=== PATIENT | female | born 1985 | race Caucasian/White ===

== ENCOUNTER 2018-11-11 18:29 | Inpatient (IN) | payer OTHER, SELFPAY ==
[2018-11-11 18:30] VITALS: BP 139/107; PULSE 82; RESP 16; TEMP 37.1; O2SAT 100; BMI 19.1
--- NOTE | 2018-11-11 18:49 | CT_ITS ---
STUDY: CT ABDOMEN AND PELVIS WITHOUT CONTRAST REASON FOR EXAM: Female, 33 years old. Left flank pain, unable to urinate RADIATION DOSAGE (If Supplied By Facility): CTDIvol = ( 6.10 ) mGy, DLP = ( 287.87 ) mGycm TECHNIQUE: Transaxial images were obtained from the dome of the diaphragm to the symphysis pubis without oral contrast, and without intravenous contrast. Sagittal and coronal images were reconstructed. Individualized dose optimization techniques were used for this CT. COMPARISON: None. FINDINGS: The visualized lung bases are unremarkable. The visualized portions of the heart are within normal limits. Normal liver. Normal gallbladder and extrahepatic biliary system. Normal spleen. Normal pancreas. Normal bilateral adrenal glands. There are small punctate calcifications of each kidney. Mild left hydronephrosis with a 4 mm calculus (visible on records management assistant topogram) in the region of the left UVJ. No renal masses. Normal visualized stomach. Normal small intestine. Normal colon. The appendix is visualized and appears normal. Normal abdominal aorta. Normal inferior vena cava. Normal retroperitoneum. Normal urinary bladder. There is fluid in the endometrial canal but no pelvic masses are seen. Normal abdominal wall. Normal osseous structures. CT/Abdomen/Pelvis without Cont IMPRESSION: 1. 4 mm left UVJ calculus with mild hydronephrosis. 2. Bilateral nephrolithiasis. Electronically Signed: Khoa Rodriguez MD at 20:43 EST , Service support ,
[2018-11-11] MEDS: 0.9% Normal Saline 1,000 ML 150 ML IV ×2 (18:54→23:13)
[2018-11-11] MEDS: Ondansetron 4 MG/2 ML Vial IV (18:55)
[2018-11-11] MEDS: HYDROmorphone 1 MG/ML Syringe IV ×2 (18:55→19:32)
[2018-11-11] MEDS: Ketorolac 15 MG/ML Vial IV ×2 (18:56→23:14)
[2018-11-11 19:09] LABS: Absolute Lymphocyte Count 0.93 X10^3/ul (0.83-4.51); Basophil# 0.01 X10^3/uL; Basophil% 0.1 % (0-1); Hematocrit 41.5 % (37-47); Lymphocyte # 0.93 X10^3/ul (4.0); Lymphocyte % 13.8 % (19-41); Mean Corp Hgb Conc 33.7 g/gl (32-36); Mean Corpuscular Hgb 30.8 pg (27.0-32.0); Mean Corpuscular Volume 91.2 fL (81-99); Mean Platelet Vol. 9.7 fl (6.2-12.0); Monocyte# 0.82 X10^3/uL; Monocyte% 12.2 % (0-10); Neutrophil # 4.97 X10^3/uL (2.7-7.7); Neutrophil % 73.8 % (47-70); Platelet Count 218 K/mm3 (150-450); RBC Distribution Width CV 12.1 % (11.6-14.6); RBC Distribution Width SD 40.5 fl (35.1-43.9); Red Blood Count 4.55 M/mm3 (4.2-5.4); White Blood Count 6.7 K/mm3 (4.4-11.0)
--- NOTE | 2018-11-11 19:09 | ED.RN ---
BLADDER SCANNED PT PRIOR TO GOING TO RESTROOM. 60ML NOTED.
[2018-11-11 19:11] LABS: POSITIVE COUNT NO; POSITIVE DIFFERENTIAL NO; POSITIVE MORPHOLOGY NO
[2018-11-11 19:35] LABS: BUN 11 mg/dL (7-18); Creatinine, Serum 0.83 mg/dL (0.55-1.02); Estimated Creatinine Clearance 73.86 ml/min; Glucose 110 mg/dL (74-106)
[2018-11-11 19:36] LABS: Anion Gap 9 (5-15); BUN/Creat Ratio 13.2 RATIO (10-20); Calcium,Total 8.4 mg/dL (8.5-10.1); Chloride 101 mmol/L (98-107); EST Glomerular Filtration Rate 83 mL/min (>60); Est Glom Filt Rate - Afr Amer 101 mL/min (>60); Potassium 2.8 mmol/L (3.5-5.1); Sodium Level 136 mmol/L (136-145)
[2018-11-11 19:53] LABS: Pregnancy, Serum, hCG Quali. NEGATIVE Negative (0-9 Nonpreg)
[2018-11-11 20:43] VITALS: RESP 14
[2018-11-11 20:45] LABS: Bacteria 0 SEEN /hpf (None Seen)
[2018-11-11 20:54] LABS: Color, Urine Yellow (Yellow); Glucose, Dipstick Normal (Normal); Leukocyte Esterase-Dipstick 25 /ul (Negative); Nitrite-Dipstick Negative (Negative); Occult Blood-Urine 250 /ul (Negative); Protein-Dipstick 30 mg/dl (Negative); Specific Gravity, Urine 1.015 (1.002-1.030); Urine Clarity Cloudy (Clear); Urine Urobilinogen 1 mg/dl (Normal); Urine pH 6.5 (5.0 - 8.0)
[2018-11-11 21:01] LABS: Urine Bilirubin Dipstick 1 mg/dL (Negative)
[2018-11-11 21:02] LABS: Ketone-Dipstick 150 mg/dl (Negative)
--- NOTE | 2018-11-11 21:18 | ED.VISSUMM ---
- ER Visit Summary Date of Service: 11/11/18 Chief Complaint: [Left flank pain] History of Present Illness: The patient is a 33 F [presents to the emergency department with complaint of left flank pain that started 2 days ago. Patient was seen and hemodynamically include facility and diagnosed with possibly a passed kidney stone and she was noted to have some stones in her left kidney as well. Patient was discharged home since being discharged she is noted that she is peeing small amounts she does not passing much urine and it has been bloody. Patient also complaining of severe pain in her left flank. She is been having nausea and vomiting. She denies any fever.] Physical Examination: [HEENT-PERRLA, EOMI. Cranial nerves II through XII grossly intact. TMs clear. Mucous membranes moist. No adenopathy. Cardiovascular-regular rate and rhythm without murmur or ectopy Lungs-clear to auscultation, chest wall stable without crepitus or subcu emphysema Abdomen-normoactive bowel sounds, soft. Patient has tenderness palpation over left lower quadrant. She has CVA tenderness on the left. Extremities-intact ?4, normal range of motion, normal pulses, atraumatic] Test Results: [CBC with differential obtained showed a white count 6.7, hemoglobin 14, hematocrit 41.5, platelets 218. Chemistries unremarkable other than a depressed potassium of 2.8. BUN was 11 creatinine 0.83. Urinalysis showed blood but no signs of infection. HCG was negative. CT flank showed a 4 mm stone at the left UVJ with mild hydro-.] Emergency Department Course and Treatment: [Patient was medicated with Toradol, Zofran, and Dilaudid. Patient continued to have pain and was given a repeat dose of Dilaudid. Patient was given potassium chloride 40 mEq p.o.] Treatment Plan: [Admit for pain control] Disposition: [Admit] Impression: [Left urolithiasis with intractable pain Hypokalemia] This note was generated with [employer] dictation software. It may contain incorrect words, spelling, and punctuation that were not noted in review of the chart prior to signing ED Disposition - Plan for ED Patient: Referrals: Care Physician,No Primary [Primary Care Provider] -
[2018-11-11 21:29] LABS: Mucous, Urine 1+ /hpf (<or=2+); Squamous Epithelial Cells - UA 0-5 SEEN /hpf (5-10)
[2018-11-11 21:30] LABS: Red Blood Cells-Urine > 100 SEEN /hpf (0-5)
[2018-11-11 21:32] LABS: White Blood Cells 0-5 SEEN /hpf (0-5)
--- NOTE | 2018-11-11 22:01 | HP.PCM_ITS ---
Problem List (1) Nephrolithiasis Status: Acute (2) Hematuria Status: Acute Qualifiers: Hematuria type: unspecified type Qualified Code(s): R31.9 - Hematuria, unspecified (3) Intractable pain Status: Acute History of Present Illness Date of Admission: 11/11/18 Chief Complaint: L flank pain, N/V The patient is a 33 y/o F w/ PMHx: Prior Hx Nephrolithiasis s/p lithotripsy and prior ureteral stent in her [address] Ivory otherwise relatively healthy who presents to the [facility] ED on 11/11/18 with history of onset left-sided flank pain as well as intermittent hematuria over the last week with the ED evaluation and Mendina and short admission on day of current presentation, discharged to home but had recurrent intractable left flank pain as well as nausea and emesis prompting reevaluation. Per discussion with patient at outside facility CT scan had been performed and there was no evidence of a ureteral stone at that time. In the ED workup included T 98.7, heart rate 82, BP 139/107, respiratory rate 16, 100% on room air, CBC with WBC 6.7, hemoglobin 14, platelet 218 with mild shift, BMP with potassium 2.8, glucose 110, negative testing, urinalysis with ascitic gravity 1.015, protein 30, ketones 150, occult blood 250, nitrite negative, urine bilirubin 1, urine urobilinogen 1, urine leukocyte esterase 25, RBC greater than 100, WBC 0-5, urine bacteria 0, CT abdomen and pelvis with a 4 mm left UVJ calculus with mild hydronephrosis with bilateral nephrolithiasis noted. In the ED patient administered potassium supplementation, Zofran, Toradol, Dilaudid, normal saline. Past Medical History Allergies amoxicillin [Amoxicillin] Allergy (Verified 11/11/18 18:29) Unknown chlorthalidone [From [place]] Allergy (Verified 11/11/18 18:29) Unknown nitrofurantoin [From Macrobid] Allergy (Verified 11/11/18 18:29) Unknown nitrofurantoin macrocrystalline [From Macrobid] Allergy (Verified 11/11/18 18:29) Unknown sulfamethoxazole [From Bactrim] Allergy (Verified 11/11/18 18:29) Swelling trimethoprim [From Bactrim] Allergy (Verified 11/11/18 18:29) Swelling Home Medications: Ambulatory Orders Medication Instructions Recorded Vits [Prenatabs FA ] 1 tablet PO DAILY 11/25/13 Cephalexin 500 mg PO 4X/DAY 11/11/18 Tamsulosin HCl 0.4 mg PO DAILY 11/11/18 Surgical History: - - Prior ureteral stent and lithotripsy. 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 Paternal History Items: - - Patient notes a paternal family history of hemochromatosis, hypertension, hyperlipidemia. Review of Systems Constitutional: Reports: Anorexia, Malaise, Weakness, Fatigue. Denies: Chills, Fever, Weight Change HEENT: Denies: Head Aches, Sinus Congestion, Sinus Drainage Cardiovascular: Denies: Chest Pain, Palpitations Respiratory: Denies: Cough, Shortness of breath at rest, Sputum production Gastrointestinal: Reports: Nausea, Vomiting. Denies: Abdominal Pain Genitourinary: Reports: Hematuria. Denies: Dysuria Musculoskeletal: Reports: Back Pain. Denies: Joint Pain, Joint Tenderness Skin: Denies: Rash, Wounds Neurological: Denies: Numbness, Tingling, Focal weakness Psychiatric: Denies: Anxiety, Depression, Homicidal Ideations, Suicidal Ideations Hematologic/ Lymphatic: Denies: Easy Bruising, Easy Bleeding VTE Information - Inpt Only VTE Present on Admission: No VTE Mechan Device Prophylaxis: Knee High KIMANI Hose VTE Pharm Prophylaxis ordered?: No Reason prophylaxis not ordered:: Treatment Not Indicated Patient Problems: Active and Suspected Problems Nephrolithiasis (Acute) Hematuria (Acute) Intractable pain (Acute) Subjective: Laying in the ED bed, fatigued appearing, notes ongoing left flank discomfort, emesis bag being held. Objective: Physical Examination: General: awake, alert, oriented x 3 and cooperative, laying in the ED bed, fatigued. Skin: normal color, turgor, no icterus, cyanosis. HEENT: AT/NC, EOMI, PERRLA, dry MM, no carotid bruits or JVD noted. Lungs: CTA bilaterally, moderate effort, mild decrease BL bases, no rales, ronchi or wheezing. Heart: Regular rate and rhythm; no gallop, rub audible. Abdomen: soft, NTTP, noted left flank tenderness with palpation, ND, B hyperactive BS, no HSM. Extremities: no cyanosis, clubbing, or edema. Neurological: patient awake, alert, oriented x 3; cognitive function intact; pupils equally reactive to light and accomodation; cranial nerves II-XII grossly normal, moving all 4 extremities, no focal deficits, strength moderately to severely globally decreased secondary to acute presentation. Psychiatric: affect appears fatigued, no acute evidence of depressive or anxiety feelings. - Physical Exam Vital Signs Temp Pulse Resp BP Pulse Ox 98.7 F 82 14 139/107 H 100 11/11/18 18:30 11/11/18 18:30 11/11/18 20:43 11/11/18 18:30 11/11/18 18:30 Weight: 108 lb Body Mass Index (BMI) 19.1 Laboratory Tests Past 24 Hrs 11/11/18 11/11/18 11/11/18 18:40 18:40 18:40 WBC 6.7 RBC 4.55 Hgb 14.0 Hct 41.5 MCV 91.2 MCH 30.8 MCHC 33.7 RDW 12.1 RDW Differential 40.5 Plt Count 218 MPV 9.7 Immature Gran % (Auto) 0.100 Neut % (Auto) 73.8 H Lymph % (Auto) 13.8 L [place] % (Auto) 12.2 H Eos % (Auto) 0.0 Baso % (Auto) 0.1 Absolute Neuts (auto) 5.0 Absolute Lymphs (auto) 0.93 Total Counted Not Reportable Sodium 136 Potassium 2.8 L Chloride 101 Carbon Dioxide 26.0 Anion Gap 9 BUN 11 Creatinine 0.83 Estim Creat Clear Calc 73.86 Est GFR (MDRD) Af Amer 101 Est GFR (MDRD) Non-Af 83 BUN/Creatinine Ratio 13.2 Glucose 110 H Calcium 8.4 L Serum , Qual NEGATIVE Urine Color Urine Clarity Urine pH Ur Specific [place] Urine Protein Urine Glucose (UA) Urine Ketones Urine Occult Blood Urine Nitrite Urine Bilirubin Urine Urobilinogen Ur Leukocyte Esterase Urine RBC Urine WBC Ur Squamous Epith Cells Urine Bacteria Urine Mucus 11/11/18 20:38 WBC RBC Hgb Hct MCV MCH MCHC RDW RDW Differential Plt Count MPV Immature Gran % (Auto) Neut % (Auto) Lymph % (Auto) [place] % (Auto) Eos % (Auto) Baso % (Auto) Absolute Neuts (auto) Absolute Lymphs (auto) Total Counted Sodium Potassium Chloride Carbon Dioxide Anion Gap BUN Creatinine Estim Creat Clear Calc Est GFR (MDRD) Af Amer Est GFR (MDRD) Non-Af BUN/Creatinine Ratio Glucose Calcium Serum , Qual Urine Color Yellow Urine Clarity Cloudy Urine pH 6.5 Ur Specific [place] 1.015 Urine Protein 30 H Urine Glucose (UA) Normal Urine Ketones 150 H Urine Occult Blood 250 H Urine Nitrite Negative Urine Bilirubin 1 H Urine Urobilinogen 1 H Ur Leukocyte Esterase 25 H Urine RBC > 100 SEEN Urine WBC 0-5 SEEN Ur Squamous Epith Cells 0-5 SEEN Urine Bacteria 0 SEEN Urine Mucus 1+ Assessment/Plan All Active Problems Nephrolithiasis (Acute) Hematuria (Acute) Intractable pain (Acute) The patient is a 33 y/o F w/ PMHx: Prior Hx Nephrolithiasis s/p lithotripsy and prior ureteral stent in her [address]s [address] Ivory otherwise relatively healthy who presents to the [facility] ED on 11/11/18 with history of onset left-sided flank pain as well as intermittent hematuria over the last week with the ED evaluation and Mendina and short admission on day of current presentation, discharged to home but had recurrent intractable left flank pain as well as nausea and emesis prompting reevaluation. (1) Acute Flank Pain, Hematuria secondary to Acute Nephrolithiasis w/ Ureteral Calculus without obvious concurrent UTI: ED workup included T 98.7, heart rate 82, BP 139/107, respiratory rate 16, 100% on room air, CBC with WBC 6.7, hemoglobin 14, platelet 218 with mild shift, BMP with potassium 2.8, glucose 110, negative testing, urinalysis with ascitic gravity 1.015, protein 30, ketones 150, occult blood 250, nitrite negative, urine bilirubin 1, urine urobilinogen 1, urine leukocyte esterase 25, RBC greater than 100, WBC 0-5, urine bacteria 0, CT abdomen and pelvis with a 4 mm left UVJ calculus with mild hydronephrosis with bilateral nephrolithiasis noted. Will admit to [facility], maintain on aggressive hydration, given size suspect may pass, if not would plan AM consultation w/ Urology, will maintain NPO after midnight incase of intervention needs to avoid delay, IV/Oral pain regimen, scheduled toradol x 5 doses, PRN anti-emetics, monitor I&Os. Given size of calculus suspect will pass, thus as noted will defer immediate urology involvement. (2) Hypokalemia: Admission K+ 2.8, supplementation given, repeat level in AM. Mag pending. (3) GI Prophylaxis: Famotidine while NPO status. (4) DVT Prophylaxis: Low risk, KIMANI, ambulation. Code Visit OBSV E&M: [id number] Initial observation care L3
[2018-11-11 22:11] VITALS: BP 111/78; PULSE 61; RESP 18; O2SAT 99
[2018-11-11 22:12] VITALS: BP 111/78; PULSE 61; RESP 18; O2SAT 99
[2018-11-11 22:46] VITALS: BMI 19.3
[2018-11-11 22:48] VITALS: BMI 19.3
[2018-11-11 22:51] LABS: Magnesium 1.7 mg/dL (1.6-2.6)
[2018-11-11 22:53] VITALS: BP 118/74; PULSE 64; RESP 16; TEMP 36.8; O2SAT 100
[2018-11-11] MEDS: 0.9% NaCl Peripheral Flush Adult/Peds IV (23:13)
[2018-11-11] MEDS: Potassium Chloride 10mEq/100mL 10 MEQ/100 ML IV.SOLN. 100 MEQ IV BOLUS (23:14)
[2018-11-12] MEDS: oxyCODONE 5 MG Tablet PO (00:22)
[2018-11-12] MEDS: Potassium Chloride 10mEq/100mL 10 MEQ/100 ML IV.SOLN. 100 MEQ IV BOLUS (00:22)
[2018-11-12] MEDS: Temazepam 15 MG Capsule PO ×2 (00:23→22:16)
[2018-11-12 05:00] VITALS: BP 95/52; PULSE 64; RESP 14; TEMP 36.7; O2SAT 99
[2018-11-12] MEDS: Ketorolac 15 MG/ML Vial IV ×3 (05:18→22:16)
[2018-11-12] MEDS: 0.9% Normal Saline 1,000 ML 150 ML IV ×3 (05:18→18:07)
[2018-11-12 06:41] LABS: Absolute Lymphocyte Count 1.27 X10^3/ul (0.83-4.51); Absolute Neutrophil Count 1.4 X10^3/uL (2.0-7.7); Basophil# 0.01 X10^3/uL; Basophil% 0.3 % (0-1); Eosinophil# 0.05 X10^3/uL; Eosinophils% 1.6 % (0-5); Hematocrit 33.3 % (37-47); Hemoglobin 10.9 g/dl (12.0-15.0); Lymphocyte # 1.27 X10^3/ul (4.0); Lymphocyte % 39.6 % (19-41); Mean Corp Hgb Conc 32.7 g/gl (32-36); Mean Corpuscular Hgb 30.7 pg (27.0-32.0); Mean Corpuscular Volume 93.8 fL (81-99); Mean Platelet Vol. 9.7 fl (6.2-12.0); Monocyte# 0.49 X10^3/uL; Monocyte% 15.3 % (0-10); Neutrophil # 1.38 X10^3/uL (2.7-7.7); Neutrophil % 42.9 % (47-70); Platelet Count 179 K/mm3 (150-450); RBC Distribution Width CV 11.7 % (11.6-14.6); RBC Distribution Width SD 38.8 fl (35.1-43.9); Red Blood Count 3.55 M/mm3 (4.2-5.4); White Blood Count 3.2 K/mm3 (4.4-11.0)
[2018-11-12 06:47] LABS: POSITIVE COUNT NO; POSITIVE DIFFERENTIAL NO; POSITIVE MORPHOLOGY NO
[2018-11-12 06:49] LABS: Anion Gap 5 (5-15); BUN 7 mg/dL (7-18); BUN/Creat Ratio 13.8 RATIO (10-20); Calcium,Total 7.5 mg/dL (8.5-10.1); Chloride 113 mmol/L (98-107); Creatinine, Serum 0.51 mg/dL (0.55-1.02); EST Glomerular Filtration Rate 147 mL/min (>60); Est Glom Filt Rate - Afr Amer 178 mL/min (>60); Estimated Creatinine Clearance 121.32 ml/min; Glucose 90 mg/dL (74-106); Potassium 4.3 mmol/L (3.5-5.1); Sodium Level 144 mmol/L (136-145)
--- NOTE | 2018-11-12 07:22 | PN_ITS ---
Patient Problems: Active and Suspected Problems Nephrolithiasis (Acute) Hematuria (Acute) Intractable pain (Acute) Subjective: Patient is a 33-year-old lady with history of recurrent kidney stones with previous lithotripsy who presented with left flank pain. Imaging studies obtained on admission demonstrated a 4 mm left UVJ calculus with mild hydronephrosis and Bilateral nephrolithiasis. Objective: GENERAL: cooperative HEENT: Atraumatic; moist oral mucosa EYES; Anicteric, Normal Conjunctiva NECK; supple, normal thyroid, no distended JVD. RESPIRATORY: Diminished to auscultation bilaterally, CARDIOVASCULAR: Regular S1 S2, no audible murmurs GI: soft, non-tender, normoactive bowel sounds, : No Renal angle tenderness; EXTREMITIES: No edema, no clubbing, no cyanosis. MUSCULOSKELETAL: No Joint Tenderness; no muscle waisting NEURO: Awake; no lateralizing signs. SKIN: No Rash PSYCH; Normal affect Vitals/I&O's: Vital Signs Temp Pulse Resp BP Pulse Ox 98.0 F 64 14 95/52 L 99 11/12/18 05:00 11/12/18 05:00 11/12/18 05:00 11/12/18 05:00 11/12/18 05:00 Oxygen Delivery Method Room Air Weight: 49.442 kg Body Mass Index (BMI) 19.3 Intake and Output for Last 24 Hours 11/10/18 11/11/18 11/12/18 23:59 23:59 23:59 Intake Total 915 / 915 Output Total 975 / 975 Balance -60 / -60 Laboratory Results 11/11/18 18:40: WBC 6.7, RBC 4.55, Hgb 14.0, Hct 41.5, MCV 91.2, MCH 30.8, MCHC 33.7, RDW 12.1, RDW Differential 40.5, Plt Count 218, MPV 9.7, Immature Gran % (Auto) 0.100, Neut % (Auto) 73.8 H, Lymph % (Auto) 13.8 L, [place] % (Auto) 12.2 H, Eos % (Auto) 0.0, Baso % (Auto) 0.1, Absolute Neuts (auto) 5.0, Absolute Lymphs (auto) 0.93, Total Counted Not Reportable 11/11/18 18:40: Sodium 136, Potassium 2.8 L, Chloride 101, Carbon Dioxide 26.0, Anion Gap 9, BUN 11, Creatinine 0.83, Estim Creat Clear Calc 73.86, Est GFR (MDRD) Af Amer 101, Est GFR (MDRD) Non-Af 83, BUN/Creatinine Ratio 13.2, Glucose 110 H, Calcium 8.4 L 11/11/18 18:40: Serum , Qual NEGATIVE 11/11/18 18:40: Magnesium 1.7 11/11/18 20:38: Urine Color Yellow, Urine Clarity Cloudy, Urine pH 6.5, Ur Specific [place] 1.015, Urine Protein 30 H, Urine Glucose (UA) Normal, Urine Ketones 150 H, Urine Occult Blood 250 H, Urine Nitrite Negative, Urine Bilirubin 1 H, Urine Urobilinogen 1 H, Ur Leukocyte Esterase 25 H, Urine RBC > 100 SEEN, Urine WBC 0-5 SEEN, Ur Squamous Epith Cells 0-5 SEEN, Urine Bacteria 0 SEEN, Urine Mucus 1+ 11/12/18 06:04: WBC 3.2 L, RBC 3.55 L, Hgb 10.9 L, Hct 33.3 L, MCV 93.8, MCH 30.7, MCHC 32.7, RDW 11.7, RDW Differential 38.8, Plt Count 179, MPV 9.7, Immature Gran % (Auto) 0.300, Neut % (Auto) 42.9 L, Lymph % (Auto) 39.6, [place] % (Auto) 15.3 H, Eos % (Auto) 1.6, Baso % (Auto) 0.3, Absolute Neuts (auto) 1.4 L, Absolute Lymphs (auto) 1.27, Total Counted Not Reportable 11/12/18 06:04: Sodium 144, Potassium 4.3, Chloride 113 H, Carbon Dioxide 26.0, Anion Gap 5, BUN 7, Creatinine 0.51 L, Estim Creat Clear Calc 121.32, Est GFR (MDRD) Af Amer 178, Est GFR (MDRD) Non-Af 147, BUN/Creatinine Ratio 13.8, Glucose 90, Calcium 7.5 L Current Medications Acetaminophen (Tylenol) 650 mg PO Q6H PRN PRN PRN Reason: Non-cardiac pain (mod-severe) Al Hydroxide/Mg Hydroxide (Mylanta Ii) 30 ml PO Q6H PRN PRN PRN Reason: Gastric burning Hydralazine HCl (Apresoline Iv) 10 mg IV Q4H PRN PRN PRN Reason: SBP > 160 Hydromorphone HCl (Dilaudid Inj) 1 mg IV Q3H PRN PRN PRN Reason: SEVERE PAIN (6-10/10) Sodium Chloride () 1,000 mls @ 150 mls/hr IV .Q6H40M DIALLO Last Admin: 11/12/18 05:18 Dose: 150 mls/hr Famotidine 20 mg/ Sodium (Chloride) 10 mls @ 300 mls/hr IV Q12 [facility] Sodium Chloride () 250 mls @ 15 mls/hr IV .[id number] PRN PRN Reason: SALINE FLUSH Ketorolac Tromethamine (Toradol) 15 mg IV Q8 [facility] Stop: 11/13/18 06:01 Last Admin: 11/12/18 05:18 Dose: 15 mg Magnesium Hydroxide (Milk Of Magnesia) 30 ml PO DAILY PRN PRN PRN Reason: Constipation Ondansetron HCl (Zofran) 4 mg IV Q8H PRN PRN PRN Reason: NAUSEA/VOMITING Oxycodone HCl (Oxyir) 5 - 10 mg PO Q4H PRN PRN PRN Reason: SEVERE PAIN (6-10/10) Last Admin: 11/12/18 00:22 Dose: 5 mg Promethazine HCl (Phenergan) 6.25 mg IV Q4H PRN PRN PRN Reason: NAUSEA/VOMITING Sodium Chloride () 5 - 15 ml IV UD PRN PRN Reason: SALINE FLUSH Last Admin: 11/11/18 23:13 Dose: 10 ml Tamsulosin HCl (Flomax) 0.4 mg PO DAILY [facility] Temazepam (Restoril) 15 mg PO QHS PRN PRN PRN Reason: insomnia Last Admin: 11/12/18 00:23 Dose: 15 mg Medical Necessity - Tobacco Use Smoking Status: Never smoker Tobacco Use: Non-smoker Assessment/Plan All Active Problems Nephrolithiasis (Acute) Hematuria (Acute) Intractable pain (Acute) Patient is a 33-year-old lady with history of recurrent kidney stones with previous lithotripsy who presented with left flank pain. Imaging studies obtained on admission demonstrated a 4 mm left UVJ calculus with mild hydronep hrosis and Bilateral nephrolithiasis. 1. Left flank pain secondary to a 4 mm left UVJ calculus with mild hydronephrosis and Bilateral nephrolithiasis. Patient has been admitted to regular nursing floor for symptomatic management and condition did stabilize discharged home with plans for patient to follow-up with urology as outpatient 2. Hypokalemia corrected per protocol 3. DVT prophylaxis low risk did encourage early ambulation Active Medications Acetaminophen (Tylenol) 650 mg PO Q6H PRN PRN PRN Reason: Non-cardiac pain (mod-severe) Al Hydroxide/Mg Hydroxide (Mylanta Ii) 30 ml PO Q6H PRN PRN PRN Reason: Gastric burning Hydralazine HCl (Apresoline Iv) 10 mg IV Q4H PRN PRN PRN Reason: SBP > 160 Hydromorphone HCl (Dilaudid Inj) 1 mg IV Q3H PRN PRN PRN Reason: SEVERE PAIN (6-10/10) Sodium Chloride () 1,000 mls @ 150 mls/hr IV .Q6H40M [facility] Last Admin: 11/12/18 05:18 Dose: 150 mls/hr Famotidine 20 mg/ Sodium (Chloride) 10 mls @ 300 mls/hr IV Q12 [facility] Last Admin: 11/12/18 08:21 Dose: 300 mls/hr Sodium Chloride () 250 mls @ 15 mls/hr IV .[id number] PRN PRN Reason: SALINE FLUSH Ketorolac Tromethamine (Toradol) 15 mg IV Q8 [facility] Stop: 11/13/18 06:01 Last Admin: 11/12/18 05:18 Dose: 15 mg Magnesium Hydroxide (Milk Of Magnesia) 30 ml PO DAILY PRN PRN PRN Reason: Constipation Ondansetron HCl (Zofran) 4 mg IV Q8H PRN PRN PRN Reason: NAUSEA/VOMITING Oxycodone HCl (Oxyir) 5 - 10 mg PO Q4H PRN PRN PRN Reason: SEVERE PAIN (6-10/10) Last Admin: 11/12/18 00:22 Dose: 5 mg Promethazine HCl (Phenergan) 6.25 mg IV Q4H PRN PRN PRN Reason: NAUSEA/VOMITING Sodium Chloride () 5 - 15 ml IV UD PRN PRN Reason: SALINE FLUSH Last Admin: 11/11/18 23:13 Dose: 10 ml Tamsulosin HCl (Flomax) 0.4 mg PO DAILY DIALLO Last Admin: 11/12/18 08:20 Dose: 0.4 mg Temazepam (Restoril) 15 mg PO QHS PRN PRN PRN Reason: insomnia Last Admin: 11/12/18 00:23 Dose: 15 mg Clinical Impression(s) from Imaging Studies Abdomen/Pelvis CT 11/11/18 18:49 IMPRESSION: 1. 4 mm left UVJ calculus with mild hydronephrosis. 2. Bilateral nephrolithiasis. Electronically Signed: Khoa Rodriguez MD at 20:43 EST , Service support , Code Visit OBSV E&M: [id number] Subsequent observation care L2
[2018-11-12 08:18] VITALS: BP 112/76; PULSE 57; RESP 14; TEMP 36.6; O2SAT 100
[2018-11-12] MEDS: Tamsulosin HCl 0.4 MG Capsule PO (08:20)
--- NOTE | 2018-11-12 08:52 | DCINST_ITS ---
- Discharge Diagnoses Current Active Problems: Current Active and Chronic Problems Nephrolithiasis (Acute) Hematuria (Acute) Intractable pain (Acute) You will use the following diet at home:: No restrictions Your food should be the consistency of: Regular Discharge Activity: May not drive while taking narcotic pain medications. Allergies/Adverse Reactions: Allergies amoxicillin [Amoxicillin] Allergy (Verified 11/11/18 18:29) Unknown chlorthalidone [From [place]] Allergy (Verified 11/11/18 18:29) Unknown nitrofurantoin [From Macrobid] Allergy (Verified 11/11/18 18:29) Unknown nitrofurantoin macrocrystalline [From Macrobid] Allergy (Verified 11/11/18 18:29) Unknown sulfamethoxazole [From Bactrim] Allergy (Verified 11/11/18 18:29) Swelling trimethoprim [From Bactrim] Allergy (Verified 11/11/18 18:29) Swelling Medications to take at Discharge Vits [Prenatabs FA ] 1 tablet PO DAILY 11/25/13 Cephalexin 500 mg PO 4X/DAY 11/11/18 Cholecalciferol (Vitamin D3) [Vitamin D3] 2,000 unit PO DAILY 11/11/18 Tamsulosin HCl 0.4 mg PO DAILY 11/11/18 Primary Care Physician: Care Physician,No Primary [Primary Care Provider] - Test Results: Test results from this visit will be discussed in further detail at your follow- up appointment, if applicable. Please Follow Up With: Eduar Del Cid MD When: please call for Appt Proposed Discharge Date: 11/12/18
--- NOTE | 2018-11-12 08:55 | DS.PCM_ITS ---
Discharge Date and Diagnosis - Problem List Patient Problems: Active and Suspected Problems Nephrolithiasis (Acute) Hematuria (Acute) Intractable pain (Acute) Date of Admission: 11/11/18 Date of Discharge: 11/12/18 - Primary Discharge Diagnosis Active and Suspected Problems Nephrolithiasis (Acute) Hematuria (Acute) Intractable pain (Acute) Hospital Course and Treatment Imaging Results: Clinical Impression(s) from Imaging Studies Abdomen/Pelvis CT 11/11/18 18:49 IMPRESSION: 1. 4 mm left UVJ calculus with mild hydronephrosis. 2. Bilateral nephrolithiasis. Electronically Signed: Khoa Rodriguez MD at 20:43 EST , Service support , Summary of Care Provided: Patient is a 33-year-old lady with history of recurrent kidney stones with previous lithotripsy who presented with left flank pain. Imaging studies obtained on admission demonstrated a 4 mm left UVJ calculus with mild hydronephrosis and Bilateral nephrolithiasis. 1. Left flank pain secondary to a 4 mm left UVJ calculus with mild hydronephrosis and Bilateral nephrolithiasis. Patient has been admitted to [facility] nursing floor for symptomatic management and condition did stabilize discharged home with plans for patient to follow-up with urology as outpatient 2. Hypokalemia corrected per protocol 3. DVT prophylaxis low risk did encourage early ambulation Patient Problems: Active and Suspected Problems Nephrolithiasis (Acute) Hematuria (Acute) Intractable pain (Acute) Objective: GENERAL: cooperative HEENT: Atraumatic; moist oral mucosa EYES; Anicteric, Normal Conjunctiva NECK; supple, normal thyroid, no distended JVD. RESPIRATORY: Diminished to auscultation bilaterally, CARDIOVASCULAR: Regular S1 S2, no audible murmurs GI: soft, non-tender, normoactive bowel sounds, EXTREMITIES: No edema, no clubbing, no cyanosis. MUSCULOSKELETAL: No Joint Tenderness; NEURO: Awake; no lateralizing signs. SKIN: No Rash PSYCH; Normal affect - Physical Exam Musculoskeletal: - Vital Signs Temp Pulse Resp BP Pulse Ox 97.9 F 57 L 14 112/76 100 11/12/18 08:18 11/12/18 08:18 11/12/18 08:18 11/12/18 08:18 11/12/18 08:18 Oxygen Delivery Method Room Air Weight: 49.442 kg Body Mass Index (BMI) 19.3 Intake and Output for Last 24 Hours 11/10/18 11/11/18 11/12/18 23:59 23:59 23:59 Intake Total 915 / 915 Output Total 975 / 975 Balance -60 / -60 Laboratory Tests Past 24 Hrs 11/11/18 11/11/18 11/11/18 18:40 18:40 18:40 WBC 6.7 RBC 4.55 Hgb 14.0 Hct 41.5 MCV 91.2 MCH 30.8 MCHC 33.7 RDW 12.1 RDW Differential 40.5 Plt Count 218 MPV 9.7 Immature Gran % (Auto) 0.100 Neut % (Auto) 73.8 H Lymph % (Auto) 13.8 L [place] % (Auto) 12.2 H Eos % (Auto) 0.0 Baso % (Auto) 0.1 Absolute Neuts (auto) 5.0 Absolute Lymphs (auto) 0.93 Total Counted Not Reportable Sodium 136 Potassium 2.8 L Chloride 101 Carbon Dioxide 26.0 Anion Gap 9 BUN 11 Creatinine 0.83 Estim Creat Clear Calc 73.86 Est GFR (MDRD) Af Amer 101 Est GFR (MDRD) Non-Af 83 BUN/Creatinine Ratio 13.2 Glucose 110 H Calcium 8.4 L Magnesium Serum , Qual NEGATIVE Urine Color Urine Clarity Urine pH Ur Specific [place] Urine Protein Urine Glucose (UA) Urine Ketones Urine Occult Blood Urine Nitrite Urine Bilirubin Urine Urobilinogen Ur Leukocyte Esterase Urine RBC Urine WBC Ur Squamous Epith Cells Urine Bacteria Urine Mucus 11/11/18 11/11/18 11/12/18 18:40 20:38 06:04 WBC 3.2 L RBC 3.55 L Hgb 10.9 L Hct 33.3 L MCV 93.8 MCH 30.7 MCHC 32.7 RDW 11.7 RDW Differential 38.8 Plt Count 179 MPV 9.7 Immature Gran % (Auto) 0.300 Neut % (Auto) 42.9 L Lymph % (Auto) 39.6 [place] % (Auto) 15.3 H Eos % (Auto) 1.6 Baso % (Auto) 0.3 Absolute Neuts (auto) 1.4 L Absolute Lymphs (auto) 1.27 Total Counted Not Reportable Sodium Potassium Chloride Carbon Dioxide Anion Gap BUN Creatinine Estim Creat Clear Calc Est GFR (MDRD) Af Amer Est GFR (MDRD) Non-Af BUN/Creatinine Ratio Glucose Calcium Magnesium 1.7 Serum , Qual Urine Color Yellow Urine Clarity Cloudy Urine pH 6.5 Ur Specific [place] 1.015 Urine Protein 30 H Urine Glucose (UA) Normal Urine Ketones 150 H Urine Occult Blood 250 H Urine Nitrite Negative Urine Bilirubin 1 H Urine Urobilinogen 1 H Ur Leukocyte Esterase 25 H Urine RBC > 100 SEEN Urine WBC 0-5 SEEN Ur Squamous Epith Cells 0-5 SEEN Urine Bacteria 0 SEEN Urine Mucus 1+ 11/12/18 06:04 WBC RBC Hgb Hct MCV MCH MCHC RDW RDW Differential Plt Count MPV Immature Gran % (Auto) Neut % (Auto) Lymph % (Auto) [place] % (Auto) Eos % (Auto) Baso % (Auto) Absolute Neuts (auto) Absolute Lymphs (auto) Total Counted Sodium 144 Potassium 4.3 Chloride 113 H Carbon Dioxide 26.0 Anion Gap 5 BUN 7 Creatinine 0.51 L Estim Creat Clear Calc 121.32 Est GFR (MDRD) Af Amer 178 Est GFR (MDRD) Non-Af 147 BUN/Creatinine Ratio 13.8 Glucose 90 Calcium 7.5 L Magnesium Serum , Qual Urine Color Urine Clarity Urine pH Ur Specific [place] Urine Protein Urine Glucose (UA) Urine Ketones Urine Occult Blood Urine Nitrite Urine Bilirubin Urine Urobilinogen Ur Leukocyte Esterase Urine RBC Urine WBC Ur Squamous Epith Cells Urine Bacteria Urine Mucus Discharge Diet: No Restrictions Discharge Activity: May not drive while taking narcotic pain medications. Home Medications: Medications to take at Discharge Vits [Prenatabs FA ] 1 tablet PO DAILY 11/25/13 Cephalexin 500 mg PO 4X/DAY 11/11/18 Cholecalciferol (Vitamin D3) [Vitamin D3] 2,000 unit PO DAILY 11/11/18 Tamsulosin HCl 0.4 mg PO DAILY 11/11/18 Primary Care Physician: Care Physician,No Primary [Primary Care Provider] - Please Follow Up With: Eduar Del Cid MD When: please call for Appt Disposition: Home Minutes spent on discharge:: 35 Patient Condition:: Stable Medical Necessity - Tobacco Use Smoking Status: Never smoker Tobacco Use: Non-smoker Meaningful Use Info Meaningful Use Diagnoses (Choose all that apply): None applicable Code Visit OBSV E&M: 03252 Observation care discharge
[2018-11-12] MEDS: HYDROmorphone 1 MG/ML Syringe IV ×2 (09:30→20:35)
[2018-11-12] MEDS: 0.9% NaCl Peripheral Flush Adult/Peds IV ×4 (09:30→22:15)
[2018-11-12 14:30] VITALS: BP 117/84; PULSE 67; RESP 16; TEMP 36.6; O2SAT 100
--- NOTE | 2018-11-12 16:39 | PCM.CONS.U ---
Reason for Consult Date of Consultation: 11/12/18 Reason for Consultation: Left ureteral calculi causing hydronephrosis and hydroureter obstruction History of Present Illness: The patient is a 33 year old female known to my practice, presented to the hospital with severe flank pain CAT scan was done and she has a stone impacted in the distal left ureter causing hydroureteronephrosis she also has multiple stones in left kidney and some stones in the right kidney as well. She is admitted and conservative course of observation was performed she is failed to pass the stone conservatively. She still having pain off and on. She said the pain in the last month. I think it is reasonable to offer her surgical intervention to remove the stone. Past Medical History Medical History: Medical History (Last Reviewed 11/12/18 @ 16:41 by Eduar Del Cid MD) Kidney stones N20.0 Allergies amoxicillin [Amoxicillin] Allergy (Verified 11/11/18 18:29) Unknown chlorthalidone [From [place]] Allergy (Verified 11/11/18 18:29) Unknown nitrofurantoin [From Macrobid] Allergy (Verified 11/11/18 18:29) Unknown nitrofurantoin macrocrystalline [From Macrobid] Allergy (Verified 11/11/18 18:29) Unknown sulfamethoxazole [From Bactrim] Allergy (Verified 11/11/18 18:29) Swelling trimethoprim [From Bactrim] Allergy (Verified 11/11/18 18:29) Swelling Home Medications: Ambulatory Orders Medication Instructions Recorded Vits [Prenatabs FA ] 1 tablet PO DAILY 11/25/13 Cephalexin 500 mg PO 4X/DAY 11/11/18 Cholecalciferol (Vitamin D3) 2,000 unit PO DAILY 11/11/18 [Vitamin D3] Tamsulosin HCl 0.4 mg PO DAILY 11/11/18 Surgical History: - - Prior ureteral stent and lithotripsy. 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 Paternal History Items: - - Patient notes a paternal family history of hemochromatosis, hypertension, hyperlipidemia. Review of Systems Constitutional: Denies: Chills, Fever, Weight Change HEENT: Denies: Head Aches, Sinus Congestion, Sinus Drainage Cardiovascular: Denies: Chest Pain, Palpitations Respiratory: Denies: Cough, Shortness of breath at rest, Sputum production Gastrointestinal: Reports: Abdominal Pain. Denies: Nausea, Vomiting Genitourinary: Reports: Urgency, - - History of stones. Denies: Dysuria Musculoskeletal: Denies: Joint Pain, Joint Tenderness Skin: Denies: Rash, Wounds Neurological: Denies: Numbness, Tingling, Focal weakness Psychiatric: Denies: Anxiety, Depression, Homicidal Ideations, Suicidal Ideations Hematologic/ Lymphatic: Denies: Easy Bruising, Easy Bleeding Physical Exam - Physical Exam Vital Signs Temp 97.9 F 11/12/18 14:30 Pulse 67 11/12/18 14:30 Resp 16 11/12/18 14:30 BP 117/84 H 11/12/18 14:30 Pulse Ox 100 11/12/18 14:30 Intake & Output 11/10/18 11/11/18 11/12/18 23:59 23:59 23:59 Intake Total 2289 / 2289 Output Total 1425 / 1425 Balance 864 / 864 Weight: 49.442 kg Intake: Oral 400 / 400 IV fluid/meds 1889 / 1889 Output: Urine 1425 / 1425 General: Alert, Oriented x3 HEENT: Atraumatic Oral: Moist Mucosa Neck: Supple Lungs: Clear to auscultation, Normal air movement Cardiovascular: Regular rate Abdomen: Soft Rectal: Exam deferred Laboratory Tests Past 24 Hrs 11/11/18 11/11/18 11/11/18 18:40 18:40 18:40 WBC 6.7 RBC 4.55 Hgb 14.0 Hct 41.5 MCV 91.2 MCH 30.8 MCHC 33.7 RDW 12.1 RDW Differential 40.5 Plt Count 218 MPV 9.7 Immature Gran % (Auto) 0.100 Neut % (Auto) 73.8 H Lymph % (Auto) 13.8 L [place] % (Auto) 12.2 H Eos % (Auto) 0.0 Baso % (Auto) 0.1 Absolute Neuts (auto) 5.0 Absolute Lymphs (auto) 0.93 Total Counted Not Reportable Sodium 136 Potassium 2.8 L Chloride 101 Carbon Dioxide 26.0 Anion Gap 9 BUN 11 Creatinine 0.83 Estim Creat Clear Calc 73.86 Est GFR (MDRD) Af Amer 101 Est GFR (MDRD) Non-Af 83 BUN/Creatinine Ratio 13.2 Glucose 110 H Calcium 8.4 L Magnesium Serum , Qual NEGATIVE Urine Color Urine Clarity Urine pH Ur Specific [place] Urine Protein Urine Glucose (UA) Urine Ketones Urine Occult Blood Urine Nitrite Urine Bilirubin Urine Urobilinogen Ur Leukocyte Esterase Urine RBC Urine WBC Ur Squamous Epith Cells Urine Bacteria Urine Mucus 11/11/18 11/11/18 11/12/18 18:40 20:38 06:04 WBC 3.2 L RBC 3.55 L Hgb 10.9 L Hct 33.3 L MCV 93.8 MCH 30.7 MCHC 32.7 RDW 11.7 RDW Differential 38.8 Plt Count 179 MPV 9.7 Immature Gran % (Auto) 0.300 Neut % (Auto) 42.9 L Lymph % (Auto) 39.6 [place] % (Auto) 15.3 H Eos % (Auto) 1.6 Baso % (Auto) 0.3 Absolute Neuts (auto) 1.4 L Absolute Lymphs (auto) 1.27 Total Counted Not Reportable Sodium Potassium Chloride Carbon Dioxide Anion Gap BUN Creatinine Estim Creat Clear Calc Est GFR (MDRD) Af Amer Est GFR (MDRD) Non-Af BUN/Creatinine Ratio Glucose Calcium Magnesium 1.7 Serum , Qual Urine Color Yellow Urine Clarity Cloudy Urine pH 6.5 Ur Specific [place] 1.015 Urine Protein 30 H Urine Glucose (UA) Normal Urine Ketones 150 H Urine Occult Blood 250 H Urine Nitrite Negative Urine Bilirubin 1 H Urine Urobilinogen 1 H Ur Leukocyte Esterase 25 H Urine RBC > 100 SEEN Urine WBC 0-5 SEEN Ur Squamous Epith Cells 0-5 SEEN Urine Bacteria 0 SEEN Urine Mucus 1+ 11/12/18 06:04 WBC RBC Hgb Hct MCV MCH MCHC RDW RDW Differential Plt Count MPV Immature Gran % (Auto) Neut % (Auto) Lymph % (Auto) [place] % (Auto) Eos % (Auto) Baso % (Auto) Absolute Neuts (auto) Absolute Lymphs (auto) Total Counted Sodium 144 Potassium 4.3 Chloride 113 H Carbon Dioxide 26.0 Anion Gap 5 BUN 7 Creatinine 0.51 L Estim Creat Clear Calc 121.32 Est GFR (MDRD) Af Amer 178 Est GFR (MDRD) Non-Af 147 BUN/Creatinine Ratio 13.8 Glucose 90 Calcium 7.5 L Magnesium Serum , Qual Urine Color Urine Clarity Urine pH Ur Specific [place] Urine Protein Urine Glucose (UA) Urine Ketones Urine Occult Blood Urine Nitrite Urine Bilirubin Urine Urobilinogen Ur Leukocyte Esterase Urine RBC Urine WBC Ur Squamous Epith Cells Urine Bacteria Urine Mucus Assessment/Plan All Active Problems Nephrolithiasis (Acute) Hematuria (Acute) Intractable pain (Acute) 33-year-old female with a stone in the distal left ureter presents the hospital is failed conservative measures to pass a stone. CAT scan demonstrated a stone in the distal left ureter with hydronephrosis hydroureteronephrosis high-grade obstruction. Today I offered the patient surgical intervention given her failure to pass the stone a reasonable amount of time. She said the pain off and on for the last past month. Recommended we proceed with left ureteroscopy, balloon dilation of the ureter, laser and basket of fragments, possible stent placement depending on the ureter and inflammation. Risk of the procedure were discussed with the patient risk of anesthesia, risk of bleeding infection and injury to the bladder ureter or needing a stent. After discussion with the patient she is agreeable to proceed wire on for the schedule for tomorrow to see what available.
--- NOTE | 2018-11-12 16:43 | CON.PCM_ITS ---
Reason for Consult Date of Consultation: 11/12/18 Reason for Consultation: Left ureteral calculi causing hydronephrosis and hydroureter obstruction History of Present Illness: The patient is a 33 year old female known to my practice, presented to the hospital with severe flank pain CAT scan was done and she has a stone impacted in the distal left ureter causing hydroureteronephrosis she also has multiple stones in left kidney and some stones in the right kidney as well. She is ad mitted and conservative course of observation was performed she is failed to pass the stone conservatively. She still having pain off and on. She said the pain in the last month. I think it is reasonable to offer her surgical intervention to remove the stone. Past Medical History Medical History: Medical History (Last Reviewed 11/12/18 @ 16:41 by Eduar Del Cid MD) Kidney stones N20.0 Allergies amoxicillin [Amoxicillin] Allergy (Verified 11/11/18 18:29) Unknown chlorthalidone [From [place]] Allergy (Verified 11/11/18 18:29) Unknown nitrofurantoin [From Macrobid] Allergy (Verified 11/11/18 18:29) Unknown nitrofurantoin macrocrystalline [From Macrobid] Allergy (Verified 11/11/18 18:29 ) Unknown sulfamethoxazole [From Bactrim] Allergy (Verified 11/11/18 18:29) Swelling trimethoprim [From Bactrim] Allergy (Verified 11/11/18 18:29) Swelling Home Medications: Ambulatory Orders Medication Instructions Recorded Vits [Prenatabs FA ] 1 tablet PO DAILY 11/25/13 Cephalexin 500 mg PO 4X/DAY 11/11/18 Cholecalciferol (Vitamin D3) 2,000 unit PO DAILY 11/11/18 [Vitamin D3] Tamsulosin HCl 0.4 mg PO DAILY 11/11/18 Surgical History: - - Prior ureteral stent and lithotripsy. 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 Paternal History Items: - - Patient notes a paternal family history of hemochromatosis, hypertension, hyperlipidemia. Review of Systems Constitutional: Denies: Chills, Fever, Weight Change HEENT: Denies: Head Aches, Sinus Congestion, Sinus Drainage Cardiovascular: Denies: Chest Pain, Palpitations Respiratory: Denies: Cough, Shortness of breath at rest, Sputum production Gastrointestinal: Reports: Abdominal Pain. Denies: Nausea, Vomiting Genitourinary: Reports: Urgency, - - History of stones. Denies: Dysuria Musculoskeletal: Denies: Joint Pain, Joint Tenderness Skin: Denies: Rash, Wounds Neurological: Denies: Numbness, Tingling, Focal weakness Psychiatric: Denies: Anxiety, Depression, Homicidal Ideations, Suicidal Ideations Hematologic/ Lymphatic: Denies: Easy Bruising, Easy Bleeding Physical Exam - Physical Exam Vital Signs Temp 97.9 F 11/12/18 14:30 Pulse 67 11/12/18 14:30 Resp 16 11/12/18 14:30 BP 117/84 H 11/12/18 14:30 Pulse Ox 100 11/12/18 14:30 Intake & Output 11/10/18 11/11/18 11/12/18 23:59 23:59 23:59 Intake Total 2289 / 2289 Output Total 1425 / 1425 Balance 864 / 864 Weight: 49.442 kg Intake: Oral 400 / 400 IV fluid/meds 1889 / 1889 Output: Urine 1425 / 1425 General: Alert, Oriented x3 HEENT: Atraumatic Oral: Moist Mucosa Neck: Supple Lungs: Clear to auscultation, Normal air movement Cardiovascular: Regular rate Abdomen: Soft Rectal: Exam deferred Laboratory Tests Past 24 Hrs 11/11/18 11/11/18 11/11/18 18:40 18:40 18:40 WBC 6.7 RBC 4.55 Hgb 14.0 Hct 41.5 MCV 91.2 MCH 30.8 MCHC 33.7 RDW 12.1 RDW Differential 40.5 Plt Count 218 MPV 9.7 Immature Gran % (Auto) 0.100 Neut % (Auto) 73.8 H Lymph % (Auto) 13.8 L [place] % (Auto) 12.2 H Eos % (Auto) 0.0 Baso % (Auto) 0.1 Absolute Neuts (auto) 5.0 Absolute Lymphs (auto) 0.93 Total Counted Not Reportable Sodium 136 Potassium 2.8 L Chloride 101 Carbon Dioxide 26.0 Anion Gap 9 BUN 11 Creatinine 0.83 Estim Creat Clear Calc 73.86 Est GFR (MDRD) Af Amer 101 Est GFR (MDRD) Non-Af 83 BUN/Creatinine Ratio 13.2 Glucose 110 H Calcium 8.4 L Magnesium Serum , Qual NEGATIVE Urine Color Urine Clarity Urine pH Ur Specific [place] Urine Protein Urine Glucose (UA) Urine Ketones Urine Occult Blood Urine Nitrite Urine Bilirubin Urine Urobilinogen Ur Leukocyte Esterase Urine RBC Urine WBC Ur Squamous Epith Cells Urine Bacteria Urine Mucus 11/11/18 11/11/18 11/12/18 18:40 20:38 06:04 WBC 3.2 L RBC 3.55 L Hgb 10.9 L Hct 33.3 L MCV 93.8 MCH 30.7 MCHC 32.7 RDW 11.7 RDW Differential 38.8 Plt Count 179 MPV 9.7 Immature Gran % (Auto) 0.300 Neut % (Auto) 42.9 L Lymph % (Auto) 39.6 [place] % (Auto) 15.3 H Eos % (Auto) 1.6 Baso % (Auto) 0.3 Absolute Neuts (auto) 1.4 L Absolute Lymphs (auto) 1.27 Total Counted Not Reportable Sodium Potassium Chloride Carbon Dioxide Anion Gap BUN Creatinine Estim Creat Clear Calc Est GFR (MDRD) Af Amer Est GFR (MDRD) Non-Af BUN/Creatinine Ratio Glucose Calcium Magnesium 1.7 Serum , Qual Urine Color Yellow Urine Clarity Cloudy Urine pH 6.5 Ur Specific [place] 1.015 Urine Protein 30 H Urine Glucose (UA) Normal Urine Ketones 150 H Urine Occult Blood 250 H Urine Nitrite Negative Urine Bilirubin 1 H Urine Urobilinogen 1 H Ur Leukocyte Esterase 25 H Urine RBC > 100 SEEN Urine WBC 0-5 SEEN Ur Squamous Epith Cells 0-5 SEEN Urine Bacteria 0 SEEN Urine Mucus 1+ 11/12/18 06:04 WBC RBC Hgb Hct MCV MCH MCHC RDW RDW Differential Plt Count MPV Immature Gran % (Auto) Neut % (Auto) Lymph % (Auto) [place] % (Auto) Eos % (Auto) Baso % (Auto) Absolute Neuts (auto) Absolute Lymphs (auto) Total Counted Sodium 144 Potassium 4.3 Chloride 113 H Carbon Dioxide 26.0 Anion Gap 5 BUN 7 Creatinine 0.51 L Estim Creat Clear Calc 121.32 Est GFR (MDRD) Af Amer 178 Est GFR (MDRD) Non-Af 147 BUN/Creatinine Ratio 13.8 Glucose 90 Calcium 7.5 L Magnesium Serum , Qual Urine Color Urine Clarity Urine pH Ur Specific [place] Urine Protein Urine Glucose (UA) Urine Ketones Urine Occult Blood Urine Nitrite Urine Bilirubin Urine Urobilinogen Ur Leukocyte Esterase Urine RBC Urine WBC Ur Squamous Epith Cells Urine Bacteria Urine Mucus Assessment/Plan All Active Problems Nephrolithiasis (Acute) Hematuria (Acute) Intractable pain (Acute) 33-year-old female with a stone in the distal left ureter presents the hospital is failed conservative measures to pass a stone. CAT scan demonstrated a stone in the distal left ureter with hydronephrosis hydroureteronephrosis high-grade obstruction. Today I offered the patient surgical intervention given her failure to pass the stone a reasonable amount of time. She said the pain off and on for the last past month. Recommended we proceed with left ureteroscopy, balloon dilation of the ureter, laser and basket of fragments, possible stent placement depending on the ureter and inflammation. Risk of the procedure were discussed with the patient risk of anesthesia, risk of bleeding infection and injury to the bladder ureter or needing a stent. After discussion with the patient she is agreeable to proceed wire on for the schedule for tomorrow to see what available.
[2018-11-12 20:29] VITALS: BP 118/81; PULSE 78; RESP 14; TEMP 37.4; O2SAT 99
[2018-11-13] VITALS (11 sets, daily range): BP systolic 120–150; BP diastolic 69–124; PULSE 44–103; RESP 14–16; TEMP 36.1–37.1; O2SAT 97–100; BMI 19.3
[2018-11-13] MEDS: 0.9% Normal Saline 1,000 ML 150 ML IV ×4 (02:21→21:07)
[2018-11-13 06:27] LABS: Anion Gap 5 (5-15); BUN 5 mg/dL (7-18); BUN/Creat Ratio 9.1 RATIO (10-20); Chloride 112 mmol/L (98-107); Creatinine, Serum 0.55 mg/dL (0.55-1.02); EST Glomerular Filtration Rate 135 mL/min (>60); Est Glom Filt Rate - Afr Amer 163 mL/min (>60); Estimated Creatinine Clearance 112.49 ml/min; Glucose 87 mg/dL (74-106); Potassium 4.1 mmol/L (3.5-5.1); Sodium Level 143 mmol/L (136-145)
[2018-11-13] MEDS: Ketorolac 15 MG/ML Vial IV ×2 (06:30→20:02)
[2018-11-13 07:01] LABS: Hematocrit 34.8 % (37-47); Hemoglobin 11.6 g/dl (12.0-15.0); Mean Corp Hgb Conc 33.3 g/gl (32-36); Mean Corpuscular Hgb 31.6 pg (27.0-32.0); Mean Corpuscular Volume 94.8 fL (81-99); Mean Platelet Vol. 9.8 fl (6.2-12.0); Platelet Count 183 K/mm3 (150-450); RBC Distribution Width CV 11.8 % (11.6-14.6); RBC Distribution Width SD 39.6 fl (35.1-43.9); Red Blood Count 3.67 M/mm3 (4.2-5.4); White Blood Count 3.8 K/mm3 (4.4-11.0)
[2018-11-13 07:05] LABS: Scan Indicated on CBC? Y/N NO
[2018-11-13] MEDS: HYDROmorphone 1 MG/ML Syringe IV ×4 (07:17→22:50)
--- NOTE | 2018-11-13 09:15 | PCM.PN.HOSP ---
Patient Problems: Active and Suspected Problems (Last Reviewed 11/12/18 @ 16:41 by Eduar Del Cid MD) Nephrolithiasis (Acute) Hematuria (Acute) Intractable pain (Acute) Subjective: Patient was seen and examined. Waiting on procedure today with Dr. Del Cid. Denies any fever or chills. Complains of left lower quadrant discomfort. Denies any nausea or vomiting. Vitals/I&O's: Vital Signs Temp Pulse Resp BP Pulse Ox 98.2 F 80 16 126/94 H 97 11/13/18 07:52 11/13/18 07:55 11/13/18 07:52 11/13/18 07:52 11/13/18 07:52 Oxygen Delivery Method Room Air Weight: 49.442 kg Body Mass Index (BMI) 19.3 Intake and Output for Last 24 Hours 11/11/18 11/12/18 11/13/18 23:59 23:59 23:59 Intake Total 2289 / 2289 2067 / 2067 Output Total 1425 / 1425 1625 / 1625 Balance 864 / 864 442 / 442 General: Alert, Oriented x3, Cooperative, No apparent distress HEENT: Atraumatic, PERRLA, EOMI, Normocephalic Oral: Moist Mucosa Neck: Supple Lungs: Clear to auscultation, Normal air movement Cardiovascular: Regular rate, Regular Rhythm, Normal S1, Normal S2, No murmurs Abdomen: Bowel Sounds Present, Soft, Non-Distended, No Hepato-splenomegaly, Tender - mild tenderness over the left flank Extremities: No edema, Capillary Refill Less than 3 Seconds Skin: No rashes, No breakdown Musculoskeletal: No Tenderness to Palpation of Joints or Extremities Neurological: Cranial nerves II-XII grossly intact Psych/Mental Status: Normal Affect, Appropriate Laboratory Results 11/13/18 05:52: WBC 3.8 L, RBC 3.67 L, Hgb 11.6 L, Hct 34.8 L, MCV 94.8, MCH 31.6, MCHC 33.3, RDW 11.8, RDW Differential 39.6, Plt Count 183, MPV 9.8 11/13/18 05:52: Sodium 143, Potassium 4.1, Chloride 112 H, Carbon Dioxide 26.0, Anion Gap 5, BUN 5 L, Creatinine 0.55, Estim Creat Clear Calc 112.49, Est GFR (MDRD) Af Amer 163, Est GFR (MDRD) Non-Af 135, BUN/Creatinine Ratio 9.1 L, Glucose 87, Calcium 8.0 L, Magnesium 2.0 Current Medications Acetaminophen (Tylenol) 650 mg PO Q6H PRN PRN PRN Reason: Non-cardiac pain (mod-severe) Al Hydroxide/Mg Hydroxide (Mylanta Ii) 30 ml PO Q6H PRN PRN PRN Reason: Gastric burning Hydralazine HCl (Apresoline Iv) 10 mg IV Q4H PRN PRN PRN Reason: SBP > 160 Hydromorphone HCl (Dilaudid Inj) 1 mg IV Q3H PRN PRN PRN Reason: SEVERE PAIN (6-10) Last Admin: 11/13/18 07:17 Dose: 1 mg Sodium Chloride () 1,000 mls @ 150 mls/hr IV .Q6H40M [facility] Last Admin: 11/13/18 02:21 Dose: 150 mls/hr Famotidine 20 mg/ Sodium (Chloride) 10 mls @ 300 mls/hr IV Q12 [facility] Last Admin: 11/12/18 22:16 Dose: 300 mls/hr Sodium Chloride () 250 mls @ 15 mls/hr IV .[id number] PRN PRN Reason: SALINE FLUSH Magnesium Hydroxide (Milk Of Magnesia) 30 ml PO DAILY PRN PRN PRN Reason: Constipation Ondansetron HCl (Zofran) 4 mg IV Q8H PRN PRN PRN Reason: NAUSEA/VOMITING Oxycodone HCl (Oxyir) 5 - 10 mg PO Q4H PRN PRN PRN Reason: SEVERE PAIN (6-10/10) Last Admin: 11/12/18 00:22 Dose: 5 mg Promethazine HCl (Phenergan) 6.25 mg IV Q4H PRN PRN PRN Reason: NAUSEA/VOMITING Sodium Chloride () 5 - 15 ml IV UD PRN PRN Reason: SALINE FLUSH Last Admin: 11/12/18 22:15 Dose: 10 ml Tamsulosin HCl (Flomax) 0.4 mg PO DAILY [facility] Last Admin: 11/12/18 08:20 Dose: 0.4 mg Temazepam (Restoril) 15 mg PO QHS PRN PRN PRN Reason: insomnia Last Admin: 11/12/18 22:16 Dose: 15 mg Medical Necessity - Tobacco Use Smoking Status: Never smoker Tobacco Use: Non-smoker Assessment/Plan All Active Problems (Last Reviewed 11/12/18 @ 16:41 by Eduar Del Cid MD) Nephrolithiasis (Acute) Hematuria (Acute) Intractable pain (Acute) 33-year-old female with past medical history of recurrent kidney stones comes in with complaints of left flank pain. CT of abdomen and pelvis shows 4 mm left ureterovesicular junction calculus with mild hydronephrosis. 1. Recurrent kidney stones, going for lithotripsy, unclear etiology of the stones, pain is controlled, on IV fluids 2. Hypokalemia, present on admission, resolved, no electrolyte imbalances and blood work today 3. DVT PPx- early ambulation Code Visit Inpatient E&M: 36090 Subs Hosp L2
[2018-11-13] MEDS: 0.9% NaCl Peripheral Flush Adult/Peds IV ×4 (09:32→22:52)
--- NOTE | 2018-11-13 12:04 | NURSING ---
PRE-OP REPORT CALLED TO [facility] SH[facility]ELDS IN [facility]
[2018-11-13] MEDS: Cefazolin 2 GM in 0.9% Normal Saline 100 ML IV (13:00)
--- NOTE | 2018-11-13 13:35 | OP.PCM_ITS ---
Report of Operation Date of Procedure: 11/13/18 Pre-Operative Diagnosis: Left ureteral calculi with obstruction and renal colic Post-Operative Diagnosis: The same Surgery/Procedure Performed:: Cystoscopy, balloon dilation of the left ureter, ureteroscopy laser lithotripsy of stone basket of fragments no stent Description of Surgical Findings:: 33-year-old female taken back to the operating at the smooth induction of general anesthesia she was placed in dorsolithotomy position the perineum and urethra and vaginal area prepped and draped in usual sterile fashion, went into the bladder with a 21 Lebanese rigid cystourethroscope immediately cannulated needed the left ureteral orifice advanced a wire past the stone I could feel the wire and the stone I then advanced the balloon dilator up to the stone balloon dilated the distal ureter but not the stone, I then left the wire in place and next the wire went in with a rigid ureteroscope, attempted the basket the stone was able to get the basket around the stone but could not bring it out so therefore I used a laser laser the stone little tiny pieces most of the pieces then floated into the bladder I then basketed some remaining fragments, and then went of the ureter drain the bladder looked back in the ureter was draining well some mild edema inflammation around the ureter but not severe so I decided not to leave a stent patient's bladder was drained anesthetic is currently being r eversed plan to see her back in a few weeks for an ultrasound check of her kidney. Type of Anesthesia:: General Drains: none - Admit VTE Documentation VTE Present on Admission: No VTE Mechan Device Prophylaxis: SCD's
[2018-11-13] MEDS: oxyCODONE 5 MG Tablet PO ×2 (15:30→20:42)
--- NOTE | 2018-11-13 17:22 | PCM.PN.BLA ---
Progress Note 33-year-old female status post ureteroscopy extraction of his distal stone, no stent was placed, she is having a lot of severe renal colic will give her some Toradol push fluids. Check a KUB in the morning. If the renal colic does not let up all the taken back to surgery place a stent. N.p.o. at midnight
[2018-11-14 02:02] VITALS: BP 111/77; PULSE 81; RESP 14; TEMP 37.1; O2SAT 99
[2018-11-14] MEDS: 0.9% NaCl Peripheral Flush Adult/Peds IV ×2 (02:03→09:02)
[2018-11-14] MEDS: Ketorolac 15 MG/ML Vial IV ×2 (02:03→09:03)
[2018-11-14] MEDS: 0.9% Normal Saline 1,000 ML 150 ML IV (03:32)
[2018-11-14] MEDS: oxyCODONE 5 MG Tablet PO (06:15)
[2018-11-14 06:33] LABS: Hematocrit 35.6 % (37-47); Hemoglobin 11.8 g/dl (12.0-15.0); Mean Corp Hgb Conc 33.1 g/gl (32-36); Mean Corpuscular Hgb 30.5 pg (27.0-32.0); Mean Platelet Vol. 9.5 fl (6.2-12.0); Platelet Count 232 K/mm3 (150-450); RBC Distribution Width CV 11.6 % (11.6-14.6); RBC Distribution Width SD 38.5 fl (35.1-43.9); Red Blood Count 3.87 M/mm3 (4.2-5.4); White Blood Count 8.7 K/mm3 (4.4-11.0)
[2018-11-14 06:50] LABS: Scan Indicated on CBC? Y/N NO
[2018-11-14 06:53] LABS: Anion Gap 7 (5-15); BUN 9 mg/dL (7-18); BUN/Creat Ratio 13.6 RATIO (10-20); Calcium,Total 8.1 mg/dL (8.5-10.1); Chloride 112 mmol/L (98-107); Creatinine, Serum 0.66 mg/dL (0.55-1.02); EST Glomerular Filtration Rate 109 mL/min (>60); Est Glom Filt Rate - Afr Amer 131 mL/min (>60); Estimated Creatinine Clearance 93.74 ml/min; Glucose 115 mg/dL (74-106); Potassium 3.8 mmol/L (3.5-5.1); Sodium Level 144 mmol/L (136-145)
--- NOTE | 2018-11-14 07:00 | RAD_ITS ---
STUDY: X-RAY - ABDOMEN/PELVIS REASON FOR EXAM: Female, 33 years old. Kidney stone TECHNIQUE: Single AP view of the abdomen / pelvis. COMPARISON: CT 11/11/2018 FINDINGS: Normal visualized lung bases. There is an unremarkable bowel gas pattern. There is no demonstrated free abdominal air. Multiple bilateral renal calculi measuring up to 3 mm. The previously described distal ureter stone on the left is not visible on this study. Normal soft tissue structures. Normal visualized osseous structures. RAD/Abdomen Single View IMPRESSION: Multiple bilateral renal calculi measuring up to 3 mm. The previously described distal ureter stone on the left is not visible on this study. Electronically Signed: Mandeep Schaefer MD at 5:32 EST Tel , Service support ,
--- NOTE | 2018-11-14 07:46 | DCINST_ITS ---
Discharge Diet: No Restrictions Discharge Activity: May not drive while taking narcotic pain medications. Call your doctor if your incision/area has: Increased Pain/ Swelling Call your doctor if you observe: Fever of 101 or Higher Allergies/Adverse Reactions: Allergies amoxicillin [Amoxicillin] Allergy (Verified 11/11/18 18:29) Unknown chlorthalidone [From [place]] Allergy (Verified 11/11/18 18:29) Unknown nitrofurantoin [From Macrobid] Allergy (Verified 11/11/18 18:29) Unknown nitrofurantoin macrocrystalline [From Macrobid] Allergy (Verified 11/11/18 18:29) Unknown sulfamethoxazole [From Bactrim] Allergy (Verified 11/11/18 18:29) Swelling trimethoprim [From Bactrim] Allergy (Verified 11/11/18 18:29) Swelling Medications to take at Discharge Vits [Prenatabs FA ] 1 tablet PO DAILY 11/25/13 Cephalexin 500 mg PO 4X/DAY 11/11/18 Cholecalciferol (Vitamin D3) [Vitamin D3] 2,000 unit PO DAILY 11/11/18 Tamsulosin HCl 0.4 mg PO DAILY 11/11/18 Ketorolac [Toradol] 10 mg PO Q6H PRN PRN #10 tab 11/14/18 The following prescriptions were given: Ketorolac [Toradol] 10 mg PO Q6H PRN PRN #10 tab PRN Reason: Pain Primary Care Physician: Care Physician,No Primary [Primary Care Provider] - Test Results: Test results from this visit will be discussed in further detail at your follow- up appointment, if applicable. Please Follow Up With: Eduar Del Cid MD When: in 2 weeks, please call to make an appointment. Proposed Discharge Date: 11/12/18
--- NOTE | 2018-11-14 07:46 | PCM.DC.SUM ---
Discharge Date and Diagnosis - Problem List Patient Problems: Active and Suspected Problems (Last Reviewed 11/12/18 @ 16:41 by Eduar Del Cid MD) Nephrolithiasis (Acute) Hematuria (Acute) Intractable pain (Acute) Date of Admission: 11/11/18 Date of Discharge: 11/14/18 - Primary Discharge Diagnosis Active and Suspected Problems (Last Reviewed 11/12/18 @ 16:41 by Eduar Del Cid MD) Nephrolithiasis (Acute) Hematuria (Acute) Intractable pain (Acute) Hospital Course and Treatment Imaging Results: 11/14/18 07:00 KUB [Abdomen Single View] [RAD] Routine Operations: - - URETEROSCOPY LASER STONE, NO STENT Summary of Care Provided: The patient is a 33 year old F with a small left ureteral calculus failed to pass stone, went to or removed stone with laser, no stent had severe colic after then resolved in am, home today follow upwith urology in 2 weeks. Patient Problems: Active and Suspected Problems (Last Reviewed 11/12/18 @ 16:41 by Eduar Del Cid MD) Nephrolithiasis (Acute) Hematuria (Acute) Intractable pain (Acute) - Physical Exam General: Alert, Oriented x3, Cooperative HEENT: Atraumatic, PERRLA, EOMI, Normocephalic Neck: Supple, No JVD, Negative Carotid Bruits Lungs: Clear to auscultation, Normal air movement Cardiovascular: Regular rate, No murmurs Abdomen: Bowel Sounds Present, Soft, Non Tender Extremities: No edema, Capillary Refill Less than 3 Seconds Skin: No rashes, No breakdown Musculoskeletal: No Tenderness to Palpation of Joints or Extremities Neurological: Cranial nerves II-XII grossly intact Psych/Mental Status: Normal Affect, Appropriate Vital Signs Temp Pulse Resp BP Pulse Ox 98.7 F 81 14 111/77 99 11/14/18 02:02 11/14/18 02:02 11/14/18 02:02 11/14/18 02:02 11/14/18 02:02 Oxygen Delivery Method Room Air Weight: 49.442 kg Body Mass Index (BMI) 19.3 Intake and Output for Last 24 Hours 11/12/18 11/13/18 11/14/18 23:59 23:59 23:59 Intake Total 2289 / 2289 4118 / 4118 2040 / 204 Output Total 1425 / 1425 4350 / 4350 1150 / 1150 Balance 864 / 864 -232 / -232 891 / 891 Laboratory Tests Past 24 Hrs 11/14/18 11/14/18 06:00 06:00 WBC 8.7 RBC 3.87 L Hgb 11.8 L Hct 35.6 L MCV 92.0 MCH 30.5 MCHC 33.1 RDW 11.6 RDW Differential 38.5 Plt Count 232 MPV 9.5 Sodium 144 Potassium 3.8 Chloride 112 H Carbon Dioxide 25.0 Anion Gap 7 BUN 9 Creatinine 0.66 Estim Creat Clear Calc 93.74 Est GFR (MDRD) Af Amer 131 Est GFR (MDRD) Non-Af 109 BUN/Creatinine Ratio 13.6 Glucose 115 H Calcium 8.1 L Discharge Diet: No Restrictions Discharge Activity: May not drive while taking narcotic pain medications. Call your doctor if your incision/area has: Increased Pain/ Swelling Call your doctor if you observe: Fever of 101 or Higher Home Medications: Medications to take at Discharge Vits [Prenatabs FA ] 1 tablet PO DAILY 11/25/13 Cephalexin 500 mg PO 4X/DAY 11/11/18 Cholecalciferol (Vitamin D3) [Vitamin D3] 2,000 unit PO DAILY 11/11/18 Tamsulosin HCl 0.4 mg PO DAILY 11/11/18 Ketorolac [Toradol] 10 mg PO Q6H PRN PRN #10 tab 11/14/18 Following Prescrptions Were Given to Patient: Ketorolac [Toradol] 10 mg PO Q6H PRN PRN #10 tab PRN Reason: Pain Primary Care Physician: Care Physician,No Primary [Primary Care Provider] - Please Follow Up With: Eduar Del Cid MD When: in 2 weeks, please call to make an appointment. Disposition: Home Medical Necessity - Tobacco Use Smoking Status: Never smoker Tobacco Use: Non-smoker Meaningful Use Info Meaningful Use Diagnoses (Choose all that apply): None applicable
[2018-11-14 09:01] VITALS: BP 116/71; PULSE 64; RESP 16; TEMP 37.2; O2SAT 96
[2018-11-14] MEDS: Famotidine 20 MG Tablet PO (09:03)
[2018-11-14] MEDS: Tamsulosin HCl 0.4 MG Capsule PO (09:03)
--- NOTE | 2018-11-14 09:29 | PCM.PN.HOSP ---
Patient Problems: Active and Suspected Problems (Last Reviewed 11/12/18 @ 16:41 by Eduar Del Cid MD) Nephrolithiasis (Acute) Hematuria (Acute) Intractable pain (Acute) Subjective: Patient was seen and examined. She feels much improved. Denies any fever or chills. Has been discharged by urology. Vitals/I&O's: Vital Signs Temp Pulse Resp BP Pulse Ox 99.0 F 64 16 116/71 96 11/14/18 09:01 11/14/18 09:01 11/14/18 09:01 11/14/18 09:01 11/14/18 09:01 Oxygen Delivery Method Room Air Weight: 49.442 kg Body Mass Index (BMI) 19.3 Intake and Output for Last 24 Hours 11/12/18 11/13/18 11/14/18 23:59 23:59 23:59 Intake Total 2289 / 2289 4118 / 4118 2041 / 2041 Output Total 1425 / 1425 4350 / 4350 1150 / 1150 Balance 864 / 864 -232 / -232 891 / 891 General: Alert, Oriented x3, Cooperative, No apparent distress HEENT: Atraumatic, PERRLA, EOMI, Normocephalic Oral: Moist Mucosa Neck: Supple Lungs: Clear to auscultation, Normal air movement Cardiovascular: Regular rate, Regular Rhythm, Normal S1, Normal S2, No murmurs Abdomen: Bowel Sounds Present, Soft, Non Tender, Non-Distended, No Hepato-splenomegaly Extremities: No edema, Capillary Refill Less than 3 Seconds Skin: No rashes, No breakdown Musculoskeletal: No Tenderness to Palpation of Joints or Extremities Lymphatic: No Cervical, Supraclavicular, or Inguinal Adenopathy Neurological: Cranial nerves II-XII grossly intact, Neuro grossly intact Psych/Mental Status: Normal Affect, Appropriate Laboratory Results 11/14/18 06:00: WBC 8.7, RBC 3.87 L, Hgb 11.8 L, Hct 35.6 L, MCV 92.0, MCH 30.5, MCHC 33.1, RDW 11.6, RDW Differential 38.5, Plt Count 232, MPV 9.5 11/14/18 06:00: Sodium 144, Potassium 3.8, Chloride 112 H, Carbon Dioxide 25.0, Anion Gap 7, BUN 9, Creatinine 0.66, Estim Creat Clear Calc 93.74, Est GFR (MDRD) Af Amer 131, Est GFR (MDRD) Non-Af 109, BUN/Creatinine Ratio 13.6, Glucose 115 H, Calcium 8.1 L Current Medications Acetaminophen (Tylenol) 650 mg PO Q6H PRN PRN PRN Reason: Non-cardiac pain (mod-severe) Al Hydroxide/Mg Hydroxide (Mylanta Ii) 30 ml PO Q6H PRN PRN PRN Reason: Gastric burning Famotidine (Pepcid) 20 mg PO BID [facility] Last Admin: 11/14/18 09:03 Dose: 20 mg Hydralazine HCl (Apresoline Iv) 10 mg IV Q4H PRN PRN PRN Reason: SBP > 160 Hydromorphone HCl (Dilaudid Inj) 1 mg IV Q3H PRN PRN PRN Reason: SEVERE PAIN (6-10/10) Last Admin: 11/13/18 22:50 Dose: 1 mg Sodium Chloride () 1,000 mls @ 150 mls/hr IV .Q6H40M [facility] Last Admin: 11/14/18 03:32 Dose: 150 mls/hr Sodium Chloride () 250 mls @ 15 mls/hr IV .[id number] PRN PRN Reason: SALINE FLUSH Ketorolac Tromethamine (Toradol) 15 mg IV Q6H PRN PRN PRN Reason: PAIN Stop: 11/18/18 17:34 Last Admin: 11/14/18 09:03 Dose: 15 mg Magnesium Hydroxide (Milk Of Magnesia) 30 ml PO DAILY PRN PRN PRN Reason: Constipation Ondansetron HCl (Zofran) 4 mg IV Q8H PRN PRN PRN Reason: NAUSEA/VOMITING Oxycodone HCl (Oxyir) 5 - 10 mg PO Q4H PRN PRN PRN Reason: SEVERE PAIN (6-10/10) Last Admin: 11/14/18 06:15 Dose: 5 mg Promethazine HCl (Phenergan) 6.25 mg IV Q4H PRN PRN PRN Reason: NAUSEA/VOMITING Sodium Chloride () 5 - 15 ml IV UD PRN PRN Reason: SALINE FLUSH Last Admin: 11/14/18 09:02 Dose: 10 ml Tamsulosin HCl (Flomax) 0.4 mg PO DAILY [facility] Last Admin: 11/14/18 09:03 Dose: 0.4 mg Temazepam (Restoril) 15 mg PO QHS PRN PRN PRN Reason: insomnia Last Admin: 11/12/18 22:16 Dose: 15 mg Medical Necessity - Tobacco Use Smoking Status: Never smoker Tobacco Use: Non-smoker Assessment/Plan All Active Problems (Last Reviewed 11/12/18 @ 16:41 by Eduar Del Cid MD) Nephrolithiasis (Acute) Hematuria (Acute) Intractable pain (Acute) 33-year-old female with past medical history of recurrent kidney stones comes in with complaints of left flank pain. CT of abdomen and pelvis shows 4 mm left ureterovesicular junction calculus with mild hydronephrosis. 1. Recurrent kidney stones, s/p cystoscopy and lithotripsy, stable, no pain, being discharged by urology. 2. Hypokalemia, present on admission, resolved, 3. DVT PPx- early ambulation Code Visit Inpatient E&M: 68427 Subs Hosp L2
--- NOTE | 2018-11-14 09:35 | PN_ITS ---
Patient Problems: Active and Suspected Problems (Last Reviewed 11/12/18 @ 16:41 by Eduar Del Cid MD) Nephrolithiasis (Acute) Hematuria (Acute) Intractable pain (Acute) Subjective: Patient was seen and examined. She feels much improved. Denies any fever or chills. Has been discharged by urology. Vitals/I&O's: Vital Signs Temp Pulse Resp BP Pulse Ox 99.0 F 64 16 116/71 96 11/14/18 09:01 11/14/18 09:01 11/14/18 09:01 11/14/18 09:01 11/14/18 09:01 Oxygen Delivery Method Room Air Weight: 49.442 kg Body Mass Index (BMI) 19.3 Intake and Output for Last 24 Hours 11/12/18 11/13/18 11/14/18 23:59 23:59 23:59 Intake Total 2289 / 2289 4118 / 4118 2041 / 2041 Output Total 1425 / 1425 4350 / 4350 1150 / 1150 Balance 864 / 864 -232 / -232 891 / 891 General: Alert, Oriented x3, Cooperative, No apparent distress HEENT: Atraumatic, PERRLA, EOMI, Normocephalic Oral: Moist Mucosa Neck: Supple Lungs: Clear to auscultation, Normal air movement Cardiovascular: Regular rate, Regular Rhythm, Normal S1, Normal S2, No murmurs Abdomen: Bowel Sounds Present, Soft, Non Tender, Non-Distended, No Hepato-splenomegaly Extremities: No edema, Capillary Refill Less than 3 Seconds Skin: No rashes, No breakdown Musculoskeletal: No Tenderness to Palpation of Joints or Extremities Lymphatic: No Cervical, Supraclavicular, or Inguinal Adenopathy Neurological: Cranial nerves II-XII grossly intact, Neuro grossly intact Psych/Mental Status: Normal Affect, Appropriate Laboratory Results 11/14/18 06:00: WBC 8.7, RBC 3.87 L, Hgb 11.8 L, Hct 35.6 L, MCV 92.0, MCH 30.5, MCHC 33.1, RDW 11.6, RDW Differential 38.5, Plt Count 232, MPV 9.5 11/14/18 06:00: Sodium 144, Potassium 3.8, Chloride 112 H, Carbon Dioxide 25.0, Anion Gap 7, BUN 9, Creatinine 0.66, Estim Creat Clear Calc 93.74, Est GFR (MDRD) Af Amer 131, Est GFR (MDRD) Non-Af 109, BUN/Creatinine Ratio 13.6, Glucose 115 H, Calcium 8.1 L Current Medications Acetaminophen (Tylenol) 650 mg PO Q6H PRN PRN PRN Reason: Non-cardiac pain (mod-severe) Al Hydroxide/Mg Hydroxide (Mylanta Ii) 30 ml PO Q6H PRN PRN PRN Reason: Gastric burning Famotidine (Pepcid) 20 mg PO BID [facility] Last Admin: 11/14/18 09:03 Dose: 20 mg Hydralazine HCl (Apresoline Iv) 10 mg IV Q4H PRN PRN PRN Reason: SBP > 160 Hydromorphone HCl (Dilaudid Inj) 1 mg IV Q3H PRN PRN PRN Reason: SEVERE PAIN (6-10/10) Last Admin: 11/13/18 22:50 Dose: 1 mg Sodium Chloride () 1,000 mls @ 150 mls/hr IV .Q6H40M [facility] Last Admin: 11/14/18 03:32 Dose: 150 mls/hr Sodium Chloride () 250 mls @ 15 mls/hr IV .[id number] PRN PRN Reason: SALINE FLUSH Ketorolac Tromethamine (Toradol) 15 mg IV Q6H PRN PRN PRN Reason: PAIN Stop: 11/18/18 17:34 Last Admin: 11/14/18 09:03 Dose: 15 mg Magnesium Hydroxide (Milk Of Magnesia) 30 ml PO DAILY PRN PRN PRN Reason: Constipation Ondansetron HCl (Zofran) 4 mg IV Q8H PRN PRN PRN Reason: NAUSEA/VOMITING Oxycodone HCl (Oxyir) 5 - 10 mg PO Q4H PRN PRN PRN Reason: SEVERE PAIN (6-10/10) Last Admin: 11/14/18 06:15 Dose: 5 mg Promethazine HCl (Phenergan) 6.25 mg IV Q4H PRN PRN PRN Reason: NAUSEA/VOMITING Sodium Chloride () 5 - 15 ml IV UD PRN PRN Reason: SALINE FLUSH Last Admin: 11/14/18 09:02 Dose: 10 ml Tamsulosin HCl (Flomax) 0.4 mg PO DAILY [facility] Last Admin: 11/14/18 09:03 Dose: 0.4 mg Temazepam (Restoril) 15 mg PO QHS PRN PRN PRN Reason: insomnia Last Admin: 11/12/18 22:16 Dose: 15 mg Medical Necessity - Tobacco Use Smoking Status: Never smoker Tobacco Use: Non-smoker Assessment/Plan All Active Problems (Last Reviewed 11/12/18 @ 16:41 by Eduar Del Cid MD) Nephrolithiasis (Acute) Hematuria (Acute) Intractable pain (Acute) 33-year-old female with past medical history of recurrent kidney stones comes in with complaints of left flank pain. CT of abdomen and pelvis shows 4 mm left ureterovesicular junction calculus with mild hydronephrosis. 1. Recurrent kidney stones, s/p cystoscopy and lithotripsy, stable, no pain, being discharged by urology. 2. Hypokalemia, present on admission, resolved, 3. DVT PPx- early ambulation Code Visit Inpatient E&M: 50252 Subs Hosp L2
--- NOTE | 2018-11-14 10:52 | NURSING ---
patient discharged by Dr Del Cid. Dr Esposito saw patient at nurses station prior to leaving. verified pt ok for discharge from medical standpoint.
== END 2018-11-14 09:25 | disposition home or self-care (01) | DRG 670 ==
LOC: ED 19:14 → MS3 22:14
PROVIDERS: Internal Medicine; Urology; Admitting Provider Family Medicine; Emergency Provider Emergency Medicine; Visit Provider Internal Medicine
PROC: 0TC78ZZ Extirpation of Matter from Left Ureter, Via Natural or Artificial Opening Endoscopic (ICD-10-PCS; CPT 52356; principal; 2018-11-13 12:40)
DX: N13.2 Hydronephrosis with renal and ureteral calculous obstruction (principal); N20.0 Calculus of kidney; Z87.442 Personal history of urinary calculi; E87.6 Hypokalemia; R31.9 Hematuria, unspecified
CPT/HCPCS: 36415; 74018; 74176; 80048; 81001; 83735; 84703; 85025; 85027; 99284; J7030; A4216; C1769; J2405; J3490

== ENCOUNTER 2019-11-16 20:47 | Outpatient (CLI) | payer OTHER, SELFPAY ==
[2018-11-13 11:03] VITALS: BMI 19.3
[2019-11-16 21:00] VITALS: BMI 23.4
[2019-11-16] MEDS: Lactated Ringers 1,000 ML 150 ML IV (21:50)
--- NOTE | 2019-11-16 22:20 | RAD_ITS ---
STUDY: X-RAY CHEST REASON FOR EXAM: Female, 34 years old. Cough TECHNIQUE: Frontal and lateral views of the chest COMPARISON: None. FINDINGS: The lungs are clear. There are no pleural effusions. There is no pneumothorax. The heart is normal in size. The visualized osseous structures are within normal limits. RAD/Chest PA and Lateral IMPRESSION: No acute thoracic pathology. Electronically Signed: Francois Harrison, at 22:58 EST Tel , Service support ,
[2019-11-16 22:57] LABS: Mucous, Urine 0 SEEN /hpf (<or=2+)
[2019-11-16 23:03] LABS: Absolute Lymphocyte Count 0.92 X10^3/uL (0.83-4.51); Absolute Neutrophil Count 6.8 X10^3/uL (2.0-7.7); Basophil# 0.01 X10^3/uL; Basophil% 0.1 % (0-1); Differential Indicated SCAN CRITERIA MET; Eosinophil# 0.14 X10^3/uL; Eosinophils% 1.7 % (0-5); Hematocrit 32.6 % (37-47); Hemoglobin 10.7 g/dL (12.0-15.0); Lymphocyte # 0.92 X10^3/ul (4.0); Lymphocyte % 10.9 % (19-41); Mean Corp Hgb Conc 32.8 g/dL (32-36); Mean Corpuscular Hgb 29.2 pg (27.0-32.0); Mean Corpuscular Volume 88.8 fL (81-99); Monocyte# 0.56 X10^3/uL; Monocyte% 6.6 % (0-10); NRBC Flagged by Analyzer 0 % (0-5); Neutrophil # 6.78 X10^3/uL (2.7-7.7); Neutrophil % 80.2 % (47-70); POSITIVE MORPHOLOGY YES; Platelet Count 167 K/mm3 (150-450); RBC Distribution Width CV 12.7 % (11.6-14.6); RBC Distribution Width SD 41.4 fl (35.1-43.9); Red Blood Count 3.67 M/mm3 (4.2-5.4); White Blood Count 8.5 K/mm3 (4.4-11.0)
[2019-11-16 23:06] LABS: Color, Urine Yellow (Yellow); Glucose, Dipstick Normal (Normal); Ketone-Dipstick 50 mg/dl (Negative); Leukocyte Esterase-Dipstick Negative /ul (Negative); Nitrite-Dipstick Negative (Negative); Occult Blood-Urine 10 /ul (Negative); Protein-Dipstick Negative (Negative); Urine Bilirubin Dipstick Negative (Negative); Urine Clarity Clear (Clear); Urine Urobilinogen 4 mg/dl (Normal)
[2019-11-16 23:13] LABS: Bacteria RARE /hpf (None Seen); Red Blood Cells-Urine 5-10 SEEN /hpf (0-5); Squamous Epithelial Cells - UA 0-5 SEEN /hpf (5-10); White Blood Cells 0-5 SEEN /hpf (0-5)
[2019-11-16 23:42] LABS: Atypical Lymphocyte RARE %; Platelet Estimate ADEQUATE (ADEQ); Red Cell Morphology NORM C+C NORMAL (NORM C&C)
--- NOTE | 2019-11-17 09:37 | OB.TRI.NOTE ---
- Problem List (1) Influenza Status: Acute (2) 36 weeks gestation of Status: Acute History of Present Illness Date of Service: 11/16/19 Was patient seen by the physician?: No Reason For Visit: FLU Final BRICE Source: LMP History of Present Illness: Pt tested positive for the flu on Tuesday. Started Tamiflu on Tuesday. Had fever at home of 105. No CP or SOB. No regular ctx's. Allergies amoxicillin [Amoxicillin] Allergy (Verified 11/17/19 02:42) Unknown chlorthalidone [From [place]] Allergy (Verified 11/17/19 02:42) Unknown nitrofurantoin [From Macrobid] Allergy (Verified 11/17/19 02:42) Unknown nitrofurantoin macrocrystalline [From Macrobid] Allergy (Verified 11/17/19 02:42) Unknown sulfamethoxazole [From Bactrim] Allergy (Verified 11/17/19 02:42) Swelling trimethoprim [From Bactrim] Allergy (Verified 11/17/19 02:42) Swelling - Pertinent Past Medical History Medical History: Past Medical History (Last Reviewed 11/12/18 @ 16:[address] Eduar Del Cid MD) Kidney stones Laboratory Studies: Laboratory Tests 11/16/19 11/16/19 11/16/19 Range/Units 22:50 22:45 22:03 WBC 8.5 (4.4-11.0) K/mm3 RBC 3.67 L (4.2-5.4) M/mm3 Hgb 10.7 L (12.0-15.0) g/dL Hct 32.6 L (37-47) % MCV 88.8 (81-99) fL MCH 29.2 (27.0-32.0) pg MCHC 32.8 (32-36) g/dL RDW Std Deviation 41.4 (35.1-43.9) fl RDW Coeff of Timothy 12.7 (11.6-14.6) % Plt Count 167 (150-450) K/mm3 MPV 10.0 (6.2-12.0) fl Immature Gran % (Auto) 0.500 (0.0-0.9) % Neut % (Auto) 80.2 H (47-70) % Lymph % (Auto) 10.9 L (19-41) % [place] % (Auto) 6.6 (0-10) % Eos % (Auto) 1.7 (0-5) % Baso % (Auto) 0.1 (0-1) % Absolute Neuts (auto) 6.8 (2.0-7.7) X10^3/uL Absolute Lymphs (auto) 0.92 (0.83-4.51) X10^3/uL Nucleated RBC % 0 (0-5) % Differential Comment COMMENT Atypical Lymphocytes RARE % Platelet Estimate ADEQUATE (ADEQ) RBC Morphology NORM C+C (NORM C&C) NORMAL Urine Color Yellow (Yellow) Urine Clarity Clear (Clear) Urine pH 8.0 (5.0 - 8.0) Ur Specific [place] 1.010 (1.002-1.030) Urine Protein Negative (Negative) mg/dl Urine Glucose (UA) Normal (Normal) mg/dl Urine Ketones 50 H (Negative) mg/dl Urine Occult Blood 10 H (Negative) /ul Urine Nitrite Negative (Negative) Urine Bilirubin Negative (Negative) mg/dL Urine Urobilinogen 4 H (Normal) mg/dl Ur Leukocyte Esterase Negative (Negative) /ul Urine RBC 5-10 SEEN (0-5) /hpf Urine WBC 0-5 SEEN (0-5) /hpf Ur Squamous Epith Cells 0-5 SEEN (5-10) /hpf Urine Bacteria RARE (None Seen) /hpf Urine Mucus 0 SEEN (<or=2+) /hpf Blood Type O POSITIVE Antibody Screen NEGATIVE NST - FHR Rate Baby A Baseline: 130 Variability:: Moderate Accelerations:: 15 x 15 Decelerations:: None NST Reactive:: Yes FHR Category:: Category I Uterine Activity:: Irregular ctx's Impression/Plan CXR negative WBC 8 Temp of 100 and then 98 NST reactive and reassuring IVF hydration D/c home with return precautions
== END 2019-11-16 23:35 | disposition home or self-care (01) ==
LOC: WPOUT 21:13 → WP 21:39
PROVIDERS: Visit Provider Obstetrics & Gynecology
DX: O98.513 Other viral diseases complicating pregnancy, third trimester (principal); J11.1 Influenza due to unidentified influenza virus with other respiratory manifestations; Z3A.36 36 weeks gestation of pregnancy; Z87.442 Personal history of urinary calculi
CPT/HCPCS: 96360; 96361; 36415; 59025; 59050; 71046; 81001; 85025; 86850; 86900; 86901; 87040; 99218; J7120; G0378

== ENCOUNTER 2019-11-18 11:55 | Inpatient (IN) | payer OTHER, SELFPAY ==
[2019-11-17 19:00] VITALS: BMI 23.7
--- NOTE | 2019-11-17 19:59 | RAD_ITS ---
STUDY: X-RAY CHEST REASON FOR EXAM: Female, 34 years old. Cough TECHNIQUE: Frontal view of the chest COMPARISON: 11/16/2019 FINDINGS: There is airspace opacity in the left lower lobe which is new when compared with the prior exam. This is likely infectious in etiology. The lungs are otherwise clear. There are no pleural effusions. There is no pneumothorax. The heart is normal in size. The visualized osseous structures are within normal limits. RAD/Chest PA and Lateral IMPRESSION: Airspace opacity in the left lower lobe which is new when compared with the prior exam. This is likely infectious in etiology. Electronically Signed: Francois Harrison, at 21:58 EST Tel , Service support ,
[2019-11-17] MEDS: 0.9% Saline Lock 10 ML Syringe IV (20:30)
[2019-11-17 20:48] LABS: Absolute Lymphocyte Count 0.55 X10^3/uL (0.83-4.51); Absolute Neutrophil Count 14.6 X10^3/uL (2.0-7.7); Basophil# 0.02 X10^3/uL; Basophil% 0.1 % (0-1); Hematocrit 34.9 % (37-47); Hemoglobin 11.6 g/dL (12.0-15.0); Lymphocyte # 0.55 X10^3/ul (4.0); Lymphocyte % 3.4 % (19-41); Mean Corp Hgb Conc 33.2 g/dL (32-36); Mean Corpuscular Hgb 29.5 pg (27.0-32.0); Mean Corpuscular Volume 88.8 fL (81-99); Mean Platelet Vol. 9.7 fl (6.2-12.0); Monocyte# 0.68 X10^3/uL; Monocyte% 4.2 % (0-10); NRBC Flagged by Analyzer 0 % (0-5); Neutrophil # 14.64 X10^3/uL (2.7-7.7); Neutrophil % 91.4 % (47-70); POSITIVE DIFFERENTIAL YES; POSITIVE MORPHOLOGY YES; Platelet Count 169 K/mm3 (150-450); RBC Distribution Width CV 12.7 % (11.6-14.6); RBC Distribution Width SD 41.5 fl (35.1-43.9); Red Blood Count 3.93 M/mm3 (4.2-5.4)
[2019-11-17 20:54] LABS: Differential Indicated SCAN CRITERIA MET
[2019-11-17 20:58] LABS: Color, Urine Yellow (Yellow); Glucose, Dipstick Normal (Normal); Ketone-Dipstick 15 mg/dl (Negative); Leukocyte Esterase-Dipstick Negative /ul (Negative); Nitrite-Dipstick Negative (Negative); Occult Blood-Urine Negative /ul (Negative); Protein-Dipstick 30 mg/dl (Negative); Specific Gravity, Urine 1.005 (1.002-1.030); Urine Bilirubin Dipstick Negative (Negative); Urine Clarity Clear (Clear); Urine Urobilinogen Normal (Normal)
[2019-11-17 21:04] LABS: Differential Comment SCANNED
[2019-11-17 21:05] LABS: Red Cell Morphology NORM C+C NORMAL (NORM C&C)
[2019-11-17] MEDS: Lactated Ringers 1,000 ML 500 ML IV (21:08)
--- NOTE | 2019-11-17 21:19 | PCM.HP.OB ---
- Problem List (1) Influenza Status: Acute (2) 36 weeks gestation of Status: Acute (3) Pneumonia Status: Acute History Date of Admission: 11/17/19 Final BRICE: 12/11/19 Final BRICE Source: LMP Gestational age: 36 Weeks and 4 Days History of this : This is a 34 year-old, G 3, P 2001, at 36 weeks gestational age who presented with rib pain, continued fevers, SOB in the setting known influenza. She tested positive for influenza B on 11/14/19 and was started on Tamiflu. She had a fever of 101 at home today and then began having rib pain and SOB. +Ctx's. No lof, vb. Good FM. Medical History: Medical History (Last Updated 11/17/19 @ 22:[address] Gabriela Arechiga, ) Advanced maternal age (AMA) in Kidney stones N20.0 Surgical History: Surgical History (Last Updated 11/17/19 @ 22:[address] Gabriela Arechiga DO) History of colonoscopy Z98.890 History of colposcopy Z98.890 History of nasal surgery Z98.890 Hx of LASIK Z98.890 Allergies amoxicillin [Amoxicillin] Allergy (Verified 11/17/19 20:54) Unknown chlorthalidone [From [place]] Allergy (Verified 11/17/19 20:54) Unknown nitrofurantoin [From Macrobid] Allergy (Verified 11/17/19 20:54) Unknown nitrofurantoin macrocrystalline [From Macrobid] Allergy (Verified 11/17/19 20:54) Unknown sulfamethoxazole [From Bactrim] Allergy (Verified 11/17/19 20:54) Swelling trimethoprim [From Bactrim] Allergy (Verified 11/17/19 20:54) Swelling Home Medications: Home Medications Vits [Prenatabs FA ] 1 tablet PO DAILY 11/25/13 Cholecalciferol (Vitamin D3) [Vitamin D3] 2,000 unit PO DAILY 11/11/18 Tamsulosin HCl 0.4 mg PO DAILY 11/11/18 Acetaminophen [Tylenol Extra Strength] 500 - 1,000 mg PO Q6H PRN PRN 11/17/19 Oseltamivir Phosphate [Tamiflu] 45 mg PO DAILY 11/17/19 Smoking Status: Never smoker Number of Fetus(es): 1 NST - FHR Rate Baby A Baseline: 150 Variability:: Moderate Accelerations:: 15 x 15 Decelerations:: None NST Reactive:: Yes FHR Category:: Category I Uterine Activity:: Occasional ctx's History Past Pregnancies: Past Pregnancies Delivery Date Name GA/ Weeks Outcome Route Wt Infant Sex Labor Length Anesthesia Delivery Location Provider FOB Labs: See [facility] records Expected Delivery Method: Spontaneous Vaginal Review of Systems Constitutional: Reports: Chills, Fever, Malaise, Fatigue Cardiovascular: Reports: Orthopnea Respiratory: Reports: Shortness of Breath Gastrointestinal: Denies: Abdominal Pain, Nausea, Vomiting Gynecological: Denies: Vaginal discharge Physical Exam General: Alert, No apparent distress Cardiovascular: Tachycardic Lungs: Clear to auscultation, Normal air movement Abdomen: Soft, Non Tender, Gravid Extremities:: No edema Neurological: Neuro grossly intact 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 Eduar Del Cid MD) Nephrolithiasis (Acute) Hematuria (Acute) Intractable pain (Acute) Influenza (Acute) 36 weeks gestation of (Acute) Pneumonia (Acute) This is a 34 year-old, G 3, P 2002, at 36 weeks gestational age admitted with known influenza with pneumonia. Yesterday she was on L&D and had WBC of 8, blood cx's were collected, she was given IVF hydration, CXR was negative, and NST reactive. She continued to have fevers at home today and then developed rib pain and SOB. - Admit for management - CEFM for now - GBS collected - Cvx changed from 1 to 2 cm. Discussed with pt to let us know if ctx's or pain worsens and will recheck. If additional cervical change will start PCN for GBS unknown - Reviewed r/b of BMZ and will give for lung maturity - Consult medicine for management of pneumonia - Blood cx's pend from 11/17 - WBC 16 on admission. Will repeat in AM - Continuous pulse ox
[2019-11-17] MEDS: Acetaminophen 500 MG Tablet 1000 MG PO (22:16)
--- NOTE | 2019-11-17 22:47 | PCM.CONS.GEN ---
Problem List (1) Sepsis Status: Acute (2) Influenza Status: Acute (3) 36 weeks gestation of Status: Acute (4) Pneumonia Status: Acute Reason for Consult Date of Consultation: 11/17/19 Reason for Consultation: pneumonia History of Present Illness: The patient is a 34 year old F who is 36 weeks and who is being treated for influenza B infection presenting with fever. At home her oral temperature was about 101 Fahrenheit; and her temporal temperature was about 104 at 105 Fahrenheit. Associated with her symptoms is a sore throat; nasal congestion with runny nose; body aches; shortness of breath; productive cough of yellow sputum; and chest pain when she takes a deep breath. Further she has rib pain?that shoots to her shoulder and neck. Her symptoms started about 4 days ago. [facility] She is currently having related contractions. Past Medical History Medical History: Medical History (Last Reviewed 11/17/19 @ 23:[address] Sj Ward MD) Advanced maternal age (AMA) in Kidney stones N20.0 Allergies amoxicillin [Amoxicillin] Allergy (Verified 11/17/19 20:54) Unknown chlorthalidone [From [place]] Allergy (Verified 11/17/19 20:54) Unknown nitrofurantoin [From Macrobid] Allergy (Verified 11/17/19 20:54) Unknown nitrofurantoin macrocrystalline [From Macrobid] Allergy (Verified 11/17/19 20:54) Unknown sulfamethoxazole [From Bactrim] Allergy (Verified 11/17/19 20:54) Swelling trimethoprim [From Bactrim] Allergy (Verified 11/17/19 20:54) Swelling Home Medications: Ambulatory Orders Medication Instructions Recorded Vits [Prenatabs FA ] 1 tablet PO DAILY 11/25/13 Cholecalciferol (Vitamin D3) 2,000 unit PO DAILY 11/11/18 [Vitamin D3] Tamsulosin HCl 0.4 mg PO DAILY 11/11/18 Acetaminophen [Tylenol Extra 500 - 1,000 mg PO Q6H PRN PRN 11/17/19 Strength] Oseltamivir Phosphate [Tamiflu] 45 mg PO DAILY 11/17/19 Surgical History: Surgical History (Last Reviewed 11/17/19 @ 23:[address] Sj Ward MD) History of colonoscopy Z98.890 History of colposcopy Z98.890 History of nasal surgery Z98.890 Hx of LASIK Z98.890 Surgical History: - - Prior ureteral stent and lithotripsy. 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 Paternal History Items: Heart Disease, Hypertension, - - Patient notes a paternal family history of hemochromatosis, hypertension, hyperlipidemia. Review of Systems Constitutional: Reports: Anorexia, Malaise, Fatigue. Denies: Fever, Weight Change HEENT: Reports: Sinus Congestion, Sinus Drainage. Denies: Head Aches Cardiovascular: Reports: Chest Pain. Denies: Palpitations Respiratory: Reports: Cough, Shortness of Breath, Sputum production Gastrointestinal: Denies: Abdominal Pain, Nausea, Vomiting Genitourinary: Denies: Dysuria Musculoskeletal: Denies: Joint Pain, Joint Tenderness Skin: Denies: Rash, Wounds Neurological: Denies: Numbness, Tingling, Focal weakness Psychiatric: Denies: Anxiety, Depression, Homicidal Ideations, Suicidal Ideations Hematologic/ Lymphatic: Denies: Easy Bruising, Easy Bleeding Patient Problems: Active and Suspected Problems (Last Reviewed 11/17/19 @ 23:[address] Sj Ward MD) Pneumonia (Acute) Sepsis (Acute) - Physical Exam Vitals/I&O's: Weight: 60.8 kg Body Mass Index (BMI) 23.7 General: Alert, Oriented x3, Cooperative HEENT: Atraumatic, EOMI, Normocephalic Neck: Supple, No JVD, Negative Carotid Bruits Lungs: No rhonchi, No wheeze, Rales - left lower lung pike Cardiovascular: Regular Rhythm, Normal S1, Normal S2, No murmurs, Tachycardic Abdomen: Bowel Sounds Present, Soft, - - Protruding abdomen consistent with Extremities: No edema, Capillary Refill Less than 3 Seconds Skin: No rashes, No breakdown Musculoskeletal: No Tenderness to Palpation of Joints or Extremities Neurological: Cranial nerves II-XII grossly intact Psych/Mental Status: Normal Affect, Appropriate Laboratory Results 11/17/19 19:54: Group B Strep DNA Pending, Specimen Comment Pending 11/17/19 20:20: Urine Color Yellow, Urine Clarity Clear, Urine pH 7.0, Ur Specific [place] 1.005, Urine Protein 30 H, Urine Glucose (UA) Normal, Urine Ketones 15 H, Urine Occult Blood Negative, Urine Nitrite Negative, Urine Bilirubin Negative, Urine Urobilinogen Normal, Ur Leukocyte Esterase Negative 11/17/19 20:30: WBC 16.0 H, RBC 3.93 L, Hgb 11.6 L, Hct 34.9 L, MCV 88.8, MCH 29.5, MCHC 33.2, RDW Std Deviation 41.5, RDW Coeff of [place] 12.7, Plt Count 169, MPV 9.7, Immature Gran % (Auto) 0.900, Neut % (Auto) 91.4 H, Lymph % (Auto) 3.4 L, [place] % (Auto) 4.2, Eos % (Auto) 0.0, Baso % (Auto) 0.1, Absolute Neuts (auto) 14.6 H, Absolute Lymphs (auto) 0.55 L, Nucleated RBC % 0, Differential Comment SCANNED, RBC Morphology NORM C+C Current Medications Acetaminophen (Tylenol) 1,000 mg PO Q8 [facility] Last Admin: 11/17/19 22:16 Dose: 1,000 mg Documented by: Acetaminophen (Tylenol) 650 mg PO Q6H PRN PRN PRN Reason: Pain Score 1-3/10 Benzonatate (Tessalon Perle) 100 mg PO TID PRN PRN PRN Reason: COUGH Betamethasone Acet/Betameth SodPhos (Celestone) 12 mg IM Q24H [facility] Stop: 11/18/19 22:31 Guaifenesin (Mucinex) 1,000 mg PO BID [facility] Ceftriaxone Sodium 2 gm/ (Sodium Chloride) 50 mls @ 100 mls/hr IV Q24 [facility] Azithromycin 500 mg/ Dextrose 255 mls @ 250 mls/hr IV Q24H [facility] Ondansetron HCl (Zofran) 4 mg IV Q8H PRN PRN PRN Reason: Nausea Only Sodium Chloride () 10 ml IV PRN PRN PRN Reason: SALINE FLUSH Last Admin: 11/17/19 20:30 Dose: 10 ml Documented by: Assessment/Plan All Active Problems (Last Reviewed 11/17/19 @ 23:[address] Sj Ward MD) Influenza (Acute) 36 weeks gestation of (Acute) Pneumonia (Acute) Sepsis (Acute) The patient is a 34 year old F who is 35 weeks and who is being treated for influenza B infection presenting because of fever; sore throat; nasal congestion with runny nose; body aches; shortness of breath; productive cough of yellow sputum; and chest pain when she takes a deep breath; rib pain?that shoots to her shoulder and neck; tachycardia with heart rate in the 120s; neutrophilic leukocytosis with white count of 16,000 and and chest x-ray finding of opacity in the left lower lobe consistent with sepsis secondary to pneumonia.. Sepsis secondary to community-acquired pneumonia Possible gram-negative or gram-positive. Her pneumonia could also be due to influenza. 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 Lactic acid MRSA nasal screen Check BMP Trend CBC Influenza B infection Continue Tamiflu Flonase Acetaminophen 36 weeks gestation of OBGYN following Code Visit Office Visits / Consults: [id number] IP Consult L3
[2019-11-17] MEDS: Betamethasone/Betamethasone 30 MG/5 ML Vial 12 MG IM (23:06)
[2019-11-17] MEDS: oxyCODONE 5 MG Tablet PO (23:06)
[2019-11-17] MEDS: 0.9% Normal Saline 1,000 ML 125 ML IV (23:36)
[2019-11-17] MEDS: Benzonatate 100 MG Capsule PO (23:37)
[2019-11-18 00:09] LABS: Lactic Acid 1.6 mmol/L (0.4-1.9)
[2019-11-18 01:51] LABS: M R Staph aureus DNA By PCR Negative (Negative); Probe Check PASS; Specimen Processing Control PASS
[2019-11-18 02:25] LABS: Group B Strep DNA By PCR Negative (Negative); Internal Control PASS; Probe Check PASS; Specimen Processing Control PASS
[2019-11-18] MEDS: Acetaminophen 325 MG Tablet 650 MG PO ×4 (02:26→21:45)
[2019-11-18] MEDS: guaiFENesin 1,200 MG Tablet 1200 MG PO ×3 (02:27→21:38)
[2019-11-18 05:01] LABS: Absolute Lymphocyte Count 0.73 X10^3/uL (0.83-4.51); Absolute Neutrophil Count 17.3 X10^3/uL (2.0-7.7); Basophil# 0.02 X10^3/uL; Basophil% 0.1 % (0-1); Hematocrit 31.9 % (37-47); Hemoglobin 10.6 g/dL (12.0-15.0); Lymphocyte # 0.73 X10^3/ul (4.0); Lymphocyte % 3.8 % (19-41); Mean Corp Hgb Conc 33.2 g/dL (32-36); Mean Corpuscular Hgb 29.4 pg (27.0-32.0); Mean Corpuscular Volume 88.6 fL (81-99); Mean Platelet Vol. 9.3 fl (6.2-12.0); Monocyte# 0.65 X10^3/uL; Monocyte% 3.4 % (0-10); NRBC Flagged by Analyzer 0 % (0-5); Neutrophil # 17.33 X10^3/uL (2.7-7.7); Neutrophil % 90.5 % (47-70); POSITIVE MORPHOLOGY YES; Platelet Count 160 K/mm3 (150-450); RBC Distribution Width CV 12.9 % (11.6-14.6); RBC Distribution Width SD 42.2 fl (35.1-43.9); White Blood Count 19.2 K/mm3 (4.4-11.0)
[2019-11-18 05:05] LABS: Anion Gap 8 (5-15); BUN 8 mg/dL (7-18); BUN/Creat Ratio 10.4 RATIO (10-20); Calcium,Total 8.6 mg/dL (8.5-10.1); Chloride 107 mmol/L (98-107); Creatinine, Serum 0.77 mg/dL (0.55-1.02); EST Glomerular Filtration Rate 91 mL/min (>60); Est Glom Filt Rate - Afr Amer 110 mL/min (>60); Estimated Creatinine Clearance 84.36 ml/min; Glucose 105 mg/dL (74-106); Potassium 3.5 mmol/L (3.5-5.1); Sodium Level 136 mmol/L (136-145)
[2019-11-18 05:16] LABS: Differential Indicated SCAN CRITERIA MET
[2019-11-18 05:21] LABS: Differential Comment SCANNED
[2019-11-18 07:59] VITALS: BP 107/71; PULSE 73; RESP 18; TEMP 36.4; O2SAT 98
--- NOTE | 2019-11-18 08:01 | PCM.PN.HOSP ---
Patient Problems: Active and Suspected Problems (Last Reviewed 11/17/19 @ 23:[address] Sj Ward MD) Pneumonia (Acute) Sepsis (Acute) Reason for Visit: Follow-up on pneumonia Subjective: Patient was seen and examined. She continues to have a left-sided lower chest pain, no fevers or chills. She has persistent cough productive of yellowish-green sputum. Discussed with Dr. Arechiga in OB unit as well, patient is actively emily. At the time of exam, her cervical dilatation was >3cm. Objective: Physical exam: Vitals/I&O's: Vital Signs Temp Pulse Resp BP Pulse Ox 97.5 F L 73 18 107/71 98 11/18/19 07:59 11/18/19 07:59 11/18/19 07:59 11/18/19 07:59 11/18/19 07:59 Oxygen Delivery Method Room Air Weight: 60.8 kg Body Mass Index (BMI) 23.7 Intake and Output for Last 24 Hours 11/16/19 11/17/19 11/18/19 23:59 23:59 23:59 Intake Total 1000 / 1000 305 / 305 Balance 1000 / 1000 305 / 305 General: Alert, Oriented x3, Cooperative, No apparent distress, - - not on oxygen, comfortable HEENT: Atraumatic, PERRLA, EOMI, Normocephalic Oral: Moist Mucosa Neck: Supple Lungs: Clear to auscultation - anteriorly, Normal air movement Cardiovascular: Regular rate, Regular Rhythm, Normal S1, Normal S2, No murmurs Abdomen: Bowel Sounds Present, Soft, Non-Distended, Tender, - - Gravid uterus Extremities: No edema Skin: No rashes Musculoskeletal: No Tenderness to Palpation of Joints or Extremities Lymphatic: No Cervical, Supraclavicular, or Inguinal Adenopathy Neurological: Cranial nerves II-XII grossly intact, Neuro grossly intact Psych/Mental Status: Normal Affect, Appropriate Laboratory Results 11/17/19 19:54: Group B Strep DNA Cancelled, Specimen Comment Cancelled 11/17/19 20:20: Urine Color Yellow, Urine Clarity Clear, Urine pH 7.0, Ur Specific [place] 1.005, Urine Protein 30 H, Urine Glucose (UA) Normal, Urine Ketones 15 H, Urine Occult Blood Negative, Urine Nitrite Negative, Urine Bilirubin Negative, Urine Urobilinogen Normal, Ur Leukocyte Esterase Negative 11/17/19 20:30: WBC 16.0 H, RBC 3.93 L, Hgb 11.6 L, Hct 34.9 L, MCV 88.8, MCH 29.5, MCHC 33.2, RDW Std Deviation 41.5, RDW Coeff of [place] 12.7, Plt Count 169, MPV 9.7, Immature Gran % (Auto) 0.900, Neut % (Auto) 91.4 H, Lymph % (Auto) 3.4 L, [place] % (Auto) 4.2, Eos % (Auto) 0.0, Baso % (Auto) 0.1, Absolute Neuts (auto) 14.6 H, Absolute Lymphs (auto) 0.55 L, Nucleated RBC % 0, Differential Comment SCANNED, RBC Morphology NORM C+C 11/17/19 23:15: Lactic Acid 1.6 11/17/19 23:45: MRSA (PCR) Negative 11/18/19 01:05: Group B Strep DNA Negative, Specimen Comment Not Reportable 11/18/19 04:30: WBC 19.2 H, RBC 3.60 L, Hgb 10.6 L, Hct 31.9 L, MCV 88.6, MCH 29.4, MCHC 33.2, RDW Std Deviation 42.2, RDW Coeff of [place] 12.9, Plt Count 160, MPV 9.3, Immature Gran % (Auto) 2.200 H, Neut % (Auto) 90.5 H, Lymph % (Auto) 3.8 L, [place] % (Auto) 3.4, Eos % (Auto) 0.0, Baso % (Auto) 0.1, Absolute Neuts (auto) 17.3 H, Absolute Lymphs (auto) 0.73 L, Nucleated RBC % 0, Differential Comment SCANNED 11/18/19 04:30: Sodium 136, Potassium 3.5, Chloride 107, Carbon Dioxide 21.0, Anion Gap 8, BUN 8, Creatinine 0.77, Estim Creat Clear Calc 84.36, Est GFR (MDRD) Af Amer 110, Est GFR (MDRD) Non-Af 91, BUN/Creatinine Ratio 10.4, Glucose 105, Calcium 8.6 Current Medications Acetaminophen (Tylenol) 650 mg PO Q6H PRN PRN PRN Reason: Pain Score 1-3/10 Last Admin: 11/18/19 02:26 Dose: 650 mg Documented by: Benzonatate (Tessalon Perle) 100 mg PO TID PRN PRN PRN Reason: COUGH Last Admin: 11/17/19 23:37 Dose: 100 mg Documented by: Betamethasone Acet/Betameth SodPhos (Celestone) 12 mg IM Q24H [facility] Stop: 11/18/19 22:31 Last Admin: 11/17/19 23:06 Dose: 2 ml Documented by: Fluticasone Propionate (Flonase Nasal [place]) 2 spray NASAL DAILY [facility] Last Admin: 11/18/19 00:37 Dose: Not Given Documented by: Guaifenesin (Mucinex) 1,200 mg PO BID [facility] Last Admin: 11/18/19 02:27 Dose: 1,200 mg Documented by: Ceftriaxone Sodium 2 gm/ (Sodium Chloride) 50 mls @ 100 mls/hr IV Q24H [facility] Last Infusion: 11/18/19 00:06 Dose: Infused Documented by: Azithromycin 500 mg/ Dextrose 255 mls @ 250 mls/hr IV Q24H [facility] Last Infusion: 11/18/19 01:32 Dose: Infused Documented by: Sodium Chloride () 1,000 mls @ 125 mls/hr IV .Q8H [facility] Last Admin: 11/17/19 23:36 Dose: 125 mls/hr Documented by: Ondansetron HCl (Zofran) 4 mg IV Q8H PRN PRN PRN Reason: Nausea Only Oseltamivir Phosphate (Tamiflu) 45 mg PO DAILY [facility] Sodium Chloride () 10 ml IV PRN PRN PRN Reason: SALINE FLUSH Last Admin: 11/17/19 20:30 Dose: 10 ml Documented by: STROKE Vital Signs/Narrative: Vital Signs Temp Pulse Resp BP Pulse Ox 11/18/19 07:59 97.5 F L 73 18 107/71 98 Medical Necessity - Tobacco Use Smoking Status: Never smoker Assessment/Plan All Active Problems (Last Reviewed 11/17/19 @ 23:[address] Sj Ward MD) Influenza (Acute) 36 weeks gestation of (Acute) Pneumonia (Acute) Sepsis (Acute) 1. Sepsis secondary to left sided pneumonia, improving Blood cultures are pending Continue on IV ceftriaxone and azithromycin Encourage use of incentive spirometer and Acapella 2. Acute influenza B infection, on Tamiflu 3. Cyesis, , 36 weeks gestation, in active labour, being followed by OB 4. DVT PPx-SCDs, early ambulation Code Visit Inpatient E&M: 57160 Subs Hosp L2
[2019-11-18] MEDS: 0.9% Normal Saline 1,000 ML 125 ML IV ×3 (08:43→21:39)
[2019-11-18] MEDS: Oseltamivir Phosphate 45 MG Capsule PO (09:54)
[2019-11-18] MEDS: Fluticasone 0.05% 1 SPRAY NASAL.SRY 2 SPRAY NASAL (09:54)
[2019-11-18 10:01] VITALS: BP 107/62; PULSE 108; RESP 16; TEMP 36.5; O2SAT 98
[2019-11-18] MEDS: Benzonatate 100 MG Capsule PO ×2 (10:09→21:51)
--- NOTE | 2019-11-18 11:28 | PCM.PN.OB ---
Patient Problems: Active and Suspected Problems (Last Reviewed 11/17/19 @ 23:[address] Sj Ward MD) Pneumonia (Acute) Sepsis (Acute) Subjective: She reports she is still feeling contractions but they feel less painful and spaced apart as compared to when she presented admission. No bleeding or gushes of fluid. Good movement. She still has some rib pain and shortness of breath. - Physical Exam Vitals/I&O's: Vital Signs Temp Pulse Resp BP Pulse Ox 97.7 F L 108 H 16 107/62 98 11/18/19 10:01 11/18/19 10:01 11/18/19 10:01 11/18/19 10:01 11/18/19 10:01 Oxygen Delivery Method Room Air Weight: 134 lb 0.657 oz Body Mass Index (BMI) 23.7 Intake and Output for Last 24 Hours 11/16/19 11/17/19 11/18/19 23:59 23:59 23:59 Intake Total 1000 / 1000 1494.58 / 1494.58 Balance 1000 / 1000 1494.58 / 1494.58 General: Alert, No apparent distress Abdomen: Soft, Non Tender, Gravid Extremities: No edema, No Calf Tenderness Skin: No rashes Neurological: Neuro grossly intact Psych/Mental Status: Normal Affect, Appropriate Laboratory Results 11/17/19 19:54: Group B Strep DNA Cancelled, Specimen Comment Cancelled 11/17/19 20:20: Urine Color Yellow, Urine Clarity Clear, Urine pH 7.0, Ur Specific [place] 1.005, Urine Protein 30 H, Urine Glucose (UA) Normal, Urine Ketones 15 H, Urine Occult Blood Negative, Urine Nitrite Negative, Urine Bilirubin Negative, Urine Urobilinogen Normal, Ur Leukocyte Esterase Negative 11/17/19 20:30: WBC 16.0 H, RBC 3.93 L, Hgb 11.6 L, Hct 34.9 L, MCV 88.8, MCH 29.5, MCHC 33.2, RDW Std Deviation 41.5, RDW Coeff of [place] 12.7, Plt Count 169, MPV 9.7, Immature Gran % (Auto) 0.900, Neut % (Auto) 91.4 H, Lymph % (Auto) 3.4 L, [place] % (Auto) 4.2, Eos % (Auto) 0.0, Baso % (Auto) 0.1, Absolute Neuts (auto) 14.6 H, Absolute Lymphs (auto) 0.55 L, Nucleated RBC % 0, Differential Comment SCANNED, RBC Morphology NORM C+C 11/17/19 23:15: Lactic Acid 1.6 11/17/19 23:45: MRSA (PCR) Negative 11/18/19 01:05: Group B Strep DNA Negative, Specimen Comment Not Reportable 11/18/19 04:30: WBC 19.2 H, RBC 3.60 L, Hgb 10.6 L, Hct 31.9 L, MCV 88.6, MCH 29.4, MCHC 33.2, RDW Std Deviation 42.2, RDW Coeff of [place] 12.9, Plt Count 160, MPV 9.3, Immature Gran % (Auto) 2.200 H, Neut % (Auto) 90.5 H, Lymph % (Auto) 3.8 L, [place] % (Auto) 3.4, Eos % (Auto) 0.0, Baso % (Auto) 0.1, Absolute Neuts (auto) 17.3 H, Absolute Lymphs (auto) 0.73 L, Nucleated RBC % 0, Differential Comment SCANNED 11/18/19 04:30: Sodium 136, Potassium 3.5, Chloride 107, Carbon Dioxide 21.0, Anion Gap 8, BUN 8, Creatinine 0.77, Estim Creat Clear Calc 84.36, Est GFR (MDRD) Af Amer 110, Est GFR (MDRD) Non-Af 91, BUN/Creatinine Ratio 10.4, Glucose 105, Calcium 8.6 Current Medications Acetaminophen (Tylenol) 650 mg PO Q6H PRN PRN PRN Reason: Pain Score 1-3/10 Last Admin: 11/18/19 08:44 Dose: 650 mg Documented by: Benzonatate (Tessalon Perle) 100 mg PO TID PRN PRN PRN Reason: COUGH Last Admin: 11/18/19 10:09 Dose: 100 mg Documented by: Betamethasone Acet/Betameth SodPhos ([place]elestone) 12 mg IM Q24H [facility] Stop: 11/18/19 22:31 Last Admin: 11/17/19 23:06 Dose: 2 ml Documented by: Fluticasone Propionate (Flonase Nasal [place]) 2 spray NASAL DAILY [facility] Last Admin: 11/18/19 09:54 Dose: 2 sprays Documented by: Guaifenesin (Mucinex) 1,200 mg PO BID [facility] Last Admin: 11/18/19 09:54 Dose: 1,200 mg Documented by: Ceftriaxone Sodium 2 gm/ (Sodium Chloride) 50 mls @ 100 mls/hr IV Q24H [facility] Last Infusion: 11/18/19 00:06 Dose: Infused Documented by: Azithromycin 500 mg/ Dextrose 255 mls @ 250 mls/hr IV Q24H [facility] Last Infusion: 11/18/19 01:32 Dose: Infused Documented by: Sodium Chloride () 1,000 mls @ 125 mls/hr IV .Q8H [facility] Last Infusion: 11/18/19 10:14 Dose: 125 mls/hr Documented by: Ondansetron HCl (Zofran) 4 mg IV Q8H PRN PRN PRN Reason: Nausea Only Oseltamivir Phosphate (Tamiflu) 45 mg PO DAILY [facility] Last Admin: 11/18/19 09:54 Dose: 45 mg Documented by: Sodium Chloride () 10 ml IV PRN PRN PRN Reason: SALINE FLUSH Last Admin: 11/17/19 20:30 Dose: 10 ml Documented by: Medical Necessity - Tobacco Use Smoking Status: Never smoker Assessment/Plan All Active Problems (Last Reviewed 11/17/19 @ 23:[address] Sj Ward MD) Influenza (Acute) 36 weeks gestation of (Acute) Pneumonia (Acute) Sepsis (Acute) 36 wk gestation admitted with influenza and pneumonia - Flu and pneumonia: Appreciate medicine assistance. Pt remains afebrile. Will likely transition to oral antibiotics tomorrow. No oxygen requirement. VSS - Cvx 3.5/80/-2 today. Contractions have spaced apart. To get BMZ tonight for lung maturity. GBS negative. Discussed with pt to let us know if ctx's worsen and will recheck at that time - FHT with late decelerations and a change in baseline. There is moderate variability and accelerations at this point. Increased IVF hydration and continuing position changes. CEFM for now. Discussed with Dr. Jade for second opinion and she also reviewed the tracing, and agrees with monitoring at this time given that she is 36 wks gestation - Encouraged IS use and ambulation today - Continue IV antibiotics and supportive care
[2019-11-18 11:59] VITALS: BP 109/75; PULSE 90; RESP 18; TEMP 36.7; O2SAT 99
[2019-11-18 13:04] VITALS: BP 108/72; PULSE 97; RESP 16; TEMP 36.8; O2SAT 97
[2019-11-18 14:34] VITALS: BP 103/69; PULSE 102; RESP 16; TEMP 36.9; O2SAT 97
[2019-11-18] MEDS: Betamethasone/Betamethasone 30 MG/5 ML Vial 12 MG IM (22:58)
[2019-11-18] MEDS: DiphenhydrAMINE 25 MG Capsule PO (23:51)
[2019-11-19] MEDS: Acetaminophen 325 MG Tablet 650 MG PO (06:02)
[2019-11-19] MEDS: 0.9% Normal Saline 1,000 ML 125 ML IV ×3 (06:24→22:39)
[2019-11-19 06:34] LABS: Absolute Lymphocyte Count 1.03 X10^3/uL (0.83-4.51); Absolute Neutrophil Count 13.8 X10^3/uL (2.0-7.7); Basophil# 0.02 X10^3/uL; Basophil% 0.1 % (0-1); Hematocrit 31.4 % (37-47); Hemoglobin 10.3 g/dL (12.0-15.0); Lymphocyte # 1.03 X10^3/ul (4.0); Lymphocyte % 6.6 % (19-41); Mean Corp Hgb Conc 32.8 g/dL (32-36); Mean Corpuscular Hgb 29.8 pg (27.0-32.0); Mean Corpuscular Volume 90.8 fL (81-99); Mean Platelet Vol. 9.8 fl (6.2-12.0); Monocyte% 1.9 % (0-10); NRBC Flagged by Analyzer 0 % (0-5); Neutrophil # 13.78 X10^3/uL (2.7-7.7); Neutrophil % 88.3 % (47-70); POSITIVE MORPHOLOGY YES; Platelet Count 214 K/mm3 (150-450); RBC Distribution Width CV 13.1 % (11.6-14.6); RBC Distribution Width SD 43.2 fl (35.1-43.9); Red Blood Count 3.46 M/mm3 (4.2-5.4); White Blood Count 15.6 K/mm3 (4.4-11.0)
[2019-11-19 06:38] LABS: Differential Indicated SCAN CRITERIA MET
[2019-11-19 06:51] LABS: ALB/GLOB Ratio 0.5 RATIO (0.9-2.4); AST(SGOT) 18 U/L (15-37); Alanine Aminotransfer ALT/SGPT 16 U/L (13-56); Alkaline Phosphatase 125 U/L (45-117); Anion Gap 8 (5-15); BUN 10 mg/dL (7-18); BUN/Creat Ratio 14.9 RATIO (10-20); Calcium,Total 8.6 mg/dL (8.5-10.1); Chloride 114 mmol/L (98-107); Creatinine, Serum 0.67 mg/dL (0.55-1.02); EST Glomerular Filtration Rate 106 mL/min (>60); Est Glom Filt Rate - Afr Amer 129 mL/min (>60); Estimated Creatinine Clearance 96.95 ml/min; Globulin 4.3 g/dL (2.2-4.2); Glucose 97 mg/dL (74-106); Potassium 3.5 mmol/L (3.5-5.1); Protein, Total 6.3 g/dL (6.4-8.2); Sodium Level 141 mmol/L (136-145)
[2019-11-19 07:07] LABS: Differential Comment SCANNED
[2019-11-19] MEDS: Oseltamivir Phosphate 45 MG Capsule PO (09:41)
[2019-11-19] MEDS: Fluticasone 0.05% 1 SPRAY NASAL.SRY 2 SPRAY NASAL (09:42)
[2019-11-19] MEDS: guaiFENesin 1,200 MG Tablet 1200 MG PO ×2 (09:42→22:09)
--- NOTE | 2019-11-19 11:12 | RAD_ITS ---
STUDY: X-RAY CHEST REASON FOR EXAM: Female, 34 years old. Fever and cough TECHNIQUE: Single AP portable view of the chest. COMPARISON: 11/17/2019 FINDINGS: Lungs are expanded. Right lung remains clear. Stable left lower lobe pneumonia. There is no demonstrated pleural abnormality. Normal size heart. Normal mediastinum and zaina. Normal visualized pulmonary arteries. Normal visualized aortic arch and descending thoracic aorta. Normal visualized thoracic spine. Normal visualized ribs, clavicles, and shoulders. There is no demonstrated abnormality of the visualized soft tissue structures of the upper abdomen. RAD/Chest 1 View (Portable) IMPRESSION: Persistent left lower lobe pneumonia, no interval change since the previous study Electronically Signed: Praful Jiang MD at 13:55 EST , Service support ,
--- NOTE | 2019-11-19 13:48 | PN.OBGYN_ITS ---
Patient Problems: Active and Suspected Problems (Last Reviewed 11/17/19 @ 23:[address] Sj Ward MD) Pneumonia (Acute) Sepsis (Acute) Subjective: Patient is feeling better. She reports good FM. Denies VB/LOF/ctxs. - Physical Exam Vitals/I&O's: Vital Signs Temp Pulse Resp BP Pulse Ox 98.4 F 102 H 16 103/69 97 11/18/19 14:34 11/18/19 14:34 11/18/19 14:34 11/18/19 14:34 11/18/19 14:34 Oxygen Delivery Method Room Air Weight: 134 lb 0.657 oz Body Mass Index (BMI) 23.7 Intake and Output for Last 24 Hours 11/17/19 11/18/19 11/19/19 23:59 23:59 23:59 Intake Total 1000 / 1000 2932.08 / 2932.08 940.42 / 940.42 Balance 1000 / 1000 2932.08 / 2932.08 940.42 / 940.42 General: Alert, Oriented x3 Abdomen: Soft, Non Tender, Non-Distended, Gravid Extremities: No Calf Tenderness Laboratory Results 11/19/19 06:20: Sodium 141, Potassium 3.5, Chloride 114 H, Carbon Dioxide 19.0 L , Anion Gap 8, BUN 10, Creatinine 0.67, Estim Creat Clear Calc 96.95, Est GFR (MDRD) Af Amer 129, Est GFR (MDRD) Non-Af 106, BUN/Creatinine Ratio 14.9, Glucose 97, Calcium 8.6, Total Bilirubin 0.20, AST 18, ALT 16, Alkaline Phosph atase 125 H, Total Protein 6.3 L, Albumin 2.0 L, Globulin 4.3 H, Albumin/Globulin Ratio 0.5 L 11/19/19 06:20: WBC 15.6 H, RBC 3.46 L, Hgb 10.3 L, Hct 31.4 L, MCV 90.8, MCH 29.8, MCHC 32.8, RDW Std Deviation 43.2, RDW Coeff of Timothy 13.1, Plt Count 214, MPV 9.8, Immature Gran % (Auto) 3.100 H, Neut % (Auto) 88.3 H, Lymph % (Auto) 6.6 L, [place] % (Auto) 1.9, Eos % (Auto) 0.0, Baso % (Auto) 0.1, Absolute Neuts (auto) 13.8 H, Absolute Lymphs (auto) 1.03, Nucleated RBC % 0, Differential Comment SCANNED Current Medications Acetaminophen (Tylenol) 650 mg PO Q6H PRN PRN PRN Reason: Pain Score 1-3/10 Last Admin: 11/19/19 06:02 Dose: 650 mg Documented by: Benzonatate (Tessalon Perle) 100 mg PO TID PRN PRN PRN Reason: COUGH Last Admin: 11/18/19 21:51 Dose: 100 mg Documented by: Fluticasone Propionate (Flonase Nasal [place]) 2 spray NASAL DAILY [facility] Last Admin: 11/19/19 09:42 Dose: 2 sprays Documented by: Guaifenesin (Mucinex) 1,200 mg PO BID [facility] Last Admin: 11/19/19 09:42 Dose: 1,200 mg Documented by: Ceftriaxone Sodium 2 gm/ (Sodium Chloride) 50 mls @ 100 mls/hr IV Q24H [facility] Last Infusion: 11/18/19 23:52 Dose: Infused Documented by: Azithromycin 500 mg/ Dextrose 255 mls @ 250 mls/hr IV Q24H [facility] Last Infusion: 11/19/19 00:55 Dose: Infused Documented by: Sodium Chloride () 1,000 mls @ 125 mls/hr IV .Q8H [facility] Last Admin: 11/19/19 06:24 Dose: 125 mls/hr Documented by: Ondansetron HCl (Zofran) 4 mg IV Q8H PRN PRN PRN Reason: Nausea Only Oseltamivir Phosphate (Tamiflu) 45 mg PO DAILY [facility] Last Admin: 11/19/19 09:41 Dose: 45 mg Documented by: Sodium Chloride () 10 ml IV PRN PRN PRN Reason: SALINE FLUSH Last Admin: 11/17/19 20:30 Dose: 10 ml Documented by: Medical Necessity - Tobacco Use Smoking Status: Never smoker Assessment/Plan All Active Problems (Last Reviewed 11/17/19 @ 23:[address] jS Ward MD) Influenza (Acute) 36 weeks gestation of (Acute) Pneumonia (Acute) Sepsis (Acute) 34yo @ 36&6 admitted with pneumonia and flu ID - managing pneumonia & flu. Patient AF & clinically improving. Repeat CXR completed. Continue antibiotics. FWB - EFW shows some intermittent late decelerations and 1 prolonged deceleration (about 7:30am). Overall EFM is reassuring - fhts 120's with moderate variability & accels, rare late decels (tocos - irregular ctx). Plan for continuous EFM at this point. Discussed R/B/A of HOME HEALTH CNA and will plan for continuous EFM to avoid possible emergent delivery. Will re-evaluate tomorrow when patient is 37 weeks. Patient agrees with plan & all questions answered.
[2019-11-19 14:00] VITALS: BP 132/80; PULSE 88; RESP 16; TEMP 37.7; O2SAT 98
[2019-11-19] MEDS: Docusate Sodium 100 MG Capsule 200 MG PO (16:45)
--- NOTE | 2019-11-19 19:52 | PN_ITS ---
Patient Problems: Active and Suspected Problems (Last Reviewed 11/17/19 @ 23:[address] Sj Ward MD) Pneumonia (Acute) Sepsis (Acute) Subjective: Patient was seen and examined today, she states she feels little bit better than yesterday, she stated yesterday she had some chest discomfort on deep breathing, today it is improved. I repeated the patient's chest x-ray today which continue to show a left lower lobe infiltrate which was read out as unchanged. Patient's white blood cell count however is improved today and her high temp today has been 100. Pulse ox on room air was 98. - Physical Exam Vitals/I&O's: Vital Signs Temp Pulse Resp BP Pulse Ox 100 F H 88 16 132/80 H 98 11/19/19 14:00 11/19/19 14:00 11/19/19 14:00 11/19/19 14:00 11/19/19 14:00 Oxygen Delivery Method Room Air Weight: 60.8 kg Body Mass Index (BMI) 23.7 Intake and Output for Last 24 Hours 11/17/19 11/18/19 11/19/19 23:59 23:59 23:59 Intake Total 1000 / 1000 2932.08 / 2932.08 1902.92 / 1902.92 Balance 1000 / 1000 2932.08 / 2932.08 1902.92 / 1902.92 General: Alert, Oriented x3, Cooperative, No apparent distress, Well developed, Well nourished HEENT: Atraumatic, PERRLA, EOMI, Normocephalic Oral: Moist Mucosa Neck: Supple, No JVD, Negative Carotid Bruits, Trachea Midline, Thyroid Normal Size and Texture Lungs: No rhonchi, No wheeze, Diminished - Over left lower lungs, Rales - Inspiratory rales are noted over the patient's left lower lung pike, diminished breath sounds are noted over the patient's left lower lung Cardiovascular: Regular rate, No murmurs Abdomen: Bowel Sounds Present, Soft, Non Tender, Non-Distended Extremities: No clubbing, No cyanosis, No edema, Capillary Refill Less than 3 Seconds Skin: No rashes, No breakdown Musculoskeletal: No Tenderness to Palpation of Joints or Extremities Neurological: Cranial nerves II-XII grossly intact, Neuro grossly intact, Sensory exam intact to light touch and pain, Coordination normal Psych/Mental Status: Normal Affect, Appropriate, Alert and oriented to time, place, person, mood and affect Laboratory Results 11/19/19 06:20: Sodium 141, Potassium 3.5, Chloride 114 H, Carbon Dioxide 19.0 L , Anion Gap 8, BUN 10, Creatinine 0.67, Estim Creat Clear Calc 96.95, Est GFR (MDRD) Af Amer 129, Est GFR (MDRD) Non-Af 106, BUN/Creatinine Ratio 14.9, G lucose 97, Calcium 8.6, Total Bilirubin 0.20, AST 18, ALT 16, Alkaline Phosphatase 125 H, Total Protein 6.3 L, Albumin 2.0 L, Globulin 4.3 H, Albumin/Globulin Ratio 0.5 L 11/19/19 06:20: WBC 15.6 H, RBC 3.46 L, Hgb 10.3 L, Hct 31.4 L, MCV 90.8, MCH 29.8, MCHC 32.8, RDW Std Deviation 43.2, RDW Coeff of Timothy 13.1, Plt Count 214, MPV 9.8, Immature Gran % (Auto) 3.100 H, Neut % (Auto) 88.3 H, Lymph % (Auto) 6.6 L, [place] % (Auto) 1.9, Eos % (Auto) 0.0, Baso % (Auto) 0.1, Absolute Neuts (auto) 13.8 H, Absolute Lymphs (auto) 1.03, Nucleated RBC % 0, Differential Comment SCANNED Current Medications Acetaminophen (Tylenol) 650 mg PO Q6H PRN PRN PRN Reason: Pain Score 1-3/10 Last Admin: 11/19/19 06:02 Dose: 650 mg Documented by: Benzonatate (Tessalon Perle) 100 mg PO TID PRN PRN PRN Reason: COUGH Last Admin: 11/18/19 21:51 Dose: 100 mg Documented by: Docusate Sodium (Colace) 200 mg PO DAILY [facility]PLAC[facility] Last Admin: 11/19/19 16:45 Dose: 200 mg Documented by: Fluticasone Propionate (Flonase Nasal [place]) 2 spray NASAL DAILY REPLAC[facility] Last Admin: 11/19/19 09:42 Dose: 2 sprays Documented by: Guaifenesin (Mucinex) 1,200 mg PO BID [facility]PL[facility] Last Admin: 11/19/19 09:42 Dose: 1,200 mg Documented by: Ceftriaxone Sodium 2 gm/ (Sodium Chloride) 50 mls @ 100 mls/hr IV Q24H REPLACED BY [facility] Last Infusion: 11/18/19 23:52 Dose: Infused Documented by: Azithromycin 500 mg/ Dextrose 255 mls @ 250 mls/hr IV Q24H REPLACED BY [facility] Last Infusion: 11/19/19 00:55 Dose: Infused Documented by: Sodium Chloride () 1,000 mls @ 125 mls/hr IV .Q8H REPLACED BY [facility] Last Admin: 11/19/19 15:24 Dose: Not Given Documented by: Ondansetron HCl (Zofran) 4 mg IV Q8H PRN PRN PRN Reason: Nausea Only Oseltamivir Phosphate (Tamiflu) 45 mg PO DAILY REPLACED BY [facility] Last Admin: 11/19/19 09:41 Dose: 45 mg Documented by: Sodium Chloride () 10 ml IV PRN PRN PRN Reason: SALINE FLUSH Last Admin: 11/17/19 20:30 Dose: 10 ml Documented by: Medical Necessity - Tobacco Use Smoking Status: Never smoker Assessment/Plan All Active Problems (Last Reviewed 11/17/19 @ 23:[address] Sj Ward MD) Influenza (Acute) 36 weeks gestation of (Acute) Pneumonia (Acute) Sepsis (Acute) #1 left lower lobe cyycrjbaf-lfgtscoid-haarzily-most probably secondary to gram- positive bacteria although atypical pneumonia cannot be ruled out at this time, I have ordered a strep antigen and Legionella antigen on the patient's urine, patient's blood culture at 48 hours shows no growth. Continue Zithromax and Rocephin, repeat CBC in a.m. 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
[2019-11-20] MEDS: DiphenhydrAMINE 25 MG Capsule PO (00:07)
[2019-11-20 04:54] LABS: Basophil# 0.11 X10^3/uL; Eosinophil# 0.03 X10^3/uL; Hematocrit 34.1 % (37-47); Lymphocyte # 1.88 X10^3/ul (4.0); Mean Corp Hgb Conc 32.3 g/dL (32-36); Mean Platelet Vol. 9.8 fl (6.2-12.0); Monocyte# 0.79 X10^3/uL; NRBC Flagged by Analyzer 0.7 % (0-5); Neutrophil # 12.87 X10^3/uL (2.7-7.7); POSITIVE COUNT YES; POSITIVE MORPHOLOGY YES; Platelet Count 300 K/mm3 (150-450); RBC Distribution Width SD 42.8 fl (35.1-43.9); Red Blood Count 3.79 M/mm3 (4.2-5.4); White Blood Count 16.6 K/mm3 (4.4-11.0)
[2019-11-20 04:55] LABS: Differential Indicated SCAN CRITERIA MET
[2019-11-20 05:18] LABS: Differential Comment SCANNED; Platelet Estimate ADEQUATE (ADEQ); Red Cell Morphology NORM C+C NORMAL (NORM C&C)
--- NOTE | 2019-11-20 08:12 | PCM.PN.OB ---
Patient Problems: Active and Suspected Problems (Last Reviewed 11/17/19 @ 23:[address] Sj Ward MD) Pneumonia (Acute) Sepsis (Acute) Subjective: pt seen up to chair, reports feeling better. no pain on deep inspiration and is overall feeling better. pt denies VB, LOF. Reports occasional painful contractions. - Physical Exam Vitals/I&O's: Vital Signs Temp Pulse Resp BP Pulse Ox 100 F H 88 16 132/80 H 98 11/19/19 14:00 11/19/19 14:00 11/19/19 14:00 11/19/19 14:00 11/19/19 14:00 Oxygen Delivery Method Room Air Weight: 60.8 kg Body Mass Index (BMI) 23.7 Intake and Output for Last 24 Hours 11/18/19 11/19/19 11/20/19 23:59 23:59 23:59 Intake Total 2932.08 / 2932.08 2998.75 / 2998.75 263.33 / 263.33 Balance 2932.08 / 2932.08 2998.75 / 2998.75 263.33 / 263.33 General: Alert, Oriented x3 Abdomen: Soft, Non Tender, Gravid Extremities: Edema - +1 pitting on bilateral LE Neurological: Cranial nerves II-XII grossly intact Psych/Mental Status: Normal Affect, Appropriate Microbiology Past 72 Hours 11/20/19 00:15 Urine, Clean Catch Legionella Antigen - Final 11/20/19 00:15 Urine, Clean Catch Streptococcus pneumoniae Antigen (M - Final Laboratory Results 11/20/19 04:45: WBC 16.6 H, RBC 3.79 L, Hgb 11.0 L, Hct 34.1 L, MCV 90.0, MCH 29.0, MCHC 32.3, RDW Std Deviation 42.8, RDW Coeff of Timothy 13.0, Plt Count 300, MPV 9.8, Immature Gran % (Auto) 5.300 H, Neut % (Auto) 12.9 L, Lymph % (Auto) 11.4 L, [place] % (Auto) 4.8, Eos % (Auto) 0.2, Baso % (Auto) 0.7, Absolute Neuts (auto) 12.9 H, Absolute Lymphs (auto) 1.88, Nucleated RBC % 0.7, Differential Comment SCANNED, Diff Path Review May foll, Platelet Estimate ADEQUATE, RBC Morphology NORM C+C 11/20/19 04:45: Blood Type O POSITIVE, Antibody Screen NEGATIVE Current Medications Acetaminophen (Tylenol) 650 mg PO Q6H PRN PRN PRN Reason: Pain Score 1-3/10 Last Admin: 11/19/19 06:02 Dose: 650 mg Documented by: Benzonatate (Tessalon Perle) 100 mg PO TID PRN PRN PRN Reason: COUGH Last Admin: 11/18/19 21:51 Dose: 100 mg Documented by: Docusate Sodium (Colace) 200 mg PO DAILY [facility] Last Admin: 11/19/19 16:45 Dose: 200 mg Documented by: Fluticasone Propionate (Flonase Nasal [place]) 2 spray NASAL DAILY [facility] Last Admin: 11/19/19 09:42 Dose: 2 sprays Documented by: Guaifenesin (Mucinex) 1,200 mg PO BID [facility] Last Admin: 11/19/19 22:09 Dose: 1,200 mg Documented by: Ceftriaxone Sodium 2 gm/ (Sodium Chloride) 50 mls @ 100 mls/hr IV Q24H [facility] Last Infusion: 11/19/19 22:39 Dose: Infused Documented by: Azithromycin 500 mg/ Dextrose 255 mls @ 250 mls/hr IV Q24H [facility] Last Infusion: 11/20/19 00:03 Dose: Infused Documented by: Sodium Chloride () 1,000 mls @ 50 mls/hr IV .Q20H [facility] Last Infusion: 11/20/19 00:07 Dose: 50 mls/hr Documented by: Ondansetron HCl (Zofran) 4 mg IV Q8H PRN PRN PRN Reason: Nausea Only Sodium Chloride () 10 ml IV PRN PRN PRN Reason: SALINE FLUSH Last Admin: 11/17/19 20:30 Dose: 10 ml Documented by: Medical Necessity - Tobacco Use Smoking Status: Never smoker Assessment/Plan All Active Problems (Last Reviewed 11/17/19 @ 23:[address] Sj Ward MD) Influenza (Acute) 36 weeks gestation of (Acute) Pneumonia (Acute) Sepsis (Acute) 34yo @ 37 weeks gestation - +influenza B with subsequent Pneumonia 1) spoke with medicine this morning- agrees clinically stable- WBC not trending down but likely from celestone administration over weekend 2) discussed with patient about IOL vs dc home with follow up tomorrow- we discussed at this time FHR overall is reassuring and reactive. Will come to office tomorrow for BPP/NST and if any concerns for tracing will deliver. 3) Kick counts reviewed 4) incentive Spirometer 5) call if Febrile or worsening symptoms 6) Medicine to send home with michaelf- will see her this morning prior to dc home
--- NOTE | 2019-11-20 08:21 | DCINST_ITS ---
- Discharge Diagnoses Current Active Problems: Current Active and Chronic Problems (Last Reviewed 11/17/19 @ 23:[address] Sj Ward MD) Pneumonia (Acute) Sepsis (Acute) You will use the following diet at home:: No restrictions, Regular Your food should be the consistency of: Regular Discharge Activity: Return to Normal Activity Call your doctor if you observe: Shortness of breath, Dizziness, Fainting spells, Chest pain, Increased palpitations (irregular heartbeat), - - Fever 100.4F or higher Allergies/Adverse Reactions: Allergies amoxicillin [Amoxicillin] Allergy (Verified 11/17/19 20:54) Unknown chlorthalidone [From [place]] Allergy (Verified 11/17/19 20:54) Unknown nitrofurantoin [From Macrobid] Allergy (Verified 11/17/19 20:54) Unknown nitrofurantoin macrocrystalline [From Macrobid] Allergy (Verified 11/17/19 20:54) Unknown sulfamethoxazole [From Bactrim] Allergy (Verified 11/17/19 20:54) Swelling trimethoprim [From Bactrim] Allergy (Verified 11/17/19 20:54) Swelling Medications to take at Discharge Vits [Prenatabs FA ] 1 tablet PO DAILY 11/25/13 Cholecalciferol (Vitamin D3) [Vitamin D3] 2,000 unit PO DAILY 11/11/18 Tamsulosin HCl 0.4 mg PO DAILY 11/11/18 Acetaminophen [Tylenol] 500 - 1,000 mg PO Q6H PRN PRN 11/17/19 Acetaminophen [Tylenol Tablet] 650 mg PO Q6H PRN PRN tablet 11/20/19 Benzonatate [Tessalon Perle] 100 mg PO TID PRN PRN capsule 11/20/19 Fluticasone 0.05% [Flonase Nasal [place]] 2 spray NASAL DAILY nasal.sry 11/20/19 Guaifenesin [Mucinex] 1,200 mg PO BID tablet 11/20/19 Primary Care Physician: Care Physician,No Primary [Primary Care Provider] - Test Results: Test results from this visit will be discussed in further detail at your follow- up appointment, if applicable. Please Follow Up With: Saray Parrish MD When: tomorrow in office for BPP 9:45am and NST
[2019-11-20 15:03] LABS: Lymphocyte 13 % (19-41); Monocyte 6 % (0-10); Neutrophil-Band 2 % (0-5); Neutrophil-Segmented 79 % (47-70); Total Cells Counted 100 (MANUAL DIFF)
[2019-11-20 15:04] LABS: Scan Smear per Review Criteria MANUAL DIFF
[2019-11-20 15:05] LABS: Absolute Lymphocyte Count 2.15 X10^3/uL (0.83-4.51); Absolute Neutrophil Count 13.4 X10^3/uL (2.0-7.7)
--- NOTE | 2019-11-21 07:52 | PCM.PROGNOTE ---
Subjective: The date of this entry is 11/20/2019: Patient was seen and examined today, she does not complain of any shortness of breath or chest discomfort at this time. Patient's white blood cell count is still elevated at 16.6. - Physical Exam Vitals/I&O's: Vital Signs Temp Pulse Resp BP Pulse Ox 100 F H 88 16 132/80 H 98 11/19/19 14:00 11/19/19 14:00 11/19/19 14:00 11/19/19 14:00 11/19/19 14:00 Oxygen Delivery Method Room Air Weight: 60.8 kg Body Mass Index (BMI) 23.7 Intake and Output for Last 24 Hours 11/19/19 11/20/19 11/21/19 23:59 23:59 23:59 Intake Total 2998.75 / 2998.75 731.66 / 731.66 Balance 2998.75 / 2998.75 731.66 / 731.66 General: Alert, Oriented x3, Cooperative, No apparent distress, Well developed HEENT: Atraumatic, PERRLA, EOMI, Normocephalic Oral: Moist Mucosa Neck: Supple, No JVD, Trachea Midline, Thyroid Normal Size and Texture Lungs: Normal air movement, Rales - There are inspiratory rales noted over the patient's left mid and lower lung pike, there is decreased air movement over these areas also Cardiovascular: Regular rate, Regular Rhythm, Normal S1, Normal S2, No murmurs Abdomen: Bowel Sounds Present, Soft, Non Tender, - - Patient is near full term Extremities: No edema, Capillary Refill Less than 3 Seconds Skin: No rashes, No breakdown Musculoskeletal: No Tenderness to Palpation of Joints or Extremities Neurological: Cranial nerves II-XII grossly intact, Neuro grossly intact, Sensory exam intact to light touch and pain, Coordination normal Psych/Mental Status: Normal Affect, Appropriate, Alert and oriented to time, place, person, mood and affect Microbiology Past 72 Hours 11/20/19 00:15 Urine, Clean Catch Legionella Antigen - Final 11/20/19 00:15 Urine, Clean Catch Streptococcus pneumoniae Antigen (M - Final Laboratory Results 11/20/19 04:45: WBC 16.6 H, RBC 3.79 L, Hgb 11.0 L, Hct 34.1 L, MCV 90.0, MCH 29.0, MCHC 32.3, RDW Std Deviation 42.8, RDW Coeff of Timothy 13.0, Plt Count 300, MPV 9.8, Immature Gran % (Auto) OPERATIONS SYSTEMS SPECIALIST, Neut % (Auto) OPERATIONS SYSTEMS SPECIALIST, Lymph % (Auto) OPERATIONS SYSTEMS SPECIALIST, [place] % (Auto) OPERATIONS SYSTEMS SPECIALIST, Eos % (Auto) OPERATIONS SYSTEMS SPECIALIST, Baso % (Auto) OPERATIONS SYSTEMS SPECIALIST, Absolute Neuts (auto) 13.4 H, Absolute Lymphs (auto) 2.15, Total Counted 100, Neutrophils % (Manual) 79 H, Band Neutrophils % 2, Lymphocytes % (Manual) 13 L, Monocytes % (Manual) 6, Nucleated RBC % 0.7, Differential Comment SCANNED, Diff Path Review January, Platelet Estimate ADEQUATE, RBC Morphology NORM C+C Medical Necessity - Tobacco Use Smoking Status: Never smoker Assessment/Plan All Active Problems (Last Reviewed 11/17/19 @ 23:[address] Sj Ward MD) Influenza (Acute) 36 weeks gestation of (Acute) Pneumonia (Acute) Sepsis (Acute) #1 left lower lobe ezpnjiess-ugsrlfqur-kfixptwg-most probably secondary to gram-positive bacteria although atypical pneumonia cannot be ruled out at this time-patient will be discharged on Omnicef 600 mg daily for 7 days, I recommended to her that she follow-up with her PCP or [facility] physician and obtain a repeat chest x-ray in approximately a week. Patient appears stable for discharge. #2 recent influenza-patient has completed her course of Tamiflu #3 36-week gestation-[employer] monitoring Code Visit Inpatient E&M: [id number] Subs Hosp L2
--- NOTE | 2019-11-21 08:29 | PCM.DC.BLA ---
Discharge Summary Date of Admission: 11/17/19 Date of Discharge: 11/20/19 Summary: 34-year-old G3, P2 at 36+ weeks gestation was admitted to [facility] on 11/17/2023 complications from influenza B. pt resented with chest pain, shortness of breath difficulty taking a deep inspiration. She had chest x-ray which confirmed left lower lobe pneumonia. Patient was seen by medicine and started on ceftriaxone and azithromycin. Patient remained on labor and delivery for monitoring due to occasional late decelerations. On hospital day #3 patient remained afebrile and was stable for discharge home. Medicine consulted and sent home on Omnicef for 7 days. heart rate tracing was category 1 at time of discharge. Patient has strict follow-up in the office on 11/21/2023 biophysical profile and NST. - Physical Exam Vitals/I&O's: Vital Signs Temp Pulse Resp BP Pulse Ox 100 F H 88 16 132/80 H 98 11/19/19 14:00 11/19/19 14:00 11/19/19 14:00 11/19/19 14:00 11/19/19 14:00 Oxygen Delivery Method Room Air Weight: 60.8 kg Body Mass Index (BMI) 23.7 Intake and Output for Last 24 Hours 11/19/19 11/20/19 11/21/19 23:59 23:59 23:59 Intake Total 2998.75 / 2998.75 731.66 / 731.66 Balance 2998.75 / 2998.75 731.66 / 731.66 Microbiology Past 72 Hours 11/18/19 Unknown Genital vaginal Group B Streptococcus Culture - Final Group B Beta Streptococcus is not isolated. 11/20/19 00:15 Urine, Clean Catch Legionella Antigen - Final 11/20/19 00:15 Urine, Clean Catch Streptococcus pneumoniae Antigen (M - Final Laboratory Results 11/20/19 04:45: WBC 16.6 H, RBC 3.79 L, Hgb 11.0 L, Hct 34.1 L, MCV 90.0, MCH 29.0, MCHC 32.3, RDW Std Deviation 42.8, RDW Coeff of Timothy 13.0, Plt Count 300, MPV 9.8, Immature Gran % (Auto) GAUGE CHECKER, Neut % (Auto) GAUGE CHECKER, Lymph % (Auto) GAUGE CHECKER, [place] % (Auto) GAUGE CHECKER, Eos % (Auto) GAUGE CHECKER, Baso % (Auto) GAUGE CHECKER, Absolute Neuts (auto) 13.4 H, Absolute Lymphs (auto) 2.15, Total Counted 100, Neutrophils % (Manual) 79 H, Band Neutrophils % 2, Lymphocytes % (Manual) 13 L, Monocytes % (Manual) 6, Nucleated RBC % 0.7, Differential Comment SCANNED, Diff Path Review May foll, Platelet Estimate ADEQUATE, RBC Morphology NORM C+C
[2019-11-21 10:41] LABS: Pathologist Review Reviewed
== END 2019-11-20 09:45 | disposition home or self-care (01) | DRG 831 ==
LOC: WPOUT 11:56 → WP 11:56
PROVIDERS: Hospitalist; Admitting Provider Obstetrics & Gynecology; Visit Provider Internal Medicine
DX: O99.513 Diseases of the respiratory system complicating pregnancy, third trimester (principal); J10.00 Influenza due to other identified influenza virus with unspecified type of pneumonia; A41.9 Sepsis, unspecified organism; Z3A.36 36 weeks gestation of pregnancy; O09.523 Supervision of elderly multigravida, third trimester; O36.8330 Maternal care for abnormalities of the fetal heart rate or rhythm, third trimester, not applicable or unspecified
CPT/HCPCS: 36415; 59025; 59050; 71045; 71046; 80048; 80053; 81002; 83605; 85025; 86850; 86900; 86901; 87081; 87449; 87641; 87653; 94667; J7030; J7120; A4216; J0696; J0702

== ENCOUNTER 2019-11-21 11:00 | Inpatient (IN) | payer OTHER, SELFPAY ==
[2019-11-17 19:00] VITALS: BMI 23.7
[2019-11-21] VITALS (28 sets, daily range): BP systolic 108–161; BP diastolic 63–96; PULSE 57–92; RESP 18; TEMP 36.9; O2SAT 96–100; BMI 25.6
[2019-11-21] MEDS: Lactated Ringers 1,000 ML 50 ML IV (11:40)
--- NOTE | 2019-11-21 12:03 | PCM.HP.OB ---
History Date of Admission: 11/17/19 Final BRICE: 12/11/19 Final BRICE Source: LMP Gestational age: 37 Weeks and 1 Days History of this : This is a 34 year-old, @ 37.1 weeks here for IOL- late decelerations on Office NST, BPP was 8/8. pt was counseled on IOL. was admitted over weekend with influenza B complications with Left lower lobe Pneumonia- has been afebrile for over 48hrs. denies LENNON, visual changes Medical History: Medical History (Last Reviewed 11/17/19 @ 23:[address] Sj Ward MD) Advanced maternal age (AMA) in Kidney stones N20.0 Surgical History: Surgical History (Last Reviewed 11/17/19 @ 23:[address] Sj Ward MD) History of colonoscopy Z98.890 History of colposcopy Z98.890 History of nasal surgery Z98.890 Hx of LASIK Z98.890 Allergies amoxicillin [Amoxicillin] Allergy (Verified 11/17/19 20:54) Unknown chlorthalidone [From [place]] Allergy (Verified 11/17/19 20:54) Unknown nitrofurantoin [From Macrobid] Allergy (Verified 11/17/19 20:54) Unknown nitrofurantoin macrocrystalline [From Macrobid] Allergy (Verified 11/17/19 20:54) Unknown sulfamethoxazole [From Bactrim] Allergy (Verified 11/17/19 20:54) Swelling trimethoprim [From Bactrim] Allergy (Verified 11/17/19 20:54) Swelling Home Medications: Home Medications Vits [Prenatabs FA ] 1 tablet PO DAILY 11/25/13 Cholecalciferol (Vitamin D3) [Vitamin D3] 2,000 unit PO DAILY 11/11/18 Tamsulosin HCl 0.4 mg PO DAILY 11/11/18 Acetaminophen [Tylenol] 500 - 1,000 mg PO Q6H PRN PRN 11/17/19 Acetaminophen [Tylenol Tablet] 650 mg PO Q6H PRN PRN tab 11/20/19 Benzonatate [Tessalon Perle] 100 mg PO TID PRN PRN cap 11/20/19 Cefdinir [Omnicef [equiv]] 600 mg PO DAILY 11/21/19 Fluticasone 0.05% [Flonase Nasal [place]] 2 spray NASAL DAILY 11/21/19 Guaifenesin [Mucinex] 1,200 mg PO BID 11/21/19 Smoking Status: Never smoker Alcohol: None Number of Fetus(es): 1 NST - FHR Rate Baby A Baseline: 140 Variability:: Moderate History Past Pregnancies: Past Pregnancies Delivery Date Name GA/ Weeks Outcome Route Wt Infant Sex Labor Length Anesthesia Delivery Location Provider FOB Expected Infant Delivery Method: Spontaneous Vaginal Review of Systems Constitutional: Denies: Anorexia Eyes: Denies: Blurred vision, Vision Change HEENT: Denies: Head Aches Respiratory: Reports: Cough Gastrointestinal: Denies: Abdominal Pain Physical Exam General: Alert, Oriented x3 Abdomen: Soft, Non Tender, Gravid Neurological: Cranial nerves II-XII grossly intact SOCIAL MEDIA SPECIALIST: Normal external genitalia Estimated gestational size: Appropriate for gestational size Presentation: Cephalic Cervix Dilation (cm): 4.5 Station: -1 Effacement (%): 75 Assessment/Plan All Active Problems (Last Reviewed 11/17/19 @ 23:[address] Sj Ward MD) Influenza (Acute) 36 weeks gestation of (Acute) Pneumonia (Acute) Sepsis (Acute) This is a 34 year-old, at 37.1 weeks gestational age- late deceleration on NST in office. 1) admit to L&D 2) monitor fhr/toco 3) epidural if requested 4) pitocin/arom 5) pree labs- bps elevated at admission- asymptomatic 6) anticipate
[2019-11-21] MEDS: Oxytocin 30 units/NS 500 ml 30 UNITS/500 ML IV.SOLN IV (12:08)
[2019-11-21 12:28] LABS: Hematocrit 34.1 % (37-47); Hemoglobin 11.4 g/dL (12.0-15.0); Mean Corp Hgb Conc 33.4 g/dL (32-36); Mean Corpuscular Hgb 29.5 pg (27.0-32.0); Mean Corpuscular Volume 88.1 fL (81-99); Mean Platelet Vol. 9.6 fl (6.2-12.0); POSITIVE COUNT YES; POSITIVE MORPHOLOGY YES; Platelet Count 367 K/mm3 (150-450); RBC Distribution Width CV 12.5 % (11.6-14.6); RBC Distribution Width SD 40.7 fl (35.1-43.9); Red Blood Count 3.87 M/mm3 (4.2-5.4)
[2019-11-21 12:34] LABS: International Normalized Ratio 0.9; Prothrombin Time (Protime)PT. 11.7 SECONDS (11.7-14.9)
[2019-11-21 12:35] LABS: Partial Thromboplast Time 25.9 Seconds (24.1-36.2)
[2019-11-21 12:37] LABS: AST(SGOT) 28 U/L (15-37); Alanine Aminotransfer ALT/SGPT 19 U/L (13-56); Creatinine, Serum 0.74 mg/dL (0.55-1.02); EST Glomerular Filtration Rate 95 mL/min (>60); Est Glom Filt Rate - Afr Amer 114 mL/min (>60); Estimated Creatinine Clearance 87.78 ml/min
[2019-11-21 12:38] LABS: Differential Indicated MANUAL DIFF
[2019-11-21] MEDS: Lactated Ringers 500 ML 999 ML IV (12:41)
[2019-11-21 12:58] LABS: Lymphocyte 19 % (19-41); Monocyte 9 % (0-10); Neutrophil-Band 1 % (0-5); Neutrophil-Segmented 71 % (47-70); Nucleated Red Bld Cells,Manual 3 % (0-5); Total Cells Counted 100 (MANUAL DIFF)
[2019-11-21 12:59] LABS: Platelet Estimate ADEQUATE (ADEQ); Red Cell Morphology NORM C+C NORMAL (NORM C&C)
[2019-11-21 13:00] LABS: Absolute Lymphocyte Count 2.09 X10^3/uL (0.83-4.51); Absolute Neutrophil Count 7.9 X10^3/uL (2.0-7.7)
[2019-11-21] MEDS: fentaNYL-bupivacaine (epidural) 100 ML BAG EPIDURAL (13:35)
[2019-11-21 15:06] LABS: Protein, Urine (Random) 20.5 mg/dL (<11.9); Protein:Creat Ratio 384 mg/g CRE (0-200)
[2019-11-21] MEDS: Oxytocin 30 units/NS 500 ml 30 UNITS/500 ML IV.SOLN 334 UNITS IV (15:17)
--- NOTE | 2019-11-21 15:31 | PCM.OPRPT ---
Vaginal Delivery Maternal Presentation: Medically Indicated Induction Method of Induction: Pitocin, Amniotomy Medical Reason for Induction: - - decelerations, Gest Hypertension Amniotic Membrane Rupture Type: Artificial Amniotic Fluid Description: Clear Final BRICE: 12/11/19 Gestational age: 37 Weeks and 1 Days Date of Procedure: 11/21/19 Pre-Operative Diagnosis: decels, gest HTN Post-Operative Diagnosis: same, live male Surgery/ Procedure Performed: Spontaneous Vaginal Delivery Type of Anesthesia: Epidural Description of Procedure: of live male born without complication. head delivered by gentle downward traction anterior shoulder delivered by the rest of the 's body. was placed on the maternal chest. Delayed cord clamping performed. Cord was then clamped and cut Pitocin was started and the placenta delivered without complication and intact.2nd degree perineal laceration- repaired with 2-0 vicryl. Presentation: Vertex Placental Delivery Description: Spontaneous Cord Vessel Description: 3 Vessels Nuchal Cord Compression: Without compression Cord Entanglement: None Drain: Diane to straight drain Estimated Blood Loss: 250 Infant A gender: Male (1 minute): 8 (5 minute): 9 Episiotomy Description: None Laceration: Perineal Extension/lac - repaired with 2-0 vicryl, 2nd degree Medications given after delivery: IV Pitocin Complications: None
[2019-11-21] MEDS: Ibuprofen 600 MG Tablet PO ×2 (16:32→23:27)
--- NOTE | 2019-11-21 17:32 | NURSING ---
5500- Dr Jade notified of elevated BP during recovery period. plan is to continue to monitor. 48 hour stay.
[2019-11-21] MEDS: guaiFENesin 1,200 MG Tablet 1200 MG PO (22:46)
[2019-11-21] MEDS: Benzonatate 100 MG Capsule PO (23:12)
[2019-11-22] MEDS: Benzonatate 100 MG Capsule PO (05:35)
[2019-11-22] MEDS: Ibuprofen 600 MG Tablet PO ×3 (05:35→21:24)
[2019-11-22 05:40] VITALS: BP 141/84; PULSE 69; RESP 18; TEMP 37
--- NOTE | 2019-11-22 07:58 | PN.OBGYN_ITS ---
Subjective: Patient seen at bedside, doing well. Patient reports good pain control. Denies any chest pain. Has significant coughing but otherwise is doing well. Patient reports minimal lochia, voiding without difficulty, breast-feeding without difficulty. Denies headaches, visual changes or right upper quadrant pain - Physical Exam Vitals/I&O's: Vital Signs Temp Pulse Resp BP 98.6 F 69 18 141/84 H 11/22/19 05:40 11/22/19 05:40 11/22/19 05:40 11/22/19 05:40 Weight: 65.6 kg Body Mass Index (BMI) 25.6 Intake and Output for Last 24 Hours 11/20/19 11/21/19 11/22/19 23:59 23:59 23:59 Intake Total 1482.01 / 1482.01 Output Total 400 / 400 Balance 1082.01 / 1082.01 General: Alert, Oriented x3 Abdomen: Soft, Non Tender, - - fundus firm Extremities: No Calf Tenderness Laboratory Results 11/21/19 11:40: WBC 11.0, RBC 3.87 L, Hgb 11.4 L, Hct 34.1 L, MCV 88.1, MCH 29.5, MCHC 33.4, RDW Std Deviation 40.7, RDW Coeff of Timothy 12.5, Plt Count 367, MPV 9.6, Neut % (Auto) Not Reportable, Absolute Neuts (auto) 7.9 H, Absolute Lymphs (auto) 2.09, Total Counted 100, Neutrophils % (Manual) 71 H, Band Neutrophils % 1, Lymphocytes % (Manual) 19, Monocytes % (Manual) 9, Nucleated RBCs/100 WBC 3, Diff Path Review January, Platelet Estimate ADEQUATE, RBC Morphology NORM C+C 11/21/19 11:40: Blood Type O POSITIVE, Antibody Screen NEGATIVE 11/21/19 11:40: PT 11.7, INR 0.9, APTT 25.9 11/21/19 11:40: Creatinine 0.74, Estim Creat Clear Calc 87.78, Est GFR (MDRD) Af Amer 114, Est GFR (MDRD) Non-Af 95, Uric Acid 7.0 H, AST 28, ALT 19 11/21/19 14:25: U Random Total Protein 20.5 H, Urine Creatinine 53.40, Protein/Creatinin Ratio 384 H Current Medications Acetaminophen (Tylenol) 1,000 mg PO Q8H PRN PRN PRN Reason: Pain Score 1-3/10 Benzonatate (Tessalon Perle) 100 mg PO TID PRN PRN PRN Reason: COUGH Last Admin: 11/22/19 05:35 Dose: 100 mg Documented by: Bisacodyl (Dulcolax) 10 mg RECTAL UD PRN PRN Reason: If no BM Cefdinir (Omnicef [Equiv]) 600 mg PO DAILY [facility] Dibucaine (Dibucaine) 1 applic TOPICAL TID PRN PRN; Protocol PRN Reason: Discomfort Fluticasone Propionate (Flonase Nasal [place]) 2 spray NASAL DAILY [facility] Guaifenesin (Mucinex) 1,200 mg PO BID DIALLO Last Admin: 11/21/19 22:46 Dose: 1,200 mg Documented by: Hydrocortisone (Hytone) 1 applic TOPICAL TID PRN PRN; Protocol PRN Reason: Discomfort Ibuprofen (Motrin) 600 mg PO Q6H PRN PRN PRN Reason: Pain Score 1-3/10 Last Admin: 11/22/19 05:35 Dose: 600 mg Documented by: Methylergonovine Maleate (Methergine) 0.2 mg IM X1 PRN PRN Reason: Excess bleeding/uterine atony Ondansetron HCl (Zofran) 4 mg IV Q4H PRN PRN PRN Reason: Nausea Oxycodone HCl (Oxyir) 5 - 10 mg PO Q4H PRN PRN PRN Reason: Pain Score 4-10/10 Senna/Docusate Sodium (Senokot-S, Radha-Colace) 1 - 2 tablet PO DAILY PRN PRN PRN Reason: Constipation Simethicone (Mylicon) 80 mg PO PCHS PRN PRN Reason: Indigestion/Stomach pain Sodium Chloride () 5 - 15 ml IV UD PRN PRN Reason: SALINE FLUSH Medical Necessity - Tobacco Use Smoking Status: Never smoker Assessment/Plan All Active Problems (Last Reviewed 11/17/19 @ 23:[address] Sj Ward MD) Influenza (Acute) 36 weeks gestation of (Acute) Pneumonia (Acute) Sepsis (Acute) PPD#1, preeclampsia w/o severe features 1) monitor VS 2) Routine PP care 3) continue current meds for Left lower lobe pneumonia- remains afebrile
[2019-11-22 09:00] VITALS: BP 129/79; PULSE 74; RESP 16; TEMP 37.3
[2019-11-22] MEDS: Fluticasone 0.05% 1 SPRAY NASAL.SRY 2 SPRAY NASAL (10:18)
[2019-11-22] MEDS: Cefdinir 300 MG Capsule 600 MG PO (10:19)
[2019-11-22] MEDS: guaiFENesin 1,200 MG Tablet 1200 MG PO ×2 (10:19→21:24)
[2019-11-22] MEDS: Acetaminophen 500 MG Tablet 1000 MG PO (10:25)
[2019-11-22] MEDS: Senna/Docusate Sodium 1 Tablet PO (10:25)
[2019-11-22] MEDS: 0.9% Saline Lock 10 ML Syringe IV ×2 (13:43→22:45)
[2019-11-22 14:00] VITALS: BP 123/81; PULSE 72; RESP 18; TEMP 37.6
[2019-11-22 14:02] LABS: Pathologist Review Reviewed
[2019-11-22 16:00] VITALS: BP 148/78; PULSE 68; RESP 15; TEMP 37.4
[2019-11-22 21:10] VITALS: BP 123/72; PULSE 80; RESP 16; TEMP 37.1; O2SAT 97
[2019-11-23 02:30] VITALS: BP 142/75; PULSE 64; RESP 14; TEMP 36.4
--- NOTE | 2019-11-23 08:04 | PCM.PN.OB ---
Subjective: Seen at bedside, doing well. Patient reports good pain control. Mild lochia. Breast-feeding without difficulty. Denies any chest pain or shortness of breath. Still coughing but otherwise doing well. Patient denies any headaches or visual changes. Requesting DC home today. - Physical Exam Vitals/I&O's: Vital Signs Temp Pulse Resp BP Pulse Ox 97.6 F L 64 14 142/75 H 97 11/23/19 02:30 11/23/19 02:30 11/23/19 02:30 11/23/19 02:30 11/22/19 21:10 Oxygen Delivery Method Room Air Weight: 65.6 kg Body Mass Index (BMI) 25.6 Intake and Output for Last 24 Hours 11/21/19 11/22/19 11/23/19 23:59 23:59 23:59 Intake Total 1482.01 / 1482.01 Output Total 400 / 400 Balance 1082.01 / 1082.01 General: Alert, Oriented x3 Abdomen: Soft, Non Tender, - - fundus firm Extremities: No Calf Tenderness Laboratory Results 11/21/19 11:40: Diff Path Review Reviewed Current Medications Acetaminophen (Tylenol) 1,000 mg PO Q8H PRN PRN PRN Reason: Pain Score 1-3/10 Last Admin: 11/22/19 10:25 Dose: 1,000 mg Documented by: Benzonatate (Tessalon Perle) 100 mg PO TID PRN PRN PRN Reason: COUGH Last Admin: 11/22/19 05:35 Dose: 100 mg Documented by: Bisacodyl (Dulcolax) 10 mg RECTAL UD PRN PRN Reason: If no BM Cefdinir (Omnicef [Equiv]) 600 mg PO DAILY [facility] Last Admin: 11/22/19 10:19 Dose: 600 mg Documented by: Dibucaine (Dibucaine) 1 applic TOPICAL TID PRN PRN; Protocol PRN Reason: Discomfort Fluticasone Propionate (Flonase Nasal [place]) 2 spray NASAL DAILY [facility] Last Admin: 11/22/19 10:18 Dose: 2 spray Documented by: Guaifenesin (Mucinex) 1,200 mg PO BID [facility] Last Admin: 11/22/19 21:24 Dose: 1,200 mg Documented by: Hydrocortisone (Hytone) 1 applic TOPICAL TID PRN PRN; Protocol PRN Reason: Discomfort Ibuprofen (Motrin) 600 mg PO Q6H PRN PRN PRN Reason: Pain Score 1-3/10 Last Admin: 11/22/19 21:24 Dose: 600 mg Documented by: Methylergonovine Maleate (Methergine) 0.2 mg IM X1 PRN PRN Reason: Excess bleeding/uterine atony Ondansetron HCl (Zofran) 4 mg IV Q4H PRN PRN PRN Reason: Nausea Oxycodone HCl (Oxyir) 5 - 10 mg PO Q4H PRN PRN PRN Reason: Pain Score 4-10/10 Senna/Docusate Sodium (Senokot-S, Radha-Colace) 1 - 2 tablet PO DAILY PRN PRN PRN Reason: Constipation Last Admin: 11/22/19 10:25 Dose: 2 tablet Documented by: Simethicone (Mylicon) 80 mg PO PCHS PRN PRN Reason: Indigestion/Stomach pain Sodium Chloride () 5 - 15 ml IV UD PRN PRN Reason: SALINE FLUSH Last Admin: 11/22/19 22:45 Dose: 10 ml Documented by: Medical Necessity - Tobacco Use Smoking Status: Never smoker Assessment/Plan All Active Problems (Last Reviewed 11/17/19 @ 23:[address] Sj Ward MD) Influenza (Acute) 36 weeks gestation of (Acute) Pneumonia (Acute) Sepsis (Acute) PPD#2, preeclampsia w/o severe features 1) routine care dc home today
--- NOTE | 2019-11-23 08:05 | DCINST_ITS ---
Discharge Diet: No Restrictions Discharge Activity: Return to Normal Activity, May not drive while taking narcotic pain medications., May Shower May resume sexual activity in: 4-6 weeks Additional Activity Instructions:: Nothing in the vagina for 4-6 weeks. You may return to work/school in 6 weeks. Call your doctor if your incision/area has: Continuous Slow Oozing, Sudden Increased Bleeding, Increased Pain/ Swelling, Increased Redness, Foul Smelling Discharge Additional Instructions: If you experience any of the following, contact your healthcare provider. * Bleeding that soaks a pad every hour for 2 hours * Fever 100.4 or higher * Unrelieved incision or abdominal pain * Swelling, redness, discharge or bleeding from your incision or episiotomy site * Your incision begins to separate * Problems urinating (including inability to urinate or burning while urinating). * Visual changes * Severe headache * Flu-like symptoms * Pain or redness in one of both of your breasts * Pain, warmth, tenderness or swelling in your legs, especially the calf area * Frequent nausea and vomiting * Symptoms of depression or anxiety If you experience any of the following, call 911 or go to the nearest Emergency Room. * Chest pain * Problems breathing * Seizure activity * Partial or complete paralysis of a body part, slurred speech, weakness or drooping of the face, or a sudden inability to walk or hold your balance Allergies/Adverse Reactions: Allergies amoxicillin [Amoxicillin] Allergy (Verified 11/17/19 20:54) Unknown chlorthalidone [From [place]] Allergy (Verified 11/17/19 20:54) Unknown nitrofurantoin [From Macrobid] Allergy (Verified 11/17/19 20:54) Unknown nitrofurantoin macrocrystalline [From Macrobid] Allergy (Verified 11/17/19 20:54) Unknown sulfamethoxazole [From Bactrim] Allergy (Verified 11/17/19 20:54) Swelling trimethoprim [From Bactrim] Allergy (Verified 11/17/19 20:54) Swelling Medications to take at Discharge Vits [Prenatabs FA ] 1 tablet PO DAILY 11/25/13 Cholecalciferol (Vitamin D3) [Vitamin D3] 2,000 unit PO DAILY 11/11/18 Tamsulosin HCl 0.4 mg PO DAILY 11/11/18 Acetaminophen [Tylenol] 500 - 1,000 mg PO Q6H PRN PRN 11/17/19 Acetaminophen [Tylenol Tablet] 650 mg PO Q6H PRN PRN tab 11/20/19 Benzonatate [Tessalon Perle] 100 mg PO TID PRN PRN cap 11/20/19 Cefdinir [Omnicef [equiv]] 600 mg PO DAILY 11/21/19 Fluticasone 0.05% [Flonase Nasal [place]] 2 spray NASAL DAILY 11/21/19 Guaifenesin [Mucinex] 1,200 mg PO BID 11/21/19 When: Call to make an appointment with your doctor in 6 weeks. Please call for BP check Primary Care Physician: Care Physician,No Primary [Primary Care Provider] - Test Results: Test results from this visit will be discussed in further detail at your follow- up appointment, if applicable.
[2019-11-23] MEDS: Ibuprofen 600 MG Tablet PO (08:27)
[2019-11-23 08:48] VITALS: BP 140/87; PULSE 70; RESP 18; RESP 40; TEMP 37.6
== END 2019-11-23 10:40 | disposition home or self-care (01) | DRG 805 ==
PROVIDERS: Admitting Provider Obstetrics & Gynecology; Referring Provider Obstetrics & Gynecology; Visit Provider Obstetrics & Gynecology
DX: O76 Abnormality in fetal heart rate and rhythm complicating labor and delivery (principal); J10.00 Influenza due to other identified influenza virus with unspecified type of pneumonia; Z37.0 Single live birth; O99.52 Diseases of the respiratory system complicating childbirth; O14.04 Mild to moderate pre-eclampsia, complicating childbirth; Z3A.37 37 weeks gestation of pregnancy; O70.1 Second degree perineal laceration during delivery
CPT/HCPCS: 59050; 82565; 82570; 84156; 84450; 84460; 84550; 85025; 85610; 85730; 86850; 86900; 86901; 99218; J7120; A4216; G0378

== ENCOUNTER 2020-08-01 15:43 | Emergency (ER) | payer OTHER, SELFPAY ==
[2019-11-21 11:27] VITALS: BMI 25.6
[2020-08-01 15:44] VITALS: BP 109/85; PULSE 125; RESP 18; TEMP 38.8; O2SAT 97; BMI 18.7
[2020-08-01] MEDS: Acetaminophen 500 MG Tablet 1000 MG PO (15:52)
[2020-08-01 16:17] LABS: Mucous, Urine 0 SEEN /hpf (<or=2+); Squamous Epithelial Cells - UA 0 SEEN /hpf (5-10)
[2020-08-01 16:19] LABS: Color, Urine Yellow (Yellow); Glucose, Dipstick Normal (Normal); Leukocyte Esterase-Dipstick 100 /ul (Negative); Nitrite-Dipstick Positive (Negative); Occult Blood-Urine 250 /ul (Negative); Protein-Dipstick 30 mg/dl (Negative); Specific Gravity, Urine 1.015 (1.002-1.030); Urine Bilirubin Dipstick Negative (Negative); Urine Clarity Sl. Cloudy (Clear); Urine Urobilinogen Normal (Normal)
[2020-08-01 16:21] LABS: Ketone-Dipstick 150 mg/dl (Negative)
--- NOTE | 2020-08-01 16:28 | CT_ITS ---
STUDY: CT ABDOMEN AND PELVIS WITHOUT CONTRAST REASON FOR EXAM: Female, 34 years old. Bilateral flank pain, worse on left, UTI, fever. Hx stones 6 months ago. Prior stone surgery. RADIATION DOSAGE (If Supplied By Facility): CTDIvol = ( 3.72 ) mGy, DLP = ( 164.68 ) mGycm TECHNIQUE: Transaxial images were obtained from the dome of the diaphragm to the symphysis pubis without oral contrast, and without intravenous contrast. Sagittal and coronal images were reconstructed. Individualized dose optimization techniques were used for this CT. COMPARISON: 11/11/2018 FINDINGS: The visualized lung bases are unremarkable. The visualized portions of the heart are within normal limits. The lack of intravenous contrast limits evaluation of solid visceral organs. Normal liver. Normal gallbladder and extrahepatic biliary system. Normal spleen. Normal pancreas. Normal bilateral adrenal glands. There are bilateral nonobstructing renal calculi measuring up to 8.7 mm on the right and 3.3 mm on the left. Normal visualized stomach. Normal small intestine. There is a moderate amount of stool throughout the colon and rectum. There is non-visualization of the appendix. Normal abdominal aorta. Normal inferior vena cava. Normal retroperitoneum. Normal urinary bladder. Normal abdominal wall. Normal osseous structures. CT/Abdomen/Pelvis without Cont IMPRESSION: Bilateral nonobstructing renal calculi measuring up to 8.7 mm on the right. Moderate amount of stool throughout the colon and rectum Electronically Signed: Toya Mg MD at 17:34 EST Tel , Service support ,
--- NOTE | 2020-08-01 16:31 | ED.VIS.GEN ---
History of Present Illness Chief Complaint: Flank Pain Informant: Patient Narrative: 34-year-old female presents with concern for left-sided flank pain that has been present for the past 3 to 4 days. Patient has had intermittent hematuria over the past 1 month. States that she developed a fever yesterday and was checked and had a UTI. Patient was started on ciprofloxacin. Patient states that her fever is continued and she has worsening pain. Admits to nausea without vomiting. Patient has multiple kidney stones before in the past requiring lithotripsy. Denies any vaginal bleeding or discharge. Past Medical History - Allergies and Home Meds Allergies/Adverse Reactions: Allergies amoxicillin [Amoxicillin] Allergy (Verified 08/01/20 15:44) Unknown chlorthalidone [From [place]] Allergy (Verified 08/01/20 15:44) Unknown nitrofurantoin [From Macrobid] Allergy (Verified 08/01/20 15:44) Unknown nitrofurantoin macrocrystalline [From Macrobid] Allergy (Verified 08/01/20 15:44) Unknown sulfamethoxazole [From Bactrim] Allergy (Verified 08/01/20 15:44) Swelling trimethoprim [From Bactrim] Allergy (Verified 08/01/20 15:44) Swelling Primary Care Physician: Salud Cerda CHEMICAL DEPENDENCY ATTENDANT, CHEMICAL DEPENDENCY ATTENDANT-C [Primary Care Provider] - Prior records reviewed: Yes Past Medical History: None Surgical History: - - Prior ureteral stent and lithotripsy. Lives: With Family Smoking Status: Never smoker Alcohol: None Drugs: None - Family History Maternal Family History: Reports: Cancer, Heart Disease, - - Patient notes a maternal family history of asthma. Paternal Family History: Reports: Heart Disease, Hypertension, - - Patient notes a paternal family history of hemochromatosis, hypertension, hyperlipidemia. Review of Systems General: Reports: Chills, Fever. Denies: Sweats Eyes: Denies: Visual changes - bilaterally, Diplopia ENT: Denies: Rhinorrhea, Sore throat Cardiovascular: Denies: Chest pain, Palpitations Respiratory: Denies: Dyspnea, Cough, Dyspnea on exertion Gastrointestinal: Denies: Abdominal pain, Nausea, Vomiting, Diarrhea, Melena, Hematochezia Genitourinary: Reports: Hematuria, Frequency. Denies: Dysuria Musculoskeletal: Reports: Back pain. Denies: Extremity Pain Skin: Denies: Rash, Wounds Neurological: Denies: Headache, Weakness, Numbness Physical Exam Vital Signs/Narrative: Vital Signs Temp Pulse Resp BP Pulse Ox 08/01/20 15:44 101.8 F H 125 H 18 109/85 H 97 Inital Vital Signs reviewed: Yes General: Well nourished, Well developed, No Acute Distress Head: Normocephalic, Atraumatic Eyes: Perrl, EOMI ENT: Moist mucous membranes, No rhinorrhea Neck: Supple, Nontender Cardiovascular: Regular rate, Regular rhythm, No murmurs Respiratory: No distress, CTA bilaterally, Chest nontender Abdomen: Soft, Nontender, Nondistended, Normal bowel sounds Back: Nontender, Normal Inspection Extremities: Nontender, No edema Skin: Normal color, No rash Neurological: Alert, Oriented x3, Cranial nerves II-XII grossly intact, Normal Strength, Normal Sensation Psychological: Normal affect, Normal Mood Diagnostic/Tx/Re-eval Clinical Impression(s) from Imaging Studies Abdomen/Pelvis CT 08/01/20 16:28 IMPRESSION: Bilateral nonobstructing renal calculi measuring up to 8.7 mm on the right. Moderate amount of stool throughout the colon and rectum Electronically Signed: Toya Mg MD at 17:34 EST Tel , Service support , Laboratory Data 08/01/20 08/01/20 08/01/20 15:55 16:32 16:32 WBC RBC Hgb Hct MCV MCH MCHC RDW Std Deviation RDW Coeff of Timothy Plt Count MPV Immature Gran % (Auto) Neut % (Auto) Lymph % (Auto) [place] % (Auto) Eos % (Auto) Baso % (Auto) Absolute Neuts (auto) Absolute Lymphs (auto) Nucleated RBC % Differential Comment Diff Path Review Sodium 135 L Potassium 3.5 Chloride 100 Carbon Dioxide 28.0 Anion Gap 7 BUN 13 Creatinine 0.91 Estim Creat Clear Calc 65.25 Est GFR (MDRD) Af Amer 90 Est GFR (MDRD) Non-Af 74 BUN/Creatinine Ratio 14.3 Glucose 99 Calcium 9.4 Serum , Qual NEGATIVE Urine Color Yellow Urine Clarity Sl. Cloudy Urine pH 6.0 Ur Specific [place] 1.015 Urine Protein 30 H Urine Glucose (UA) Normal Urine Ketones 150 H Urine Occult Blood 250 H Urine Nitrite Positive H Urine Bilirubin Negative Urine Urobilinogen Normal Ur Leukocyte Esterase 100 H Urine RBC 25-50 SEEN Urine WBC 10-25 SEEN Ur Squamous Epith Cells 0 SEEN Urine Bacteria RARE Urine Mucus 0 SEEN 08/01/20 16:45 WBC 10.5 RBC 4.18 L Hgb 12.0 Hct 37.0 MCV 88.5 MCH 28.7 MCHC 32.4 RDW Std Deviation 36.6 RDW Coeff of Timothy 11.5 L Plt Count 270 MPV 9.1 Immature Gran % (Auto) 0.300 Neut % (Auto) 71.9 H Lymph % (Auto) 11.6 L [place] % (Auto) 15.3 H Eos % (Auto) 0.6 Baso % (Auto) 0.3 Absolute Neuts (auto) 7.6 Absolute Lymphs (auto) 1.22 Nucleated RBC % 0 Differential Comment SCANNED Diff Path Review Not Reportable Sodium Potassium Chloride Carbon Dioxide Anion Gap BUN Creatinine Estim Creat Clear Calc Est GFR (MDRD) Af Amer Est GFR (MDRD) Non-Af BUN/Creatinine Ratio Glucose Calcium Serum , Qual Urine Color Urine Clarity Urine pH Ur Specific [place] Urine Protein Urine Glucose (UA) Urine Ketones Urine Occult Blood Urine Nitrite Urine Bilirubin Urine Urobilinogen Ur Leukocyte Esterase Urine RBC Urine WBC Ur Squamous Epith Cells Urine Bacteria Urine Mucus - Medical Decision Making Appears well nontoxic. Vital signs within normal limits. Afebrile. No leukocytosis. CT shows multiple stones within the kidneys but nothing ureteral. Patient does have UTI. Urine was sent for culture. Patient is currently on ciprofloxacin only for 1 day. Patient will be given intravenous Rocephin and advised on continuing Cipro and to follow-up with her primary care advisor. Asked to return for new or worsening symptoms. Patient agreeable and discharged home in stable condition. Impression: 1. Pyelonephritis ED Disposition - Plan for ED Patient: Disposition: Home or Assisted Living Instructions: ED Pyelonephritis Female Adult Referrals: Salud Cerda NP, CHEMICAL DEPENDENCY ATTENDANT-C [Primary Care Provider] - 2 Days
[2020-08-01] MEDS: Morphine 4 MG/ML Syringe IV (16:40)
[2020-08-01] MEDS: Ondansetron 4 MG/2 ML Vial IV (16:40)
[2020-08-01] MEDS: 0.9% Normal Saline 1,000 ML 999 ML IV (16:52)
[2020-08-01 16:53] LABS: Bacteria RARE /hpf (None Seen); Red Blood Cells-Urine 25-50 SEEN /hpf (0-5); White Blood Cells 10-25 SEEN /hpf (0-5)
[2020-08-01 16:54] LABS: Internal QC Validated? YES +Cl - CLEAR BKGD; Pregnancy, Serum, hCG Quali. NEGATIVE Negative
[2020-08-01 16:57] LABS: Anion Gap 7 (5-15); BUN 13 mg/dL (7-18); BUN/Creat Ratio 14.3 RATIO (10-20); Calcium,Total 9.4 mg/dL (8.5-10.1); Chloride 100 mmol/L (98-107); Creatinine, Serum 0.91 mg/dL (0.55-1.02); EST Glomerular Filtration Rate 74 mL/min (>60); Est Glom Filt Rate - Afr Amer 90 mL/min (>60); Estimated Creatinine Clearance 65.25 ml/min; Glucose 99 mg/dL (74-106); Potassium 3.5 mmol/L (3.5-5.1); Sodium Level 135 mmol/L (136-145)
[2020-08-01 16:58] LABS: Absolute Lymphocyte Count 1.22 X10^3/uL (0.83-4.51); Absolute Neutrophil Count 7.6 X10^3/uL (2.0-7.7); Basophil# 0.03 X10^3/uL; Basophil% 0.3 % (0-1); Eosinophil# 0.06 X10^3/uL; Eosinophils% 0.6 % (0-5); Lymphocyte # 1.22 X10^3/ul (4.0); Lymphocyte % 11.6 % (19-41); Mean Corp Hgb Conc 32.4 g/dL (32-36); Mean Corpuscular Hgb 28.7 pg (27.0-32.0); Mean Corpuscular Volume 88.5 fL (81-99); Mean Platelet Vol. 9.1 fl (6.2-12.0); Monocyte# 1.61 X10^3/uL; Monocyte% 15.3 % (0-10); NRBC Flagged by Analyzer 0 % (0-5); Neutrophil # 7.55 X10^3/uL (2.7-7.7); Neutrophil % 71.9 % (47-70); POSITIVE DIFFERENTIAL YES; Platelet Count 270 K/mm3 (150-450); RBC Distribution Width CV 11.5 % (11.6-14.6); RBC Distribution Width SD 36.6 fl (35.1-43.9); Red Blood Count 4.18 M/mm3 (4.2-5.4); White Blood Count 10.5 K/mm3 (4.4-11.0)
[2020-08-01 17:00] VITALS: BP 108/72; PULSE 94; RESP 16; O2SAT 95
[2020-08-01 17:01] LABS: Differential Indicated SCAN CRITERIA MET
[2020-08-01 17:36] LABS: Differential Comment SCANNED
[2020-08-01 18:03] LABS: Lactic Acid 0.7 mmol/L (0.4-1.9)
[2020-08-01] MEDS: Ceftriaxone 1 GM/50 ML BAG IV (18:25)
[2020-08-01 19:13] VITALS: BP 101/67; PULSE 83; RESP 16; TEMP 36.7; O2SAT 99
[2020-08-01 19:14] VITALS: BP 101/67; PULSE 83; RESP 16; TEMP 36.7; O2SAT 99
== END 2020-08-01 19:19 | disposition home or self-care (01) ==
PROVIDERS: Emergency Provider Emergency Medicine; PCP Nurse Practitioner Family
DX: N12 Tubulo-interstitial nephritis, not specified as acute or chronic (principal); N20.0 Calculus of kidney; N39.0 Urinary tract infection, site not specified; Z87.442 Personal history of urinary calculi
CPT/HCPCS: 36415; 74176; 80048; 81001; 83605; 84703; 85025; 87040; 87086; 96361; 96365; 96374; 96375; 99284; J7030; J7050; A4216; J2405

== ENCOUNTER 2020-09-08 18:15 | Outpatient (CLI) | payer OTHER, SELFPAY ==
--- NOTE | 2020-09-08 19:10 | NURSING ---
Tressa is alone for today's visit. Her baby, Lui, is at home.
== END 2020-09-08 18:35 | disposition home or self-care (01) ==
LOC: WPOUT 18:28 → WP 18:29
PROVIDERS: PCP Nurse Practitioner Family; Visit Provider Obstetrics & Gynecology
DX: Z39.1 Encounter for care and examination of lactating mother (principal)

== ENCOUNTER 2022-04-14 11:38 | Emergency (ER) | payer OTHER, SELFPAY ==
[2022-04-14 11:38] VITALS: BP 161/84; PULSE 66; RESP 18; TEMP 36.1; O2SAT 98; BMI 20.5
--- NOTE | 2022-04-14 11:53 | CT_ITS ---
STUDY: CT ABDOMEN AND PELVIS WITHOUT CONTRAST REASON FOR EXAM: Female, 36 years old. 2 week history of flank pain and nausea. Difficulty with urination. RADIATION DOSAGE (If Supplied By Facility): CTDIvol = ( 6.19 ) mGy, DLP = ( 278.50 ) mGycm TECHNIQUE: Transaxial images were obtained from the dome of the diaphragm to the symphysis pubis without oral contrast, and without intravenous contrast. Sagittal and coronal images were reconstructed. Individualized dose optimization techniques were used for this CT. COMPARISON: Comparison is made with prior study dated 08/01/2020. FINDINGS: The visualized lung bases are unremarkable. The visualized portions of the heart are within normal limits. Normal liver. Normal gallbladder and extrahepatic biliary system. Normal spleen. Normal pancreas. Normal bilateral adrenal glands. Punctate calculus in the midpole calyx of the right kidney. There are several small nonobstructive left intrarenal calculi. The largest calculus measures 4.9 mm. Minimal degree of left hydronephrosis due to a 3.9 mm calculus at the base of the bladder on the left side. There is also evidence of a 2 mm calculus at the left ureterovesical junction. Normal visualized stomach. Normal small intestine. Normal colon. The appendix is visualized and appears normal. Normal abdominal aorta. Normal inferior vena cava. Normal retroperitoneum. Normal urinary bladder. Small follicles are seen in the right ovary. Normal abdominal wall. Normal osseous structures. CT/Abdomen/Pelvis without Cont IMPRESSION: Multiple nonobstructive left intrarenal calculi. Mild left hydronephrosis and hydroureter due to a 2 mm calculus at the left ureterovesical junction. A 3.9 mm calculus is seen at the base of the bladder on the left side suggestive of a recently passed calculus. Electronically Signed: Crescencio Alberto MD at 13:22 EDT ,
--- NOTE | 2022-04-14 11:58 | EDS_ITS ---
HPI History of Present Illness Chief Complaint: Complaint Detail of Chief Complaint: Flank pain and frequent small amounts of urination Informant: patient Narrative Narrative: Patient presents to the emergency department with complaint of thinking that she is passing a kidney stone. Patient developed severe left flank pain today and urinating small amounts. She complains of some bladder pressure. Patient has history of frequent kidney stones. She is actually had some intermittent discomfort for last 2 weeks. Patient denies any fever. She is had some nausea but no vomiting. Currently rates her pain an 8 out of 10. Prior similar symptoms: Yes PFSH PFSH Medical History (Updated 04/14/22 @ 14:[address] Carolina Solorio, DO) Advanced maternal age (AMA) in Kidney stones Home Medications citalopram 10 mg tablet 10 tab PO DAILY 04/14/22 [History Last Taken Unknown] hydrocodone-acetaminophen 5-325mg 5mg-325mg 1 tab PO Q4H PRN PRN Pain 2 days #10 TABLETS 04/14/22 [Rx Last Taken Unknown] naproxen 500 mg tablet 500 mg PO BID #14 tabs 04/14/22 [Rx Last Taken Unknown] ondansetron 4 mg disintegrating tablet 4 mg PO Q8H PRN PRN Nausea #10 tabs 04/14/22 [Rx Last Taken Unknown] zolpidem 10 mg tablet 5 - 10 mg PO QHS 04/14/22 [History Last Taken Unknown] Allergy/AdvReac Type Severity Reaction Status Date / Time amoxicillin [Amoxicillin] Allergy Unknown Verified 04/14/22 11:41 chlorthalidone Allergy Unknown Verified 04/14/22 11:41 [From [place]] nitrofurantoin Allergy Unknown Verified 04/14/22 11:41 [From Macrobid] nitrofurantoin Allergy Unknown Verified 04/14/22 11:41 macrocrystalline [From Macrobid] sulfamethoxazole Allergy Swelling Verified 04/14/22 11:41 [From Bactrim] trimethoprim [From Bactrim] Allergy Swelling Verified 04/14/22 11:41 Surgical History (Updated 11/21/19 @ 12:[address] Saray Parrish MD) History of colonoscopy History of colposcopy History of nasal surgery Hx of LASIK Social History Smoking Status: Never smoker ROS ROS ED Review of Systems ROS Unobtainable: other Constitutional Constitutional ED: Reports lethargy; Denies chills, fever(s), sweats or weight loss Eyes Eyes: Denies blurry vision, change in vision or diplopia ENT ENT ED: Denies rhinorrhea or sore throat Cardiovascular Cardiovascular: Denies chest pain, orthopnea or racing heartbeat Respiratory/Chest Respiratory/Chest: Reports dyspnea and dyspnea on exertion; Denies cough, orthopnea or sputum Gastrointestinal Gastrointestinal: Reports abdominal pain and nausea; Denies diarrhea or vomiting Genitourinary Genitourinary ED: Reports urinary frequency; Denies dysuria or hematuria Musculoskeletal Musculoskeletal: Reports back pain; Denies arthralgias, myalgias or neck pain Integumentary Denies abscess, Abrasions or rash Neurologic Neurologic: Denies headache(s) or weakness Psychiatric Psychiatric: Denies anxiety, depression or suicidal thoughts Endocrine Endocrinology: Denies polydipsia, polyphagia or polyuria Hematologic/Lymphatic Hematologic/Lymphatic: Denies easy bleeding, easy bruising or lymphadenopathy Allergic/Immunologic Allergic/Immunologic ED: Denies mouth swelling, tongue swelling or urticaria EXAM Physical Exam Const Vital Signs: 04/14/22 11:38 Temperature 96.9 F L Temperature Source Temporal Pulse Rate 66 Respiratory Rate 18 Blood Pressure 161/84 H Blood Pressure Mean 109 Pulse Ox 98 Oxygen Delivery Method Room Air Positive well nourished and well developed General Appearance ED: well developed and NAD HEENT Reports TM's clear and moist mucous membranes normocephalic and atraumatic; Negative for trauma or tenderness Tympanic Membrane ED: Yes TM's clear Eyes PERRL and EOMs intact bilaterally General Eye ED: Negative for pale conjunctiva or scleral icterus Neck no lymphadenopathy, supple and no JVD General: Negative for tenderness Chest Wall inspection of chest normal and palpation of chest normal Chest: Negative for tenderness Resp normal respiratory effort and clear to auscultation bilaterally Effort and Inspection: Negative for respiratory distress or pain with movement Auscultation: Negative for rhonchi, wheezes or diminished lung sounds Cardio regular rate, regular rhythm, S1 normal heart sound, S2 normal heart sound and no murmurs Peripheral Pulses: pulses 2+ throughout GI normal to inspection, nondistended, normoactive bowel sounds, soft to palpation, non-tender, non-distended and no masses GI Narrative: Tenderness left lower quadrant some mild guarding. Patient also with CVA tenderness on the left. Back/Spine no thoracic nor lumbar tenderness Back/Spine Narrative: CVA tenderness on the left. Extremity normal to inspection General Extremety ED: Negative for edema General Extremity: Negative for edema Neuro oriented x3, CN's II-XII intact bilaterally, no sensory deficits noted and gait normal Sensorium / Orientation: awake, alert, oriented to person, oriented to place and oriented to time Motor Exam: strength 5/5 throughout and strength abnormal Psych mental status grossly normal Skin no rashes or lesions noted and no wounds MDM MDM MDM Narrative Medical decision making narrative: IV line established on arrival. Patient was medicated with Toradol, Dilaudid, and Zofran. Patient had good pain relief with that but continues to complain of some intermittent exacerbations of her pain. Patient was given a second dose of Dilaudid 0.5 mg. Lab work was unremarkable. Urinalysis showed 25-[address] scan of the abdomen pelvis showed a 3.9 mm stone in the left dome of the bladder that suggest a recently passed stone. Patient also has a 2 mm stone at the left UVJ. This point patient will be given urine strainers and a prescription for naproxen and [place]. Patient advised to follow-up with her urologist. Patient to return if worsening pain, fever, vomiting, or condition should worsen anyway. Lab Data Attestation: I reviewed the patient's lab results. Labs: Laboratory Results - last 24 hr 04/14/22 04/14/22 04/14/22 12:00 12:10 12:10 WBC 5.6 RBC 4.64 Hgb 13.2 Hct 40.7 MCV 87.7 MCH 28.4 MCHC 32.4 RDW Std Deviation 39.8 RDW Coeff of Timothy 12.4 Plt Count 310 MPV 9.9 Immature Gran % (Auto) 0.200 Neut % (Auto) 45.5 L Lymph % (Auto) 40.4 Bryan % (Auto) 12.0 H Eos % (Auto) 1.4 Baso % (Auto) 0.5 Absolute Neuts (auto) 2.5 Absolute Lymphs (auto) 2.26 Nucleated RBC % 0 Sodium 141 Potassium 3.3 L Chloride 108 H Carbon Dioxide 27.0 Anion Gap 6 BUN 16 Creatinine 0.80 Estim Creat Clear Calc 79.65 Est GFR (MDRD) Af Amer 104 Est GFR (MDRD) Non-Af 86 BUN/Creatinine Ratio 20.1 H Glucose 105 Calcium 9.3 Serum , Qual Urine Color Yellow Urine Clarity Sl. Cloudy Urine pH 7.0 Ur Specific [place] 1.015 Urine Protein 30 H Urine Glucose (UA) Normal Urine Ketones Negative Urine Occult Blood 250 H Urine Nitrite Negative Urine Bilirubin Negative Urine Urobilinogen Normal Ur Leukocyte Esterase 25 H Urine RBC 25-50 SEEN Urine WBC 0-5 SEEN Ur Squamous Epith Cells 0 SEEN Urine Bacteria 1+ Urine Mucus 0 SEEN 04/14/22 12:10 WBC RBC Hgb Hct MCV MCH MCHC RDW Std Deviation RDW Coeff of Timothy Plt Count MPV Immature Gran % (Auto) Neut % (Auto) Lymph % (Auto) Bryan % (Auto) Eos % (Auto) Baso % (Auto) Absolute Neuts (auto) Absolute Lymphs (auto) Nucleated RBC % Sodium Potassium Chloride Carbon Dioxide Anion Gap BUN Creatinine Estim Creat Clear Calc Est GFR (MDRD) Af Amer Est GFR (MDRD) Non-Af BUN/Creatinine Ratio Glucose Calcium Serum , Qual NEGATIVE Urine Color Urine Clarity Urine pH Ur Specific [place] Urine Protein Urine Glucose (UA) Urine Ketones Urine Occult Blood Urine Nitrite Urine Bilirubin Urine Urobilinogen Ur Leukocyte Esterase Urine RBC Urine WBC Ur Squamous Epith Cells Urine Bacteria Urine Mucus Radiography Diagnostic Testing: Clinical Impression(s) from Imaging Studies Abdomen/Pelvis CT 04/14/22 11:53 IMPRESSION: Multiple nonobstructive left intrarenal calculi. Mild left hydronephrosis and hydroureter due to a 2 mm calculus at the left ureterovesical junction. A 3.9 mm calculus is seen at the base of the bladder on the left side suggestive of a recently passed calculus. Electronically Signed: Crescencio Alberto MD at 13:22 EDT , Discharge Plan Triage Chief Complaint: Complaint ED Provider: Carolina Solorio Dx/Rx/DC Orders Clinical Impression: Urolithiasis Instructions: ED Kidney Stone, Passed, ED Kidney Stone w/ Colic Prescriptions: New hydrocodone-acetaminophen [hydrocodone-acetaminophen] 1 TABLET tablet 1 tab PO Q4H PRN PRN (Reason: Pain) 2 Days Qty: 10 0RF naproxen 500 MG tablet 500 mg PO BID Qty: 14 0RF ondansetron [ondansetron] 4 MG tablet 4 mg PO Q8H PRN PRN (Reason: Nausea) Qty: 10 0RF No Action citalopram 10 mg tablet 10 tab PO DAILY Label Comments: TAKE 1 TABLET BY MOUTH EVERY DAY zolpidem 10 mg tablet 5 - 10 mg PO QHS Label Comments: TAKE 1/2 TO 1 TABLET BY MOUTH NIGHTLY NEEDED FOR INSOMNIA. Primary Care Provider: Salud Cerda NP Referrals: Salud Cerda NP, NURSING STAFFING COORDINATOR-C [Primary Care Provider] - Activity Restrictions/Additional Instructions: Follow-up with your urologist Disposition Disposition: Home, Self Care
[2022-04-14] MEDS: Ondansetron 4 MG/2 ML Vial IV (12:06)
[2022-04-14] MEDS: 0.9% Normal Saline 1,000 ML 125 ML IV (12:07)
[2022-04-14] MEDS: HYDROmorphone 1 MG/ML Syringe IV (12:07)
[2022-04-14] MEDS: Ketorolac 30 MG/ML Syringe IV (12:07)
[2022-04-14 12:15] LABS: Mucous, Urine 0 SEEN /hpf (<or=2+); Squamous Epithelial Cells - UA 0 SEEN /hpf (5-10)
[2022-04-14 12:18] LABS: Color, Urine Yellow (Yellow); Glucose, Dipstick Normal (Normal); Ketone-Dipstick Negative (Negative); Leukocyte Esterase-Dipstick 25 /ul (Negative); Nitrite-Dipstick Negative (Negative); Occult Blood-Urine 250 /ul (Negative); Protein-Dipstick 30 mg/dl (Negative); Specific Gravity, Urine 1.015 (1.002-1.030); Urine Bilirubin Dipstick Negative (Negative); Urine Clarity Sl. Cloudy (Clear); Urine Urobilinogen Normal (Normal)
[2022-04-14 12:19] LABS: Absolute Lymphocyte Count 2.26 X10^3/uL (0.83-4.51); Absolute Neutrophil Count 2.5 X10^3/uL (2.0-7.7); Basophil# 0.03 X10^3/uL; Basophil% 0.5 % (0-1); Eosinophil# 0.08 X10^3/uL; Eosinophils% 1.4 % (0-5); Hematocrit 40.7 % (37-47); Hemoglobin 13.2 g/dL (12.0-15.0); Lymphocyte # 2.26 X10^3/ul (0.83-4.51); Lymphocyte % 40.4 % (19-41); Mean Corp Hgb Conc 32.4 g/dL (32-36); Mean Corpuscular Hgb 28.4 pg (27.0-32.0); Mean Corpuscular Volume 87.7 fL (81-99); Mean Platelet Vol. 9.9 fl (6.2-12.0); Monocyte# 0.67 X10^3/uL; NRBC Flagged by Analyzer 0 % (0-5); Neutrophil # 2.54 X10^3/uL (2.7-7.7); Neutrophil % 45.5 % (47-70); Platelet Count 310 K/mm3 (150-450); RBC Distribution Width CV 12.4 % (11.6-14.6); RBC Distribution Width SD 39.8 fl (35.1-43.9); Red Blood Count 4.64 M/mm3 (4.2-5.4); White Blood Count 5.6 K/mm3 (4.4-11.0)
[2022-04-14 12:26] LABS: Bacteria 1+ /hpf (None Seen); Red Blood Cells-Urine 25-50 SEEN /hpf (0-5); White Blood Cells 0-5 SEEN /hpf (0-5)
[2022-04-14 12:30] LABS: Anion Gap 6 (5-15); BUN 16 mg/dL (7-18); BUN/Creat Ratio 20.1 RATIO (10-20); Calcium,Total 9.3 mg/dL (8.5-10.1); Chloride 108 mmol/L (98-107); EST Glomerular Filtration Rate 86 mL/min (>60); Est Glom Filt Rate - Afr Amer 104 mL/min (>60); Estimated Creatinine Clearance 79.65 ml/min; Glucose 105 mg/dL (74-106); Potassium 3.3 mmol/L (3.5-5.1); Sodium Level 141 mmol/L (136-145)
[2022-04-14 12:51] LABS: Internal QC Validated? YES +Cl - CLEAR BKGD; Pregnancy, Serum, hCG Quali. NEGATIVE Negative
[2022-04-14 14:04] VITALS: BP 127/80; PULSE 86; RESP 15; O2SAT 98
[2022-04-14] MEDS: HYDROmorphone 0.5 MG/0.5 ML SYRINGE IV (14:09)
== END 2022-04-14 14:23 | disposition home or self-care (01) ==
PROVIDERS: Emergency Provider Emergency Medicine; PCP Nurse Practitioner Family; Visit Provider Emergency Medicine
DX: N13.2 Hydronephrosis with renal and ureteral calculous obstruction (principal); Z87.442 Personal history of urinary calculi
CPT/HCPCS: 74176; 80048; 81001; 84703; 85025; 96361; 96374; 96375; 96376; 99283; J7030; A4216; J2405

== ENCOUNTER 2023-04-01 16:20 | Inpatient (IN) | payer OTHER, SELFPAY ==
[2023-04-01] VITALS (34 sets, daily range): BP systolic 130–175; BP diastolic 72–94; PULSE 61–138; TEMP 36.6–36.8; O2SAT 98–100; BMI 24.5
[2023-04-01] MEDS: Lactated Ringers 1,000 ML 50 ML IV (17:23)
[2023-04-01] MEDS: LACTATED RINGERS 500 ML 999 ML IV (17:23)
[2023-04-01 17:25] LABS: Absolute Lymphocyte Count 1.86 X10^3/uL (0.83-4.51); Absolute Neutrophil Count 6.3 X10^3/uL (2.0-7.7); Basophil# 0.03 X10^3/uL; Basophil% 0.3 % (0-1); Eosinophil# 0.01 X10^3/uL; Eosinophils% 0.1 % (0-5); Hematocrit 35.3 % (37-47); Hemoglobin 11.1 g/dL (12.0-15.0); Lymphocyte # 1.86 X10^3/ul (0.83-4.51); Lymphocyte % 21.2 % (19-41); Mean Corp Hgb Conc 31.4 g/dL (32-36); Mean Corpuscular Hgb 26.8 pg (27.0-32.0); Mean Corpuscular Volume 85.3 fL (81-99); Mean Platelet Vol. 10.7 fl (6.2-12.0); Monocyte# 0.61 X10^3/uL; Monocyte% 6.9 % (0-10); NRBC Flagged by Analyzer 0 % (0-5); Neutrophil # 6.25 X10^3/uL (2.7-7.7); Neutrophil % 71.2 % (47-70); Platelet Count 231 K/mm3 (150-450); RBC Distribution Width CV 16.9 % (11.6-14.6); Red Blood Count 4.14 M/mm3 (4.2-5.4); White Blood Count 8.8 K/mm3 (4.4-11.0)
--- NOTE | 2023-04-01 17:55 | PCM.HP.OB ---
HPI - General General Date of Admission: 04/01/23 HPI Narrative ULI MARSHALL, is a 37 F @ 38.4 who presents c/o contractions. Found to be 6-7cm in office with bulging membranes. [facility] Medical History (Updated 04/01/23 @ 17:[address] Saray Parrish MD) Advanced maternal age (AMA) in Kidney stones Home Medications citalopram 10 mg tablet 10 tab PO DAILY 04/14/22 [History Last Taken Unknown] hydrocodone-acetaminophen 5-325mg 5mg-325mg 1 tab PO Q4H PRN PRN Pain 2 days #10 TABLETS 04/14/22 [Rx Last Taken Unknown] naproxen 500 mg tablet 500 mg PO BID #14 tabs 04/14/22 [Rx Last Taken Unknown] ondansetron 4 mg disintegrating tablet 4 mg PO Q8H PRN PRN Nausea #10 tabs 04/14/22 [Rx Last Taken Unknown] zolpidem 10 mg tablet 5 - 10 mg PO QHS 04/14/22 [History Last Taken Unknown] Allergy/AdvReac Type Severity Reaction Status Date / Time amoxicillin [Amoxicillin] Allergy Unknown Verified 04/14/22 11:41 chlorthalidone Allergy Unknown Verified 04/14/22 11:41 [From [place]] nitrofurantoin Allergy Unknown Verified 04/14/22 11:41 [From Macrobid] nitrofurantoin Allergy Unknown Verified 04/14/22 11:41 macrocrystalline [From Macrobid] sulfamethoxazole Allergy Swelling Verified 04/14/22 11:41 [From Bactrim] trimethoprim [From Bactrim] Allergy Swelling Verified 04/14/22 11:41 Surgical History (Updated 11/21/19 @ 12:[address] Saray Parrish MD) History of colonoscopy History of colposcopy History of nasal surgery Hx of LASIK Social History Smoking Status: Never smoker History Elective abortions Hx Para 3 Spontaneous abortions Hx # Term Pregnancies Ectopic pregnancies Hx # Pregnancies Multiple births # of living children Vital Signs Vital Signs Vital Signs: 04/01/23 17:22 04/01/23 17:22 04/01/23 17:23 Pulse Rate 70 Blood Pressure 175/94 H 158/93 H BP Systolic 175 158 BP Diastolic 94 93 Pulse Ox 04/01/23 17:23 04/01/23 17:39 04/01/23 17:39 Pulse Rate 74 62 Blood Pressure BP Systolic BP Diastolic Pulse Ox 98 04/01/23 17:42 04/01/23 17:42 04/01/23 17:44 Pulse Rate 90 81 Blood Pressure 156/84 H BP Systolic 156 BP Diastolic 84 Pulse Ox 04/01/23 17:44 04/01/23 17:45 04/01/23 17:45 Pulse Rate 70 Blood Pressure 156/84 H BP Systolic 156 BP Diastolic 84 Pulse Ox 100 04/01/23 17:49 04/01/23 17:49 04/01/23 17:50 Pulse Rate 86 Blood Pressure 156/85 H BP Systolic 156 BP Diastolic 85 Pulse Ox 99 04/01/23 17:50 Pulse Rate 93 Blood Pressure BP Systolic BP Diastolic Pulse Ox Weight Weight: 62.823 kg Body Mass Index (BMI) 24.5 Physical Exam Narrative 6-7cm/bulging membranes. Const alert and oriented x3 General Appearance: cooperative HEENT normocephalic GI GI Narrative: Gravid, non tender to palpation. OB / External & Speculum: external exam normal Extremity normal to inspection Skin no rashes or lesions noted Neuro oriented x3 and CN's II-XII intact bilaterally Psych Appearance: grossly normal Labs Labs Labs: Blood Type O POSITIVE Antibody Screen NEGATIVE Hct 35.3 % (37-47) L Hgb 11.1 g/dL (12.0-15.0) L Syphilis Total Ab Pending Group B Strep DNA Negative (Negative) Rhogam given: No Assessment & Plan (1) Nephrolithiasis: (2) Gestational diabetes: QUALIFIERS: Gestational diabetes mellitus control: diet-controlled Trimester: third trimester Qualified Code(s): O24.410 - Gestational diabetes mellitus in , diet controlled (3) AMA (advanced maternal age) multigravida 35+: QUALIFIERS: Trimester: third trimester Qualified Code(s): O09.523 - Supervision of elderly multigravida, third trimester PLAN: Plan Admit to L&D Montior FHR/TOCO Epidural for pain Monitor VS Anticipate
[2023-04-01] MEDS: Oxytocin 15 Units/NS 250ml 15 UNITS/250 ML IV.SOLN 2 UNITS IV (18:33)
[2023-04-01 19:00] LABS: Syphilis Antibodies Non-reactive
--- NOTE | 2023-04-01 19:32 | EX.PCM.OBRPT ---
Vaginal Delivery Maternal Presentation Maternal Presentation: Active Labor Operative Information Date of Procedure: 04/01/23 Pre-Operative Diagnosis: AMA, GMDA1, Active labor Post-Operative Diagnosis: same, live male Surgery / Procedure Performed: Spontaneous Vaginal Delivery Type of Anesthesia: Epidural Special Medications: 1% lidocaine for perineal repair Estimated Blood Loss: 100 Time of Delivery: 19:12 Findings Description of Procedure: Progressed to fully dilated. Good maternal pushing efforts delivered the vent's head delivered by the anterior shoulder. Gentle downward traction followed by the rest the 's body. The is then placed on the mother for immediate skin to skin. Delayed cord clamping was performed. was vigorous at time of delivery. No complications with delivery. Placenta was then delivered intact. IV Pitocin infusing. First-degree perineal laceration was repaired 5 cc of 1% lidocaine was injected and 3-0 Rapide suture was used to repair. Presentation: Vertex Amniotic Fluid Description: Clear Placental Delivery Description: Spontaneous Placenta Disposition: [facility] Specimen(s) Removed: Placenta Cord Vessel Description: 3 Vessels Cord Entanglement: None Infant A Gender: Male (1 minute): 8 (5 minute): 9 Delayed Cord Clamping: Yes Post Vaginal Delivery Medications Given After Delivery: IV Pitocin Episiotomy Description: None Laceration: Perineal Extension/lac and 1st degree Complication Complications: None
[2023-04-01] MEDS: Oxytocin 15 Units/NS 250ml 15 UNITS/250 ML IV.SOLN 83 UNITS IV (20:05)
[2023-04-01 20:19] LABS: Bedside Glucose 84 mg/dL (74-106)
[2023-04-01] MEDS: Ibuprofen 600 MG Tablet PO (20:19)
[2023-04-01] MEDS: Acetaminophen 500 MG Tablet 1000 MG PO (22:47)
[2023-04-01] MEDS: 0.9% Saline Lock 10 ML Syringe IV (23:12)
[2023-04-02] VITALS (7 sets, daily range): BP systolic 109–144; BP diastolic 60–85; PULSE 66–85; RESP 16; TEMP 36.3–37.2; O2SAT 97–98
[2023-04-02] MEDS: Ibuprofen 600 MG Tablet PO ×3 (02:21→17:13)
[2023-04-02 06:49] LABS: Bedside Glucose 74 mg/dL (74-106)
--- NOTE | 2023-04-02 07:16 | PCM.PROGNOTE ---
Subjective Subjective patient seen at bedside, doing well. Patient reports good pain control. lochia mild. Objective Data Objective Data Vital Signs: Vital Signs Temp Pulse Resp BP Pulse Ox O2 Del Method 98.1 F 80 16 117/79 97 Room Air 04/02/23 03:45 04/02/23 03:45 04/02/23 03:45 04/02/23 03:45 04/02/23 03:45 04/02/23 03:45 Oxygen Delivery Method Room Air Weight: 62.823 kg Body Mass Index (BMI) 24.5 Intake & Output: Intake and Output for Last 24 Hours 03/31/23 04/01/23 04/02/23 23:59 23:59 23:59 Intake Total 1015.78 / 1015.78 Output Total 500 / 500 300 / 300 Balance 515.78 / 515.78 -300 / -300 Lab / Micro Data 04/01/23 17:00 Labs: Laboratory Results - last 24 hr 04/01/23 17:00: WBC 8.8, RBC 4.14 L, Hgb 11.1 L, Hct 35.3 L, MCV 85.3, MCH 26.8 L, MCHC 31.4 L, RDW Std Deviation 51.0 H, RDW Coeff of Timothy 16.9 H, Plt Count 231, MPV 10.7, Immature Gran % (Auto) 0.300, Neut % (Auto) 71.2 H, Lymph % (Auto) 21.2, [place] % (Auto) 6.9, Eos % (Auto) 0.1, Baso % (Auto) 0.3, Absolute Neuts (auto) 6.3, Absolute Lymphs (auto) 1.86, Nucleated RBC % 0, Syphilis Total Ab Non-reactive, Blood Type O POSITIVE, Antibody Screen NEGATIVE 04/01/23 19:36: POC Glucose 84 04/02/23 06:23: POC Glucose 74 Physical Exam Const alert and oriented x3 General Appearance: cooperative HEENT normocephalic Neck General: normal visual inspection GI soft to palpation and non-distended GI Narrative: Fundus firm Extremity normal to inspection and no calf tenderness Skin no rashes or lesions noted Neuro oriented x3 and CN's II-XII intact bilaterally Psych mental status grossly normal Assessment & Plan Assessment/Plan (1) AMA (advanced maternal age) multigravida 35+: QUALIFIERS: Trimester: third trimester Qualified Code(s): O09.523 - Supervision of elderly multigravida, third trimester (2) Nephrolithiasis: (3) Vaginal delivery: (4) First degree perineal laceration: PLAN: Plan PPD# 1 , Doing well Routine care pain mgmt ambulation
--- NOTE | 2023-04-02 07:17 | DCINST_ITS ---
Discharge Instructions Diet Discharge Diet: No restrictions Activity May resume sexual activity in: 6-8 weeks Dressing / Incision Call your doctor if you observe: Fever of 101 or Higher, Inability to urinate, Using more than 1 pad per hour and Uncontrolled pain Follow Up Care Please Follow Up With: Saray Parrish MD When: 1-2 weeks post and again at 6 weeks post . [phone] Test Results: Test results from this visit will be discussed in further detail at your follow- up appointment, if applicable. Discharge Plan Admission Admit Date/Time: 04/01/23 16:20 Attending Provider: Saray Parrish Primary Care Provider: Salud Cerda NP Discharge Orders/Prescriptions Prescriptions: No Action citalopram 10 mg tablet 10 tab PO DAILY Patient Comments: TAKE 1 TABLET BY MOUTH EVERY DAY zolpidem 10 mg tablet 5 - 10 mg PO QHS Patient Comments: TAKE 1/2 TO 1 TABLET BY MOUTH NIGHTLY NEEDED FOR INSOMNIA. hydrocodone-acetaminophen [hydrocodone-acetaminophen] 1 TABLET tablet 1 tab PO Q4H PRN PRN (Reason: Pain) 2 Days Qty: 10 0RF naproxen 500 MG tablet 500 mg PO BID Qty: 14 0RF ondansetron [ondansetron] 4 MG tablet 4 mg PO Q8H PRN PRN (Reason: Nausea) Qty: 10 0RF Referrals / Follow Up: Salud Cerda NP, [employer]-C [Primary Care Provider] -
[2023-04-02] MEDS: Acetaminophen 500 MG Tablet 1000 MG PO ×2 (07:35→20:57)
[2023-04-02] MEDS: Citalopram 10 MG Tablet PO (10:16)
--- NOTE | 2023-04-02 11:30 | CASEMGMT ---
Social Work Assessment Labor and Delivery Unit Patient Address: [address], [place] Phone number: [phone] Date of Referral: 04/02/23 Time of Referral:? 2:36 Referred By: Yasmany Date of Intervention: 04/02/23? Time of Intervention:? 11:30 Reason for Referral: MH History obtained from: medical records, mother of baby (MOB) Household composition: MOB reports she and FOB own their own home with their three other children, Jt,9, George, 6, and Lui, 3. No housing concerns. Patient's parent/guardian status: MOB reports she has been with FOB, Juan Francisco for 17 years and 11 years. FOB is actively involved with NB and other children in the home. MOB reports no DV, MH or AOD concerns for FOB. ?? Medical History: MOB was engaged in care with [facility] starting around 8 weeks. MOB reports this is her fourth that resulted in their fourth child, NB? baby boy, name currently undecided. NB was born [birth year], weighing 3545g, and Apgars 8/9. MOB report NB?s switchboard installer will be Dr. Muñiz. FOB plans to have vasectomy. ? Educational Status: MOB reports highest level of education is Bachelor?s degree, no learning concerns. ? 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 FOB is employed realtime court reporter, MOB unsure if FOB will use paternity leave. No financial concerns reported. Supplies: MOB reports having all the supplies needed including a car seat, crib in their room, clothes and diapers/wipes. Childcare/Caregiver(s): MOB reports she will be home with NB for 12 weeks. MOB explained NB will be with maternal gma when MOB returns to work. Transportation: MOB report they have vehicles, no concerns. ?? Programs/Agencies Involved: ??no current agencies involved, MOB declined referrals Children Services/Legal Issues: None reported??? Behavioral Health Issues: ??Mental Health History:? MOB reports history of anxiety and is currently prescribed Celexa by her OB Yasmany. MOB reports plan to continue medication. MOB reports no previous psych hospitalization or current MH services. Family/Social Stressors:? No stressors identified. Support Systems: MOB reports she is supported by FOB, their family and friends. Depression/Shaken Baby/Safe Sleeping: WILLIAM educated MOB on depression/anxiety as well as shaken baby and safe sleep. MOB report NB will be sleeping in crib in their bedroom until NB can transition to their nursery. SW provided MOB with educational information as well as resources on the topics. MOB report understanding and voice no other needs. SW encouraged MOB to contact OB or PCP if she is concerned with symptoms. ??? ASSESSMENT:? SW met with MOB and introduced herself and role as [facility] Retail Marketing Coordinator. MOB in agreement to speak with SW. SW utilized open and close ended questions to gather information needed for an assessment. MOB report having supplies needed, identified supports and reports no current community resources. MOB report history of anxiety and currently prescribed Celexa by her OB and plans to continue to take as prescribed. SW educated MOB on safe sleep, shaken baby and PPD/A. WILLIAM also provided local resources for [facility]. WILLIAM updated RN of resources provided, no concerns. PLAN:? ?No other services requested or indicated. Erica Portillo WOOD TOOL MAKER, ALVIN
[2023-04-03 02:15] VITALS: BP 126/76; PULSE 64; RESP 16; TEMP 36.6; O2SAT 99
[2023-04-03] MEDS: Ibuprofen 600 MG Tablet PO (02:17)
--- NOTE | 2023-04-03 07:27 | PCM.PROGNOTE ---
Subjective Subjective patient seen at bedside, doing well. Patient reports good pain control. lochia mild. Objective Data Objective Data Vital Signs: Vital Signs Temp Pulse Resp BP Pulse Ox O2 Del Method 97.9 F 64 16 126/76 H 99 Room Air 04/03/23 02:15 04/03/23 02:15 04/03/23 02:15 04/03/23 02:15 04/03/23 02:15 04/03/23 02:15 Oxygen Delivery Method Room Air Weight: 62.823 kg Body Mass Index (BMI) 24.5 Intake & Output: Intake and Output for Last 24 Hours 04/01/23 04/02/23 04/03/23 23:59 23:59 23:59 Intake Total 1015.78 / 1015.78 Output Total 500 / 500 300 / 300 Balance 515.78 / 515.78 -300 / -300 Lab / Micro Data 04/01/23 17:00 Physical Exam Const alert and oriented x3 General Appearance: cooperative HEENT normocephalic Neck General: normal visual inspection GI soft to palpation and non-distended GI Narrative: Fundus firm Extremity normal to inspection and no calf tenderness Skin no rashes or lesions noted Neuro oriented x3 and CN's II-XII intact bilaterally Psych mental status grossly normal Assessment & Plan Assessment/Plan (1) First degree perineal laceration: (2) Vaginal delivery: PLAN: Plan PPD#2 , Doing well Routine care pain mgmt ambulation dc home
--- NOTE | 2023-04-03 07:28 | DCINST_ITS ---
Discharge Instructions Diet Discharge Diet: No restrictions Activity May resume sexual activity in: 6-8 weeks Dressing / Incision Call your doctor if you observe: Fever of 101 or Higher, Inability to urinate, Using more than 1 pad per hour and Uncontrolled pain Follow Up Care Please Follow Up With: Saray Parrish MD When: 1-2 weeks post and again at 6 weeks post . [phone] Test Results: Test results from this visit will be discussed in further detail at your follow- up appointment, if applicable. Discharge Plan Admission Admit Date/Time: 04/01/23 16:20 Attending Provider: Saray Parrish Primary Care Provider: Salud Cerda NP Discharge Orders/Prescriptions Prescriptions: New acetaminophen 500 mg Tablet 1,000 mg PO Q6H PRN PRN (Reason: Pain 1-10 Or Fever) Qty: 0 0RF ibuprofen 600 mg Tablet 600 mg PO Q6H PRN PRN (Reason: Pain Score 1-3) Qty: 0 0RF Continued citalopram 10 mg tablet 10 tab PO DAILY Patient Comments: TAKE 1 TABLET BY MOUTH EVERY DAY zolpidem 10 mg tablet 5 - 10 mg PO QHS Patient Comments: TAKE 1/2 TO 1 TABLET BY MOUTH NIGHTLY NEEDED FOR INSOMNIA. hydrocodone-acetaminophen 1 TABLET tablet 1 tab PO Q4H PRN PRN (Reason: Pain) 2 Days Qty: 10 0RF naproxen 500 MG tablet 500 mg PO BID Qty: 14 0RF ondansetron 4 MG tablet 4 mg PO Q8H PRN PRN (Reason: Nausea) Qty: 10 0RF Referrals / Follow Up: Salud Cerda NP, SUBSTATION OPERATOR CONVERSION-C [Primary Care Provider] - Disposition Disposition (needs filled in before D/C Order can be placed): Home, Self Care
[2023-04-03 08:07] VITALS: BP 134/83; PULSE 58; RESP 16; TEMP 36.6; O2SAT 98
== END 2023-04-03 08:35 | disposition home or self-care (01) | DRG 807 ==
PROVIDERS: Admitting Provider Obstetrics & Gynecology; PCP Nurse Practitioner Family; Visit Provider Obstetrics & Gynecology
DX: O24.420 Gestational diabetes mellitus in childbirth, diet controlled (principal); Z37.0 Single live birth; N20.0 Calculus of kidney; O70.0 First degree perineal laceration during delivery; Z3A.38 38 weeks gestation of pregnancy; Z87.442 Personal history of urinary calculi; O99.892 Other specified diseases and conditions complicating childbirth
CPT/HCPCS: 59025; 59050; 82962; 85025; 86780; 86850; 86900; 86901; 99221; J7120; A4216; G0378

== ENCOUNTER 2025-06-15 21:08 | Emergency (ER) | payer OTHER, SELFPAY ==
[2025-06-15 21:09] VITALS: BP 179/96; PULSE 82; RESP 18; TEMP 36.3; O2SAT 98; BMI 23.1
--- NOTE | 2025-06-15 21:40 | CT_ITS ---
PROCEDURE: ABDOMEN/PELVIS WITHOUT CONT 06/15/2025 REASON FOR EXAM: KIDNEY STONE TECHNIQUE: Procedure Code: CTABDPEL Modality: CT Procedure: ABDOMEN/PELVIS WITHOUT CONT Noncontrast technique limits evaluation of the abdominal and pelvic viscera. Coronal and Sagittal reconstruction series were provided. One or more dose reduction techniques were used (e.g., Automated exposure control, adjustment of the mA and/or kV according to patient size, use of iterative reconstruction technique). RADIATION DOSE SUMMARY: CTDlvol: 6.30 mGy DLP: 300.53 mGycm COMPARISON: CT abdomen/pelvis April 14, 2022. Prior report is not available. FINDINGS: Study limitations: Evaluation for inflammatory change, mass, viscera and vasculature is compromised on noncontrast imaging. Lung bases: No acute infiltrate or effusion at the visualized lung bases. Liver: Hepatic length is 20 cm. Evaluation of hepatic parenchyma is limited without contrast. Hepatic attenuation is consistent with steatosis. Gallbladder/biliary: Slightly distended gallbladder measuring 4 cm transversely. No calcified gallstones. If there are symptoms related to the gallbladder consider ultrasound. Pancreas: Evaluation of the pancreas is limited. No obvious pancreatic inflammation. Spleen: The spleen does not appear enlarged. Adrenals: The adrenal glands are within normal limits. Kidneys/ureters: Moderately severe hydronephrosis of the left kidney. Multiple xijb-foijyis-lqhe-right nonobstructive caliceal calculi noted. Within the distal left ureter, close to the left ureterovesical junction there is a 5.6 by 4.5 mm obstructive calculus. No other ureteral or obstructive calculi seen bilaterally. Evaluation of renal parenchyma is limited without contrast. Gastrointestinal: No hiatal hernia. Evaluation for bowel wall and fold thickening is compromised on this study, secondary to lack of any contrast. No appearance to suggest a bowel obstruction. Enteritis or gastroenteritis can not be ruled out by this study. No focal mesenteric inflammation. No mesenteric lymphadenopathy by size criteria. Scattered fecal material and gas slightly distending portions of the colon up to 7 cm in diameter could be correlated for mild constipation. No pericolonic inflammation. No evidence of acute diverticulitis. Appendix: The appendix does not appear inflamed. Peritoneal/retroperitoneal: No free intraperitoneal air. No significant free fluid is seen. Vascular: No abdominal aortic aneurysm or retroperitoneal hematoma. Vascular patency can not be assessed without contrast. Lymph nodes: Evaluation for pathologic lymph nodes is suboptimal without contrast. No visible pathologic lymphadenopathy by size criteria. Urinary bladder: No calculi or gas within the urinary bladder. No bladder wall thickening or perivesical stranding. Reproductive: Anteverted uterus measuring 8.8 cm in length. The endometrial complex is not well assessed by this technique. The ovaries are not conclusively identified. If there are pelvic symptoms consider ultrasound. Soft tissues: No body wall hematoma or soft tissue emphysema. Osseous: No acute osseous abnormality. CT/Abdomen/Pelvis without Cont IMPRESSION: Moderately severe hydronephrosis of the left kidney secondary to a 5.6 x 4.5 mm calculus at the left ureterovesical junction. Genitourinary findings discussed above in detail. - Nonspecific gastrointestinal findings. - Other incidental findings and study limitations discussed above. Reading Location: [id number]
--- NOTE | 2025-06-15 21:42 | EX.ED.DYSGE1 ---
HPI History of Present Illness Chief Complaint: Flank Pain Informant: patient Narrative Narrative: Patient is a 39-year-old female with history of kidney stones presenting with worsening left flank pain. States started in her back a week ago but is now become more severe radiating around to her abdomen or suprapubic region. She follows with Dr. Winters through [facility]. She actually is scheduled for lithotripsy this coming week. She had a recent x-ray which showed multiple stones on the left side up to a size of 6 mm. She was having some mild symptoms over the past week but the pain became particularly severe this morning. She took an old hydrocodone had ibuprofen this morning. Has associated nausea but no vomiting. Denies any dysuria. [place] any fever or chills. States has been having normal bowel movements. Is not concerned for as her last menstrual cycle was 1 week ago. No other complaints or concerns at this time. [facility] Medical History Advanced maternal age (AMA) in Kidney stones Home Medications ?Medication ?Instructions ?Recorded ?Last Taken ?Type citalopram 10 mg tablet 10 tab PO DAILY 04/14/22 Unknown History hydrocodone-acetaminophen 5-325mg 1 tab PO Q4H PRN PRN Pain 2 days 04/14/22 Unknown Rx 5mg-325mg #10 TABLETS naproxen 500 mg tablet 500 mg PO BID #14 tabs 04/14/22 Unknown Rx ondansetron 4 mg disintegrating 4 mg PO Q8H PRN PRN Nausea #10 tabs 04/14/22 Unknown Rx tablet zolpidem 10 mg tablet 5 - 10 mg PO QHS 04/14/22 Unknown History acetaminophen 500 mg tablet 1,000 mg (2 x 500 mg) PO Q6H PRN 04/03/23 Unknown Rx PRN Pain 1-10 Or Fever #0 tabs ibuprofen 600 mg tablet 600 mg PO Q6H PRN PRN Pain Score 04/03/23 Unknown Rx 1-3 #0 tabs ondansetron 4 mg disintegrating 4 mg PO Q8H PRN PRN Nausea #10 tabs 06/16/25 Unknown Rx tablet oxycodone-acetaminophen 5 mg-325 1 tab PO Q6H PRN PRN Pain 3 days 06/16/25 Unknown Rx mg tablet #12 TABLETS Allergy/AdvReac Type Severity Reaction Status Date / Time amoxicillin (Amoxicillin) Allergy Unknown Verified 06/15/25 21:09 chlorthalidone (From Allergy Unknown Verified 06/15/25 21:09 [place]) nitrofurantoin (From Allergy Unknown Verified 06/15/25 21:09 Macrobid) nitrofurantoin Allergy Unknown Verified 06/15/25 21:09 macrocrystalline (From Macrobid) sulfamethoxazole (From Allergy Swelling Verified 06/15/25 21:09 Bactrim) trimethoprim (From Bactrim) Allergy Swelling Verified 06/15/25 21:09 Surgical History Hx of LASIK History of colposcopy History of colonoscopy History of nasal surgery Social History Smoking Status: Never smoker ROS ROS ED Constitutional Constitutional ED: Denies chills or fever(s) Gastrointestinal Gastrointestinal: Reports abdominal pain; Denies diarrhea or vomiting Genitourinary Genitourinary ED: Denies dysuria or hematuria Musculoskeletal Musculoskeletal: Reports back pain; Denies arthralgias Integumentary Denies rash Neurologic Neurologic: Denies weakness Hematologic/Lymphatic Hematologic/Lymphatic: Denies easy bruising EXAM Physical Exam Const Vital Signs: 06/15/25 21:09 06/15/25 23:08 Temperature 97.3 F L Temperature Source Temporal Pulse Rate 82 67 Respiratory Rate 18 16 Blood Pressure 179/96 H 136/89 H Blood Pressure Mean 123 104 Pulse Ox 98 97 Oxygen Delivery Method Room Air Room Air Positive well nourished and well developed Constitutional Narrative: Uncomfortable appearing General Appearance ED: well developed HEENT Reports moist mucous membranes Chest Wall inspection of chest normal Resp normal respiratory effort and clear to auscultation bilaterally Cardio regular rate and regular rhythm GI normal to inspection, nondistended, normoactive bowel sounds and non-tender Back/Spine no CVA tenderness Extremity normal to inspection Neuro oriented x3 Sensorium / Orientation: alert Motor Exam: Negative for general weakness Psych mental status grossly normal Skin no rashes or lesions noted and no wounds MDM MDM MDM Narrative Medical decision making narrative: Patient given IV morphine, Zofran, Toradol and fluids initially. Differential includes is not limited to renal colic, ectopic , septic stone, LISY and pyelonephritis. CBC, BMP and urinalysis as well as serum is obtained. This is all largely unremarkable. She has normal BUN and creatinine. Urinalysis consistent with a kidney stone and some mild contamination but not consistent with septic stone. She does not have a leukocytosis. After returning from CT she has continued pain and is given IV Dilaudid. This does provide further symptom control. CT shows moderately severe hydronephrosis of the left kidney secondary to a 5.6 x 4.5 mm calculus at the left UVJ. Patient is reevaluated after Dilaudid and does have further improvement of pain. She is tolerating p.o. Discussed transfer to [facility] And her urologist is (especially as we do not currently have urology coverage) versus conservative management with pain control at home and outpatient follow-up with urology. Patient ultimately elects to be discharged home. Given oral oxycodone emergency room for further pain control. Given return precautions. Counseled that if her pain worsens she should hesitate to return to emergency room for pain control we can reconsider transfer at that time. Patient is agreeable this plan of care. Patient be discharged home with prescription for oxycodone and Zofran as well as Motrin 600 mg. She verbalizes agreement to this plan. Discharged home in stable condition with her Lab Data Attestation: I reviewed the patient's lab results. Labs: Laboratory Results - last 24 hr 06/15/25 06/15/25 21:19 21:52 WBC 8.7 RBC 4.51 Hgb 13.7 Hct 40.5 MCV 89.8 MCH 30.4 MCHC 33.8 RDW Std Deviation 38.1 RDW Coeff of Timothy 11.6 Plt Count 331 MPV 9.5 Immature Gran % (Auto) 0.100 Neut % (Auto) 48.0 Lymph % (Auto) 39.3 [place] % (Auto) 11.4 H Eos % (Auto) 0.7 Baso % (Auto) 0.5 Absolute Neuts (auto) 4.2 Absolute Lymphs (auto) 3.40 Nucleated RBC % 0 Sodium 139 Potassium 3.7 Chloride 103 Carbon Dioxide 23.9 Anion Gap 13 BUN 13 Creatinine 0.74 Estim Creat Clear Calc 83.60 Est GFR (MDRD) Non-Af 105 BUN/Creatinine Ratio 17.2 Glucose 96 Calcium 9.7 Serum , Qual NEGATIVE Urine Color Yellow Urine Clarity Cloudy Urine pH 7.0 Ur Specific Hem[place]ill 1.010 Urine Protein 30 H Urine Glucose (UA) Normal Urine Ketones Negative Urine Occult Blood 250 H Urine Nitrite Negative Urine Bilirubin Negative Urine Urobilinogen Normal Ur Leukocyte Esterase 100 H Urine RBC > 100 SEEN Urine WBC 10-25 SEEN Ur Squamous Epith Cells 0-5 SEEN Urine Bacteria 1+ Urine Mucus 0 SEEN Radiography Diagnostic Testing: Clinical Impression(s) from Imaging Studies Abdomen/Pelvis CT 06/15/25 21:40 IMPRESSION: Moderately severe hydronephrosis of the left kidney secondary to a 5.6 x 4.5 mm calculus at the left ureterovesical junction. Genitourinary findings discussed above in detail. - Nonspecific gastrointestinal findings. - Other incidental findings and study limitations discussed above. Reading Location: [facility] Discharge Plan Triage Chief Complaint: Flank Pain ED Provider: Raven Cortes Dx/Rx/DC Orders Clinical Impression: Urolithiasis, Renal colic on left side Instructions: ED Kidney Stone with Pain Prescriptions: New ondansetron 4 mg tablet,disintegrating 4 mg PO Q8H PRN PRN (Reason: Nausea) Qty: 10 0RF oxycodone-acetaminophen 5-325 mg tablet 1 tab PO Q6H PRN PRN (Reason: Pain) 3 Days Qty: 12 0RF No Action citalopram 10 mg tablet 10 tab PO DAILY Patient Comments: TAKE 1 TABLET BY MOUTH EVERY DAY zolpidem 10 mg tablet 5 - 10 mg PO QHS Patient Comments: TAKE 1/2 TO 1 TABLET BY MOUTH NIGHTLY NEEDED FOR INSOMNIA. hydrocodone-acetaminophen 1 TABLET tablet 1 tab PO Q4H PRN PRN (Reason: Pain) 2 Days Qty: 10 0RF naproxen 500 MG tablet 500 mg PO BID Qty: 14 0RF ondansetron 4 MG tablet 4 mg PO Q8H PRN PRN (Reason: Nausea) Qty: 10 0RF acetaminophen 500 mg Tablet 1,000 mg PO Q6H PRN PRN (Reason: Pain 1-10 Or Fever) Qty: 0 0RF ibuprofen 600 mg Tablet 600 mg PO Q6H PRN PRN (Reason: Pain Score 1-3) Qty: 0 0RF Primary Care Provider: Salud Cerda NP Referrals: Salud Cerda NP, [facility] [Primary Care Provider, Palliative Medicine] Activity Restrictions/Additional Instructions: Please follow-up with your urologist later this week. You might pass the stone before that or you might require further lithotripsy. If you cannot handle the pain at home please do not hesitate to return to emergency room. He may also take up to 600 mg ibuprofen every 6 hours as needed for pain control. Print Language: Bulgarian Disposition Disposition: Home, Self Care
[2025-06-15] MEDS: 0.9% Normal Saline (1000mL) 1,000 ML 250 ML IV (21:45)
[2025-06-15 21:57] LABS: Mucous, Urine 0 SEEN /hpf (<or=2+)
[2025-06-15 22:05] LABS: Internal QC Validated? YES +Cl - CLEAR BKGD; Pregnancy, Serum, hCG Quali. NEGATIVE Negative; Record Kit Lot#, Serum Preg. 0000964736
[2025-06-15 22:05] LABS: Color, Urine Yellow (Yellow); Glucose, Dipstick Normal (Normal); Ketone-Dipstick Negative (Negative); Leukocyte Esterase-Dipstick 100 /ul (Negative); Nitrite-Dipstick Negative (Negative); Occult Blood-Urine 250 /ul (Negative); Protein-Dipstick 30 mg/dl (Negative); Specific Gravity, Urine 1.010 (1.002-1.030); Urine Bilirubin Dipstick Negative (Negative)
--- OUTSIDE RECORDS SUMMARY | 2025-06-15 22:13 | XMS RPT_ITS | CCD ---
Author Organization [facility] Care Team Providers Care Sorting Machine Attendant Name Role Phone ROCAEL KRUSE Attending Unavaila ble Celine CAREER DEVELOPMENT ASSOCIATE.COVERED BUTTON MAKER, [facility] Primary Care Provider Celine CAREER DEVELOPMENT ASSOCIATE.COVERED BUTTON MAKER, [facility] Primary Care Provider Cleine CAREER DEVELOPMENT ASSOCIATE.COVERED BUTTON MAKER, [facility] Primary Care Provider Celine CAREER DEVELOPMENT ASSOCIATE.COVERED BUTTON MAKER, [facility] Primary Care Provider Saray Parrish Attending Unavail able Saray Parrish Admitting Unavail able Celine, Fadia Primary Care Unavailable Celine CAREER DEVELOPMENT ASSOCIATE.COVERED BUTTON MAKER, [facility] Primary Care Provider Stone CAREER DEVELOPMENT ASSOCIATE.Miriam AARON Unavailable Jorge Epperson DO Unavailable FRANCISCO GRIFFITH Referring Unavail able CELINE, FADIA Primary Care Unavailable SARAY CLINE Attending Unavail able CELINE, FADIA Primary Care Unavailable DARCY ZAMBRANO Attending Unavailable CELINE, FADIA Primary Care Unavailable CELINE, FADIA Attending Unavailable CELINE, FADIA Primary Care Unavailable CELINE, FADIA Attending Unavailable CELINE, FADIA Primary Care Unavailable CELINE, FADIA Referring Unavailable CELINE, FADIA Primary Care Unavailable FRANCISCO GRIFFITH Referring Unavail able CELINE, FADIA Primary Care Unavailable SARAY CLINE Referring Unavail able CELINE, FADIA Primary Care Unavailable FRANCISCO GRIFFITH Attending Unavail able CELINE, FADIA Primary Care Unavailable Allergies Allergy Classification Reported Allergen(s) Allergy Type Date of Onset Reaction(s) Facility (20 sources) Amoxicillin; Translations: [AMOXICILLIN] Drug Allergy 02-27-20 02 Rash, Unknown [facility] Repository (20 sources) Sulfamethoxazole; Translations: [SULFAMETHOXAZOLE] Drug Allergy 09-25-20 10 Swelling [facility] Repository (1 source) OTHER; Translations: [OTHER] Propensity to adverse reactions (disorder) 09-29-19 06 [facility] Repository (20 sources) NITROFURANTOIN MONOHYD/M-CRYST; Translations: [NITROFURANTOIN MONOHYD/M-CRYST] Propensity to adverse reactions to drug (disorder) 12-18-19 14 Hives [facility] Repository (20 sources) Chlorthalidone; Translations: [CHLORTHALIDONE] Drug Allergy 11-11-19 19 Unknown [facility] (20 sources) Chlorthalidone Drug Allergy 09-29-19 06 Rash [facility] Work Phone: (20 sources) Trimethoprim; Translations: [TRIMETHOPRIM] Drug Allergy 11-11-19 19 Swelling [facility] (2 sources) Nitrofurantoin Drug Allergy 04-14-20 Unknown [facility] (3 sources) nitrofurantoin macrocrystalline; Translations: [nitrofurantoin macrocrystalline] Allergy to substance 04-14-20 Unknown [facility] (1 source) Chlorthalidone Drug Allergy 04-14-20 [facility] Repository (1 source) Nitrofurantoin Drug Allergy 04-14-20 [facility] Repository (1 source) Trimethoprim Drug Allergy 04-14-20 [facility] Repository (20 sources) Cephalexin; Translations: [CEPHALEXIN] Drug Allergy 10-24-19 Diarrhea, Vomiting [facility] (20 sources) Chlorthalidone; Translations: [HYGROTON] Drug Allergy 03-30-20 Rash [facility] Medications Current Medications Medication Drug Class(es) Dates Sig (Normalized) Sig (Original) acetaminophen 500 mg oral tablet (1 source) Start: 04-03-2023 take 1000 mg by mouth every six hours as needed Acetaminophen Active 1000 MG PO EVERY 6 HOURS NEEDED 0 April 03, 2023 12:00am acetaminophen 325 mg / HYDROcodone bitartrate 5 mg oral tablet (2 sources) Opioid Agonist Start: 04-14-2022 take 1 tablet by mouth every four hours as needed Hydrocodone-Acetamin ophen Active 1 TABLET PO EVERY 4 HOURS NEEDED 10 April 14, 2022 acetaminophen 325 mg / oxyCODONE hydrochloride 5 mg oral tablet (20 sources) Opioid Agonist Start: 02-10-2023 End: 06-28-2024 take 1 tablet by mouth every six hours as needed for pain oxyCODONE-acetaminop hen (PERCOCET) 5-325 mg tablet Indications: Nephrolithiasis Take 1 tablet by mouth every 6 hours as needed for pain. FOR PAIN. 20 tablet 02/10/2023 06/28/2024 Discontinued Comment on above: Take 1 tablet by dannie th every 6 hours as needed for pain. FOR PAIN. aspirin 81 mg delayed release oral tablet (20 sources) Platelet Aggregation Inhibitor, Nonsteroidal Anti-inflammatory Drug End: 06-28-2024 take 1 tablet by mouth twice daily aspirin, enteric coated (ASPIRIN, ENTERIC COATED) 81 mg EC tablet Take 81 mg by mouth twice daily. 06/28/2024 Discontinued Comment on above: Take 81 mg by mouth twice daily. azithromycin 250 mg oral tablet (2 sources) Macrolide Antimicrobial Start: 09-06-2022 End: 09-11-2022 azithromycin (ZITHROMAX Z-MIHIR) 250 mg tablet Indications: Sore throat , Ear pain, bilateral Take 2 tablets day one, then, 1 tablet daily until gone. 6 tablet 0 09/06/2022 09/11/2022 Active Comment on above: Take 2 tablets day o ne, then, 1 tablet daily until gone. Blood-Glucose Meter (2 sources) Start: 01-19-2023 End: 01-20-2023 Blood-Glucose Meter Indications: Abnormal maternal glucose tolerance, antepartum 1 Each as directed for 1 day. 1 Each 0 01/19/2023 01/20/2023 Active Comment on above: 1 Each as directed f or 1 day. chrm/vineg/bit-abelardo g peel/gr t (APPLE CIDER VINEGAR PLUS ORAL) (4 sources) chrm/vineg/bit-o rang peel/gr t (APPLE CIDER VINEGAR PLUS ORAL) Active citalopram 20 mg oral tablet (20 sources) Serotonin Reuptake Inhibitor Start: 04-08-2023 End: 04-24-2025 take 1 tablet by mouth once daily citalopram (CELEXA) 20 mg tablet Take 1 tablet by mouth once daily. 90 tablet 3 04/24/2025 Active Start: 07-14-2021 End: 06-10-2022 take 1 tablet by mouth once daily citalopram hydrobromide (CELEXA) 10 mg tablet Take 1 tablet by mouth once daily. 90 tablet 3 06/10/2022 Active Comment on above: [facility] docusate sodium 100 mg oral capsule (20 sources) Start: 10-14-2020 take 1 capsule by mouth every twelve hours as needed docusate sodium (COLACE) 100 mg capsule Take 1 capsule by mouth twice daily as needed for Constipation. 60 capsule 10/14/2020 Active Comment on above: Take 1 capsule by mo [facility] twice daily as needed for Constipation. doxycycline hyclate 100 mg oral capsule (3 sources) Tetracycline-clas s Drug Start: 09-14-2024 End: 09-24-2024 take 1 capsule by mouth twice daily doxycycline hyclate (VIBRAMYCIN) 100 mg capsule Indications: Bacterial sinusitis Take 1 capsule (100 mg) by mouth two times a day for 10 days. 20 capsule 09/14/2024 09/24/2024 Active Start: 03-30-2024 End: 04-04-2024 take 1 tablet by mouth twice daily doxycycline (VIBRA-TABS) 100 mg tablet Indications: Bacterial sinusitis Take 1 tablet by mouth two times a day for 5 days. 10 tablet 0 03/30/2024 04/04/2024 Active 24 hr ferrous sulfate 142 mg extended release oral tablet (20 sources) End: 06-28-2024 Ferrous Sulfate (SLOW FE) 142 mg (45 mg iron) TbER Take by mouth. 06/28/2024 Discontinued Comment on above: Take by mouth. ibuprofen 600 mg oral tablet (1 source) Nonsteroidal Anti-inflammatory Drug Start: 04-03-2023 take 600 mg by mouth every six hours as needed Ibuprofen Active 600 MG PO EVERY 6 HOURS NEEDED 0 April 03, 2023 12:00am ipratropium bromide 0.021 mg/actuat metered dose nasal spray (3 sources) Anticholinergic Start: 03-30-2024 End: 06-28-2024 Ipratropium Cecil (ATROVENT) 21 mcg (0.03 %) nasal spray Indications: rhinorrhea Use 2 Sprays in the nose every 12 hours for 10 days. 9.9 mL 03/30/2024 06/28/2024 Discontinued naproxen 500 mg oral tablet (2 sources) Nonsteroidal Anti-inflammatory Drug Start: 04-14-2022 take 500 mg by mouth twice daily Naproxen Active 500 MG PO TWICE A DAY April 14, 2022 12:00am norethindrone 0.35 mg oral tablet (20 sources) Start: 10-06-2023 End: 09-12-2025 take 1 tablet by mouth once daily in the evening Norethindrone, Contraceptive, 0.35 mg tablet Take 1 tablet by mouth once daily. 84 tablet 2 10/18/2024 8:37 PM EST 10/11/2024 03/15/2025 Discontinued Start: 05-19-2023 End: 06-29-2023 take 1 tablet by mouth once daily Norethindrone, Contraceptive, 0.35 mg tablet Take 1 tablet by mouth once daily for 28 days. 28 tablet 5 05/19/2023 06/29/2023 Discontinued Comment on above: Take 1 tablet by dannie once daily for 28 days. ondansetron 4 mg disintegrating oral tablet (2 sources) Serotonin-3 Receptor Antagonist Start: 04-14-20 take 4 mg by mouth every eight hours as needed Ondansetron Active 4 MG PO EVERY 8 HOURS NEEDED April 14, 2022 12:00am PNV no.153/FA/om3/dha/epa/ fish ( GUMMIES ORAL) (17 sources) PNV no.153/FA/om3/dha/ep a/fish ( GUMMIES ORAL) Active promethazine hydrochloride 12.5 mg oral tablet (20 sources) Phenothiazine Start: 08-22-20 End: 06-28-20 take 12.5-25 mg by mouth every six hours as needed promethazine (PHENERGAN) 12.5 mg tablet Take 1-2 tablets by mouth every 6 hours as needed. 30 tablet 1 09/08/2022 06/28/2024 Discontinued Comment on above: Take 1-2 tablets by mouth every 6 hours as needed. proparacaine hydrochloride 5 mg/ml ophthalmic solution (2 sources) Local Anesthetic Start: 08-16-20 End: 08-16-20 proparacaine 0.5 % 1 Drop (ALCAINE) Start: 08-16-2024 End: 08-16-2024 1 Drop, BOTH EYES, DIRECT ED, Starting on Paige 08/16/24 at 0930, Until Paige 08/16/24 at 2128, Administer for pneumo tonometry, tonopen tonometry, or pachymetry. In the event of a proparacaine shortage, administer tetracaine 0.5% ophthalmic drops 1 drop in the left eye as directed for pneumo tonometry, tonopen tonometry, or pachymetry tamsulosin hydrochloride 0.4 mg oral capsule (20 sources) alpha-Adrenergic Mirian Start: 04-23-2022 End: 05-14-2025 take 1 capsule by mouth once daily at bedtime tamsulosin (FLOMAX) 0.4 mg Take 1 capsule by mouth daily at bedtime. 30 capsule 1 03/15/2025 5:46 PM EDT 03/15/2025 Active Comment on above: Take 1 capsule by mo ut once daily. TAKE 1 CAPSULE BY MO UT ONCE DAILY tropicamide 10 mg/ml ophthalmic solution (2 sources) Anticholinergic Start: 08-16-2024 End: 08-16-2024 tropicamide 1 % 1 Drop (MYDRIACYL) Start: 08-16-2024 End: 08-16-2024 1 Drop, BOTH EYES, DIRECT ED, Starting on Paige 08/16/24 at 0930, Until Paige 08/16/24 at 2128, Administer for dilation zolpidem tartrate 10 mg oral tablet (20 sources) gamma-Aminobutyric Acid-ergic Agonist Start: 11-16-2024 End: 02-14-2025 take 1 tablet by mouth at bedtime as needed zolpidem (AMBIEN) 10 mg Indications: Chronic insomnia Take 1 tablet by mouth at bedtime as needed for up to 90 days. for insomnia. 30 tablet 2 11/16/2024 Active Start: 04-14-2022 take 5-10 mg by mout h at bedtime Zolpidem Active 5 - 10 MG PO AT BEDTIME April 14, 2022 12:00am Start: 11-27-2021 End: 09-13-2022 take 0.5-1 tablets by mouth once daily as needed zolpidem (AMBIEN) 10 mg Indications: Primary insomnia Take 1/2 to 1 tablet by mouth nightly as needed for insomnia. 45 tablet 1 11/27/2021 09/13/2022 Discontinued Comment on above: Take 1/2 to 1 tablet by mouth nightly as needed for insomnia. Completed/Discontinued Medications Medication Drug Class(es) Dates Sig (Normalized) Sig (Original) cefdinir 300 mg oral capsule (2 sources) Cephalosporin Antibacterial Start: 11-20-2019 End: 11-21-2019 Cefdinir Discontinued 600 MG PO DAILY November 20, 2019 1:00am November 21, 2019 12:30pm start the evening of 11/20/19, then take it once a day thereafter in the morning cholecalciferol 0.05 mg oral tablet (11 sources) Vitamin D End: 09-13-2022 take 1 tablet by mouth once daily cholecalciferol (VITAMIN D3) 50 mcg (2,000 unit) tablet Take 5,000 Units by mouth once daily. 0 09/13/2022 Discontinued cholecalciferol (VITAMIN D-3) 2,000 unit tablet Take 5,000 Units by mouth once daily. 0 Active Comment on above: Take 5,000 Units by mouth once daily. fluticasone propionate 0.05 mg/actuat metered dose nasal spray (2 sources) Corticosteroid Start: 11-20-19 End: 11-21-19 Fluticasone Propionate Discontinued 2 SPRAY NASAL DAILY November 20, 2019 1:00am November 21, 2019 12:30pm 12 hr guaiFENesin 1200 mg extended release oral tablet (2 sources) Start: 11-20-19 End: 11-21-19 take 1200 mg by mouth twice daily Guaifenesin Discontinued 1200 MG PO TWICE A DAY November 20, 2019 1:00am November 21, 2019 12:30pm omega-3 DHA-EPA (FISH OIL) 1,200 (144-216) mg capsule (11 sources) End: 09-13-20 take 1 capsule by mouth once daily at breakfast omega-3 DHA-EPA (FISH OIL) 1,200 (144-216) mg capsule Take 1 capsule by mouth daily with breakfast. 0 09/13/2022 Discontinued take 1 capsule by mo uth once daily at breakfast omega-3 DHA-EPA (FISH OIL) 1,200 (144-21 6) mg capsule Take 1 capsule by mouth daily with breakfast. 0 Active Comment on above: Take 1 capsule by mo uth daily with breakfast. oseltamivir 45 mg oral capsule (2 sources) Neuraminidase Inhibitor Start: 0 End: 0 take 45 mg by mouth once daily Oseltamivir Discontinued 45 MG PO DAILY November 17, 2019 1:00am November 20, 2019 9:24am PNV without Calcium #5-Iron-FA 106.5-1 mg cap (11 sources) Start: 3 End: 2 take 1 tablet by mouth once daily PNV without Calcium #5-Iron-FA 106.5-1 mg cap Take 1 tablet by mouth once daily. 30 capsule 12 06/05/2013 09/13/2022 Discontinued Start: 06-05-2013 take 1 tablet by dannie th once daily PNV without Calcium #5-Iron-FA 106.5-1 mg cap Take 1 tablet by mouth once daily. 30 capsule 06/05/2013 Active Comment on above: Take 1 tablet by dannie th once daily. vit A/vit C/biotin/zinc/copper ([id number],VIT A,C-BIOTIN, ORAL) (16 sources) vit A/vit C/biotin/zinc/copper (SNUH-NUIT-QEDN,VIT A,C-BIOTIN, ORAL) Take by mouth. 0 Active Comment on above: Take by mouth. Problems Active Problems Problem Classification Problem Date Documented Da te Episodic/Chronic Administrative/social admission (1 source) Treatment plan given; Translations: [Counseling, unspecified] Episodic Blindness and vision defects (1 source) Regular astigmatism of right eye; Translations: [Regular astigmatism, right eye] 08-16-2024 Episodic Blindness and vision defects (1 source) Myopia of left eye; Translations: [Myopia, left eye] 08-16-2024 Episodic Headache; including migraine (1 source) Headache; Translations: [Headache, unspecified headache type] 03-30-2024 Episodic Immunizations and screening for infectious disease (1 source) Vaccination needed; Translations: [Encounter for immunization] Episodic Influenza (2 sources) Influenza; Translations: [Influenza due to unidentified influenza virus with other respiratory manifestations] 11-17-2019 Episodic Miscellaneous mental health disorders (1 source) Chronic insomnia; Translations: [Psychophysiologic insomnia] 11-16-2024 Chronic OB-related trauma to perineum and vulva (2 sources) First degree perineal laceration; Translations: [First degree perineal laceration during delivery] 04-02-2023 Episodic Other and unspecified benign neoplasm (2 sources) Melanocytic nevus of skin ; Translations: [Melanocytic nevi, unspecified] 11-16-2024 Episodic Other complications of (3 sources) Anemia during - baby not yet delivered; Translations: [Anemia complicating , third trimester] Chronic Other complications of (20 sources) Anemia of ; Translations: [Anemia complicating , unspecified trimester] Onset: 01-17-2023 01-17-2023 Chronic Other complications of (20 sources) Anemia in mother complicating , childbirth AND/OR puerperium; Translations: [Anemia complicating , third trimester] Onset: 03-02-2023 Chronic Other complications of (1 source) High risk ; Translations: [Supervision of high risk , unspecified, first trimester] Episodic Other complications of (1 source) Supervision of elderly multigravida, unspecified trimester; Translations: [Elderly multigravida, unspecified as to episode of care or not applicable] 04-03-2023 Episodic Other complications of (1 source) Supervision of elderly multigravida, third trimester; Translations: [Supervision of elderly multigravida, third trimester] Onset: 04-08-2023 Episodic Other ear and sense organ disorders (20 sources) Hearing loss; Translations: [Unspecified hearing loss, unspecified ear] Onset: 05-21-2013 09-21-2021 Chronic Other ear and sense organ disorders (1 source) Bilateral earache; Translations: [Otalgia, bilateral] Episodic Other ear and sense organ disorders (1 source) Ear sensations - finding; Translations: [Other specified disorders of ear, bilateral] 11-16-2024 Episodic Other eye disorders (1 source) Disorder of lacrimal gland; 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] 08-16-2024 Episodic Other gastrointestinal disorders (20 sources) Malabsorption - iron; Translations: [Intestinal malabsorption, unspecified] Onset: 03-02-2023 Chronic Other gastrointestinal disorders (1 source) Constipation; Translations: [Constipation, unspecified] Episodic Other lower respiratory disease (1 source) Cough; Translations: [Acute cough] 03-30-2024 Episodic Other nutritional; endocrine; and metabolic disorders (1 source) Hypercalcemia; Translations: [Hypercalcemia] 03-15-2025 Chronic Other nutritional; endocrine; and metabolic disorders (2 sources) Hypercalcemia; Translations: [Hypercalcemia] Onset: 03-15-2025 Chronic Other upper respiratory disease (1 source) Congestion of nasal sinus; Translations: [Nasal congestion] 03-30-2024 Episodic Other upper respiratory disease (1 source) Other specified disorders of nose and nasal sinuses; Translations: [Other disease of nasal cavity and sinuses] 03-30-2024 Episodic Other upper respiratory infections (2 sources) Bacterial sinusitis; Translations: [Chronic sinusitis, unspecified] 03-30-2024 Chronic Other upper respiratory infections (3 sources) Sore throat symptom; Translations: [Acute pharyngitis, unspecified] Episodic Pneumonia (except that caused by tuberculosis or sexually transmitted disease) (2 sources) Pneumonia; Translations: [Pneumonia, unspecified organism] 11-21-2019 Episodic Residual codes; unclassified (1 source) Family history of cancer of colon; Translations: [Family history of malignant neoplasm of digestive organs] Episodic Residual codes; unclassified (2 sources) Pain; Translations: [Pain, unspecified] 11-17-2019 Episodic Residual codes; unclassified (4 sources) Gestation period, 36 weeks; Translations: [36 weeks gestation of ] Episodic Residual codes; unclassified (1 source) Gestation period, 12 weeks; Translations: [12 weeks gestation of ] Episodic Residual codes; unclassified (1 source) Gestation period, 18 weeks; Translations: [18 weeks gestation of ] Episodic Residual codes; unclassified (1 source) Gestation period, 19 weeks; Translations: [19 weeks gestation of ] Episodic Residual codes; unclassified (2 sources) Gestation period, 28 weeks; Translations: [28 weeks gestation of ] Episodic Residual codes; unclassified (1 source) Gestation period, 30 weeks; Translations: [30 weeks gestation of ] Episodic Residual codes; unclassified (1 source) Gestation period, 37 weeks; Translations: [37 weeks gestation of ] Episodic Residual codes; unclassified (1 source) Gestation period, 38 weeks; Translations: [38 weeks gestation of ] Episodic Septicemia (except in labor) (2 sources) Sepsis; Translations: [Sepsis, unspecified organism] 11-21-2019 Episodic Spondylosis; intervertebral disc disorders; other back problems (20 sources) Low back pain; Translations: [Lumbago] 09-21-2021 Episodic Unclassified (1 source) Ear sensations - finding 11-16-2024 Unclassified (2 sources) Patient encounter status 11-16-2024 Urinary tract infections (1 source) Acute cystitis with hematuria; Translations: [Acute cystitis with hematuria] Onset: 11-11-2018 Episodic Viral infection (2 sources) Viral disease; Translations: [Viral infection, unspecified] Episodic Past or Other Problems Problem Classification Problem Date Documented Da te Episodic/Chronic Anxiety disorders (20 sources) Generalized anxiety disorder; Translations: [Generalized anxiety disorder] Onset: 08-08-2007 Resolved: 03-03-2016 09-21-2021 Chronic Calculus of urinary tract (20 sources) Calculus of kidney; Translations: [Unspecified renal colic] Onset: 11-11-2018 05-14-2019 Episodic Deficiency and other anemia (20 sources) Iron deficiency anemia; Translations: [Iron deficiency anemia, unspecified] Onset: 2007 Resolved: 10-21-2016 10-21-2016 Episodic Diabetes or abnormal glucose tolerance complicating ; childbirth; or the puerperium (20 sources) Gestational diabetes mellitus, class A>1<; Translations: [Gestational diabetes mellitus in , diet controlled] Onset: 01-19-2023 Episodic Genitourinary symptoms and ill-defined conditions (20 sources) Urine finding; Translations: [Hypocitraturia] Onset: 02-15-2014 02-15-2014 Episodic Hemorrhage during ; abruptio placenta; placenta previa (20 sources) Hemorrhage in early , unspecified; Translations: [Unspecified hemorrhage in early , antepartum condition or complication] Onset: 05-21-2013 Resolved: 02-06-2014 09-21-2021 Episodic Hemorrhoids (20 sources) Internal hemorrhoids; Translations: [Other hemorrhoids] Resolved: 03-03-2016 Episodic Mycoses (20 sources) Tinea pedis; Translations: [Tinea pedis] Onset: 11-12-2010 Resolved: 03-03-2016 03-03-2016 Episodic Other complications of (20 sources) Multigravida of advanced maternal age; Translations: [Supervision of elderly multigravida, first trimester] Onset: 05-14-2019 Resolved: 06-09-2020 Episodic Other diseases of kidney and ureters (20 sources) Hydronephrosis; Translations: [Unspecified hydronephrosis] Onset: 10-19-2013 Resolved: 02-06-2014 02-06-2014 Episodic Other gastrointestinal disorders (20 sources) Diarrhea; Translations: [Diarrhea, unspecified] Resolved: 03-03-2016 03-03-2016 Episodic Other nervous system disorders (20 sources) Other abnormal involuntary movements; Translations: [Abnormal involuntary movements] Onset: 08-08-2007 Resolved: 03-03-2016 03-03-2016 Episodic Other and delivery including normal (20 sources) Early stage of ; Translations: [Encounter for supervision of normal , unspecified, unspecified trimester] Onset: 2013 Resolved: 02-06-2014 Episodic Other screening for suspected conditions (not mental disorders or infectious disease) (20 sources) Patient encounter status; Translations: [Encounter for screening for nuchal translucency] Onset: 08-05-2007 Resolved: 03-03-2016 Episodic Polyhydramnios and other problems of amniotic cavity (20 sources) Polyhydramnios; Translations: [Polyhydramnios, third trimester, not applicable or unspecified] Onset: 03-16-2023 Episodic Residual codes; unclassified (20 sources) FH: Congenital heart disease; Translations: [Family history of other congenital malformations, deformations and chromosomal abnormalities] Onset: 05-21-2013 05-14-2019 Episodic Results Test Name Value Interpretation Reference Range [facility] TRESSA [facility]ALL ([id number]) 1985 F [facility] Date Time Provider Department 06/14/25 FRANCISCO GRIFFITH During your visit today, we recorded the following information about you: Tanna King 06/14/2025 8:59 AM Signed Pt is scheduled for Lt ESWL with Dr Griffith at [facility] on 07/04/25 @ 9:15 (7:15 arrival). Pt to do labs on 06/24/25. Pt given date, time, prep and arrival instructions over the phone on 06/13/25. [employer] message sent also. Tanna King Allergies As of Date: 06/14/2025 Noted Allergy Reaction AMOXICILLIN 02/26/2002 2 - Rash 16 - Unknown BACTRIM (SULFAMETHOXAZOLE) 09/25/2010 7 - Swelling Comments: Lip swelling CHLORTHALIDONE 11/11/2018 16 - Unknown HYGROTON 03/30/2024 2 - Rash KEFLEX (CEPHALEXIN) 10/24/2023 6 - Diarrhea 11 - Vomiting MACROBID (NITROFURANTOIN MONOHYD/*12/17/2013 4 - Hives TRIMETHOPRIM 11/11/2018 7 - Swelling Date Reviewed: 03/15/2025 Reviewed by: Kathleen Babb MA - Fully Assessed Reason for Visit: Surgery Scheduled [Other] Prescriptions as of 06/14/2025 - citalopram (CELEXA) 20 mg tablet Take 1 tablet by mouth once daily. - chrm/vineg/bit-orang peel/gr t (APPLE CIDER VINEGAR PLUS ORAL) - tamsulosin (FLOMAX) 0.4 mg Take 1 capsule by mouth daily at bedtime. - zolpidem (AMBIEN) 10 mg Take 1 tablet by mouth at bedtime as needed for up to 90 days. for insomnia. - PNV no.153/FA/om3/dha/epa /fish ( GUMMIES ORAL) - docusate sodium (COLACE) 100 mg capsule Take 1 capsule by mouth twice daily as needed for Constipation. Problem List As Of Date 06/14/2025 Noted Resolved Lumbago [M54.50] Urinary calculus, unspecified [N20.9] Unspecified hemorrhoids without mention of comp* 03/03/2016 Diarrhea [R19.7] 03/03/2016 Nonspecific abnormal electrocardiogram (ECG) (E*08/05/2007 03/03/2016 Routine general medical examination at a health*08/07/2007 09/18/2012 Generalized anxiety disorder [F41.1] 08/08/2007 03/03/2016 Abnormal involuntary movements(781.0) [R25.8, R*08/08/2007 03/03/2016 Iron deficiency anemia, unspecified [D50.9] 2007 10/21/2016 Dermatophytosis of foot [B35.3] 11/12/2010 03/03/2016 First trimester bleeding [O20.9] 05/21/2013 02/06/2014 Family history of congenital heart disease [Z82*05/21/2013 Hearing loss [H91.90] 05/21/2013 Supervision of normal first [Z34.00] 2013 02/06/2014 Hydronephrosis [N13.30] 10/19/2013 02/06/2014 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] 02/15/2014 Antepartum multigravida of advanced maternal ag*05/14/2019 06/09/2020 AMA (advanced maternal age) multigravida 35+, s*11/08/2022 Anemia in [O99.019] 01/17/2023 Gestational diabetes mellitus, class A1 [O24.41*01/19/2023 Maternal iron deficiency anemia complicating pr*03/02/2023 Iron malabsorption [K90.9] 03/02/2023 Polyhydramnios in third trimester [O40.3XX0] 03/16/2023 Encounter Status:Closed by TANNA KING on 06/14/25 [facility] Maranda 06-13-2025 GALENN Telephone (AKUrban RemedyL) TRESSA MARSHALL ([id number]) 1985 F [facility] Date Time Provider Department 06/13/25 FRANCISCO GRIFFITH During your visit today, we recorded the following information about you: Tanna King 06/13/2025 3:02 PM Addendum Pt is ready to schedule her Lt ESWL with Dr Griffith. Surgery date of 07/04/25 selected. Last KUB was done on 02/05/25. Do you want another prior to surgery? Tanna Jones 06/14/2025 8:54 AM Signed Noted. Closing call. Tanna King Allergies As of Date: 06/13/2025 Noted Allergy Reaction AMOXICILLIN 02/26/2002 2 - Rash 16 - Unknown BACTRIM (SULFAMETHOXAZOLE) 09/25/2010 7 - Swelling Comments: Lip swelling CHLORTHALIDONE 11/11/2018 16 - Unknown HYGROTON 03/30/2024 2 - Rash KEFLEX (CEPHALEXIN) 10/24/2023 6 - Diarrhea 11 - Vomiting MACROBID (NITROFURANTOIN MONOHYD/*12/17/2013 4 - Hives TRIMETHOPRIM 11/11/2018 7 - Swelling Date Reviewed: 03/15/2025 Reviewed by: Kathleen Babb MA - Fully Assessed Reason for Visit: Patient Update [1234] Prescriptions as of 06/14/2025 - citalopram (CELEXA) 20 mg tablet Take 1 tablet by mouth once daily. - chrm/vineg/bit-orang peel/gr t (APPLE CIDER VINEGAR PLUS ORAL) - tamsulosin (FLOMAX) 0.4 mg Take 1 capsule by mouth daily at bedtime. - zolpidem (AMBIEN) 10 mg Take 1 tablet by mouth at bedtime as needed for up to 90 days. for insomnia. - PNV no.153/FA/om3/dha/epa /fish ( GUMMIES ORAL) - docusate sodium (COLACE) 100 mg capsule Take 1 capsule by mouth twice daily as needed for Constipation. Problem List As Of Date 06/13/2025 Noted Resolved Lumbago [M54.50] Urinary calculus, unspecified [N20.9] Unspecified hemorrhoids without mention of comp* 03/03/2016 Diarrhea [R19.7] 03/03/2016 Nonspecific abnormal electrocardiogram (ECG) (E*08/05/2007 03/03/2016 Routine general medical examination at a health*08/07/2007 09/18/2012 Generalized anxiety disorder [F41.1] 08/08/2007 03/03/2016 Abnormal involuntary movements(781.0) [R25.8, R*08/08/2007 03/03/2016 Iron deficiency anemia, unspecified [D50.9] 2007 10/21/2016 Dermatophytosis of foot [B35.3] 11/12/2010 03/03/2016 First trimester bleeding [O20.9] 05/21/2013 02/06/2014 Family history of congenital heart disease [Z82*05/21/2013 Hearing loss [H91.90] 05/21/2013 Supervision of normal first [Z34.00] 2013 02/06/2014 Hydronephrosis [N13.30] 10/19/2013 02/06/2014 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] 02/15/2014 Antepartum multigravida of advanced maternal ag*05/14/2019 06/09/2020 AMA (advanced maternal age) multigravida 35+, s*11/08/2022 Anemia in [O99.019] 01/17/2023 Gestational diabetes mellitus, class A1 [O24.41*01/19/2023 Maternal iron deficiency anemia complicating pr*03/02/2023 Iron malabsorption [K90.9] 03/02/2023 Polyhydramnios in third trimester [O40.3XX0] 03/16/2023 Encounter Status:Closed by TANNA KING on 06/13/25 Normal [facility] Basic metabolic 2000 panelon 04-05-2025 Anion gap [Moles/Vol] 10 mmol/L Normal 8-15 [facility] Comment on above: Order Comment: Speci men Type: BLOOD SPECIMENOrdering Facility: [facility] Address: [address] [place] [address] Performed By: #### 2 4321-2 ####[facility] [id number] [place] [address] [place] Calcium [Mass/Vol] 9.7 mg/dL Normal 8.5-10.2 [facility] Comment on above: Order Comment: Speci men Type: BLOOD SPECIMENOrdering Facility: [facility] Address: [address] [place] [address] Performed By: #### 2 4321-2 ####[facility] MILLWNCLIA [id number] [place] [address] [place] Chloride [Moles/Vol] 105 mmol/L Normal 98-107 [facility] Comment on above: Order Comment: Speci men Type: BLOOD SPECIMENOrdering Facility: [facility] Address: [address] [place] [address] Performed By: #### 2 4321-2 ####[facility] [id number] [place] [address] [place] CO2 [Moles/Vol] 23 mmol/L Normal 22-30 [facility] Comment on above: Order Comment: Speci men Type: BLOOD SPECIMENOrdering Facility: [facility] Address: [address] [place] [address] Performed By: #### 2 4321-2 ####[facility] [id number] [place] [address] [place] Creatinine [Mass/Vol] 0.64 mg/dL Normal 0.58-0.96 [facility] Comment on above: Order Comment: Speci men Type: BLOOD SPECIMENOrdering Facility: [facility] Address: [address] [place] [address] Performed By: #### 2 4321-2 ####[facility] [id number] [place] [address] [place] Creatinine and Glomerular filtration rate.predicted panel (S/P/Bld) 115 mL/min/1.73m??? Normal >=60 [facility] Comment on above: Order Comment: Speci men Type: BLOOD SPECIMENOrdering Facility: [facility] Address: [address] [id number] Result Comment: Joanna mated Glomerular Filtration Rate (eGFR) is calculated using the 2020 CKD-EPI creatinine equation. This equation utilizes serum creatinine, sex, and age as parameters. The creatinine assay has traceable calibration to isotope dilution-mass spectrometry. Refer to KDIGO guidelines for clinical interpretation. In patients with unstable renal function, e.g. those with acute kidney injury, the eGFR may not accurately reflect actual GFR. Performed By: #### 2 4321-2 ####[facility] [id number] [place] [address] [place] Glucose [Mass/Vol] 104 mg/dL High 74-99 [facility] Comment on above: Order Comment: Yesica guillaume Type: BLOOD SPECIMENOrdering Facility: [facility] Address: [address] [place] [address] Result Comment: The [place] Diabetes Association (ADA) provides guidance for cutoff values for fasting glucose and random glucose. The ADA defines fasting as no caloric intake for at least 8 hours. Fasting plasma glucose results between 100 to 125 mg/dL indicate increased risk for diabetes (prediabetes). Fasting plasma glucose results greater than or equal to 126 mg/dL meet the criteria for diagnosis of diabetes. In the absence of unequivocal hyperglycemia, results should be confirmed by repeat testing. In a patient with classic symptoms of hyperglycemia or hyperglycemic crisis, random plasma glucose results greater than or equal to 200 mg/dL meet the criteria for diagnosis of diabetes. Reference: Standards of Medical Care in Diabetes 2016, [place] Diabetes Association. Diabetes Care. 2016.39(Suppl 1). Performed By: #### 2 4321-2 ####[facility] [id number] [place] [address] [place] Potassium [Moles/Vol] 4.3 mmol/L Normal 3.7-5.1 [facility] Comment on above: Order Comment: Yesica guillaume Type: BLOOD SPECIMENOrdering Facility: [facility] Address: [address] [id number] Performed By: #### 2 4321-2 ####[facility] [id number] [place] [address] [place] Sodium [Moles/Vol] 138 mmol/L Normal 136-144 [facility] Comment on above: Order Comment: Speci men Type: BLOOD SPECIMENOrdering Facility: [facility] Address: [address] [place] [address] Performed By: #### 2 4321-2 ####[facility] [id number] [place] [address] [place] Urea nitrogen [Mass/Vol] 12 mg/dL Normal 7-21 [facility] Comment on above: Order Comment: Speci men Type: BLOOD SPECIMENOrdering Facility: [facility] Address: [address] [place] [address] Performed By: #### 2 4321-2 ####[facility] [id number] [place] [address] [place] Hematocrit Auto (Bld) [Volum e fraction]on 04-05-2025 Hematocrit (Bld) [Volume fraction] 39.9 % Normal 36.0-46.0 [facility] Comment on above: Order Comment: Speci men Type: BLOOD SPECIMENOrdering Facility: [facility] Address: [address] [place] [address] Performed By: #### 4 544-3, 718-7 ####[facility]CL[facility] [id number] [place] [address] [place] Hgb Bld-mCncon 04-05-2025 Hemoglobin (Bld) [Mass/Vol] 13.6 g/dL Normal 11.5-15.5 [facility] Comment on above: Order Comment: Speci men Type: BLOOD SPECIMENOrdering Facility: [facility] Address: [address] [place] [address] Performed By: #### 4 544-3, 718-7 ####[facility] [id number] [place] [address] [place] PTH-Intact Еленаl-Delmison 07-1 Parathyrin.intact [Mass/Vol] 41 pg/mL Normal 15-65 [facility] Comment on above: Order Comment: Speci men Type: BLOOD SPECIMENOrdering Facility: [facility] Address: [address] [place] [address] Performed By: #### 2 731-8 ####[facility] LABCLIA [id number] [address] [place] JUAN CARLOS SCREENING W TOMOon 03-22 JUAN CARLOS SCREENING W KENIA * * *Final Report* * * DATE OF EXAM: Mar 22 2025 1:17PM [id number] - JUAN CARLOS SCREENING W KENIA / PROCEDURE REASON: Encounter for screening mammogram for breast cancer * * * * Physician Interpretation * * * * RESULT: [facility] [address] [place] [address] #[id number] - JUAN CARLOS SCREENING W KENIA HISTORY: 39 year-old patient presents for screening. Patient is asymptomatic in both breasts. Patient states no personal history of breast cancer. MAMMOGRAM TECHNIQUE: The study was acquired using full field digital technology and interpreted from soft copy. Digital Breast Tomosynthesis (DBT) images were obtained and used to assist in the interpretation of this examination. MAMMOGRAM FINDINGS: The breasts are heterogeneously dense, which may obscure small masses. No suspicious masses, calcifications or other abnormalities are seen in either breast. IMPRESSION: There is no mammographic evidence of malignancy in either breast. Routine screening mammogram is recommended. Annual mammogram will be due in 1 year. BI-RADS Category 1: Negative RISK: Based on the Tyrer-Cuzick (TC) risk assessment model, this patient has a 8.4% lifetime risk of developing breast cancer, meaning they are at average risk for developing breast cancer. However, this is only an estimate based on available history provided on the patient's questionnaire. We encourage all patients to talk with their providers about these results, further recommendations for managing breast health, and appropriate supplemental screening options if the patient has dense breast tissue. Interpreting Radiologist: Rachel Tavera M.D. Electronically signed on: 03/24/2025 Radio Adjuster: TONY Transcribe Date/Time: Mar 22 2025 1:10P Dictated by: RACHEL TAVERA MD This examination was interpreted and the report reviewed and electronically signed by: RACHEL TAVERA MD on Mar 24 2025 2:07PM EST [id number] N Normal [facility] CNOVon 03-15-2025 CNOV Office Visit (AKURFL ) TRESSA MARSHALL ([id number]) 1985 [facility] Date Time Provider Department 03/15/25 7:45 AM FRANCISCO GRIFFITH AKURFL During your visit today, we recorded the following information about you: Pulse Height 80/minute 1.6 m Francisco Griffith MD 03/15/2025 8:35 AM Signed ESTABLISHED PATIENT VISIT HPI Tressa Marshall is a 39 year old female who presents with a history of kidney stones. Last seen in the office in March 2022 with surgery in May 2023. Patient contacted office with pain, possible stone on February 04, 2025 Recurrent kidney stones since age 12. Prior Litholink many years ago After litholink, Dr Song did low sodium diet and fish oil ; she repeated Litholink and her urine calcium and sodium were markedly improved, but citrate was low. 02/08/2025 KUB: Left renal calculi Multiple radiopaque opacities overlying the left kidney measuring up to 6 mm 06/23/2023: Cystoscopy, left ureteroscopy, laser lithotripsy, stone basket extraction, left ureteral stent placement 10/15/2020: Right extracorporeal shock wave lithotripsy CT 04/14/2022: OSH Left renal calculi ? Hypercalcemia, order PTH 06/23/2023 70% Calcium Phosphate Creatinine Date Value Ref Range Status 11/16/2024 0.67 0.58 - 0.96 mg/dL Final No results found for: PSA Color (no units) Date Value 10/20/2023 Yellow 04/02/2019 Yellow Clarity (no units) Date Value 10/20/2023 Clear 04/02/2019 Clear Glucose, Urine Date Value 10/20/2023 Negative 03/28/2023 neg mg/dL Bilirubin, Urine (no units) Date Value 10/20/2023 Negative 04/02/2019 Negative Ketones, Urine (no units) Date Value 10/20/2023 Negative 04/02/2019 Negative Specific [place], Ur (no units) Date Value 10/20/2023 1.020 04/02/2019 1.007 Hemoglobin/Blood,Ur Date Value 10/20/2023 1+ 04/02/2019 Negative pH, Urine (no units) Date Value 10/20/2023 7.0 04/02/2019 5.5 Protein, Urine Date Value 10/20/2023 Trace 03/28/2023 30 mg/dL Urobilinogen (no units) Date Value 10/20/2023 1.0 EU/dL 04/02/2019 Normal Nitrites (no units) Date Value 10/20/2023 Positive 04/02/2019 Negative Leukest (no units) Date Value 04/02/2019 Negative Leuk Esterase (no units) Date Value 10/20/2023 2+ 24HR Urine Studies: Recent Labs 03/16/19 1200 12/18/18 1200 12/17/18 1200 LUPH 6.946* 7.190* 6.830* LUCAL 90 230* 198 LUCIT 385* 621 567 LUOXA 21 29 28 LUURIC 0.599 0.643 0.592 LUVOL 2.60 2.64 1.98 LSCAO 1.98* 3.66* 5.23* LSCAP 0.63 1.81 1.98 LSURIC 0.07 0.04 0.11 LUCL 101 228 157 LATRELL 37 68 47 GLENROY 118 259* 176* LUUREA 6.39 7.41 7.61 LUAM 23 19 20 LUMAG 35 70 55 LUPHOS 0.520* 0.806 0.731 LUPCR 1.0 1.1 1.2 LUCREA 1,203 1,214 1,117 LUCRKBW 24.3* 25.0* 23.0* LUCAKBW 1.8 4.7* 4.1* LUCACREA 74 189 178 LUSUL 18* 22 23 REVIEW OF SYSTEMS Review of Systems Review of system, history including past medical history, surgical history, family history and social history reviewed and confirmed by me. HISTORIES PAST MEDICAL HISTORY Diagnosis Date Abnormal glandular Papanicolaou smear of cervix 05/06/2008 Abn. Pap smear (cervix) Anemia A TEENAGER FIBROCYSTIC BREASTS FRACTURE 2001 NOSE Gestational diabetes mellitus, class A1 ([facility]) 01/19/2023 Hemorrhage of gastrointestinal tract, unspecified Hydronephrosis 10/19/2013 Kidney stones Lumbago DISC DISEASE Other specified forms of hearing loss Unspecified hemorrhoids without mention of complication Hemorrhoids Urinary calculus, unspecified Renal stones Vaginal delivery ([facility]) x3 PAST SURGICAL HISTORY Procedure Laterality Date COLONOSCOPY FLX DX W/COLLJ SPEC WHEN PFRMD 2019 reportedly normal, internal hemorrhoids COLPOSCOPY CERVIX UPPER/ADJACENT VAGINA Colposcopy LASIK 11/2010 LITHOTRIPSY XTRCORP SHOCK WAVE 09/11/10 Lithotripsy PAST SURGICAL HISTORY OF ureteroscopy with basket extraction kidney stone RHINP PRIM LATANDALAR CRTLGSAND/ELVTN NASAL TI Rhinoplasty FAMILY HISTORY Problem Relation Age of Onset GI Father hemachromatosis Heart Father Hypertension Father Kidney Disease Father KIDNEY STONES Asthma Mother No Known Problems Brother Heart Maternal Grandmother Colon Cancer Maternal Grandmother Stroke Maternal Grandmother Arthritis Maternal Grandmother Colon Cancer Paternal Grandmother Colon Cancer Paternal Grandfather Heart Paternal Grandfather HTN, CVA No Known Problems Son No Known Problems Son Lipids Maternal Aunt Colon Polyps Maternal Aunt Multiple Sclerosis Paternal Aunt No Ocular Disease No Family History SOCIAL HISTORY Social History Tobacco Use Smoking status: Never Smokeless tobacco: Never Vaping Use Vaping status: Never Used Substance Use Topics Alcohol use: Not Currently Alcohol/week: 1.0 standard drink of alcohol (more content not included)... Normal [facility] UA DIP, URINE (POC)on 2024 BILIRUBIN UA (POCT) Negative Negative [facility] CLARITY UA (POCT) Clear [facility] COLOR UA (POCT) Yellow [facility] GLUCOSE UA (POCT) Negative Negative mg/dL [facility] Hemoglobin Ql (U) Large Abnormal Negative [facility] Interpretation and review of laboratory results Abnormal [facility] KETONE UA (POCT) Negative Negative mg/dL [facility] LEUKOCYTES UA (POCT) Negative Negative [facility] NITRITE UA (POCT) Negative Negative [facility] PH UA (POCT) 6.5 4.5 - 8.0 [facility] Protein Ql (U) Negative Negative mg/dL [facility] SPECIFIC GRAVITY UA (POCT) <=1.005 Abnormal 1.005 - 1.030 [facility] UROBILINOGEN UA (POCT) 0.2 Normal E.U./dL [facility] Location:[facility], [address] [place] [address] POINT OF CARE [facility] XR ABDOMEN 1V SUPINEon 02-05 XR ABDOMEN 1V SUPINE * * *Final Report* * * DATE OF EXAM: Feb 05 2025 1:52PM [id number] - XR ABDOMEN 1V SUPINE / PROCEDURE REASON: Kidney stones * * * * Physician Interpretation * * * * EXAM TITLE: XR ABDOMEN 1V SUPINE EXAM DATE/TIME: 02/05/2025 1:52 PM COMPARISON: None. CLINICAL INDICATION/HISTORY: Kidney stone. TECHNIQUE: AP views of the abdomen are presented. FINDINGS: Multiple radiopaque opacities overlying the left kidney measuring up to 6 mm. No definite abnormal opacities projecting over the right kidney or pelvis. No abnormally dilated bowel loops identified. The bony structures appear intact. IMPRESSION: Findings are suggestive of left renal calculi. Radio Adjuster: PSCB Transcribe Date/Time: Feb 08 2025 2:58P Dictated by : HORACIO ORNELAS MD This examination was interpreted and the report reviewed and electronically signed by: HORACIO ORNELAS MD on Feb 08 2025 3:09PM EST [id number] N Normal [facility] CNPChrissie 02-04-2025 CNPN Telephone (AKUrban RemedyL) TRESSA MARSHALL ([id number]) 1985 F [facility] Date Time Provider Department 02/04/25 FRANCISCO GRIFFITH During your visit today, we recorded the following information about you: Charbel Pinzon MA 02/04/2025 1:24 PM Signed Patient called thinking she is having a kidney stone. She was asking if you would order her an xray to see for sure. She was last seen in office 04/23/2022, and surgery with you 06/23/2023. She did make an appointment with you on 04/08/25. KUB pended if needed. Can you advise? ELMER Amaya Kris, MA 02/05/2025 8:48 AM Signed Patient informed. Charbel Pinzon MA Allergies As of Date: 02/04/2025 Noted Allergy Reaction AMOXICILLIN 02/26/2002 2 - Rash 16 - Unknown BACTRIM (SULFAMETHOXAZOLE) 09/25/2010 7 - Swelling Comments: Lip swelling CHLORTHALIDONE 11/11/2018 16 - Unknown HYGROTON 03/30/2024 2 - Rash KEFLEX (CEPHALEXIN) 10/24/2023 6 - Diarrhea 11 - Vomiting MACROBID (NITROFURANTOIN MONOHYD/*12/17/2013 4 - Hives TRIMETHOPRIM 11/11/2018 7 - Swelling Date Reviewed: 11/16/2024 Reviewed by: Gail Gurrola MA - Fully Assessed Reason for Visit: Patient Update [1234] Primary Visit Diagnosis:Kidney stones [N20.0] Order(s):XR ABDOMEN 1V SUPINE [[id number]] Order #: [id number] FUTURE Prescriptions as of 02/05/2025 - zolpidem (AMBIEN) 10 mg Take 1 tablet by mouth at bedtime as needed for up to 90 days. for insomnia. - Norethindrone, Contraceptive, 0.35 mg tablet Take 1 tablet by mouth once daily. - Norethindrone, Contraceptive, 0.35 mg tablet Take 1 tablet by mouth once daily. - PNV no.153/FA/om3/dha/epa /fish ( GUMMIES ORAL) - citalopram (CELEXA) 20 mg tablet Take 1 tablet by mouth once daily. - tamsulosin (FLOMAX) 0.4 mg Take 1 capsule by mouth once daily. - docusate sodium (COLACE) 100 mg capsule Take 1 capsule by mouth twice daily as needed for Constipation. Problem List As Of Date 02/04/2025 Noted Resolved Lumbago [M54.50] Urinary calculus, unspecified [N20.9] Unspecified hemorrhoids without mention of comp* 03/03/2016 Diarrhea [R19.7] 03/03/2016 Nonspecific abnormal electrocardiogram (ECG) (E*08/05/2007 03/03/2016 Routine general medical examination at a [facility]*08/07/2007 09/18/2012 Generalized anxiety disorder [F41.1] 08/08/2007 03/03/2016 Abnormal involuntary movements(781.0) [R25.8, R*08/08/2007 03/03/2016 Iron deficiency anemia, unspecified [D50.9] 2007 10/21/2016 Dermatophytosis of foot [B35.3] 11/12/2010 03/03/2016 First trimester bleeding [O20.9] 05/21/2013 02/06/2014 Family history of congenital heart disease [Z82*05/21/2013 Hearing loss [H91.90] 05/21/2013 Supervision of normal first [Z34.00] 2013 02/06/2014 Hydronephrosis [N13.30] 10/19/2013 02/06/2014 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] 02/15/2014 Antepartum multigravida of advanced maternal ag*05/14/2019 06/09/2020 AMA (advanced maternal age) multigravida 35+, s*11/08/2022 Anemia in [O99.019] 01/17/2023 Gestational diabetes mellitus, class A1 [O24.41*01/19/2023 Maternal iron deficiency anemia complicating pr*03/02/2023 Iron malabsorption [K90.9] 03/02/2023 Polyhydramnios in third trimester [O40.3XX0] 03/16/2023 Encounter Status:Closed by FRANCISCO GRIFFITH on 02/05/25 Normal [facility] 25(OH)D3 [facility]-ncon 2024 25-hydroxyvitamin D3 [Mass/Vol] 46.5 ng/mL Normal 31.0-80.0 [facility] Comment on above: Order Comment: Speci men Type: BLOOD SPECIMEN [facility] Facility[facility] Address: [address] [place] [address] Performed By: #### 1 989-3 #### [facility] CLIA [id number] [address] [place] [address] [id number] [place] [address] STATES OF [facility] CBC panel Auto (Bld)on 11-16 Erythrocyte distribution width (RBC) [Ratio] 11.9 % 11.5 - 15.0 % [facility] Hematocrit (Bld) [Volume fraction] 43.6 % 36.0 - 46.0 % [facility] Hemoglobin (Bld) [Mass/Vol] 14.1 g/dL 11.5 - 15.5 g/dL [facility] Interpretation and review of laboratory results Normal [facility] MCH (RBC) [Entitic mass] 30.1 pg 26.0 - 34.0 pg [facility] MCHC (RBC) [Mass/Vol] 32.3 g/dL 30.5 - 36.0 g/dL [facility] MCV (RBC) [Entitic vol] 93.2 fL 80.0 - 100.0 fL [facility] Nucleated RBC (Bld) [#/Vol] NINF [facility] Platelet mean volume (Bld) [Entitic vol] 10 fL 9.0 - 12.7 fL [facility] Platelets (Bld) [#/Vol] 284 10*3/uL [facility] RBC (Bld) [#/Vol] 4.68 10*6/uL 3.90 - 5.2 0 m/uL [facility] WBC (Bld) [#/Vol] 6.37 10*3/uL [facility] Erythrocyte distribution width (RBC) [Ratio] 11.9 % Normal 11.5-15.0 [facility] Comment on above: Order Comment: Speci men Type: BLOOD SPECIMENOrdering Facility: [facility] [facility] Address: [address] [place] [address] Performed By: #### 5 8410-2 ####[facility] LABCLIA [id number] [place] [address] [place] Hematocrit (Bld) [Volume fraction] 43.6 % Normal 36.0-46.0 [facility] Comment on above: Order Comment: Speci men Type: BLOOD SPECIMENOrdering Facility: [facility] Address: [address] [place] [address] Performed By: #### 5 8410-2 ####[facility] LABCLIA [id number] [place] [address] [place] Hemoglobin (Bld) [Mass/Vol] 14.1 g/dL Normal 11.5-15.5 [facility] Comment on above: Order Comment: Speci men Type: BLOOD SPECIMENOrdering Facility: [facility] Address: [address] [place] [address] Performed By: #### 5 8410-2 ####[facility] LABCLIA [id number] [place] [address] [place] MCH (RBC) [Entitic mass] 30.1 pg Normal 26.0-34.0 [facility] Comment on above: Order Comment: Speci men Type: BLOOD SPECIMENOrdering Facility: [facility] Address: [address] [place] [address] Performed By: #### 5 8410-2 ####[facility] LABCLIA [id number] [place] [address] [place] MCHC (RBC) [Mass/Vol] 32.3 g/dL Normal 30.5-36.0 [facility] Comment on above: Order Comment: Speci men Type: BLOOD SPECIMENOrdering Facility: [facility] Address: [address] [place] [address] Performed By: #### 5 8410-2 ####[facility] LABCLIA [id number] [place] [address] [place] MCV (RBC) [Entitic vol] 93.2 fL Normal 80.0-100.0 [facility] Comment on above: Order Comment: Speci men Type: BLOOD SPECIMENOrdering Facility: [facility] Address: [address] [place] [address] Performed By: #### 5 8410-2 ####[facility] LABIA [id number] [place] [address] [place] Nucleated RBC (Bld) [#/Vol] 10*3/uL Normal <0.01 [facility] Comment on above: Order Comment: Speci men Type: BLOOD SPECIMENOrdering Facility: [facility] Address: [address] [place] [address] Performed By: #### 5 8410-2 ####[facility] [id number] [place] [address] [place] Platelet mean volume (Bld) [Entitic vol] 10.0 fL Normal 9.0-12.7 [facility] Comment on above: Order Comment: Speci men Type: BLOOD SPECIMENOrdering Facility: [facility] Address: [address] [place] [address] Performed By: #### 5 8410-2 ####[facility] [id number] [place] [address] [place] Platelets (Bld) [#/Vol] 284 10*3/uL Normal 150-400 [facility] Comment on above: Order Comment: Speci men Type: BLOOD SPECIMENOrdering Facility: [facility] Address: [address] [place] [address] Performed By: #### 5 8410-2 ####[facility] LABIA [id number] [place] [address] [place] RBC (Bld) [#/Vol] 4.68 10*6/uL Normal 3.90-5.20 [facility] Comment on above: Order Comment: Speci men Type: BLOOD SPECIMENOrdering Facility: [facility] Address: [address] [place] [address] Performed By: #### 5 8410-2 ####[facility] LABCLIA [id number] [place] [address] [place] WBC (Bld) [#/Vol] 6.37 10*3/uL Normal 3.70-11.00 [facility] Comment on above: Order Comment: Speci men Type: BLOOD SPECIMENOrdering Facility: [facility] Address: [address] [place] [address] Performed By: #### 5 8410-2 ####[facility] LABCLIA [id number] [address] [place] CNOVon 11-16-2024 [facility] JOANNATRESSA Lagunas ([id number]) 1985 [facility] Date Time Provider Department 11/16/24 7:00 AM [facility] During your visit today, we recorded the following information about you: Pulse Respiration Blood pressure Weight 77/minute 16/minute 118/82 55.7 kg Height 1.61 m Fadia Berger APRN.[employer] 11/16/2024 2:09 PM Signed Chief Complaint Patient presents with: Physical Insurance Physical HPI Tressa Janneth Joanna is a 39 year old female who presents here today for Above Complaints.. Celexa - tolerating well. States mood is good Insomnia - states she gets 4 hours of sleep per night. Is able to fall asleep but has difficulty staying asleep. Has used ambien in the past and that helped her to stay asleep. Ears feel full, R>L. Denies pain or recent sickness. Does know she has a little bit of hearing loss chronically from repeated ear infections when she was younger. Would like a referral to dermatology to get established for yearly skin checks. Denies any current concerns. Past medical history, appointments, medications, allergies reviewed. Previous Medical History PAST MEDICAL HISTORY Diagnosis Date Abnormal glandular Papanicolaou smear of cervix 05/06/2008 Abn. Pap smear (cervix) Anemia A TEENAGER FIBROCYSTIC BREASTS FRACTURE 2000 NOSE Gestational diabetes mellitus, class A1 01/19/2023 Hemorrhage of gastrointestinal tract, unspecified Hydronephrosis 10/19/2013 Kidney stones Lumbago DISC DISEASE Other specified forms of hearing loss Unspecified hemorrhoids without mention of complication Hemorrhoids Urinary calculus, unspecified Renal stones Vaginal delivery x3 Previous Surgical History PAST SURGICAL HISTORY Procedure Laterality Date COLONOSCOPY FLX DX W/COLLJ SPEC WHEN PFRMD 2019 reportedly normal, internal hemorrhoids COLPOSCOPY CERVIX UPPER/ADJACENT VAGINA Colposcopy LASIK 11/2010 LITHOTRIPSY XTRCORP SHOCK WAVE 09/11/10 Lithotripsy PAST SURGICAL HISTORY OF ureteroscopy with basket extraction kidney stone RHINP PRIM LATANDALAR CRTLGSAND/ELVTN NASAL TI Rhinoplasty Family History FAMILY HISTORY Problem Relation Age of Onset GI Father hemachromatosis Heart Father Hypertension Father Kidney Disease Father KIDNEY STONES Asthma Mother No Known Problems Brother Heart Maternal Grandmother Colon Cancer Maternal Grandmother Stroke Maternal Grandmother Arthritis Maternal Grandmother Colon Cancer Paternal Grandmother Colon Cancer Paternal Grandfather Heart Paternal Grandfather HTN, CVA No Known Problems Son No Known Problems Son Lipids Maternal Aunt Colon Polyps Maternal Aunt Multiple Sclerosis Paternal Aunt No Ocular Disease No Family History Patient Allergies ALLERGIES Allergen Reactions Amoxicillin Rash, Unknown Bactrim [Sulfametho* Swelling Lip swelling Chlorthalidone Unknown Hygroton Rash Keflex [Cephalexin] Diarrhea, Vomiting Macrobid [Nitrofura* Hives Trimethoprim Swelling Current Medications Current Outpatient Medications on File Prior to Visit Medication Sig Norethindrone, Contraceptive, 0.35 mg tablet Take 1 tablet by mouth once daily. Norethindrone, Contraceptive, 0.35 mg tablet Take 1 tablet by mouth once daily. PNV no.153/FA/om3/dha/epa /fish ( GUMMIES ORAL) citalopram (CELEXA) 20 mg tablet Take 1 tablet by mouth once daily. docusate sodium (COLACE) 100 mg capsule Take 1 capsule by mouth twice daily as needed for Constipation. tamsulosin (FLOMAX) 0.4 mg Take 1 capsule by mouth once daily. No current facility-administered medications on file prior to visit. Social History Social History Tobacco Use Smoking status: Never Smokeless tobacco: Never Vaping Use Vaping status: Never Used Substance Use Topics Alcohol use: Not Currently Alcohol/week: 1.0 standard drink of alcohol Types: 1 Cans of Beer (12oz) per week Comment: Occasionally, NOT WHILE Drug use: No Review of Symptoms REVIEW OF SYSTEMS See HPI, otherwise negative EXAM: BP 118/82 (BP Site: Left Arm, BP Position: Sitting, BP Cuff Size: Regular Adult) Pulse 77 Resp 16 Ht 161 cm (5' 3.39) Wt 55.7 kg (122 lb 12.8 oz) LMP 07/05/2022 SpO2 99% BMI 21.49 kg/m? General Appearance: Well appearing, alert, in no acute distress, well-hydrated, well nourished.. Ears: External ears normal, canals clear, Oropharynx: Lips, mucosa, and tongue normal, teeth and gums normal, oropharynx normal. Neck: Supple, no adenopathy; thyroid symmetric, normal size, no bruits. Lungs: Lungs clear to auscultation. No wheezing, rhonchi, rales.. Heart: RRR without murmur, gallop, or rubs. No ectopy. Abdomen: Normal abdominal exam, Abdomen soft, non-tender. Bowel sounds normal. No masses, organomegaly. Extremities: No deformities, edema, skin discolorat (more content not included)... Normal [facility] Maranda 11-16-2024 [facility] Telephone (FAMP[facility]) TRESSA MARSHALL ([id number]) 1985 F [facility] Date Time Provider Department 11/16/24 FADIA BERGER During your visit today, we recorded the following information about you: Fadia Berger APRN.CNP 11/16/2024 7:47 AM Signed Please send derm consult to Reid Simeon per patient request. ANALI Ellison [place], [place] 11/16/2024 1:42 PM Signed Faxed Gail Gurrola MA Allergies As of Date: 11/16/2024 Noted Allergy Reaction AMOXICILLIN 02/26/2002 2 - Rash 16 - Unknown BACTRIM (SULFAMETHOXAZOLE) 09/25/2010 7 - Swelling Comments: Lip swelling CHLORTHALIDONE 11/11/2018 16 - Unknown HYGROTON 03/30/2024 2 - Rash KEFLEX (CEPHALEXIN) 10/24/2023 6 - Diarrhea 11 - Vomiting MACROBID (NITROFURANTOIN MONOHYD/*12/17/2013 4 - Hives TRIMETHOPRIM 11/11/2018 7 - Swelling Date Reviewed: 11/16/2024 Reviewed by: Gail Gurrola MA - Fully Assessed Reason for Visit: Consult [502] Prescriptions as of 11/16/2024 - zolpidem (AMBIEN) 10 mg Take 1 tablet by mouth at bedtime as needed for up to 90 days. for insomnia. - Norethindrone, Contraceptive, 0.35 mg tablet Take 1 tablet by mouth once daily. - Norethindrone, Contraceptive, 0.35 mg tablet Take 1 tablet by mouth once daily. - PNV no.153/FA/om3/dha/epa /fish ( GUMMIES ORAL) - citalopram (CELEXA) 20 mg tablet Take 1 tablet by mouth once daily. - tamsulosin (FLOMAX) 0.4 mg Take 1 capsule by mouth once daily. - docusate sodium (COLACE) 100 mg capsule Take 1 capsule by mouth twice daily as needed for Constipation. Problem List As Of Date 11/16/2024 Noted Resolved Lumbago [M54.50] Urinary calculus, unspecified [N20.9] Unspecified hemorrhoids without mention of comp* 03/03/2016 Diarrhea [R19.7] 03/03/2016 Nonspecific abnormal electrocardiogram (ECG) (E*08/05/2007 03/03/2016 Routine general medical examination at a health*08/07/2007 09/18/2012 Generalized anxiety disorder [F41.1] 08/08/2007 03/03/2016 Abnormal involuntary movements(781.0) [R25.8, R*08/08/2007 03/03/2016 Iron deficiency anemia, unspecified [D50.9] 2007 10/21/2016 Dermatophytosis of foot [B35.3] 11/12/2010 03/03/2016 First trimester bleeding [O20.9] 05/21/2013 02/06/2014 Family history of congenital heart disease [Z82*05/21/2013 Hearing loss [H91.90] 05/21/2013 Supervision of normal first [Z34.00] 2013 02/06/2014 Hydronephrosis [N13.30] 10/19/2013 02/06/2014 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 Comprehensive metabolic 2000 panelon 11-16-2024 Albumin [Mass/Vol] 4.7 g/dL 3.9 - 4.9 g/dL [facility] ALP [Catalytic activity/Vol] 67 U/L 34 - 123 U/L [facility] ALT [Catalytic activity/Vol] 26 U/L 7 - 38 U/L [facility] Anion gap [Moles/Vol] 9 mmol/L 8 - 15 mmol/L [facility] AST [Catalytic activity/Vol] 26 U/L 13 - 35 U/L [facility] Bilirubin [Mass/Vol] 0.4 mg/dL 0.2 - 1 .3 mg/dL [facility] Calcium [Mass/Vol] 10 mg/dL 8.5 - 10. 2 mg/dL [facility] Chloride [Moles/Vol] 103 mmol/L 98 - 10 7 mmol/L [facility] CO2 [Moles/Vol] 27 mmol/L 22 - 30 mmol/L [facility] Creatinine [Mass/Vol] 0.67 mg/dL 0.58 - 0.96 mg/dL [facility] GFR/1.73 sq M.predicted among non-blacks MDRD (S/P/Bld) [Vol rate/Area] 113 mL/min/{1.73_m2} - PINF [facility] Comment on above: Estimated Glomerular Filtration Rate (eGFR) is calculated using the 2020 CKD-EPI creatinine equation. This equation utilizes serum creatinine, sex, and age as parameters. The creatinine assay has traceable calibration to isotope dilution-mass spectrometry. Refer to KDIGO guidelines for clinical interpretation. In patients with unstable renal function, e.g. those with acute kidney injury, the eGFR may not accurately reflect actual GFR. Glucose [Mass/Vol] 91 mg/dL 74 - 99 mg/dL [facility] Comment on above: The [place] Diabete s Association (ADA) provides guidance for cutoff values for fasting glucose and random glucose. The ADA defines fasting as no caloric intake for at least 8 hours. Fasting plasma glucose results between 100 to 125 mg/dL indicate increased risk for diabetes (prediabetes). Fasting plasma glucose results greater than or equal to 126 mg/dL meet the criteria for diagnosis of diabetes. In the absence of unequivocal hyperglycemia, results should be confirmed by repeat testing. In a patient with classic symptoms of hyperglycemia or hyperglycemic crisis, random plasma glucose results greater than or equal to 200 mg/dL meet the criteria for diagnosis of diabetes. Reference: Standards of Medical Care in Diabetes 2016, [place] Diabetes Association. Diabetes Care. 2016.39(Suppl 1). Interpretation and review of laboratory results Normal [facility] Potassium [Moles/Vol] 4.2 mmol/L 3.7 - 5.1 mmol/L [facility] Protein [Mass/Vol] 7.2 g/dL 6.3 - 8.0 g/dL [facility] Sodium [Moles/Vol] 139 mmol/L 136 - 144 mmol/L [facility] Urea nitrogen [Mass/Vol] 14 mg/dL 7 - 21 mg/dL [facility] Albumin [Mass/Vol] 4.7 g/dL Normal 3.9-4.9 [facility] Comment on above: Order Comment: Speci men Type: BLOOD SPECIMENOrdering Facility: [facility] Address: [address] [place] [address] Performed By: #### 2 4331-1, 6-3, 16255-9, 2132-05 ####[facility] LABCLIA [id number] [address] [address] [place] ALP [Catalytic activity/Vol] 67 U/L Normal 34-123 [facility] Comment on above: Order Comment: Speci men Type: BLOOD SPECIMENOrdering Facility: [facility] Address: [address] [place] [address] Performed By: #### 2 4331-1, 6-3, , 2132-05 ####[facility] LABCLIA [id number] [place] [address] [place] ALT [Catalytic activity/Vol] 26 U/L Normal 7-38 [facility] Comment on above: Order Comment: Speci men Type: BLOOD SPECIMENOrdering Facility: [facility] Address: [address] [place] [address] Performed By: #### 2 4331-1, 6-3, , 2132-05 ####[facility] LABCLIA [id number] [place] [id number] [place] Anion gap [Moles/Vol] 9 mmol/L Normal 8-15 [facility] Comment on above: Order Comment: Speci men Type: BLOOD SPECIMENOrdering Facility: [facility] Address: [address] [place] [address] Performed By: #### 2 4331-1, 6-3, 01967-5, 2132-05 ####[facility] LABCLIA [id number] [address] [address] [place] AST [Catalytic activity/Vol] 26 U/L Normal 13-35 [facility] Comment on above: Order Comment: Speci men Type: BLOOD SPECIMENOrdering Facility: [facility] Address: [address] [place] [address] Performed By: #### 2 4331-1, 3016-3, 05608-5, 2132-05 ####[facility] LABCLIA [id number] [place] [address] [place] Bilirubin [Mass/Vol] 0.4 mg/dL Normal 0.2-1.3 [facility] Comment on above: Order Comment: Speci men Type: BLOOD SPECIMENOrdering Facility: [facility] Address: [address] [place] [address] Performed By: #### 2 4331-1, 3016-3, , 2132-05 ####[facility] LABCLIA [id number] [place] [address] [place] Calcium [Mass/Vol] 10.0 mg/dL Normal 8.5-10.2 [facility] Comment on above: Order Comment: Speci men Type: BLOOD SPECIMENOrdering Facility: [facility] Address: [address] [place] [address] Performed By: #### 2 4331-1, 6-3, , 2132-05 ####[facility] LABCLIA [id number] [place] [id number] [place] Chloride [Moles/Vol] 103 mmol/L Normal 98-107 [facility] Comment on above: Order Comment: Speci men Type: BLOOD SPECIMENOrdering Facility: [facility] Address: [address] [place] [address] Performed By: #### 2 4331-1, 3016-3, 06409-2, 2132-05 ####[facility] LABCLIA [id number] [place] [address] [place] CO2 [Moles/Vol] 27 mmol/L Normal 22-30 [facility] Comment on above: Order Comment: Speci men Type: BLOOD SPECIMENOrdering Facility: [facility] Address: [address] [place] [address] Performed By: #### 2 4331-1, 3016-3, 49698-5, 2132-05 ####[facility] LABCLIA [id number] [place] [address] [place] Creatinine [Mass/Vol] 0.67 mg/dL Normal 0.58-0.96 [facility] Comment on above: Order Comment: Speci men Type: BLOOD SPECIMENOrdering Facility: [facility] Address: [address] [place] [address] Performed By: #### 2 4331-1, 6-3, , 2132-05 ####[facility] LABIA [id number] [place] [address] [place] Creatinine and Glomerular filtration rate.predicted panel (S/P/Bld) 113 mL/min/1.73m??? Normal >=60 [facility] Comment on above: Order Comment: Speci markell Type: BLOOD SPECIMENOrdering Facility: [facility] Address: [address] [place] [address] Result Comment: Joanna mated Glomerular Filtration Rate (eGFR) is calculated using the 2020 CKD-EPI creatinine equation. This equation utilizes serum creatinine, sex, and age as parameters. The creatinine assay has traceable calibration to isotope dilution-mass spectrometry. Refer to KDIGO guidelines for clinical interpretation. In patients with unstable renal function, e.g. those with acute kidney injury, the eGFR may not accurately reflect actual GFR. Performed By: #### 2 4331-1, 3016-3, 61395-5, 2132-05 ####[facility] LABCLIA [id number] [place] [id number] [place] Glucose [Mass/Vol] 91 mg/dL Normal 74-99 [facility] Comment on above: Order Comment: Speci men Type: BLOOD SPECIMENOrdering Facility: [facility] Address: [address] [place] [address] Result Comment: The [place] Diabetes Association (ADA) provides guidance for cutoff values for fasting glucose and random glucose. The ADA defines fasting as no caloric intake for at least 8 hours. Fasting plasma glucose results between 100 to 125 mg/dL indicate increased risk for diabetes (prediabetes). Fasting plasma glucose results greater than or equal to 126 mg/dL meet the criteria for diagnosis of diabetes. In the absence of unequivocal hyperglycemia, results should be confirmed by repeat testing. In a patient with classic symptoms of hyperglycemia or hyperglycemic crisis, random plasma glucose results greater than or equal to 200 mg/dL meet the criteria for diagnosis of diabetes. Reference: Standards of Medical Care in Diabetes 2016, [place] Diabetes Association. Diabetes Care. 2016.39(Suppl 1). Performed By: #### 2 4331-1, 3016-3, 79723-9, 2132-05 ####[facility] LABCLIA [id number] [place] [address] [place] Potassium [Moles/Vol] 4.2 mmol/L Normal 3.7-5.1 [facility] Comment on above: Order Comment: Speci men Type: BLOOD SPECIMENOrdering Facility: [facility] Address: [address] [place] [address] Performed By: #### 2 4331-1, 3016-3, , 2132-05 ####[facility] LABCLIA [id number] [place] [id number] [place] Protein [Mass/Vol] 7.2 g/dL Normal 6.3-8.0 [facility] Comment on above: Order Comment: Speci men Type: BLOOD SPECIMENOrdering Facility: [facility] Address: [address] [place], [place] [address] Performed By: #### 2 4331-1, 3016-3, 36647-0, 2132-05 ####[facility] LABCLIA [id number] [place] [id number] [place] Sodium [Moles/Vol] 139 mmol/L Normal 136-144 [facility] Comment on above: Order Comment: Speci men Type: BLOOD SPECIMENOrdering Facility: [facility] Address: [address] [place] [address] Performed By: #### 2 4331-1, 3016-3, 83248-1, 2132-05 ####[facility] LABCLIA [id number] [place] [id number] [place] Urea nitrogen [Mass/Vol] 14 mg/dL Normal 7-21 [facility] Comment on above: Order Comment: Speci men Type: BLOOD SPECIMENOrdering Facility: [facility] Address: [address] [place] [address] Performed By: #### 2 4331-1, 3016-3, 08614-3, 2132-05 ####[facility] LABCLIA [id number] [place] [id number] [place] Lipid 1996 panelon 5 Cholesterol [Mass/Vol] 177 mg/dL NINF - 200 mg/dL [facility] Comment on above: <200 mg/dL, Desirabl e 200-239 mg/dL, Borderline high >239 mg/dL, High Cholesterol in HDL [Mass/Vol] 57 mg/dL 39 - PINF mg/dL [facility] Comment on above: 40-59 mg/dL, Accepta ble >59 mg/dL, High: Negative risk factor for coronary heart disease <40 mg/dL, Low: Positive risk factor for coronary heart disease Cholesterol in LDL [Mass/Vol] 100 mg/dL High NINF - 100 mg/dL [facility] Comment on above: <100 mg/dL, Optimal 100-129 mg/dL, Near optimal/above optimal 130-159 mg/dL, Borderline high 160-189 mg/dL, High >189 mg/dL, Very high Secondary prevention optimal LDL Cholesterol levels are recommended to be < 70 mg/dL Cholesterol in LDL/Cholesterol in HDL [Mass ratio] 1.75 {ratio} NINF - 2.54 [facility] Comment on above: Reference: 1. National Cholesterol Education Program ATP III Guideline At-A-Glance Quick Desk Reference: National Heart, Lung, and Blood [place]. National Institutes of Health. 2001: NIH Publication No. 01-3305. 2. An International Atherosclerosis Society position paper: global recommendations for the management of dyslipidemia: executive summary, Atherosclerosis. 2014: 232(2):410-413. Cholesterol in VLDL [Mass/Vol] 20 mg/dL NINF - 30 mg/dL [facility] Cholesterol non HDL [Mass/Vol] 120 mg/dL NINF - 130 mg/dL [facility] Comment on above: <130 mg/dL, Optimal 130-159 mg/dL, Near optimal/above optimal 160-189 mg/dL, Borderline high 190-219 mg/dL, High >219 mg/dL, Very high Secondary prevention optimal non HDL Cholesterol levels are recommended to be <100 mg/dL Cholesterol.total/Cho lesterol in HDL [Mass ratio] 3.11 {ratio} NINF - 5.10 [facility] Fasting Time 12 hrs [facility] Interpretation and review of laboratory results Abnormal [facility] Triglyceride [Mass/Vol] 102 mg/dL NINF - 150 mg/dL [facility] Comment on above: <150 mg/dL, Normal 150-199 mg/dL, Borderline high 200-499 mg/dL, High >499 mg/dL, Very high Cholesterol [Mass/Vol] 177 mg/dL Normal <200 [facility] Comment on above: Order Comment: Yesica guillaume Type: BLOOD SPECIMENOrdering Facility: [facility] [facility] Address: [address] [place] [address] Result Comment: <200 mg/dL, Desirable 200-239 mg/dL, Borderline high >239 mg/dL, High Performed By: #### 2 4331-1, 3016-3, 54841-0, 2132-9 ####[facility] LABCLIA [id number] [place] [address] [address] [place] Cholesterol in HDL [Mass/Vol] 57 mg/dL Normal >39 [facility] Comment on above: Order Comment: Maicoi markell Type: BLOOD SPECIMENOrdering Facility: [facility] Address: [address] [id number] Result Comment: 40-5 9 mg/dL, Acceptable >59 mg/dL, High: Negative risk factor for coronary heart disease <40 mg/dL, Low: Positive risk factor for coronary heart disease Performed By: #### 2 4331-1, 3016-3, 06831-1, 2132-05 ####[facility] LABCLIA [id number] [address] [address] [place] Cholesterol in LDL [Mass/Vol] 100 mg/dL High <100 [facility] Comment on above: Order Comment: Speci men Type: BLOOD SPECIMENOrdering Facility: [facility] Address: [address] [place] [address] Result Comment: <100 mg/dL, Optimal 100-129 mg/dL, Near optimal/above optimal 130-159 mg/dL, Borderline high 160-189 mg/dL, High >189 mg/dL, Very high Secondary prevention optimal LDL Cholesterol levels are recommended to be < 70 mg/dL Performed By: #### 2 4331-1, 6-3, , 2132-05 ####[facility] LABCLIA [id number] [place] [address] [place] Cholesterol in LDL/Cholesterol in HDL [Mass ratio] 1.75 {ratio} Normal <2.54 [facility] Comment on above: Order Comment: Speci men Type: BLOOD SPECIMENOrdering Facility: [facility] Address: [address] [place] [address] Result Comment: Refhumphrey jonesce: 1. National Cholesterol Education Program ATP III Guideline At-A-Glance Quick Desk Reference: National Heart, Lung, and Blood [place]. National Institutes of Health. 2001: NIH Publication No. 01-3305. 2. An International Atherosclerosis Society position paper: global recommendations for the management of dyslipidemia: executive summary, Atherosclerosis. 2014: 232(2):410-413. Performed By: #### 2 4331-1, 6-3, 53594-3, 2132-05 ####[facility] LABCLIA [id number] [place] [address] [place] Cholesterol in VLDL [Mass/Vol] 20 mg/dL Normal <30 [facility] Comment on above: Order Comment: Speci men Type: BLOOD SPECIMENOrdering Facility: [facility] Address: [address] [place] [address] Performed By: #### 2 4331-1, 3016-3, 87419-4, 2132-05 ####[facility] LABCLIA [id number] [place] [address] [place] Cholesterol non HDL [Mass/Vol] 120 mg/dL Normal <130 [facility] Comment on above: Order Comment: Speci men Type: BLOOD SPECIMENOrdering Facility: [facility] Address: [address] [place] [address] Result Comment: <130 mg/dL, Optimal 130-159 mg/dL, Near optimal/above optimal 160-189 mg/dL, Borderline high 190-219 mg/dL, High >219 mg/dL, Very high Secondary prevention optimal non HDL Cholesterol levels are recommended to be <100 mg/dL Performed By: #### 2 4331-1, 6-3, 48843-0, 2132-05 ####[facility] LABCLIA [id number] [place] [address] [place] Cholesterol.total/Cho lesterol in HDL [Mass ratio] 3.11 {ratio} Normal <5.10 [facility] Comment on above: Order Comment: Speci men Type: BLOOD SPECIMENOrdering Facility: [facility] Address: [address] [place] [address] Performed By: #### 2 4331-1, 6-3, 08402-4, 2132-05 ####[facility] LABCLIA [id number] [place] [address] [place] FASTING TIME [address] [facility] Comment on above: Order Comment: Speci men Type: BLOOD SPECIMENOrdering Facility: [facility] Address: [address] [place] [address] Performed By: #### 2 4331-1, 3016-3, 82765-4, 2132-05 ####[facility] LABCLIA [id number] [address] [address] [place] Triglyceride [Mass/Vol] 102 mg/dL Normal <150 [facility] Comment on above: Order Comment: Speci men Type: BLOOD SPECIMENOrdering Facility: [facility] Address: [address] [place] [address] Result Comment: <150 mg/dL, Normal 150-199 mg/dL, Borderline high 200-499 mg/dL, High >499 mg/dL, Very high Performed By: #### 2 4331-1, 6-3, 43953-4, 2132-05 ####[facility] LABCLIA [id number] [address] [address] [place] No Panel Informationon 11-16 Interpretation and review of laboratory results Normal [facility] THYROID STIMULATING HORMONEo n 11-16-2024 TSH Qn 1.6 m[IU]/L [facility] Comment on above: If the patient is pr egnant, TSH reference range varies by gestational period: First Trimester (weeks 9-12): 0.180-2.990 mIU/L Second Trimester: 0.110-3.980 mIU/L Third Trimester: 0.480-4.710 mIU/L Christopher Healy et al. A Practical Approach for the Verifications and Determination of Site- and Trimester-Specific Reference Intervals for Thyroid Function tests in . Thyroid, 2019:29:3:412-420. Rio E, et al. 2017 Guidelines of the [place] Thyroid Association for the Diagnosis and Management of Thyroid Disease during and the . Thyroid, 2017:27:3:315-389. TSH SerPl-aCncon 11-16-2024 TSH Qn 1.600 m[IU]/L Normal 0.270-4.200 [facility] Comment on above: Order Comment: Speci men Type: BLOOD SPECIMENOrdering Facility: [facility] Address: [address] [place] [address] Result Comment: If t he patient is , TSH reference range varies by gestational period: First Trimester (weeks 9-12): 0.180-2.990 mIU/L Second Trimester: 0.110-3.980 mIU/L Third Trimester: 0.480-4.710 mIU/L Christopher Healy et al. A Practical Approach for the Verifications and Determination of Site- and Trimester-Specific Reference Intervals for Thyroid Function tests in . Thyroid, 2019:29:3:412-420. Rio Yin, et al. 2017 Guidelines of the [place] Thyroid Association for the Diagnosis and Management of Thyroid Disease during and the . Thyroid, 2017:27:3:315-389. Performed By: #### 2 4331-1, 3016-3, , 2132-05 ####[facility] LABCLIA [id number] [place] [address] [place] VITAMIN B12on 11-16-2024 Cobalamin (Vitamin B12) [Mass/Vol] 620 pg/mL 232 - 1245 pg/mL [facility] Vit B12 SerPl-mCncon 025 Cobalamin (Vitamin B12) [Mass/Vol] 620 pg/mL Normal 232-1245 [facility] Comment on above: Order Comment: Speci men Type: BLOOD SPECIMENOrdering Facility: [facility] Address: [address] [place] [address] Performed By: #### 2 4331-1, 3016-3, , 2132-05 ####[facility] LABCLIA [id number] [place] [id number] [place] CNPNon 09-15-2024 CNPN Telephone (FAMPWS) TRESSA MARSHALL ([id number]) 1985 F [facility] Date Time Provider Department 09/15/24 FADIA BERGER ANTONIA During your visit today, we recorded the following information about you: Kimani Aviles LPN 09/17/2024 9:36 AM Addendum Pt called in to report she was seen yesterday by her provider/team and being treated for a bacterial sinus infection. Since nausea and vomiting started pt was advised to come into [facility]. Kimani Aviles LPN Allergies As of Date: 09/15/2024 Noted Allergy Reaction AMOXICILLIN 02/26/2002 2 - Rash 16 - Unknown BACTRIM (SULFAMETHOXAZOLE) 09/25/2010 7 - Swelling Comments: Lip swelling CHLORTHALIDONE 11/11/2018 16 - Unknown HYGROTON 03/30/2024 2 - Rash KEFLEX (CEPHALEXIN) 10/24/2023 6 - Diarrhea 11 - Vomiting MACROBID (NITROFURANTOIN MONOHYD/*12/17/2013 4 - Hives TRIMETHOPRIM 11/11/2018 7 - Swelling Date Reviewed: 09/14/2024 Reviewed by: Miriam Stone APRN.COVERED BUTTON [employer]KER - Fully Assessed Prescriptions as of 09/17/2024 - doxycycline hyclate (VIBRAMYCIN) 100 mg capsule Take 1 capsule (100 mg) by mouth two times a day for 10 days. - PNV no.153/FA/om3/dha/epa /fish ( GUMMIES ORAL) - Norethindrone, Contraceptive, 0.35 mg tablet Take 1 tablet by mouth once daily. - citalopram (CELEXA) 20 mg tablet Take 1 tablet by mouth once daily. - tamsulosin (FLOMAX) 0.4 mg Take 1 capsule by mouth once daily. - docusate sodium (COLACE) 100 mg capsule Take 1 capsule by mouth twice daily as needed for Constipation. Problem List As Of Date 09/15/2024 Noted Resolved Lumbago [M54.50] Urinary calculus, unspecified [N20.9] Unspecified hemorrhoids without mention of comp* 03/03/2016 Diarrhea [R19.7] 03/03/2016 Nonspecific abnormal electrocardiogram (ECG) (E*08/05/2007 03/03/2016 Routine general medical examination at a [facility]*08/07/2007 09/18/2012 Generalized anxiety disorder [F41.1] 08/08/2007 03/03/2016 Abnormal involuntary movements(781.0) [R25.8, R*08/08/2007 03/03/2016 Iron deficiency anemia, unspecified [D50.9] 2007 10/21/2016 Dermatophytosis of foot [B35.3] 11/12/2010 03/03/2016 First trimester bleeding [O20.9] 05/21/2013 02/06/2014 Family history of congenital heart disease [Z82*05/21/2013 Hearing loss [H91.90] 05/21/2013 Supervision of normal first [Z34.00] 2013 02/06/2014 Hydronephrosis [N13.30] 10/19/2013 02/06/2014 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] 02/15/2014 Antepartum multigravida of advanced maternal ag*05/14/2019 06/09/2020 AMA (advanced maternal age) multigravida 35+, s*11/08/2022 Anemia in [O99.019] 01/17/2023 Gestational diabetes mellitus, class A1 [O24.41*01/19/2023 Maternal iron deficiency anemia complicating pr*03/02/2023 Iron malabsorption [K90.9] 03/02/2023 Polyhydramnios in third trimester [O40.3XX0] 03/16/2023 Encounter Status:Closed by KIMANI AVILES on 09/17/24 [facility] CNOValexy 09-14-2024 CNOV Office Visit (FAMPWS ) TRESSA MARSHALL ([id number]) 1985 F [facility] Date Time Provider Department 09/14/24 10:00 AM MIRIAM STONE FAMPWS During your visit today, we recorded the following information about you: Pulse Blood pressure 78/minute 110/70 Chase Miriam IKER Marshall.GALEN 09/14/2024 10:47 AM Signed Chief Complaint Patient presents with: Sinus Problem: Sinus pain x 6 weeks HPI Tressa Marshall is a 39 year old female who presents here today for Above Complaints. Tressa is an established patient of Suraj Berger CNP. She is a new patient to me today. Concerns today.. Sinus pain --- Sinus pressure, productive cough, sinus drainage of green mucous, and sinus headaches x 6 weeks. Significant sinus pressure when leaning over. Has tried mucinex, zyrtec, flonase, and tylenol with minimal relief. No other concerns or complaints. Past medical history, appointments, medications, allergies reviewed. Previous Medical History PAST MEDICAL HISTORY Diagnosis Date Abnormal glandular Papanicolaou smear of cervix 05/06/2008 Abn. Pap smear (cervix) Anemia A TEENAGER FIBROCYSTIC BREASTS FRACTURE 2000 NOSE Gestational diabetes mellitus, class A1 01/19/2023 Hemorrhage of gastrointestinal tract, unspecified Hydronephrosis 10/19/2013 Kidney stones Lumbago DISC DISEASE Other specified forms of hearing loss Unspecified hemorrhoids without mention of complication Hemorrhoids Urinary calculus, unspecified Renal stones Vaginal delivery x3 Previous Surgical History PAST SURGICAL HISTORY Procedure Laterality Date COLONOSCOPY FLX DX W/COLLJ SPEC WHEN PFRMD 2019 reportedly normal, internal hemorrhoids COLPOSCOPY CERVIX UPPER/ADJACENT VAGINA Colposcopy LASIK 11/2010 LITHOTRIPSY XTRCORP SHOCK WAVE 09/11/10 Lithotripsy PAST SURGICAL HISTORY OF ureteroscopy with basket extraction kidney stone RHINP PRIM LATANDALAR CRTLGSAND/ELVTN NASAL TI Rhinoplasty Family History FAMILY HISTORY Problem Relation Age of Onset GI Father hemachromatosis Heart Father Hypertension Father Kidney Disease Father KIDNEY STONES Asthma Mother No Known Problems Brother Heart Maternal Grandmother Colon Cancer Maternal Grandmother Stroke Maternal Grandmother Arthritis Maternal Grandmother Colon Cancer Paternal Grandmother Colon Cancer Paternal Grandfather Heart Paternal Grandfather HTN, CVA No Known Problems Son No Known Problems Son Lipids Maternal Aunt Colon Polyps Maternal Aunt Multiple Sclerosis Paternal Aunt No Ocular Disease No Family History Patient Allergies ALLERGIES Allergen Reactions Amoxicillin Rash, Unknown Bactrim [Sulfametho* Swelling Lip swelling Chlorthalidone Unknown Hygroton Rash Keflex [Cephalexin] Diarrhea, Vomiting Macrobid [Nitrofura* Hives Trimethoprim Swelling Current Medications Current Outpatient Medications on File Prior to Visit Medication Sig PNV no.153/FA/om3/dha/epa /fish ( GUMMIES ORAL) Norethindrone, Contraceptive, 0.35 mg tablet Take 1 tablet by mouth once daily. citalopram (CELEXA) 20 mg tablet Take 1 tablet by mouth once daily. docusate sodium (COLACE) 100 mg capsule Take 1 capsule by mouth twice daily as needed for Constipation. tamsulosin (FLOMAX) 0.4 mg Take 1 capsule by mouth once daily. No current facility-administered medications on file prior to visit. Social History Social History Tobacco Use Smoking status: Never Smokeless tobacco: Never Vaping Use Vaping status: Never Used Substance Use Topics Alcohol use: Not Currently Alcohol/week: 1.0 standard drink of alcohol Types: 1 Cans of Beer (12oz) per week Comment: Occasionally, NOT WHILE Drug use: No REVIEW OF SYSTEMS: as above Reviewed relevant PMHx, PSHx, Social Hx, current medications and allergies. Review of Symptoms REVIEW OF SYSTEMS See HPI. EXAM: BP 110/70 (BP Site: Left Arm, BP Position: Sitting, BP Cuff Size: Regular Adult) Pulse 78 LMP 07/05/2022 SpO2 96% General Appearance: Well appearing, alert, in no acute distress, well-hydrated, well nourished.. Skin: Skin color, texture, turgor normal, no suspicious rashes or lesions. Head: Normocephalic, no masses, lesions, tenderness or abnormalities, Positive findings: + frontal sinus tenderness. Oropharynx: Lips, mucosa, and tongue normal, teeth and gums normal, oropharynx normal. Lungs: Lungs clear to auscultation. No wheezing, rhonchi, rales.. Heart: RRR without murmur, gallop, or rubs. No ectopy. Health Maintenance List Depression Screening Never done Anxiety Screening Never done Covid-19 Vaccine(2023- season) due on 05/27/2024 Mammogram Screening due on 2024 Cervical Cancer Screening due on 03/10/2026 DTaP,Tdap,Td Vaccine(13 - Td or Tdap) due on 01/19/2033 Hepatitis B Vaccine Completed HPV (more content not included)... Normal [facility] CNOVon 06-28-2024 CNOV Office Visit (OBGYWM ) TRESSA MARSHALL Janneth ([id number]) 1985 F [facility] Date Time Provider Department 06/28/24 10:10 AM SARAY CLINE OBGYWM During your visit today, we recorded the following information about you: Blood pressure Weight 112/76 53.1 kg Saray Cline MD 06/28/2024 9:04 AM Signed Convolute Tube Winder offered: Patient declinesHarish Bustillos is a 38 year old who presents for an annual gynecologic exam without complaints. Menses: no menses - continuous OCPs. Contraception: Progestin - only contraceptives HPV vaccine: Yes Last Pap: 03/13/2021 normal HPV: 03/12/2021 negative History of abnormal pap: No Last mammogram: never Sexually active: Yes History of STDS: None Patient concerns for STD exposure: No. 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 Pap smear (cervix) Anemia A TEENAGER FIBROCYSTIC BREASTS FRACTURE 2001 NOSE Gestational diabetes mellitus, class A1 01/19/2023 Hemorrhage of gastrointestinal tract, unspecified Hydronephrosis 10/19/2013 Kidney stones Lumbago DISC DISEASE Other specified forms of hearing loss Unspecified hemorrhoids without mention of complication Hemorrhoids Urinary calculus, unspecified Renal stones Vaginal delivery x3 PAST SURGICAL HISTORY Procedure Laterality Date COLONOSCOPY FLX DX W/COLLJ SPEC WHEN PFRMD 2019 reportedly normal, internal hemorrhoids COLPOSCOPY CERVIX UPPER/ADJACENT VAGINA Colposcopy LASIK 11/2010 LITHOTRIPSY XTRCORP SHOCK WAVE 09/11/10 Lithotripsy PAST SURGICAL HISTORY OF ureteroscopy with basket extraction kidney stone RHINP PRIM LATANDALAR CRTLGSAND/ELVTN NASAL TI Rhinoplasty FAMILY HISTORY Problem Relation Age of Onset Asthma Mother GI Father hemachromatosis Heart Father Hypertension Father Kidney Disease Father KIDNEY STONES No Known Problems Brother Heart Maternal Grandmother Colon Cancer Maternal Grandmother Stroke Maternal Grandmother Arthritis Maternal Grandmother Colon Cancer Paternal Grandmother Colon Cancer Paternal Grandfather Heart Paternal Grandfather HTN, CVA No Known Problems Son No Known Problems Son Lipids Maternal Aunt Colon Polyps Maternal Aunt Multiple Sclerosis Paternal Aunt SOCIAL HISTORY Social History Tobacco Use Smoking status: Never Smokeless tobacco: Never Vaping Use Vaping status: Never Used Substance Use Topics Alcohol use: Not Currently Alcohol/week: 1.0 standard drink of alcohol Types: 1 Cans of Beer (12oz) per week Comment: Occasionally, NOT WHILE Drug use: No REVIEW OF SYSTEMS Abdomen: No abdominal pain, nausea, vomiting, diarrhea, ++ constipation No bloating, early satiety, indigestion, or increased flatulence. Bladder: No dysuria, gross hematuria, urinary frequency, urinary urgency, or incontinence. Breast: No breast lumps, nipple d/c, overlying skin changes, redness or skin retraction. Allergies and current medication updated:Yes SENSITIVE EXAM: The sensitive examination was discussed with the Patient or Patient's Authorized Notereader. As applicable, any other physician, advance practice provider, medical student, or other health professional student that will be observing or involved in the sensitive examination for educational or training purposes was discussed with the Patient or Authorized Notereader. The Patient or Authorized Notereader has agreed to proceed with the sensitive examination. (Sensitive examination includes inspection and/or palpation of the breasts, pelvis, prostate and anorectal regions). EXAM: BP 112/76 Wt 117 lb (53.1kg) LMP 07/05/2022 GENERAL: pleasant, female in no apparent distress HEENT: Normocephalic, atraumatic, mucus membranes moist, and no lesions NECK: Supple, full range of motion, no adenopathy, and thyroid normal DERMATOLOGY: Normal, without lesions, non-icteric, and non-hirsute BREAST: soft, non-tender, symmetric, no dominant mass, normal nipple-areolar complex, no lymphadenopathy, and no nipple discharge ABDOMEN: soft, non-tender, and no masses PELVIC: external genitalia normal, normal Bartholin's glands, urethra, [place]'s glands, no vulvar lesions, no cervical lesions, good vaginal support, physiologic discharge present, normal appearing perineal body and perianal region BIMANUAL: uterus normal size, shape and consistency, no adnexal masses, and non-tender RECTOVA (more content not included)... Normal [facility] CNPNon 05-16-2024 CNPN Telephone (OBGYWM) TRESSA MARSHALL ([id number]) 1985 F [facility] Date Time Provider Department 05/16/24 SARAY CLINE OBGYW During your visit today, we recorded the following information about you: Dayanna Faith RN 05/16/2024 3:14 PM Signed Patient c/o UTI symptoms. Please file UA and urine culture orders for her. CHARLES Boswell Deidre, MD 05/16/2024 3:54 PM Signed ordered Allergies As of Date: 05/16/2024 Noted Allergy Reaction AMOXICILLIN 02/26/2002 2 - Rash 16 - Unknown BACTRIM (SULFAMETHOXAZOLE) 09/25/2010 7 - Swelling Comments: Lip swelling CHLORTHALIDONE 11/11/2018 16 - Unknown HYGROTON 03/30/2024 2 - Rash KEFLEX (CEPHALEXIN) 10/24/2023 6 - Diarrhea 11 - Vomiting MACROBID (NITROFURANTOIN MONOHYD/*12/17/2013 4 - Hives TRIMETHOPRIM 11/11/2018 7 - Swelling Date Reviewed: 03/30/2024 Reviewed by: Liz Erwin APRN.COVERED BUTTON MAKER - Fully Assessed Reason for Visit: UTI [116] Primary Visit Diagnosis:Dysuria [R30.0] Order(s):URINE CULTURE [SQURCUL] Order #: [id number] FUTURE URINALYSIS, WITH MICROSCOPIC [SQUAWMIC] Order #: [id number] FUTURE Prescriptions as of 05/16/2024 - Ipratropium Cecil (ATROVENT) 21 mcg (0.03 %) nasal spray Use 2 Sprays in the nose every 12 hours for 10 days. - citalopram (CELEXA) 20 mg tablet Take 1 tablet by mouth once daily. - Norethindrone, Contraceptive, 0.35 mg tablet Take 1 tablet by mouth once daily. - Norethindrone, Contraceptive, 0.35 mg tablet Take 1 tablet by mouth once daily. - tamsulosin (FLOMAX) 0.4 mg Take 1 capsule by mouth once daily. - oxyCODONE-acetaminoph en (PERCOCET) 5-325 mg tablet Take 1 tablet by mouth every 6 hours as needed for pain. FOR PAIN. - blood sugar diagnostic test strip 1 Strip four times daily. Use as instructed - Lancets lancets 1 Each four times daily. Use as instructed - Ferrous Sulfate (SLOW FE) 142 mg (45 mg iron) TbER Take by mouth. - aspirin, enteric coated (ASPIRIN, ENTERIC COATED) 81 mg EC tablet Take 81 mg by mouth twice daily. - promethazine (PHENERGAN) 12.5 mg tablet Take 1-2 tablets by mouth every 6 hours as needed. - docusate sodium (COLACE) 100 mg capsule Take 1 capsule by mouth twice daily as needed for Constipation. Problem List As Of Date 05/16/2024 Noted Resolved Lumbago [M54.50] Urinary calculus, unspecified [N20.9] Unspecified hemorrhoids without mention of comp* 03/03/2016 Diarrhea [R19.7] 03/03/2016 Nonspecific abnormal electrocardiogram (ECG) (E*08/05/2007 03/03/2016 Routine general medical examination at 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 XR ABDOMEN 1V SUPINEon 06-16 [facility] Discharge Instructionon 07-0 Discharge Instruction [facility] Medical Records Department [address] [place] [address] Instructions for Home/Discharge Instructions 04/03/23 0728 MR#: [id number] Acct: [id number] Name: TRESSA MARSHALL Rep #: [id number] : 1985 37 From: Saray Parrish MD PCP: ANÍBAL Ellison Status:ADM IN Discharge Instructions Diet Discharge Diet: No restrictions Activity May resume sexual activity in: 6-8 weeks Dressing / Incision Call your doctor if you observe: Fever of 101 or Higher, Inability to urinate, Using more than 1 pad per hour and Uncontrolled pain Follow Up Care Please Follow Up With: Reji Parrish MD When: 1-2 weeks post and again at 6 weeks post . [phone] Test Results: Test results from this visit will be discussed in further detail at your follow-up appointment, if applicable. Discharge Plan Admission Admit Date/Time: 04/01/23 16:20 Attending Provider: Reji Parrish Primary Care Provider: Fadia Berger NP Discharge Orders/Prescriptions Prescriptions: New acetaminophen 500 mg Tablet 1,000 mg PO Q6H PRN PRN (Reason: Pain 1-10 Or Fever) Qty: 0 0RF ibuprofen 600 mg Tablet 600 mg PO Q6H PRN PRN (Reason: Pain Score 1-3) Qty: 0 0RF Continued citalopram 10 mg tablet 10 tab PO DAILY Patient Comments: TAKE 1 TABLET BY MOUTH EVERY DAY zolpidem 10 mg tablet 5 - 10 mg PO QHS Patient Comments: TAKE 1/2 TO 1 TABLET BY MOUTH NIGHTLY NEEDED FOR INSOMNIA. hydrocodone-acetamino phen 1 TABLET tablet 1 tab PO Q4H PRN PRN (Reason: Pain) 2 Days Qty: 10 0RF naproxen 500 MG tablet 500 mg PO BID Qty: 14 0RF ondansetron 4 MG tablet 4 mg PO Q8H PRN PRN (Reason: Nausea) Qty: 10 0RF Referrals / Follow Up: Fadia Berger NP, BIOCHEMISTRY TECHNOLOGIST-C [Primary Care Provider] - Disposition Disposition (needs filled in before D/C Order can be placed): Home, Self Care 04/03/23 0729 Saray Parrish MD CC: BIOCHEMISTRY TECHNOLOGIST-C Fadia Berger Signed Normal [facility] Bedside Glucoseon 04-02-2023 FINGERSTICK GLU 74 mg/dL Normal 74-106 [facility] Comment on above: Result Comment: DIAZ FIGUEREDO OF PATIENT CARE PER NURSING PROTOCOL Performed By: #### L 501.080 #### [facility] [address] [place], [address] Discharge Instructionon Discharge Instruction [facility] Medical Records Department [address] [place] [address] Instructions for Home/Discharge Instructions 04/02/23 0717 MR#: [id number] Acct: [id number] Name: TRESSA MARSHALL Rep #: [id number] : 1985 37 From: Saray Parrish MD PCP: ANÍBAL Ellison Status:ADM IN Discharge Instructions Diet Discharge Diet: No restrictions Activity May resume sexual activity in: 6-8 weeks Dressing / Incision Call your doctor if you observe: Fever of 101 or Higher, Inability to urinate, Using more than 1 pad per hour and Uncontrolled pain Follow Up Care Please Follow Up With: Reji Parrish MD When: 1-2 weeks post and again at 6 weeks post . [phone] Test Results: Test results from this visit will be discussed in further detail at your follow-up appointment, if applicable. Discharge Plan Admission Admit Date/Time: 04/01/23 16:20 Attending Provider: Reji Parrish Primary Care Provider: Fadia Berger NP Discharge Orders/Prescriptions Prescriptions: No Action citalopram 10 mg tablet 10 tab PO DAILY Patient Comments: TAKE 1 TABLET BY MOUTH EVERY DAY zolpidem 10 mg tablet 5 - 10 mg PO QHS Patient Comments: TAKE 1/2 TO 1 TABLET BY MOUTH NIGHTLY NEEDED FOR INSOMNIA. hydrocodone-acetamino phen [hydrocodone-acetamin ophen] 1 TABLET tablet 1 tab PO Q4H PRN PRN (Reason: Pain) 2 Days Qty: 10 0RF naproxen 500 MG tablet 500 mg PO BID Qty: 14 0RF ondansetron [ondansetron] 4 MG tablet 4 mg PO Q8H PRN PRN (Reason: Nausea) Qty: 10 0RF Referrals / Follow Up: Fadia Berger NP, BIOCHEMISTRY TECHNOLOGIST-C [Primary Care Provider] - 04/02/23 0758 Saray Parrish MD CC: ANÍBAL Bergre Signed Normal [facility] Glucose Glucometer (BldC) [M ass/Vol]Ordered By: Taylor Parrish on 04-02-2023 Glucose [Mass/Vol] 74 mg/dL 74-106 [facility] Comment on above: MANAGEMENT OF PATIEN T CARE PER NURSING PROTOCOL Absolute lymphocyte countOrd ered By: Taylor So Shivani on 04-01-2023 Lymphocytes Auto (Unsp spec) [#/Vol] 1.86 10*3/uL 0.83-4.51 [facility] Automated blood hematocrit ( percentage)Ordered By: Taylor Saray Parrish on 04-01-2023 Hematocrit (Bld) [Volume fraction] 35.3 % Low 37-47 [facility] Comment on above: Performed By: #### Jerry ROBLES, L100.0100 #### [facility] [address] [place], [address] Basophil percentageOrdered B y: Taylor Saray Parrish on 04-01-2023 Basophils/100 WBC (Bld) 0.3 % Normal 0-1 [facility] Comment on above: Performed By: #### Jerry ROBLES, L100.0100 #### [facility] [address] [place], [address] Eosinophils/100 WBC (Bld) 0.1 % Normal 0-5 [facility] Comment on above: Performed By: #### Jerry ROBLES, L100.0100 #### [facility] [address] [place], [address] Neutrophils/100 WBC (Bld) 71.2 % High 47-70 [facility] Comment on above: Performed By: #### Jerry ROBLES, L100.0100 #### [facility] [address] [place], [address] WBC (Bld) [#/Vol] 8.8 10*3/uL Normal 4.4-11.0 [facility] Comment on above: Performed By: #### Jerry TS, L100.0100 #### [facility] [address] [place], [address] Neutrophils (Bld) [#/Vol] 6.3 10*3/uL 2.0-7.7 [facility] Bedside Glucoseon 04-01-2023 FINGERSTICK GLU 84 mg/dL Normal 74-106 [facility] Comment on above: Result Comment: DIAZ FIGUEREDO OF PATIENT CARE PER NURSING PROTOCOL Performed By: #### L 501.080 #### [facility] [address] [place], [address] Blood erythrocytes count (nu mber/volume)Ordered By: Taylor Parrish on 04-01-2023 RBC (Bld) [#/Vol] 4.14 10*6/uL Low 4.2-5.4 [facility] Comment on above: Performed By: #### Jerry ROBLES, L100.0100 #### [facility] [address] [place], [address] Blood hemoglobin measurement (mass/volume)Ordered By: Taylor Parrish on 04-01-2023 Hemoglobin (Bld) [Mass/Vol] 11.1 g/dL Low 12.0-15.0 [facility] Comment on above: Performed By: #### Jerry ROBLES, L100.0100 #### [facility] [address] [place], [address] Blood lymphocytes/100 leukoc ytesOrdered By: Taylor Parrish on 04-01-2023 Lymphocytes/100 WBC (Bld) 21.2 % Normal 19-41 [facility] Comment on above: Performed By: #### Jerry ROBLES, L100.0100 #### [facility] [address] [place], [address] Blood monocytes/100 leukocyt esOrdered By: Taylor Parrish on 04-01-2023 Monocytes/100 WBC (Bld) 6.9 % Normal 0-10 [facility] Comment on above: Performed By: #### Jerry ROBLES, L100.0100 #### [facility] [address] [place], [address] Blood platelet mean volumeOr dered By: Taylor Parrish on 04-01-2023 Platelet mean volume (Bld) [Entitic vol] 10.7 fL Normal 6.2-12.0 [facility] Comment on above: Performed By: #### Jerry ROBLES, L100.0100 #### [facility] [address] [place], [address] CBC W/Diff, Automatedon Absolute Lymph 1.86 X10 3/uL Normal 0.83-4.51 [facility] Comment on above: Performed By: #### Jerry ROBLES, L100.0100 #### [facility] [address] [place], [address] Absolute Neut 6.3 X10 3/uL Normal 2.0-7.7 [facility] Comment on above: Performed By: #### Jerry ROBLES, L100.0100 #### [facility] [address] [place], [address] IG% 0.300 Normal 0.0-0.9 [facility] Comment on above: Result Comment: IG% - Immature Granulocytes (promyelocytes, myelocytes and metamyelocytes) > 1% indicates that a LEFT SHIFT is Present. Performed By: #### Jerry ROBLES, L100.0100 #### [facility] [address] [place], [address] Nucleated RBC (Bld) [#/Vol] 0 10*3/uL Normal 0-5 [facility] Comment on above: Performed By: #### Jerry ROBLES, L100.0100 #### [facility] [address] [place], [address] RDW SD 51.0 fl High 35.1-43.9 [facility] Comment on above: Performed By: #### Jerry ROBLES, L100.0100 #### [facility] [address] [place], [address] CBC W/Diff, AutomatedOrdered By: Taylor Parrish on 04-01-2023 Erythrocyte distribution width (RBC) [Ratio] 16.9 % High 11.6-14.6 [facility] Comment on above: Performed By: #### Jerry ROBLES, L100.0100 #### [facility] [address] [place], [address] MCH (RBC) [Entitic mass] 26.8 pg Low 27.0-32.0 [facility] Comment on above: Performed By: #### Jerry ROBLES, L100.0100 #### [facility] [address] [place], [address] Determination of erythrocyte mean corpuscular volume (MCV)Ordered By: Taylor Parrish on 04-01-2023 MCV (RBC) [Entitic vol] 85.3 fL Normal 81-99 [facility] Comment on above: Performed By: #### Jerry ROBLES, L100.0100 #### [facility] [address] [place], [address] H AND P Exam - OB/GYNon H&P Exam - MICA MINER [facility] Medical Records Department [address] [place] [address] H P Exam - MICA MINER 04/01/23 1755 MR#: [id number] Acct: [id number] Name: TRESSA MARSHALL Rep #: [id number] : 1985 37 From: Saray Parrish MD PCP: Fadia Berger BIOCHEMISTRY TECHNOLOGIST-Umair Status:ADM IN Location: [id number] HPI - General General Date of Admission: 04/01/23 HPI Narrative TRESSA JOANNA, is a 37 F @ 38.4 who presents c/o contractions. Found to be 6-7cm in office with bulging membranes. [facility] Medical History (Updated 04/01/23 @ 17:[address] Saray Parrish MD) Advanced maternal age (AMA) in Kidney stones Home Medications citalopram 10 mg tablet 10 tab PO DAILY 04/14/22 [History Last Taken Unknown] hydrocodone-acetamino phen 5-325mg 5mg-325mg 1 tab PO Q4H PRN PRN Pain 2 days #10 TABLETS 04/14/22 [Rx Last Taken Unknown] naproxen 500 mg tablet 500 mg PO BID #14 tabs 04/14/22 [Rx Last Taken Unknown] ondansetron 4 mg disintegrating tablet 4 mg PO Q8H PRN PRN Nausea #10 tabs 04/14/22 [Rx Last Taken Unknown] zolpidem 10 mg tablet 5 - 10 mg PO QHS 04/14/22 [History Last Taken Unknown] Allergy/AdvReac Type Severity Reaction Status Date / Time amoxicillin [Amoxicillin] Allergy Unknown Verified 04/14/22 11:41 chlorthalidone Allergy Unknown Verified 04/14/22 11:41 [From [place]] nitrofurantoin Allergy Unknown Verified 04/14/22 11:41 [From Macrobid] nitrofurantoin Allergy Unknown Verified 04/14/22 11:41 macrocrystalline [From Macrobid] sulfamethoxazole Allergy Swelling Verified 04/14/22 11:41 [From Bactrim] trimethoprim [From Bactrim] Allergy Swelling Verified 04/14/22 11:41 Surgical History (Updated 11/21/19 @ 12:[address] Saray Parrish MD) History of colonoscopy History of colposcopy History of nasal surgery [facility] Social History Smoking Status: Never smoker History Elective abortions Hx Para 3 Spontaneous abortions Hx # Term Pregnancies Ectopic pregnancies Hx # Pregnancies Multiple births # of living children Vital Signs Vital Signs Vital Signs: 04/01/23 17:22 04/01/23 17:22 04/01/23 17:23 Pulse Rate 70 Blood Pressure 175/94 H 158/93 H BP Systolic 175 158 BP Diastolic 94 93 Pulse Ox 04/01/23 17:23 04/01/23 17:39 04/01/23 17:39 Pulse Rate 74 62 Blood Pressure BP Systolic BP Diastolic Pulse Ox 98 04/01/23 17:42 04/01/23 17:42 04/01/23 17:44 Pulse Rate 90 81 Blood Pressure 156/84 H BP Systolic 156 BP Diastolic 84 Pulse Ox 04/01/23 17:44 04/01/23 17:45 04/01/23 17:45 Pulse Rate 70 Blood Pressure 156/84 H BP Systolic 156 BP Diastolic 84 Pulse Ox 100 04/01/23 17:49 04/01/23 17:49 04/01/23 17:50 Pulse Rate 86 Blood Pressure 156/85 H BP Systolic 156 BP Diastolic 85 Pulse Ox 99 04/01/23 17:50 Pulse Rate 93 Blood Pressure BP Systolic BP Diastolic Pulse Ox Weight Weight: 62.823 kg Body Mass Index (BMI) 24.5 Physical Exam Narrative 6-7cm/bulging membranes. Const alert and oriented x3 General Appearance: cooperative HEENT normocephalic GI GI Narrative: Gravid, non tender to palpation. OB / External Speculum: external exam normal Extremity normal to inspection Skin no rashes or lesions noted Neuro oriented x3 and CN's II-XII intact bilaterally Psych Appearance: grossly normal Labs Labs Labs: Blood Type O POSITIVE Antibody Screen NEGATIVE Hct 35.3 % (37-47) L Hgb 11.1 g/dL (12.0-15.0) L Syphilis Total Ab Pending Group B Strep DNA Negative (Negative) Rhogam given: No Assessment Plan (1) Nephrolithiasis: (2) Gestational diabetes: QUALIFIERS: Gestational diabetes mellitus control: diet-controlled Trimester: third trimester Qualified Code(s): O24.410 - Gestational diabetes mellitus in , diet controlled (3) AMA (advanced maternal age) multigravida 35+: QUALIFIERS: Trimester: third trimester Qualified Code(s): O09.523 - Supervision of elderly multigravida, third trimester PLAN: Plan Admit to [facility] FHR/TOCO Epidural for pain Monitor VS Anticipate 04/01/231757 Cosigner Signature (if applicable): CC: Taylor Parrish; BIOCHEMISTRY TECHNOLOGISTBetty Berger Signed Normal [facility] L509.8000on 04-01-2023 Syphilis Abs Non-Reactive Normal [facility] Comment on above: Performed By: #### L 509.8000 #### [facility] [address] [place], [address] Laboratory - Hematology and Cell countsOrdered By: Taylor Parrish on 04-01-2023 Erythrocyte distribution width (RBC) [Entitic vol] 51.0 fL 35.1-43.9 [facility] Immature granulocytes/100 WBC (Bld) 0.300 % 0.0-0.9 [facility] Comment on above: IG% - Immature Granu locytes (promyelocytes, myelocytes and metamyelocytes) > 1% indicates that a LEFT SHIFT is Present. Nucleated RBC/100 WBC (Bld) [Ratio] 0 % 0-5 [facility] MCHC [Mass/volume] by Automa alycia countOrdered By: Taylor Parrish on 04-01-2023 MCHC (RBC) [Mass/Vol] 31.4 g/dL Low 32-36 [facility] Comment on above: Performed By: #### B TS, L100.0100 #### [facility] [address] [place], [address] Operative Reporton 3 Operative Report [facility] Medical Records Department [address] [place] [address] Operative Report 04/01/23 1932 MR#: [id number] Acct: [id number] Name: JOANNATRESSA ALEXANDER Rep #: [id number] : 1985 37 From: Saray Parrish MD PCP: ANÍBAL Ellison Status:DIS IN Location: [id number] Vaginal Delivery Maternal Presentation Maternal Presentation: Active Labor Operative Information Date of Procedure: 04/01/23 Pre-Operative Diagnosis: AMA, GMDA1, Active labor Post-Operative Diagnosis: same, live male Surgery / Procedure Performed: Spontaneous Vaginal Delivery Type of Anesthesia: Epidural Special Medications: 1% lidocaine for perineal repair Estimated Blood Loss: 100 Time of Delivery: 19:12 Findings Description of Procedure: Progressed to fully dilated. Good maternal pushing efforts delivered the vent's head delivered by the anterior shoulder. Gentle downward traction followed by the rest the 's body. The is then placed on the mother for immediate skin to skin. Delayed cord clamping was performed. was vigorous at time of delivery. No complications with delivery. Placenta was then delivered intact. IV Pitocin infusing. First-degree perineal laceration was repaired 5 cc of 1% lidocaine was injected and 3-0 Rapide suture was used to repair. Presentation: Vertex Amniotic Fluid Description: Clear Placental Delivery Description: Spontaneous Placenta Disposition: [facility] Specimen(s) Removed: Placenta Cord Vessel Description: 3 Vessels Cord Entanglement: None Infant A Gender: Male (1 minute): 8 (5 minute): 9 Delayed Cord Clamping: Yes Post Vaginal Delivery Medications Given After Delivery: IV Pitocin Episiotomy Description: None Laceration: Perineal Extension/lac and 1st degree Complication Complications: None 04/01/23 1937 Cosigner Signature (if applicable): CC: Taylor Parrish; ANÍBAL Berger Signed ADDENDUM by Taylor Parrish on 04/25/23 at 0836 Addendum gestational age at delivery: 38.4 weeks 04/25/23 0836 Cosigner Signature (if applicable): cc: Taylor Parrish; ANÍBAL Berger * Signed Normal [facility] Platelets bldOrdered By: Taylor Parrish on 04-01-2023 Platelets (Bld) [#/Vol] 231 10*3/uL Normal 150-450 [facility] Comment on above: Performed By: #### B TS, L100.0100 #### [facility] [address] [place], [address] Serum Treponema species anti body detectionOrdered By: Taylor Parrish on 04-01-2023 Treponema sp Ab Ql (S) Non-Reactive [facility] Type AND Screenon 04-01-2023 ABO and Rh group Nom (Bld) Blood group O Rh(D) positive Normal [facility] Comment on above: Order Comment: Labor Performed By: #### B TS, L100.0100 #### [facility] [address] [place], [address] URINE OB DIP B/Oon 3 Glucose Ql (U) Negative Neg mg/dL [facility] Protein.monoclonal (U) [Mass/Vol] 30 mg/dL Neg mg/dL [facility] URINE OB DIP B/Oon 3 Glucose Ql (U) Negative Neg mg/dL [facility] Protein.monoclonal (U) [Mass/Vol] Negative Neg mg/dL [facility] OBSTETRIC ULTRASOUND WHIon 0 03-16-2023 [facility] URINE OB DIP B/Oon 3 Glucose Ql (U) Negative Neg mg/dL [facility] Protein.monoclonal (U) [Mass/Vol] trace Neg mg/dL [facility] URINE OB DIP B/Oon 3 Glucose Ql (U) Negative Neg mg/dL [facility] Protein.monoclonal (U) [Mass/Vol] Negative Neg mg/dL [facility] URINE OB DIP B/Oon 3 Glucose Ql (U) Negative Neg mg/dL [facility] Protein.monoclonal (U) [Mass/Vol] Negative Neg mg/dL [facility] OBSTETRIC ULTRASOUND WHIon 0 11-16-2022 [facility] URINE OB DIP B/Oon 3 Glucose Ql (U) Negative Neg mg/dL [facility] Protein.monoclonal (U) [Mass/Vol] Negative Neg mg/dL [facility] NUCHAL TRANSLUCENCY WHIon [facility] STREP A MOLECULAR (POC)on Procedural Control Valid [facility] Strep A (POCT) Negative Negative [facility] UA DIP, URINE (POC)on 2021 BILIRUBIN UA (POCT) Negative Negative [facility] CLARITY UA (POCT) Clear [facility] COLOR UA (POCT) Yellow [facility] GLUCOSE UA (POCT) Negative Negative mg/dL [facility] HEMOGLOBIN/BLOOD UA (POCT) Trace-intact Abnormal Negative [facility] KETONE UA (POCT) Negative Negative mg/dL [facility] LEUKOCYTES UA (POCT) Negative [facility] NITRITE [facility]A (POCT) Negative Negative [facility] PH UA (POCT) 5.5 4.5 - 8.0 [facility] Protein Ql (U) Negative Negative mg/dL [facility] SPECIFIC GRAVITY UA (POCT) 1.025 1.005 - 1.030 [facility] UROBILINOGEN UA (POCT) 0.2 E.U./dL Normal E.U./dL [facility] XR ABDOMEN 1V SUPINEon 04-21 [facility] Absolute lymphocyte counton 04-14-2022 Lymphocytes Auto (Unsp spec) [#/Vol] 2.26 10*3/uL 0.83-4.51 [facility] Work Phone: Basophil percentageon 2021 Basophils/100 WBC (Bld) 0.5 % 0-1 [facility] Work Phone: Chloride [Moles/Vol] 108 mmol/L 98-107 [facility] Work Phone: Eosinophils/100 WBC (Bld) 1.4 % 0-5 [facility] Work Phone: Glucose [Mass/Vol] 105 mg/dL 74-106 [facility] Work Phone: Comment on above: Fasting Glucose resu lt from 100 to 125 mg/dL suggests IMPAIRED HOMEOSTASIS per A.D.A. criteria. Neutrophils (Bld) [#/Vol] 2.5 10*3/uL 2.0-7.7 [facility] Work Phone: Neutrophils/100 WBC (Bld) 45.5 % 47-70 [facility] Work Phone: Potassium [Moles/Vol] 3.3 mmol/L 3.5-5.1 [facility] Work Phone: Sodium [Moles/Vol] 141 mmol/L 136-145 [facility] Work Phone: WBC (Bld) [#/Vol] 5.6 10*3/uL 4.4-11.0 [facility] Work Phone: Basophil percentage 0-5 SEEN /hpf 0-5 Wo pretty [facility] Work Phone: Beta hCG serum qualon 2021 Beta HCG ( test) Ql Negative [facility] Work Phone: Bilirubin Test strip Ql (U)o n 04-14-2022 Bilirubin Ql (U) Negative Negative [facility] Work Phone: Blood erythrocytes count (nu mber/volume)on 04-14-2022 RBC (Bld) [#/Vol] 4.64 10*6/uL 4.2-5.4 [facility] Work Phone: Blood hemoglobin measurement (mass/volume)on 04-14-2022 Hemoglobin (Bld) [Mass/Vol] 13.2 g/dL 12.0-15.0 [facility] Work Phone: Blood lymphocytes/100 leukoc yteson 04-14-2022 Lymphocytes/100 WBC (Bld) 40.4 % 19-41 [facility] Work Phone: Blood monocytes/100 leukocyt eson 04-14-2022 Monocytes/100 WBC (Bld) 12.0 % 0-10 [facility] Work Phone: Blood platelet mean volumeon 04-14-2022 Platelet mean volume (Bld) [Entitic vol] 9.9 fL 6.2-12.0 [facility] Work Phone: Determination of erythrocyte mean corpuscular volume (MCV)on 04-14-2022 MCV (RBC) [Entitic vol] 87.7 fL 81-99 [facility] Work Phone: Hematocrit Auto (Bld) [Volum e fraction]on 04-14-2022 Hematocrit (Bld) [Volume fraction] 40.7 % 37-47 [facility] Work Phone: Ketones Test strip Ql (U)on 04-14-2022 Ketones Ql (U) Negative Negative [facility] Work Phone: [phone] Laboratory - Chemistry and C hemistry - challengeon 04-14-2022 CO2 [Moles/Vol] 27.0 mmol/L 21.0-32.0 [facility] Work Phone: [phone] Urea nitrogen/Creatinine [Mass ratio] 20.1 mg/mg 10-20 [facility] Work Phone: [phone] Laboratory - Hematology and Cell countson 04-14-2022 Erythrocyte distribution width (RBC) [Entitic vol] 39.8 fL 35.1-43.9 [facility] Work Phone: [phone] Erythrocyte distribution width (RBC) [Ratio] 12.4 % 11.6-14.6 [facility] Work Phone: [phone] Immature granulocytes/100 WBC (Bld) 0.200 % 0.0-0.9 [facility] Work Phone: [phone] Comment on above: IG% - Immature Granu locytes (promyelocytes, myelocytes and metamyelocytes) > 1% indicates that a LEFT SHIFT is Present. MCH (RBC) [Entitic mass] 28.4 pg 27.0-32.0 [facility] Work Phone: [phone] Nucleated RBC/100 WBC (Bld) [Ratio] 0 % 0-5 [facility] Work Phone: [phone] MCHC Auto (RBC) [Mass/Vol]on 04-14-2022 MCHC (RBC) [Mass/Vol] 32.4 g/dL 32-36 [facility] Work Phone: [phone] Mucus LM Ql (Urine sed)on Mucus Ql (Urine sed) 0 SEEN /hpf [facility] Work Phone: [phone] Nitrite Test strip Ql (U)on 04-14-2022 Nitrite Ql (U) Negative Negative [facility] Work Phone: [phone] Panel Informationon 04-14 Estimated Creatinine Clearance Calc 79.65 ml/min [facility] Work Phone: [phone] Estimated GFR (MDRD) Amer 104 mL/min >60 [facility] Work Phone: Comment on above: GFR Calc Estimated GFR (MDRD) Non-Af Amer 86 mL/min >60 [facility] Work Phone: Comment on above: Non- GFR Calc Platelets bldon 04-14-2022 Platelets (Bld) [#/Vol] 310 10*3/uL 150-450 [facility] Work Phone: Protein Test strip Ql (U)on 04-14-2022 Protein Ql (U) 30 mg/dl Negative [facility] Work Phone: Serum or plasma calcium ame urement (mass/volume)on 04-14-2022 Calcium [Mass/Vol] 9.3 mg/dL 8.5-10.1 [facility] Work Phone: Serum or plasma creatinine m easurement (mass/volume)on 04-14-2022 Creatinine [Mass/Vol] 0.80 mg/dL 0.55-1.02 [facility] Work Phone: Comment on above: The validity of the calculated GFR & GFRAA in patients over 70 years has not been determined. Clinical correlation is essential. Serum or plasma urea nitroge n measurement (mass/volume)on 04-14-2022 Urea nitrogen [Mass/Vol] 16 mg/dL 7-18 [facility] Work Phone: Squamous epithelial cells de tection in urine sediment by light microscopyon 04-14-2022 Epithelial cells.squamous LM Ql (Urine sed) 0 SEEN /hpf 5-10 [facility] Work Phone: Thin prep Papanicolaou smear with manual screeningon 04-14-2022 Thin prep Papanicolaou smear with manual screening 6 5-15 [facility] Work Phone: Urine blood detectionon 03-27 RBC Ql (U) 250 /ul Negative [facility] Work Phone: RBC Ql (U) 25-50 SEEN /hpf 0-5 [facility] Work Phone: Urine clarityon 04-14-2022 Clarity (U) Sl. Cloudy Clear [facility] Work Phone: Urine color determinationon 04-14-2022 Color (U) Yellow Yellow [facility] Work Phone: Urine glucose detectionon Glucose Ql (U) Normal mg/dl Normal [facility] Work Phone: Urine leukocyte esterase det ection by dipstickon 04-14-2022 Leukocyte esterase Test strip Ql (U) 25 /ul Negative [facility] Work Phone: Urine pHon 04-14-2022 pH (U) 7.0 [pH] 5.0 - 8.0 [facility] Work Phone: Urine sediment bacteria coun t by microscopy (number/high power field)on 04-14-2022 Bacteria LM.HPF (Urine sed) [#/Area] 1 /[HPF] None Seen [facility] Work Phone: Urine specific gravity measu rementon 04-14-2022 Specific gravity (U) [Rel density] 1.015 1.002-1.030 [facility] Work Phone: Urobilinogen Auto test strip Ql (U)on 04-14-2022 Urobilinogen Ql (U) Normal mg/dl Normal [facility] Work Phone: XR ABDOMEN 1V SUPINEon 10-14 XR ABDOMEN 1V SUPINE Final Report DATE OF EXAM: Oct 14 2020 6:27AM [id number] [id number] - XR ABDOMEN 1V SUPINE / PROCEDURE REASON: Pre-operative assessment Physician Interpretation EXAM: XR ABDOMEN 1V SUPINE HISTORY: Pre-operative assessment COMPARISON: 09/29/2020 FINDINGS: See impression. IMPRESSION: 8 mm stone projects over the right kidney lower pole. 3 mm stone projects over the left kidney upper pole. 3 mm stone projects over the left kidney interpolar region. 2 tiny stones project over the left kidney upper pole. No stones visualized along the course of either ureter or within the pelvis. Bones and soft tissues are otherwise unremarkable. Radio Adjuster: EUGENE Transcribe Date/Time: Oct 14 2020 6:28A Dictated by : JEANNINE GONZÁLES MD This examination was interpreted and the report reviewed and electronically signed by: JEANNINE GONZÁLES MD on Oct 14 2020 6:33AM EST Normal [facility] XR ABDOMEN 1V SUPINEon 09-03 XR ABDOMEN 1V SUPINE Final Report DATE OF EXAM: Sep 03 2020 11:25AM [id number] [id number] - XR ABDOMEN 1V SUPINE / PROCEDURE REASON: Renal stones Physician Interpretation EXAMINATION: XR ABDOMEN 1V SUPINE PATIENT/TECHNOLOGIST PROVIDED HISTORY: History of kidney stones. Follow up. Lithotripsy done in 2018 or 2019. Pt states no chance of . LMP 1 year ago, patient she had a baby this year and no cycles yet . CLINICAL INFORMATION: Renal stones TECHNIQUE: Supine abdomen, 2 image(s) COMPARISON: CT flank from 11/11/2018 RESULT: There is an 8 mm density overlying the right kidney, most likely a calculus. Probable 5 mm calculus noted over the left kidney. There are scattered nondilated loops of bowel throughout the abdomen. Osseous structures appear intact, without acute findings. Lung bases are unremarkable.. IMPRESSION: 8 MM DENSITY OVERLYING THE RIGHT KIDNEY, LIKELY A CALCULUS. 5 MM DENSITY OVERLYING THE LEFT KIDNEY, LIKELY A CALCULUS. Radio Adjuster: PSCB Transcribe Date/Time: Sep 03 2020 1:08P Dictated by : JUAN MARTINEZ MD This examination was interpreted and the report reviewed and electronically signed by: JUAN MARTINEZ MD on Sep 03 2020 1:12PM EST Normal [facility] ALLIED HEALTHon 11-11-2018 ALLIED HEALTH HNO ID: [id number] Author: MIAN Chen (Ct) Service: Radiology Author Type: Clinical Regional Sales Trainer Type: Allied Health Filed: 11/11/2018 5:36 AM Note Text: Radiology Service Progress Note PATIENT NAME: Tresas Marshall DATE OF SERVICE: November 11, 2018 TIME: 5:36 AM PATIENT IDENTITY VERIFICATION COMPLETED USING TWO (2) METHODS: Patient confirmed name verbally and ID band matches.. PATIENT GENDER DATA: Female. status: : No status: N/A PATIENT RELEVANT IMPLANT DATA REVIEWED: Not Applicable RADIOLOGY DEPARTMENT: CT; Exam(s) Completed: Abdomen/Pelvis PERIPHERAL IV DATA: Not applicable SIGNED BY: MIAN Chen November 11, 2018 5:36 AM [facility] HCG Quant, EDon 019 Beta HCG Quant, ED <0.1 Normal <5.0 [facility] Comment on above: Result Comment: ISABELL TITATIVE HCG NORMAL RANGES Weeks of Gestation (Weeks Since LMP) 3 Weeks (5.8-71.2 mIU/mL) 4 Weeks (9.5-750 mIU/mL) 5 Weeks (217-7138 mIU/mL) 6 Weeks (158-48947 mIU/mL) 7 Weeks (3697-982129 mIU/mL) 8 Weeks (10974-785134 mIU/mL) 9 Weeks (71571-329333 mIU/mL) 10 Weeks (98271-363512 mIU/mL) 12 Weeks (69384-179164 mIU/mL) Referenced to [address]th [facility] of [facility] Performed By: #### C BCDIF, CMP, HCGED #### [facility] [address] [place] [address] CBC and Differentialon 11-11 Abs Baso <0.03 Normal <0.11 [facility] Comment on above: Performed By: #### C BCDIF, CMP, HCGED #### [facility] [address] [place] [address] Abs Auglaize 0.29 k/uL Normal <0.87 [facility] Comment on above: Performed By: #### C BCDIF, CMP, HCGED #### [facility] [address] [place] [address] Abs Neut 5.30 k/uL Normal 1.45-7.50 [facility] Comment on above: Performed By: #### C BCDIF, CMP, HCGED #### [facility] [address] [place], [place] [phone] Basophils/100 WBC (Bld) 0.2 % Normal [facility] Comment on above: Performed By: #### C BCDIF, CMP, HCGED #### [facility] [address] [place], [place] [phone] Eosinophils #/vol (Bld) 10*3/uL Normal <0.46 [facility] Comment on above: Performed By: #### C BCDIF, CMP, HCGED #### [facility] [address] [place] [address] Eosinophils/100 WBC (Bld) 0.0 % Normal [facility] Comment on above: Performed By: #### C BCDIF, CMP, HCGED #### [facility] [address] [place] [address] Erythrocyte distribution width Ratio (RBC) 12.1 % Normal 11.5-15.0 [facility] Comment on above: Performed By: #### C BCDIF, CMP, HCGED #### [facility] [address] [place] [address] Hematocrit Volume Fraction (Bld) 41.3 % Normal 36.0-46.0 [facility] Comment on above: Performed By: #### C BCDIF, CMP, HCGED #### [facility] [address] [place] [address] Hemoglobin mass conc (Bld) 13.7 g/dL Normal 11.5-15.5 [facility] Comment on above: Performed By: #### C BCDIF, CMP, HCGED #### [facility] [address] [place] [address] Lymphocytes #/vol (Bld) 0.47 10*3/uL Low 1.00-4.00 [facility] Comment on above: Performed By: #### C BCDIF, CMP, HCGED #### [facility] [address] [place] [address] Lymphocytes/100 WBC (Bld) 7.7 % Normal [facility] Comment on above: Performed By: #### C BCDIF, CMP, HCGED #### [facility] [address] [place] [address] MCH Entitic mass (RBC) 29.7 pG Normal 26.0-34.0 [facility] Comment on above: Performed By: #### C BCDIF, CMP, HCGED #### [facility] [address] [place] [address] MCHC mass conc (RBC) 33.2 g/dL Normal 30.5-36.0 [facility] Comment on above: Performed By: #### C BCDIF, CMP, HCGED #### [facility] [address] [phone] MCV Entitic volume (RBC) 89.4 fL Normal 80.0-100.0 [facility] Comment on above: Performed By: #### C BCDIF, CMP, HCGED #### [facility] [address] [place] [address] Monocytes/100 WBC (Bld) 4.8 % Normal [facility] Comment on above: Performed By: #### C BCDIF, CMP, HCGED #### [facility] [address] [place] [address] Neutrophils/100 WBC (Bld) 87.3 % Normal [facility] Comment on above: Performed By: #### C BCDIF, CMP, HCGED #### [facility] [address] [place] [address] Platelet mean volume Entitic volume (Bld) 9.6 fL Normal 9.0-12.7 [facility] Comment on above: Performed By: #### C BCDIF, CMP, HCGED #### [facility] [address] [place] [address] Platelets #/vol (Bld) 225 10*3/uL Normal 150-[address] [facility] Comment on above: Performed By: #### C BCDIF, CMP, HCGED #### [facility] [address] [place] [address] RBC #/vol (Bld) 4.62 10*6/uL Normal 3.90-5.20 [facility] Comment on above: Performed By: #### C BCDIF, CMP, HCGED #### [facility] [address] [place] [address] WBC #/vol (Bld) 6.07 10*3/uL Normal 3.70-11.00 [facility] Comment on above: Performed By: #### C BCDIF, CMP, HCGED #### [facility] [address] [place] [address] CT FLANK WO IVCONon 11-11-[address] FLANK WO IVCON * * *Final Report* * * DATE OF EXAM: Nov 11 2018 5:35AM [facility] 0529 - CT FLANK WO IVCON / PROCEDURE REASON: Flank pain, stone disease suspected * * * * Physician Interpretation * * * * EXAMINATION: CT ABDOMEN AND PELVIS WITHOUT IV CONTRAST CLINICAL HISTORY: Flank pain, stone disease suspected. TECHNIQUE: Unenhanced spiral CT acquisition was performed from the lung bases to symphysis pubis with 3.0 mm axial, sagittal and coronal reconstructions. MQ: [id number] Contrast: IV contrast: None. Oral contrast: None. CT Radiation dose: Integrated dose-length product (DLP) for this visit = 190 mGy*cm. CT Dose Reduction Employed: mAs-kVp adjusted based on patient size-age. COMPARISON: Renal ultrasound 05/17/2014, noncontrast CT abdomen and pelvis 01/04/2013. KUB 11/16/2013. RESULT: Limitations: Lack of IV contrast precludes intraluminal evaluation of vascular structures, limits solid organ, bowel wall and soft tissue evaluation. Lack of oral contrast limits the evaluation of the gastrointestinal tract. Urinary Tract: Right kidney and ureter: The right kidney is normal in size and cortical thickness and shows 3 nonobstructive calculi in the lower pole ranging from 1 to 3 mm. No finding to suggest cyst or mass in the unenhanced kidney. There is no right hydronephrosis. The right ureter is normal in caliber without calculus Left kidney and ureter: The left kidney is normal in size and cortical thickness, and shows multiple (at least 6) scattered nonobstructive calculi ranging from 2 to 4 mm. No finding to suggest cyst or mass in the unenhanced kidney. There is no left hydronephrosis. The left ureter is normal in caliber without calculus. Bladder: No calculus. Abdomen and Pelvis: Stomach/duodenum: No abnormality identified. Liver/biliary: No abnormality identified. Gallbladder: No abnormality identified. Pancreas: No abnormality identified. Spleen: No abnormality identified. Adrenals: No abnormality identified. Retroperitoneum: No abnormality identified. Bowel/peritoneum: No small or large bowel abnormality is identified. There is no evidence of intestinal obstruction, ascites or pneumoperitoneum. The appendix is normal. Mesentery: No abnormality identified. Lymph nodes: No abdominal or pelvic lymphadenopathy identified. Vasculature: The IVC and abdominal aorta are normal in caliber. Pelvis: There is a small right ovarian cyst measuring up to 2.4 cm in diameter. The urinary bladder, uterus and left ovary are unremarkable. There is a phlebolith in the left hemipelvis. There is no supraphysiologic pelvic free fluid. Bones/Soft Tissues: No abnormality identified. Lower thorax: The lung bases are clear. The heart is normal in size. There is no pleural or pericardial effusion. IMPRESSION: NO EVIDENCE OF ACUTE ABDOMINAL OR PELVIC PROCESS. BILATERAL NEPHROLITHIASIS, NONOBSTRUCTIVE. SMALL RIGHT OVARIAN CYST. Radio Adjuster: EUGENE Transcribe Date/Time: Nov 11 2018 5:44A Dictated by : EDER GAGNON MD This examination was interpreted and the report reviewed and electronically signed by: EDER GAGNON MD on Nov 11 2018 5:54AM EST [id number] Normal [facility] Comp Metabolic Panelon 11-11 Albumin mass conc 4.2 g/dL Normal 3.9-4.9 [facility] Comment on above: Performed By: #### C BCDIF, CMP, HCGED #### [facility] [address] [place] [address] ALP enzyme act/vol 44 U/L Normal 34-123 [facility] Comment on above: Performed By: #### C BCDIF, CMP, HCGED #### [facility] [address] [place] [address] ALT enzyme act/vol 13 U/L Normal 7-38 [facility] Comment on above: Performed By: #### C BCDIF, CMP, HCGED #### [facility] [address] [place] [address] Anion gap molar conc 9 mmol/L Normal 9-18 [facility] Comment on above: Performed By: #### C BCDIF, CMP, HCGED #### [facility] [address] [place] [address] AST enzyme act/vol 18 U/L Normal 13-35 [facility] Comment on above: Performed By: #### C BCDIF, CMP, HCGED #### [facility] [address] [place] [address] Bilirubin mass conc 0.7 mg/dL Normal 0.2-1.3 [facility] Comment on above: Performed By: #### C BCDIF, CMP, HCGED #### [facility] [address] [place] [address] Calcium mass conc 8.5 mg/dL Normal 8.5-10.2 [facility] Comment on above: Performed By: #### C BCDIF, CMP, HCGED #### [facility] [address] [facility] [phone] Chloride molar conc 103 mmol/L Normal 97-105 [facility] Comment on above: Performed By: #### C BCDIF, CMP, HCGED #### [facility] [address] [facility] [phone] CO2 molar conc 24 mmol/L Normal 22-30 [facility] Comment on above: Performed By: #### C BCDIF, CMP, HCGED #### [facility] [address] [phone] Creatinine mass conc 0.60 mg/dL Normal 0.58-0.96 [facility] Comment on above: Performed By: #### C BCDIF, CMP, HCGED #### [facility] [address] [phone] eGFR- Amer. >60 Normal [facility] Comment on above: Performed By: #### C BCDIF, CMP, HCGED #### [facility] [address] [facility] [phone] GFR/1.73 sq M predicted among non-blacks MDRD vol rate/area (S/P/Bld) mL/min/{1.73_m2} Normal [facility] Comment on above: Result Comment: eGFR (Estimated GFR) Units of measure: mL/min/1.73 meters squared eGFR is derived from the reexpressed MDRD Study equation using the following parameters: serum creatinine, age, gender and race. The creatinine assay has been calibrated to be traceable to IDMS. An eGFR <60 mL/min/1.73m2 for >3 months is consistent with chronic kidney disease. Refer to KDOQI guidelines for clinical interpretation. In patients with unstable renal function, e.g. those with acute kidney injury, the eGFR may not accurately reflect actual GFR. Performed By: #### C BCDIF, CMP, HCGED #### [facility] [address] [facility] [phone] Glucose mass conc 103 mg/dL High 74-99 [facility] Comment on above: Result Comment: The [place] Diabetes [employer] (ADA) provides guidance for cutoff values for fasting glucose and random glucose. The ADA defines fasting as no caloric intake for at least 8 hours. Fasting plasma glucose results between 100 to 125 mg/dL indicate increased risk for diabetes (prediabetes). Fasting plasma glucose results greater than or equal to 126 mg/dL meet the criteria for diagnosis of diabetes. In the absence of unequivocal hyperglycemia, results should be confirmed by repeat testing. In a patient with classic symptoms of hyperglycemia or hyperglycemic crisis, random plasma glucose results greater than or equal to 200 mg/dL meet the criteria for diagnosis of diabetes. Reference: Standards of Medical Care in Diabetes 2016, [place] [employer]. Diabetes Care. 2016.39(Suppl 1). Performed By: #### C BCDIF, CMP, HCGED #### [facility] [address] [place] [address] Potassium molar conc 3.7 mmol/L Normal 3.7-5.1 [facility] Comment on above: Performed By: #### C BCDIF, CMP, HCGED #### [facility] [address] [place] [address] Protein mass conc 6.6 g/dL Normal 6.3-8.0 [facility] Comment on above: Performed By: #### C BCDIF, CMP, HCGED #### [facility] [address] [place] [address] Sodium molar conc 136 mmol/L Normal 136-144 [facility] Comment on above: Performed By: #### C BCDIF, CMP, HCGED #### [facility] [address] [place] [address] Urea nitrogen mass conc 13 mg/dL Normal 7-21 [facility] Comment on above: Performed By: #### C BCDIF, CMP, HCGED #### [facility] [address] [place], [place] [phone] ED NOTEon 11-11-2018 ED NOTE HNO ID: [id number] Author: Sanam PiñaRn) CHARLES Kruse Service: Emergency Medicine Author Type: Registered Nurse Type: ED Notes Filed: 11/13/2018 8:56 AM Note Text: Emergency Services: ED Call Back Questionnaire SERVICE DATE: 11/11/2018 Are you feeling better? Comments: Having surgery today Any questions about discharge instructions and follow-up care? No Were you able to make a follow up appointment? Yes Do you have any further questions? No SIGNATURE: Sanam Kruse RN PATIENT NAME: Tressa Marshall DATE: November 13, 2018 TIME: 8:56 AM [facility] ED NOTE HNO ID: [id number] Author: Swapnil PiñaRn) CHARLES Peralta Service: (none) Author Type: Registered Nurse Type: ED Notes Filed: 11/11/2018 5:39 AM Note Text: Patient returned to the Emergency Department. [facility] ED NOTE HNO ID: [id number] Author: Swapnil PiñaRn) Fabian RN Service: (none) Author Type: Registered Nurse Type: ED Notes Filed: 11/11/2018 5:35 AM Note Text: Patient transported to ia with Tech. [facility] ED NOTE HNO ID: [id number] Author: Swapnil PiñaRn) Fabian, RN Service: (none) Author Type: Registered Nurse Type: ED Notes Filed: 11/11/2018 3:42 AM Note Text: Pt to ED for abdominal pain and vomiting. Has HX of kidney stones [facility] ED PROV NOTEon 11-11-2018 Protein mass conc HNO ID: [id number] Author: Rocael Kruse MD Service: (none) Author Type: Physician Type: ED Provider Notes Filed: 11/11/2018 6:50 AM Note Text: ED Provider Note Patient Name: Tressa Marshall SERVICE DATE: 11/11/18 History Patient presents with: Nausea AND Vomiting Abdominal Pain Patient complains of left flank pain, radiating into left lower quadrant; the pain started around noon today and then she began to have nausea and vomiting around 1800. Her LMP is 10/28/18; she states there is no chance she is . She has a history of kidney stones; the last episode was a little less than a year ago. The pain is sharp and colicky in nature. PAST MEDICAL HISTORY Diagnosis Date - Abnormal glandular Papanicolaou smear of cervix 05/06/2008 Abn. Pap smear (cervix) - Anemia A TEENAGER - FIBROCYSTIC BREASTS - FRACTURE 2000 NOSE - Hemorrhage of gastrointestinal tract, unspecified - Hydronephrosis 10/19/2013 - Kidney stones - Lumbago DISC DISEASE - Other specified forms of hearing loss - Unspecified hemorrhoids without mention of complication Hemorrhoids - Urinary calculus, unspecified Renal stones PAST SURGICAL HISTORY Procedure Laterality Date - COLONOSCOP W/ OR W/O [facility] SPEC Colonoscopy - COLPOSCOPY (VAGINOSCOPY) Colposcopy - FRAGMENTING/KIDNEY STONE 09/11/10 Lithotripsy - LASIK 11/2010 - RECONSTR NOSE Rhinoplasty FAMILY HISTORY Problem Relation Age of Onset - Asthma Mother - GI Father hemachromatosis - Heart Father - Hypertension Father - Kidney Disease Father KIDNEY STONES - Heart Maternal Grandmother - Colon Cancer Maternal Grandmother - Stroke Maternal Grandmother - Arthritis Maternal Grandmother - Colon Cancer Paternal Grandmother - Colon Cancer Paternal Grandfather - Heart Paternal Grandfather HTN, CVA - Lipids Maternal Aunt Social History Social History Main Topics - Smoking status: Never Smoker - Smokeless tobacco: Never Used - Alcohol use 1.5 oz/week 1 Cans of Beer (12oz) per week Comment: Occasionally, NOT WHILE - Drug use: No - Sexual activity: Yes Partners: Male control/ protection: None ALLERGIES Allergen Reactions - Amoxicillin Rash - Bactrim [Sulfametho* Swelling Lip swelling - [place] [Other] Rash - Macrobid [Nitrofura* Hives Review of Systems Constitutional: Negative. HENT: Negative. Eyes: Negative. Cardiovascular: Negative. Gastrointestinal: Positive for abdominal pain, nausea and vomiting. Endocrine: Negative. Genitourinary: Positive for flank pain. Allergic/Immunologic: Negative. Neurological: Negative. Hematological: Negative. Psychiatric/Behaviora l: Negative. Physical Exam BP 129/63 Pulse 92 Temp (Src) 98.4 (Oral) Resp 20 Wt 108 lb (49.0kg) SpO2 99% LMP 10/28/2018 Physical Exam Constitutional: She is oriented to person, place, and time. She appears well-developed and well-nourished. HENT: Head: Normocephalic. Right Ear: External ear normal. Left Ear: External ear normal. Nose: Nose normal. Mouth/Throat: Oropharynx is clear and moist. Eyes: Conjunctivae and EOM are normal. Neck: Normal range of motion. Neck supple. Cardiovascular: Normal rate, regular rhythm and normal heart sounds. Pulmonary/Chest: Effort normal and breath sounds normal. Abdominal: Soft. She exhibits no distension and no mass. There is tenderness. There is no rebound and no guarding. Slight epigastric tenderness Musculoskeletal: Normal range of motion. Neurological: She is alert and oriented to person, place, and time. Skin: Skin is warm and dry. Capillary refill takes less than 2 seconds. Psychiatric: She has a normal mood and affect. Her behavior is normal. Judgment and thought content normal. Nursing note and vitals reviewed. Diagnostic Testing ED Labs Ordered and Reviewed - No data to display .. Labs Reviewed COMP METABOLIC PANEL - Abnormal; Notable for the following: Result Value Glucose 103 (*) All other components within normal limits CBC + DIFF - Abnormal; Notable for the following: Abs Lymph 0.47 (*) All other components within normal limits URINALYSIS - Abnormal; Notable for the following: Ketones, Urine 15 (*) Hemoglobin/Blood,Ur Moderate (*) All other components within normal limits URINE MICROSCOPIC - Abnormal; Notable for the following: RBC, Urine 10-30 (*) Bacteria Few (*) All other components within normal limits BETA HCG, QUANTITATIVE FOR ED ..CT FLANK WO IVCON Final Result IMPRESSION: NO EVIDENCE OF ACUTE ABDOMINAL OR PELVIC PROCESS. BILATERAL NEPHROLITHIASIS, NONOBSTRUCTIVE. SMALL RIGHT OVARIAN CYST. Radio Adjuster: PSCJerry Transcribe Date/Time: Nov 11 2018 5:44A Dictated by : EDER GAGNON MD This examination was interpreted and the report reviewed and electronically signed by: EDER GAGNON MD on Nov 11 2018 5:54AM EST Procedures ED Course / Clinical Impression Patient presents with what appears to be renal colic and hematuria. She has history of same; her CT shows multiple stones both sides, but no hydronephrosis. I suspect she may have recently passed one of these stones, so will treat as for renal colic and also place on Macrobid for possible UTI as she has RBCS and bacteria in her urine. She also has an incidental right ovarian cyst, but I doubt this is contributing to her pain. Clinical Impressions as of Nov 11 0650 Nephrolithiasis Acute cystitis with hematuria Renal colic MDM / Disposition / Plan MDM SIGNATURE: MD Rocael Shin MD 11/11/18 0650 Normal [facility] Urinalysison 11-11-2018 Bilirubin, Urine Negative Normal Negative [facility] Comment on above: Performed By: #### U A, UAMIC #### [facility] [address] [address] Clarity Nom (U) Clear Normal Clear [facility] Comment on above: Performed By: #### U A, UAMIC #### [facility] [address] [address] Color Nom (U) Yellow Normal Yellow [facility] Comment on above: Performed By: #### U A, UAMIC #### [facility] [address] [address] Glucose Ql (U) Negative Normal Negative [facility] Comment on above: Performed By: #### U A, UAMIC #### [facility] [address] [address] Hemoglobin/Blood,Ur Moderate Critically abnormal Negative [facility] Comment on above: Performed By: #### U A, UAMIC #### [facility] [address] [place] [address] Ketones Ql (U) 15 Critically abnormal Negative [facility] Comment on above: Performed By: #### U A UAMIC #### [facility] [address] [place] [address] Leukest Negative Normal Negative [facility] Comment on above: Performed By: #### U A, UAMIC #### [facility] [address] [place] [address] Nitrite Ql (U) Negative Normal Negative [facility] Comment on above: Performed By: #### U A, UAMIC #### [facility] [address] [place] [address] pH (Bld) 6.0 Normal 5.0-8.0 [facility] Comment on above: Performed By: #### U A, UAMIC #### [facility] [address] [place] [address] Protein mass conc (U) Negative Normal Negative [facility] Comment on above: Performed By: #### U A UAMIC #### [facility] [address] [place] [address] Specific [place], Ur 1.015 Normal 1.001-1.029 [facility] Comment on above: Performed By: #### U A, UAMIC #### [facility] [address] [place] [address] Urobilinogen Qn (U) 0.2 Normal 0.2-1.0 [facility] Comment on above: Performed By: #### U A, UAMIC #### [facility] [address] [place] [address] Urine Cultureon 11-11-2018 Bacteria identified Cx Nom (U) Sp. Request/Comment: - Specimen received in preservative Culture Result - No growth (<1,000 CFU/ml) [facility] Comment on above: Performed By: #### C BCDIF, CMP, HCGED #### [facility] [address] [place] [address] Urine Microscopic (FOR LAB U SE ONLY)on 11-11-2018 Bacteria LM.HPF #/area (Urine sed) Few Critically abnormal 0 [facility] Comment on above: Performed By: #### U A, UAMIC #### [facility] [address] [place] [address] Cast SEE COMMENT Normal 0 [facility] Comment on above: Result Comment: 0 Performed By: #### U A, UAMIC #### [facility] [address] [place] [address] Epithelial cells LM.HPF #/area (Urine sed) SEE COMMENT Normal [facility] Comment on above: Result Comment: 0-5 Squamous Epithelial Cells Performed By: #### U A, UAMIC #### [facility] [address] [place] [address] RBC #/vol (U) 10-30 Critically abnormal 0-3 [facility] Comment on above: Performed By: #### U A, UAMIC #### [facility] [address] [place] [address] WBC #/vol (Bld) 0-5 Normal 0-5 [facility] Comment on above: Performed By: #### U A, UAMIC #### [facility] [address] [place] [address] Vital Signs Date Time Vital Sign Value Performing Clinician Facility 03-15-2025 07:54-0400 Body height 160 cm Francisco Griffith MD Work Phone: [facility] 03-15-2025 07:54-0400 Heart rate 80 /min Francisco Griffith MD Work Phone: [facility] 03-15-2025 07:54-0400 SaO2% (BldA) [Mass fraction] 99 % Francisco Griffith MD Work Phone: [facility] 11-16-2024 07:08-0500 Body height 161 cm Fadia Celine CAREER DEVELOPMENT ASSOCIATE.[employer]OVERED [employer]TON [employer]KER Work Phone: [facility] 11-16-2024 07:08-0500 Body mass index (BMI) [Ratio] 21.49 kg/m2 Fadia Celine CAREER DEVELOPMENT ASSOCIATE.COVERED [employer]TON MAKER Work Phone: [facility] 11-16-2024 07:08-0500 Body weight 55.7 kg Fadia Celine CAREER DEVELOPMENT ASSOCIATE.COVERED [employer]TON MAKER Work Phone: [facility] 11-16-2024 07:08-0500 Diastolic blood pressure 82 mm[Hg] Fadia Celine CAREER DEVELOPMENT ASSOCIATE.COVERED [employer]TON MAKER Work Phone: [facility] 11-16-2024 07:08-0500 Heart rate 77 /min Fadia Celine CAREER DEVELOPMENT ASSOCIATE.COVERED BUTTON MAKER Work Phone: [facility] 11-16-2024 07:08-0500 Respiratory rate 16 /min Fadia Celine CAREER DEVELOPMENT ASSOCIATE.COVERED BUTTON MAKER Work Phone: [facility] 11-16-2024 07:08-0500 SaO2% (BldA) [Mass fraction] 99 % Fadia Celine CAREER DEVELOPMENT ASSOCIATE.COVERED BUTTON MAKER Work Phone: [facility] 11-16-2024 07:08-0500 Systolic blood pressure 118 mm[Hg] Fadia Celine CAREER DEVELOPMENT ASSOCIATE.COVERED BUTTON MAKER Work Phone: [facility] 09-14-2024 10:04-0500 Diastolic blood pressure 70 mm[Hg] Miriam Stone CAREER DEVELOPMENT ASSOCIATE.COVERED [employer]TON MAKER Work Phone: [facility] 09-14-2024 10:04-0500 Heart rate 78 /min Miriam Stone CAREER DEVELOPMENT ASSOCIATE.COVERED BUTTON MAKER Work Phone: [facility] 09-14-2024 10:04-0500 SaO2% (BldA) [Mass fraction] 96 % Miriam Stone CAREER DEVELOPMENT ASSOCIATE.COVERED BUTTON MAKER Work Phone: [facility] 09-14-2024 10:04-0500 Systolic blood pressure 110 mm[Hg] Miriam Stone CAREER DEVELOPMENT ASSOCIATE.COVERED BUTTON MAKER Work Phone: [facility] 06-28-2024 08:41-0400 Body mass index (BMI) [Ratio] 20.73 kg/m2 Saray Brooks MD Work Phone: [facility] 06-28-2024 08:41-0400 Body weight 53.07 kg Saray Brooks MD Work Phone: [facility] 06-28-2024 08:41-0400 Diastolic blood pressure 76 mm[Hg] Saray Brooks MD Work Phone: [facility] 06-28-2024 08:41-0400 Systolic blood pressure 112 mm[Hg] Saray Brooks MD Work Phone: [facility] 05-19-2023 11:48-0400 Body weight 53.52 kg Saray Brooks MD Work Phone: [facility] 05-19-2023 11:48-0400 Diastolic blood pressure 62 mm[Hg] Saray Brooks MD Work Phone: [facility] 05-19-2023 11:48-0400 Systolic blood pressure 106 mm[Hg] Saray Brooks MD Work Phone: [facility] 04-03-2023 08:07-0400 Body temperature 97.9 [degF] [facility] 04-03-2023 08:07-0400 Diastolic blood pressure 83 mm[Hg] [facility] 04-03-2023 08:07-0400 Heart rate 58 /min [facility] 04-03-2023 08:07-0400 Respiratory rate 16 /min [facility] 04-03-2023 08:07-0400 SaO2% (BldA) [Mass fraction] 98 % [facility] 04-03-2023 08:07-0400 Systolic blood pressure 134 mm[Hg] [facility] 04-01-2023 16:47-0400 Body height 160.02 cm [facility] 04-01-2023 16:47-0400 Body mass index (BMI) [Ratio] 24.5 kg/m2 [facility] 04-01-2023 16:47-0400 Body weight 62.82 kg [facility] 03-28-2023 10:51-0400 Body weight 63.96 kg Klelie Aguero MD Work Phone: [facility] 03-28-2023 10:51-0400 Diastolic blood pressure 82 mm[Hg] Kellie Aguero MD Work Phone: [facility] 03-28-2023 10:51-0400 Systolic blood pressure 130 mm[Hg] Kellie Aguero MD Work Phone: [facility] 03-23-2023 09:00-0400 Body temperature 99 [degF] [facility] Work Phone: [facility] 03-23-2023 09:00-0400 Diastolic blood pressure 75 mm[Hg] [facility] Work Phone: [facility] 03-23-2023 09:00-0400 Heart rate 89 /min [facility] Work Phone: [facility] 03-23-2023 09:00-0400 Systolic blood pressure 129 mm[Hg] [facility] Work Phone: [facility] 03-21-2023 14:12-0400 Body weight 63.5 kg Kellie Aguero MD Work Phone: [facility] 03-21-2023 14:12-0400 Diastolic blood pressure 78 mm[Hg] Kellie Aguero MD Work Phone: [facility] 03-21-2023 14:12-0400 Systolic blood pressure 134 mm[Hg] Kellie Aguero MD Work Phone: [facility] 03-21-2023 13:02-0400 Body temperature 98.29 [degF] [facility] Work Phone: [facility] 03-21-2023 13:02-0400 Diastolic blood pressure 79 mm[Hg] [facility] Work Phone: [facility] 03-21-2023 13:02-0400 Heart rate 64 /min [facility] Work Phone: [facility] 03-21-2023 13:02-0400 Respiratory rate 20 /min [facility] Work Phone: [facility] 03-21-2023 13:02-0400 Systolic blood pressure 141 mm[Hg] [facility] Work Phone: [facility] 03-17-2023 12:59-0400 Body temperature 98.01 [degF] [facility] Work Phone: [facility] 03-17-2023 12:59-0400 Diastolic blood pressure 81 mm[Hg] [facility] Work Phone: [facility] 03-17-2023 12:59-0400 Heart rate 61 /min [facility] Work Phone: [facility] 03-17-2023 12:59-0400 Respiratory rate 16 /min [facility] Work Phone: [facility] 03-17-2023 12:59-0400 SaO2% (BldA) [Mass fraction] 100 % [facility] Work Phone: [facility] 03-17-2023 12:59-0400 Systolic blood pressure 128 mm[Hg] [facility] Work Phone: [facility] 03-16-2023 13:08-0400 Body weight 63.5 kg Stephanie Seymour MD Work Phone: [facility] 03-15-2023 07:59-0400 Body temperature 97.59 [degF] [facility] Work Phone: [facility] 03-15-2023 07:59-0400 Diastolic blood pressure 81 mm[Hg] [facility] Work Phone: [facility] 03-15-2023 07:59-0400 Heart rate 82 /min [facility] Work Phone: [facility] 03-15-2023 07:59-0400 Respiratory rate 16 /min [facility] Work Phone: [facility] 03-15-2023 07:59-0400 SaO2% (BldA) [Mass fraction] 95 % [facility] Work Phone: [facility] 03-15-2023 07:59-0400 Systolic blood pressure 130 mm[Hg] [facility] Work Phone: [facility] 03-14-2023 08:21-0400 Body weight 63.05 kg Saray Brooks MD Work Phone: [facility] 03-14-2023 08:21-0400 Diastolic blood pressure 82 mm[Hg] Saray Brooks MD Work Phone: [facility] 03-14-2023 08:21-0400 Systolic blood pressure 118 mm[Hg] Saray Brooks MD Work Phone: [facility] 02-01-2023 15:16-0400 Body weight 61.69 kg Saray Brooks MD Work Phone: [facility] 02-01-2023 15:16-0400 Diastolic blood pressure 76 mm[Hg] Saray Brooks MD Work Phone: [facility] 02-01-2023 15:16-0400 Systolic blood pressure 120 mm[Hg] Saray Brooks MD Work Phone: [facility] 01-19-2023 09:29-0400 Body weight 61.24 kg Saray Brooks MD Work Phone: [facility] 01-19-2023 09:29-0400 Diastolic blood pressure 80 mm[Hg] Saray Brooks MD Work Phone: [facility] 01-19-2023 09:29-0400 Systolic blood pressure 116 mm[Hg] Saray Brooks MD Work Phone: [facility] 11-08-2022 16:02-0500 Body weight 55.79 kg Saray Brooks MD Work Phone: [facility] 11-08-2022 16:02-0500 Diastolic blood pressure 81 mm[Hg] Saray Brooks MD Work Phone: [facility] 11-08-2022 16:02-0500 Systolic blood pressure 129 mm[Hg] Saray Brooks MD Work Phone: [facility] 10-12-2022 11:51-0500 Body temperature 98.6 [degF] Sung Idaleabbie CAREER DEVELOPMENT ASSOCIATE.COVERED BUTTON MAKER Work Phone: [facility] 10-12-2022 11:51-0500 Body weight 55.07 kg Sungmaynor Amaral CAREER DEVELOPMENT ASSOCIATE.COVERED BUTTON MAKER Work Phone: [facility] 10-12-2022 11:51-0500 Diastolic blood pressure 78 mm[Hg] Sung Pendlebury CAREER DEVELOPMENT ASSOCIATE.COVERED BUTTON MAKER Work Phone: [facility] 10-12-2022 11:51-0500 Heart rate 91 /min Sung Munir CAREER DEVELOPMENT ASSOCIATE.COVERED BUTTON MAKER Work Phone: [facility] 10-12-2022 11:51-0500 Respiratory rate 18 /min Sung Idaleabbie CAREER DEVELOPMENT ASSOCIATE.COVERED BUTTON MAKER Work Phone: [facility] 10-12-2022 11:51-0500 SaO2% (BldA) [Mass fraction] 99 % Sung Prietoleabbie CAREER DEVELOPMENT ASSOCIATE.COVERED BUTTON MAKER Work Phone: [facility] 10-12-2022 11:51-0500 Systolic blood pressure 118 mm[Hg] Sung Prietoleabbie CAREER DEVELOPMENT ASSOCIATE.COVERED BUTTON MAKER Work Phone: [facility] 09-13-2022 15:00-0500 Body height 160 cm Saray Brooks MD Work Phone: [facility] 09-13-2022 15:00-0500 Body weight 53.25 kg Saray Brooks MD Work Phone: [facility] 09-13-2022 15:00-0500 Diastolic blood pressure 80 mm[Hg] Saray Brooks MD Work Phone: [facility] 09-13-2022 15:00-0500 Systolic blood pressure 122 mm[Hg] Saray Brokos MD Work Phone: [facility] 09-06-2022 13:04-0500 Body temperature 98.6 [degF] Fadia Celine CAREER DEVELOPMENT ASSOCIATE.COVERED BUTTON MAKER Work Phone: [facility] 09-06-2022 13:04-0500 Diastolic blood pressure 80 mm[Hg] Fadia Celine CAREER DEVELOPMENT ASSOCIATE.COVERED BUTTON MAKER Work Phone: [facility] 09-06-2022 13:04-0500 Heart rate 83 /min Fadia Celine CAREER DEVELOPMENT ASSOCIATE.COVERED BUTTON MAKER Work Phone: [facility] 09-06-2022 13:04-0500 SaO2% (BldA) [Mass fraction] 95 % Fadia Celine CAREER DEVELOPMENT ASSOCIATE.COVERED BUTTON MAKER Work Phone: [facility] 09-06-2022 13:04-0500 Systolic blood pressure 118 mm[Hg] Fadia Celine CAREER DEVELOPMENT ASSOCIATE.COVERED BUTTON MAKER Work Phone: [facility] 04-23-2022 06:59-0400 Body height 160 cm Emma Kosudheerhik PA-C Work Phone: [facility] 04-23-2022 06:59-0400 Body weight 52.62 kg Emma Kosudheerhik PA-C Work Phone: [facility] 04-23-2022 06:59-0400 Diastolic blood pressure 80 mm[Hg] Emmamarisol Oconnorhik PA-C Work Phone: [facility] 04-23-2022 06:59-0400 Systolic blood pressure 128 mm[Hg] Emma Huang PA-C Work Phone: [facility] 04-14-2022 14:04-0400 Diastolic blood pressure 80 mm[Hg] [facility] Work Phone: 04-14-2022 14:04-0400 Heart rate 86 /min [facility] Work Phone: 04-14-2022 14:04-0400 Respiratory rate 15 /min [facility] Work Phone: 04-14-2022 14:04-0400 SaO2% (BldA) [Mass fraction] 98 % [facility] Work Phone: 04-14-2022 14:04-0400 Systolic blood pressure 127 mm[Hg] [facility] Work Phone: 04-14-2022 11:38-0400 Body height 160.02 cm [facility] Work Phone: 04-14-2022 11:38-0400 Body mass index (BMI) [Ratio] 20.5 kg/m2 [facility] Work Phone: 04-14-2022 11:38-0400 Body temperature 96.9 [degF] [facility] Work Phone: 04-14-2022 11:38-0400 Body weight 52.61 kg [facility] Work Phone: 12-29-2021 15:59-0400 Body height 160 cm Adia Briseno CAREER DEVELOPMENT ASSOCIATE.COVERED BUTTON MAKER Work Phone: [facility] 12-29-2021 15:59-0400 Body weight 52.62 kg Adia Briseno CAREER DEVELOPMENT ASSOCIATE.COVERED BUTTON MAKER Work Phone: [facility] 12-29-2021 15:59-0400 Diastolic blood pressure 78 mm[Hg] Adia Briseno CAREER DEVELOPMENT ASSOCIATE.COVERED BUTTON MAKER Work Phone: [facility] 12-29-2021 15:59-0400 Heart rate 63 /min Adia Briseno CAREER DEVELOPMENT ASSOCIATE.COVERED BUTTON MAKER Work Phone: [facility] 12-29-2021 15:59-0400 SaO2% (BldA) [Mass fraction] 98 % Adia Briseno CAREER DEVELOPMENT ASSOCIATE.COVERED BUTTON MAKER Work Phone: [facility] 12-29-2021 15:59-0400 Systolic blood pressure 108 mm[Hg] Adia Briseno CAREER DEVELOPMENT ASSOCIATE.COVERED BUTTON MAKER Work Phone: [facility] Encounters Encounter Date Encounter Type Care Provider Facility Start: 04-24-2025 End: 04-24-2025 Refill Saray Brooks MD Work Phone: OB/Gynecology Comment on above: Refill Request Start: 04-05-2025 End: 04-05-2025 ambulatory FRANCISCO GRIFFITH Facility:[facility] Start: 03-25-2025 End: 05-25-2025 Follow-up encounter Polly Ho APRN.COVERED BUTTON MAKER Work Phone: OB/Gynecology Start: 03-22-2025 ambulatory SARAY BROOKS Facility:[facility] Start: 03-22-2025 End: 03-22-2025 Subsequent hospital visit by physician [facility] Comment on above: Encounter for screen ing mammogram for breast cancer [Z12.31] Start: 03-15-2025 End: 03-15-2025 Patient encounter procedure Francisco Griffith MD Work Phone: [facility] Comment on above: Kidney stones (Prima ry Dx); Renal calculus, left; Hypercalcemia Start: 03-15-2025 End: 03-15-2025 ambulatory FRANCISCO GRIFFITH Facility:[facility] Start: 02-05-2025 ambulatory FRANCISCO GRIFFITH Facility:[facility] Start: 02-05-2025 End: 02-05-2025 Subsequent [facility] Work Phone: Radiology Comment on above: Kidney stones [N20.0 ] Start: 02-04-2025 End: 02-05-2025 Telephone encounter Francisco Griffith MD Work Phone: [facility] Comment on above: Patient Update Start: 11-23-2024 End: 11-23-2024 ambulatory Fadia Berger APRN.COVERED [employer]TON MAKER Work Phone: [facility] Comment on above: Insurance form Start: 11-23-2024 End: 01-23-2025 Follow-up encounter Miriamalexy Stone APRN.COVERED BUTTON MAKER Work Phone: [facility] Start: 11-16-2024 End: 11-16-2024 Telephone encounter Fadia Berger APRN.COVERED BUTTON MAKER Work Phone: [facility] Comment on above: Consult Start: 11-16-2024 Encounter for genera l adult medical examination without abnormal findings FRANCISCO GRIFFITH [facility] Start: 11-16-2024 End: 11-16-2024 ambulatory FADIA BERGER Facility:[facility] Start: 11-16-2024 End: 11-16-2024 Office outpatient visit 25 minutes Fadia Berger APRN.COVERED BUTTON MAKER Work Phone: [facility] Comment on above: Chronic insomnia (Pr imary Dx); Screening for depression; Encounter for screening examination for other mental health and behavioral disorders; Encounter for screening mammogram for breast cancer; Well adult exam; Screening for lipid disorders; Screening for thyroid disorder; Encounter for vitamin deficiency screening; Numerous moles; Sensation of fullness in both ears Start: 11-16-2024 End: 11-16-2024 Patient encounter status Fadia Berger APRN.COVERED [employer]TON MAKER Work Phone: [facility] Start: 10-11-2024 End: 10-11-2024 Refill Claudia Taylor APRN.COVERED [employer] MAKER Work Phone: OB/Gynecology Comment on above: Refill Request Start: 10-08-2024 End: 10-08-2024 Orders Only Saray Brooks MD Work Phone: OB/Gynecology Comment on above: Refill Request Start: 09-15-2024 End: 09-17-2024 Telephone encounter Fadia Berger CAREER DEVELOPMENT ASSOCIATE.COVERED BUTTON MAKER Work Phone: [facility] Start: 09-14-2024 End: 09-14-2024 ambulatory FADIA CELINE Facility:[facility] Start: 09-14-2024 End: 09-14-2024 Office outpatient visit 15 minutes Miriam Stone CAREER DEVELOPMENT ASSOCIATE.COVERED BUTTON MAKER Work Phone: [facility] Comment on above: Bacterial sinusitis (Primary Dx) Start: 08-16-2024 End: 08-16-2024 ambulatory DARCY ZAMBRANO Facility:[facility] Start: 08-16-2024 End: 08-16-2024 Patient encounter procedure Darcy Zambrano OD Work Phone: Ophthalmology Comment on above: Dry eye syndrome of bilateral lacrimal glands (Primary Dx); Regular astigmatism of right eye; Myopia, left eye; Hx of LASIK Start: 06-28-2024 End: 06-28-2024 ambulatory SARAY BROOKS Facility:[facility] Start: 06-28-2024 End: 06-28-2024 Patient encounter procedure Saray Brooks MD Work Phone: OB/Gynecology Comment on above: Encounter for gyneco logical examination (general) (routine) without abnormal findings (Primary Dx); Encounter for screening mammogram for breast cancer Start: 06-28-2024 End: 06-28-2024 Patient encounter status Saray Brooks MD Work Phone: [facility] Start: 05-16-2024 End: 05-16-2024 Telephone encounter Saray Brooks MD Work Phone: OB/Gynecology Comment on above: UTI Start: 03-30-2024 End: 03-30-2024 Office outpatient visit 25 minutes Liz Erwin CAREER DEVELOPMENT ASSOCIATE.COVERED BUTTON MAKER Work Phone: Telemedicine Comment on above: Bacterial sinusitis (Primary Dx); PND (post-nasal drip); Acute cough; Sinus congestion; Sinus pressure; Headache, unspecified headache type Start: 03-26-2024 Orders Only Saray Brooks MD Work Phone: OB/Gynecology Start: 06-20-2023 Telephone encounter Francisco Griffith MD Work Phone: [facility] Comment on above: Surgery Scheduled Start: 06-16-2023 End: 06-16-2023 Subsequent hospital visit by physician Xr [facility] Work Phone: Radiology Comment on above: Calculus of ureter [ N20.1] Start: 06-15-2023 ambulatory Francisco Griffith MD Work Phone: Urology Comment on above: X ray Start: 05-19-2023 End: 05-19-2023 Patient encounter procedure Saray Brooks MD Work Phone: OB/Gynecology Comment on above: care and examination (Primary Dx); History of gestational diabetes Start: 04-02-2023 ambulatory Rodriguez Leslie MD Work Phone: Reproductive Endocrinology Infertility Comment on above: IVF Start: 04-01-2023 End: 04-03-2023 Evaluation and management of inpatient Saray Parrish Facility:[facility] Start: 04-01-2023 End: 04-03-2023 Evaluation and management of inpatient [facility] Work Phone: Start: 04-01-2023 ambulatory Saray Brooks MD Work Phone: OB/Gynecology Comment on above: Ob Delivery Note Start: 03-28-2023 End: 03-28-2023 Patient encounter procedure Kellie Aguero MD Work Phone: OB/Gynecology Comment on above: 38 weeks gestation o f (Primary Dx); Gestational diabetes mellitus, class A1; Multigravida of advanced maternal age in third trimester Start: 03-23-2023 End: 03-23-2023 ambulatory Treatment Rm [address] [facility] Work Phone: Hematology/Oncology Comment on above: Maternal iron defici ency anemia complicating , third trimester (Primary Dx); Iron malabsorption Start: 03-21-2023 End: 03-21-2023 Patient encounter procedure Kellie Aguero MD Work Phone: OB/Gynecology Comment on above: Gestational diabetes mellitus, class A1 (Primary Dx); Multigravida of advanced maternal age in third trimester; Polyhydramnios in third trimester complication, single or unspecified fetus; Maternal iron deficiency anemia complicating , third trimester; 37 weeks gestation of Start: 03-21-2023 End: 03-21-2023 ambulatory Treatment 13 [facility] [employer] Work Phone: Hematology/Oncology Comment on above: Maternal iron defici ency anemia complicating , third trimester (Primary Dx); Iron malabsorption Start: 03-17-2023 End: 03-17-2023 ambulatory Treatment [address] [employer] Work Phone: Hematology/Oncology Comment on above: Maternal iron defici ency anemia complicating , third trimester (Primary Dx); Iron malabsorption Start: 03-16-2023 End: 03-16-2023 Patient encounter procedure Stephanie Seymour MD Work Phone: OB/Gynecology Comment on above: Polyhydramnios in th ird trimester complication, single or unspecified fetus (Primary Dx); Gestational diabetes mellitus, class A1; Multigravida of advanced maternal age in third trimester; 36 weeks gestation of Start: 03-15-2023 End: 03-15-2023 ambulatory Treatment [address] [employer] Work Phone: Hematology/Oncology Comment on above: Maternal iron defici ency anemia complicating , third trimester (Primary Dx); Iron malabsorption Start: 03-14-2023 End: 03-14-2023 Patient encounter procedure Saray Brooks MD Work Phone: OB/Gynecology Comment on above: 36 weeks gestation o f (Primary Dx); Gestational diabetes mellitus, class A1; Maternal iron deficiency anemia complicating , third trimester; Anemia during in third trimester; AMA (advanced maternal age) multigravida 35+, second trimester Start: 03-10-2023 Telephone encounter Financial Navigator Wil Work Phone: Financial Services Comment on above: Benefits Investigati on Start: 03-02-2023 Orders Only Kim Castellanos RN [facility] Comment on above: Maternal iron defici ency anemia complicating , third trimester; Iron malabsorption Blood Management Start: 02-25-2023 Refill Saray Brooks MD Work Phone: OB/Gynecology Comment on above: Refill Request Start: 02-01-2023 End: 02-01-2023 Patient encounter procedure Saray Brooks MD Work Phone: OB/Gynecology Comment on above: Gestational diabetes mellitus, class A1 (Primary Dx); Anemia during in third trimester; AMA (advanced maternal age) multigravida 35+, second trimester; 30 weeks gestation of Start: 01-19-2023 End: 01-19-2023 Nursing evaluation of patient and report Art Durand RN Work Phone: Endocrinology Comment on above: Abnormal maternal gl ucose tolerance, antepartum; 28 weeks gestation of Start: 01-19-2023 End: 01-19-2023 Patient encounter procedure Saray Brooks MD Work Phone: OB/Gynecology Comment on above: Gestational diabetes mellitus, class A1 (Primary Dx); Abnormal maternal glucose tolerance, antepartum; Need for vaccination; AMA (advanced maternal age) multigravida 35+, second trimester; Anemia during in third trimester; 28 weeks gestation of Start: 11-16-2022 End: 11-16-2022 Patient encounter procedure Ashlie Medina MD Work Phone: Maternal Medicine Comment on above: Encounter for anatomic survey (Primary Dx); AMA (advanced maternal age) multigravida 35+, first trimester; 19 weeks gestation of Start: 11-08-2022 End: 11-08-2022 Patient encounter procedure Saray Brooks MD Work Phone: OB/Gynecology Comment on above: AMA (advanced matern al age) multigravida 35+, second trimester (Primary Dx); Calculus of kidney; 18 weeks gestation of Start: 10-12-2022 End: 10-12-2022 Office outpatient visit 15 minutes Sung Amaral APRN.[employer]OVERED BUTTON [employer]KER Work Phone: [facility] Comment on above: URI with cough and c ongestion (Primary Dx) Start: 10-11-2022 ambulatory Kaitlyn mena CAREER DEVELOPMENT ASSOCIATE.[employer]OVERED [employer]ER Work Phone: Telemedicine Comment on above: Viral syndrome (Prim doroteo Dx) Start: 10-08-2022 Telephone encounter Saray Brooks MD Work Phone: Maternal Medicine Comment on above: NIPT results Start: 10-01-2022 End: 10-01-2022 Patient encounter procedure Stephanie Seymour MD Work Phone: Maternal Medicine Comment on above: Encounter for (NT) n uchal translucency scan (Primary Dx); AMA (advanced maternal age) multigravida 35+, first trimester; 12 weeks gestation of Start: 09-25-2022 ambulatory Alisson Pelaez CAREER DEVELOPMENT ASSOCIATE.[employer]OVERED [employer] Work Phone: Telemedicine Comment on above: Viral illness (Prima ry Dx) Start: 09-13-2022 End: 09-13-2022 Patient encounter procedure Saray Brooks MD Work Phone: OB/Gynecology Comment on above: AMA (advanced matern al age) multigravida 35+, first trimester (Primary Dx); Supervision of high risk in first trimester Start: 09-08-2022 Orders Only Saray Brooks MD Work Phone: OB/Gynecology Start: 09-06-2022 End: 09-06-2022 Patient encounter procedure Fadia Berger CAREER DEVELOPMENT ASSOCIATE.[employer]OVERED [employer]ER Work Phone: [facility] Comment on above: Sore throat (Primary Dx); Ear pain, bilateral Start: 07-30-2022 Orders Only Saray Brooks MD Work Phone: OB/Gynecology Comment on above: Early stage of pregn jacobo (Primary Dx) Start: 06-10-2022 Refill Saray Brooks MD Work Phone: OB/Gynecology Comment on above: Refill Request Start: 04-23-2022 End: 04-23-2022 Patient encounter procedure Emma Huang PA-C Work Phone: [facility] Comment on above: Kidney stones (Prima ry Dx) Start: 04-21-2022 End: 04-21-2022 Subsequent hospital visit by physician [facility] Work Phone: Radiology Comment on above: Calculus of kidney [ N20.0] Start: 04-15-2022 ambulatory Francisco Griffith MD Work Phone: [facility] Start: 04-15-2022 Follow-up encounter Francisco Griffith MD Work Phone: Urology Comment on above: Follow Up Start: 04-14-2022 End: 04-14-2022 Emergency department patient visit [facility]Emergency Department Start: 03-26-2022 ambulatory Rodriguez Leslie MD Work Phone: Reproductive Endocrinology Infertility Comment on above: IVF Start: 03-23-2022 ambulatory Fadia bolton CAREER DEVELOPMENT ASSOCIATE.[employer]OVERED [employer]ER Work Phone: [facility] Comment on above: Knee injury Start: 12-29-2021 End: 12-29-2021 Patient encounter procedure Adia Briseno CAREER DEVELOPMENT ASSOCIATE.[employer]OVERED [employer]ER Work Phone: Gastroenterology Comment on above: Constipation, unspec ified constipation type (Primary Dx); Internal hemorrhoids; Family hx of colon cancer Start: 11-11-2018 End: 11-11-2018 Emergency department patient visit [facility] Start: 08-07-2007 End: 09-18-2012 Patient encounter status Saray Brooks MD Work Phone: [facility] Work Phone: Procedures Date Procedure Procedure Detail Performing Clinician Start: 03-15-2025 Urnls dip stick/tabl et rgnt auto w/o microscopy Francisco Griffith MD Work Phone: Start: 11-16-2024 Adult depression scr eening assessment Fadia Berger APRN.[employer]OVERED [employer] Work Phone: Start: 06-16-2023 Radiologic exam abdo men 1 view Francisco Griffith MD Work Phone: Start: 03-28-2023 URINE OB DIP B/O Kaciec mely Aguero MD Work Phone: Start: 03-21-2023 URINE OB DIP B/O Juan Aguero MD Work Phone: Start: 03-16-2023 Us preg uterus after 1st trimest 1/1st gestation Saray Brooks MD Work Phone: Start: 03-14-2023 URINE OB DIP B/O Saray Flower Brooks MD Work Phone: Start: 02-01-2023 URINE OB DIP B/O Saray Flower Brooks MD Work Phone: Start: 01-19-2023 URINE OB DIP B/O Saray Flower Brooks MD Work Phone: Start: 11-16-2022 Us preg uterus after 1st trimest 1/1st gestation Saray Brooks MD Work Phone: Start: 11-08-2022 URINE OB DIP B/O Saray Flower Brooks MD Work Phone: Start: 10-01-2022 Us nuchal translucency 1st gestation Saray Flower Brooks MD Work Phone: Start: 09-06-2022 STREP A MOLECULAR (POC) Fadia Berger CAREER DEVELOPMENT ASSOCIATE.[employer]ED [employer]ER Work Phone: Start: 04-23-2022 Urnls dip stick/tabl et rgnt auto w/o microscopy Emma Huang PA-C Work Phone: Start: 04-21-2022 Radiologic exam abdo men 1 view Francisco Griffith MD Work Phone: Start: 04-14-2022 CT of abdomen and pe lvis without contrast Start: 11-26-2021 Adult depression scr eening assessment Adia Briseno APRN.[employer]OVERED [employer]ER Work Phone: History of laser ass isted in situ keratomileusis Hx of LASIK Darcy Zambrano OD Work Phone: Plan of Treatment Date Care Activity Detail Author Start: 01-19-2033 Urine microalbumin profile [facility] Start: 09-11-2029 Urine microalbumin profile DTAP,TDAP,TD (11 - Td or Tdap) [facility] Start: 2026 PAP TESTING PAP TESTING [facility] Start: 03-22-2026 Screening for malignant neoplasm of breast Mammogram Screening [facility] Start: 03-10-2026 HPV TESTING HPV TESTING [facility] Start: 03-10-2026 PAP TESTING PAP TESTING [facility] Start: 03-10-2026 Screening for malignant neoplasm of cervix Cervical Cancer Screening [facility] Start: 11-16-2025 Anxiety Screening Anxiety Screening [facility] Start: 11-16-2025 Depression Screening Depression Screening [facility] Start: 08-16-2025 End: 08-16-2025 Patient encounter procedure 08/16/2025 8:00 AM EST Office Visit [facility] [address] [place], [place] [id number] Darcy Zambrano, OD [address] [place] [address] Eye Exam Ophthalmology Comment on above: Eye Exam Start: 05-27-2025 Influenza vaccination Influenza Vaccine (#1) [facility] Start: 04-08-2025 End: 04-08-2025 Patient encounter procedure 04/08/2025 8:15 AM EDT Office Visit [facility] [address] [place] [address] Francisco Griffith MD [address] [place] [id number] kidney stone [facility] Comment on above: kidney stone Start: 03-15-2025 End: 06-14-2025 Basic metabolic 2000 panel - Serum or Plasma BASIC METABOLIC PANEL Lab Routine Kidney stones Renal calculus, left Hypercalcemia Expected: 03/15/2025, Expires: 06/14/2025 [facility] Comment on above: Expected: 03/15/2025, Expires: Start: 03-15-2025 End: 06-14-2025 Hematocrit [Volume Fraction] of Blood HEMATOCRIT Lab Routine Kidney stones Expected: 03/15/2025, Expires: 06/14/2025 [facility] Comment on above: Expected: 03/15/2025, Expires: Start: 03-15-2025 End: 06-14-2025 Hemoglobin [Mass/volume] in Blood HEMOGLOBIN Lab Routine Kidney stones Expected: 03/15/2025, Expires: 06/14/2025 [facility] Comment on above: Expected: 03/15/2025, Expires: Start: 03-15-2025 End: 06-14-2025 Parathyrin.intact [Mass/volume] in Serum or Plasma PTH INTACT Lab Routine Kidney stones Hypercalcemia Expected: 03/15/2025, Expires: 06/14/2025 [facility] Work Phone: Comment on above: Expected: 03/15/2025, Expires: Start: 11-16-2024 End: 02-15-2025 25-hydroxyvitamin D3 [Mass/volume] in Serum or Plasma [facility] Comment on above: Expected: 11/16/2024, Expires: Start: 2024 Screening for malignant neoplasm of breast Mammogram Screening [facility] Start: 06-28-2024 End: 06-28-2024 Patient encounter procedure 06/28/2024 10:10 AM EDT Office Visit OB/Gynecology [address] [place] [address] NeSaray Corado MD [address] [place] [address] annual OB/Gynecology Comment on above: annual Start: 05-27-2024 Covid-19 Vaccine ( season) Covid-19 Vaccine () [facility] Start: 05-27-2024 Influenza vaccination Influenza Vaccine (#1) [facility] Start: 05-16-2024 End: 08-15-2024 Bacteria identified in Urine by Culture URINE CULTURE Microbiology Routine Dysuria Expected: 05/16/2024, Expires: 08/15/2024 [facility] Work Phone: Comment on above: Expected: 05/16/2024, Expires: 4 Start: 05-16-2024 End: 08-15-2024 Urinalysis complete panel - Urine URINALYSIS, WITH MICROSCOPIC Lab Routine Dysuria Expected: 05/16/2024, Expires: 08/15/2024 [facility] Comment on above: Expected: 05/16/2024, Expires: 4 Start: 09-26-2023 Behavioral Health Screening Behavioral Health Screening [facility] Start: 05-27-2023 Covid-19 Vaccine () Covid-19 Vaccine () [facility] Start: 05-27-2023 Influenza vaccination [facility] Start: 05-19-2023 End: 07-19-2023 GLUC ELMO, 2-HR NON-GEST, 75 GM, FASTING GLUC ELMO, 2-HR NON-GEST, 75 GM, FASTING Lab Routine History of gestational diabetes Expected: 05/19/2023, Expires: 07/19/2023 [facility] Work Phone: Comment on above: Expected: 05/19/2023, Expires: 3 Start: 04-03-2023 Patient discharge [facility] Start: 04-02-2023 Consultation [facility] Start: 04-01-2023 Administration of medication [facility] Start: 04-01-2023 Application of ice collar, cap or bag [facility] Start: 04-01-2023 Catheterization of vein [facility] Start: 04-01-2023 Introduction of urinary catheter [facility] Start: 04-01-2023 Measuring intake and output [facility] Start: 04-01-2023 Notification of physician [facility] Start: 04-01-2023 Procedure discontinued [facility] Start: 04-01-2023 Provision of activity privileges [facility] Start: 04-01-2023 Vital signs measurements [facility] Start: 04-01-2023 [facility] Start: 04-01-2023 Admission procedure [facility] Start: 04-01-2023 Verification routine [facility] Start: 11-26-2022 Adult depression screening assessment DEPRESSION SCREENING [facility] Start: 11-08-2022 End: 01-08-2023 ALPHA FETOPRO MATERNAL ALPHA FETOPRO MATERNAL Lab Routine 18 weeks gestation of AMA (advanced maternal age) multigravida 35+, second trimester Expected: 11/08/2022, Expires: 01/08/2023 [facility] Work Phone: Comment on above: Expected: 11/08/2022, Expires: 3 Start: 09-26-2022 DEPRESSION ASSESSMENT DEPRESSION ASSESSMENT [facility] Start: 09-13-2022 End: 11-13-2022 CBC panel - Blood by Automated count CBC Lab Routine AMA (advanced maternal age) multigravida 35+, first trimester Expected: 09/13/2022, Expires: 11/13/2022 [facility] Work Phone: Comment on above: Expected: 09/13/2022, Expires: 3 Start: 09-13-2022 End: 11-13-2022 Chromosome 21 trisomy [Presence] in Blood or Tissue by Cytogenetics [id number] PLUS Lab Routine AMA (advanced maternal age) multigravida 35+, first trimester Expected: 09/13/2022, Expires: 11/13/2022 [facility] Work Phone: Comment on above: Expected: 09/13/2022, Expires: 3 Start: 09-13-2022 End: 11-13-2022 Hepatitis B virus surface Ag [Presence] in Serum HEP B SURF AG SCRN Lab Routine AMA (advanced maternal age) multigravida 35+, first trimester Expected: 09/13/2022, Expires: 11/13/2022 [facility] Work Phone: Comment on above: Expected: 09/13/2022, Expires: 3 Start: 09-13-2022 End: 11-13-2022 Hepatitis C virus Ab [Presence] in Serum HEP C AB IA W/CONF SCRN Lab Routine AMA (advanced maternal age) multigravida 35+, first trimester Expected: 09/13/2022, Expires: 11/13/2022 [facility] Work Phone: Comment on above: Expected: 09/13/2022, Expires: 3 Start: 09-13-2022 End: 11-13-2022 HIV 1+2 Ab [Presence] in Serum or Plasma by Immunoassay HIV 1 2 COMBO(AG/AB),WITH REFLEX TO DIFFERENTIATION Lab Routine AMA (advanced maternal age) multigravida 35+, first trimester Expected: 09/13/2022, Expires: 11/13/2022 [facility] Work Phone: Comment on above: Expected: 09/13/2022, Expires: 3 Start: 09-13-2022 End: 09-13-2023 NUCHAL TRANSLUCENCY WHI NUCHAL TRANSLUCENCY WHI Anc Imaging Routine AMA (advanced maternal age) multigravida 35+, first trimester Expected: 09/13/2022, Expires: 09/13/2023 [facility] Work Phone: Comment on above: Expected: 09/13/2022, Expires: 3 Start: 09-13-2022 End: 09-13-2023 OBSTETRIC ULTRASOUND WHI OBSTETRIC ULTRASOUND WHI Anc Imaging Routine AMA (advanced maternal age) multigravida 35+, first trimester Expected: 09/13/2022, Expires: 09/13/2023 [facility] Work Phone: Comment on above: Expected: 09/13/2022, Expires: 3 Start: 09-13-2022 End: 11-13-2022 RUBELLA IGG AB RUBELLA IGG AB Lab Routine AMA (advanced maternal age) multigravida 35+, first trimester Expected: 09/13/2022, Expires: 11/13/2022 [facility] Work Phone: Comment on above: Expected: 09/13/2022, Expires: 3 Start: 09-13-2022 End: 11-13-2022 SYPHILIS TOTAL W/REFLEX SYPHILIS TOTAL W/REFLEX Lab Routine AMA (advanced maternal age) multigravida 35+, first trimester Expected: 09/13/2022, Expires: 11/13/2022 [facility] Work Phone: Comment on above: Expected: 09/13/2022, Expires: 3 Start: 09-13-2022 End: 11-13-2022 TYPE + SCREEN TYPE + SCREEN Blood Bank Routine AMA (advanced maternal age) multigravida 35+, first trimester Expected: 09/13/2022, Expires: 11/13/2022 [facility] Work Phone: Comment on above: Expected: 09/13/2022, Expires: 3 Start: 07-30-2022 End: 09-29-2022 Choriogonadotropin.beta subunit [Units/volume] in Serum or Plasma HCG QUANTITATIVE Lab Routine Early stage of Expected: 07/30/2022, Expires: 09/29/2022 [facility] Work Phone: Comment on above: Expected: 07/30/2022, Expires: 3 Start: 07-24-2022 End: 05-23-2023 XR ABDOMEN 1V SUPINE XR ABDOMEN 1V SUPINE Radiology Routine Kidney stones Expected: 07/24/2022, Expires: 05/23/2023 [facility] Work Phone: Comment on above: Expected: 07/24/2022, Expires: 3 Start: 05-27-2022 Influenza vaccination INFLUENZA (#1) [facility] Start: 10-18-2021 COVID-19 VACCINE (4 - Booster for Moderna series) COVID-19 VACCINE (4 - Booster for Moderna series) [facility] Start: 10-18-2021 COVID-19 VACCINE (4 - Moderna series) COVID-19 VACCINE (4 - Moderna series) [facility] Start: 09-26-2021 DEPRESSION ASSESSMENT DEPRESSION ASSESSMENT [facility] Start: 2002 Anxiety Screening Anxiety Screening [facility] Start: 2002 Depression Screening Depression Screening [facility] Bacteria identified in Urine by Culture URINE CULTURE Microbiology Routine Kidney stones Ordered: 04/23/2022 [facility] Work Phone: Comment on above: Ordered: 04/23/2022 Bacteria identified in Urine by Culture URINE CULTURE Microbiology Routine AMA (advanced maternal age) multigravida 35+, first trimester 09/13/2022 4:33 PM EST [facility] Work Phone: Chlamydia trachomatis+Neisseria gonorrhoeae DNA [Presence] in Unspecified specimen by EVELIN with probe detection GC/CHLAMYDIA DNA DET Lab Routine AMA (advanced maternal age) multigravida 35+, first trimester 09/13/2022 4:33 PM EST [facility] Work Phone: End: 07-28-2025 DBT Breast - bilateral screening JUAN CARLOS SCREENING [facility] [place] Radiology Routine Encounter for screening mammogram for breast cancer 1 Occurrences starting 06/28/2024 until 07/28/2025 [facility] Work Phone: Comment on above: 1 Occurrences starting 06/28/2024 until 07/28/2025 End: 12-16-2025 DBT Breast - bilateral screening JUAN CARLOS SCREENING [facility] [place] Radiology Routine Encounter for screening mammogram for breast cancer Well adult exam 1 Occurrences starting 11/16/2024 until 12/16/2025 [facility] Work Phone: Comment on above: 1 Occurrences starting 11/16/2024 until 12/16/2025 DBT Breast - bilater al screening JUAN CARLOS SCREENING [facility] [place] Radiology Routine Encounter for screening mammogram for breast cancer 03/22/2025 1:17 PM EDT [facility] Work Phone: Patient Education [facility] Work Phone: Patient referral [facility] Work Phone: ROUTINE, GR OUP B STREP PCR ROUTINE, GROUP B STREP PCR Microbiology Routine 36 weeks gestation of Gestational diabetes mellitus, class A1 Maternal iron deficiency anemia complicating , third trimester Anemia during in third trimester AMA (advanced maternal age) multigravida 35+, second trimester 03/14/2023 8:44 AM EDT [facility] Work Phone: UA DIP B/O UA DIP B/O Lab R outine Kidney stones Renal calculus, left Hypercalcemia Ordered: 03/15/2025 [facility] Comment on above: Ordered: 03/15/2025 End: 03-06-2026 XR Abdomen Supine and Upright XR ABDOMEN 1V SUPINE Radiology Routine Kidney stones 1 Occurrences starting 02/05/2025 until 03/06/2026 [facility] Work Phone: Comment on above: 1 Occurrences starting 02/05/2025 until 03/06/2026 XR Abdomen Supine an d Upright XR ABDOMEN 1V SUPINE Radiology Routine Kidney stones 02/05/2025 1:52 PM EDT [facility] Work Phone: [facility] Immunizations Immunization Date Immunization Notes Care Provider Amrita delgadillo 07-04-2024 influenza, seasonal, injectable, preservative free Darcy Zambrano OD Work Phone: [facility] 07-04-2024 influenza virus vacc ine, unspecified formulation Saray Brooks MD Work Phone: [facility] 07-14-2023 influenza virus vacc ine, unspecified formulation Saray Brooks MD Work Phone: [facility] 01-19-2023 tetanus toxoid, redu damon diphtheria toxoid, and acellular pertussis vaccine, adsorbed Saray Brooks MD Work Phone: [facility] 07-20-2022 influenza virus vacc ine, unspecified formulation Saray Brooks MD Work Phone: [facility] 06-23-2021 influenza virus vacc ine, unspecified formulation Adia Briseno CAREER DEVELOPMENT ASSOCIATE.[employer]ED [employer]KER Work Phone: [facility] 06-23-2021 influenza, seasonal, injectable Adia Briseno CAREER DEVELOPMENT ASSOCIATE.[employer]OVERED [employer]KER Work Phone: [facility] 11-10-2020 COVID-19 vaccine, fu ll dose (MODERNA) Adia Briseno CAREER DEVELOPMENT ASSOCIATE.[employer]OVERED [employer] MAKER Work Phone: [facility] 10-13-2020 COVID-19 vaccine, fu ll dose (MODERNA) Adia Briseno CAREER DEVELOPMENT ASSOCIATE.COVERED [employer] MAKER Work Phone: [facility] 07-23-2020 influenza, seasonal, injectable Adia Briseno CAREER DEVELOPMENT ASSOCIATE.[employer]OVERED [employer] Work Phone: [facility] 09-11-2019 tetanus toxoid, redu damon diphtheria toxoid, and acellular pertussis vaccine, adsorbed Adia Briseno CAREER DEVELOPMENT ASSOCIATE.[employer]ED [employer] Work Phone: [facility] 07-19-2018 influenza virus vacc ine, unspecified formulation Adia Briseno CAREER DEVELOPMENT ASSOCIATE.[employer]ED [employer] Work Phone: [facility] 07-19-2018 influenza, seasonal, injectable Adia Briseno CAREER DEVELOPMENT ASSOCIATE.[employer]ED [employer] Work Phone: [facility] 06-26-2018 Influenza virus vaccine [facility] 07-13-2017 influenza virus vacc ine, unspecified formulation Adia Briseno CAREER DEVELOPMENT ASSOCIATE.[employer]ED [employer] Work Phone: [facility] 06-29-2016 influenza virus vacc ine, unspecified formulation Adia Briseno CAREER DEVELOPMENT ASSOCIATE.[employer]ED [employer] Work Phone: [facility] 06-23-2016 influenza, seasonal, injectable [facility] 06-23-2016 tetanus toxoid, redu damon diphtheria toxoid, and acellular pertussis vaccine, adsorbed [facility] 06-22-2016 tetanus toxoid, redu damon diphtheria toxoid, and acellular pertussis vaccine, adsorbed Adia Briseno CAREER DEVELOPMENT ASSOCIATE.[employer] Work Phone: [facility] 07-11-2015 influenza virus vacc ine, unspecified formulation Adia Briseno CAREER DEVELOPMENT ASSOCIATE.[employer] Work Phone: [facility] 07-02-2014 influenza, seasonal, injectable Adia Briseno CAREER DEVELOPMENT ASSOCIATE.[employer] Work Phone: [facility] 10-08-2013 tetanus toxoid, redu damon diphtheria toxoid, and acellular pertussis vaccine, adsorbed Adia Briseno CAREER DEVELOPMENT ASSOCIATE.[employer]ED [employer] Work Phone: [facility] 07-05-2013 influenza virus vacc ine, whole virus Adia Briseno CAREER DEVELOPMENT ASSOCIATE.[facility] Work Phone: [facility] 08-04-2009 novel influenza-H1N1 -09, preservative-free, injectable Saray Brooks MD Work Phone: [facility] 11-10-2007 human papilloma viru s vaccine, quadrivalent Adia Briseno CAREER DEVELOPMENT ASSOCIATE.[employer] Work Phone: [facility] 10-16-2007 diphtheria, tetanus toxoids and pertussis vaccine Adia Briseno CAREER DEVELOPMENT ASSOCIATE.[facility] Work Phone: [facility] 08-21-2007 influenza virus vacc ine, unspecified formulation Adia Briseno CAREER DEVELOPMENT ASSOCIATE.[employer] Work Phone: [facility] 06-30-2007 human papilloma viru s vaccine, quadrivalent Adia Briseno CAREER DEVELOPMENT ASSOCIATE.[employer] Work Phone: [facility] Work Phone: 05-05-2007 human papilloma viru s vaccine, quadrivalent Adia Briseno CAREER DEVELOPMENT ASSOCIATE.[facility] Work Phone: [facility] Work Phone: 01-04-2005 diphtheria and tetan us toxoids, adsorbed for pediatric use Adia Briseno CAREER DEVELOPMENT ASSOCIATE.[employer] Work Phone: [facility] Work Phone: 01-04-2005 TD(adult) unspecifie d formulation Saray Brooks MD Work Phone: [facility] 04-10-2003 meningococcal polysaccharide vaccine (MPSV4) Saray Brooks MD Work Phone: [facility] 11-08-1997 hepatitis B vaccine, adult dosage Adia Briseno CAREER DEVELOPMENT ASSOCIATE.[employer] Work Phone: [facility] Work Phone: 06-03-1997 hepatitis B vaccine, adult dosage Adia Briseno CAREER DEVELOPMENT ASSOCIATE.[employer] Work Phone: [facility] Work Phone: 05-02-1997 hepatitis B vaccine, adult dosage Adia Briseno CAREER DEVELOPMENT ASSOCIATE.COVERED BUTTON MAKER Work Phone: [facility] Work Phone: 02-28-1997 measles, mumps and rubella virus vaccine Adia Briseno CAREER DEVELOPMENT ASSOCIATE.COVERED BUTTON MAKER Work Phone: [facility] Work Phone: 08-23-1989 diphtheria, tetanus toxoids and pertussis vaccine Adia Briseno CAREER DEVELOPMENT ASSOCIATE.COVERED BUTTON MAKER Work Phone: [facility] Work Phone: 08-23-1989 trivalent poliovirus vaccine, live, oral Adia Briseno CAREER DEVELOPMENT ASSOCIATE.COVERED BUT[employer] MAKER Work Phone: [facility] Work Phone: 09-03-1986 haemophilus influenz ae type b vaccine, conjugate unspecified formulation Adia Briseno CAREER DEVELOPMENT ASSOCIATE.COVERED BUTTON MAKER Work Phone: [facility] Work Phone: 03-11-1986 diphtheria, tetanus toxoids and pertussis vaccine Adia Briseno CAREER DEVELOPMENT ASSOCIATE.COVERED BUTTON MAKER Work Phone: [facility] Work Phone: 03-11-1986 trivalent poliovirus vaccine, live, oral Adia Briseno CAREER DEVELOPMENT ASSOCIATE.COVERED [employer] MAKER Work Phone: [facility] Work Phone: 11-26-1985 measles, mumps and rubella virus vaccine Adia Briseno CAREER DEVELOPMENT ASSOCIATE.COVERED BUTTON MAKER Work Phone: [facility] Work Phone: 02-28-1985 diphtheria, tetanus toxoids and pertussis vaccine Adia Briseno CAREER DEVELOPMENT ASSOCIATE.[facility] Work Phone: [facility] Work Phone: 1984 diphtheria, tetanus toxoids and pertussis vaccine Adia Briseno CAREER DEVELOPMENT ASSOCIATE.[facility] Work Phone: [facility] Work Phone: 1984 trivalent poliovirus vaccine, live, oral Adia Briseno CAREER DEVELOPMENT ASSOCIATE.[facility] Work Phone: [facility] Work Phone: 1984 diphtheria, tetanus toxoids and pertussis vaccine Adia Briseno CAREER DEVELOPMENT ASSOCIATE.[facility] Work Phone: [facility] Work Phone: 1984 trivalent poliovirus vaccine, live, oral Adia Briseno CAREER DEVELOPMENT ASSOCIATE.[facility] Work Phone: [facility] Work Phone: Payers Date Payer Category Payer Unknown [id number] 2023 Private Health Insurance [id number] 2023 Self-pay [id number] 2021 Private Health Insurance P AET NA [facility]/NON STAFF / EHP [facility] [id number] 2021-Present [address] [place] [address] EPO [id number] 2021 Private Health Insurance [id number] 2012 Unknown ATTN PT FINANCIA L S SELF PAY [id number] 2012-Present [address] [place] [address] Indemnity [id number] 2012 Unknown [id number] Unknown [id number] Unknown [id number] Social History Date Type Detail Facility Start: 07-14-2011 End: 09-06-2022 Tobacco smoking status NHIS Never smoked tobacco [facility] Work Phone: Start: 12-29-2021 End: 03-15-2025 Alcohol intake Ex-drinker (finding) [facility] Start: 12-29-2021 End: 03-14-2023 Alcohol intake [facility] Start: 11-27-2021 End: 10-27-2022 History SDOH Alcohol Frequency 2 [facility] Start: 11-27-2021 End: 10-27-2022 History SDOH Alcohol Std Drinks 1 [facility] Start: 05-21-2013 History SDOH Alcohol Comment Occasionally, NOT WHILE [facility] Start: 11-27-2021 End: 10-27-2022 History SDOH Social Connections Phone 5 [facility] Start: 11-27-2021 End: 10-27-2022 History SDOH Social Connections Get Together 3 [facility] Start: 06-30-2020 Education 17 [facility] Start: 1985 Sex Assigned At Female [facility] Work Phone: Start: 10-31-2021 End: 04-23-2022 Exposure to SARS-CoV-2 (event) Not sure [facility] Start: 04-14-2022 End: 04-01-2023 Tobacco smoking status NHIS Unknown if ever smoked [facility] Start: 08-01-2020 None [facility] Start: 08-01-2020 With Family [facility] Start: 11-14-2018 Non-smoker [facility] Start: 07-14-2011 End: 09-06-2022 Tobacco use and exposure Smokeless tobacco non-user [facility] Work Phone: Start: 07-19-2022 [facility] Start: 10-27-2022 History SDOH Alcohol Std Drinks 0 [facility] Start: 10-26-2022 End: 03-14-2023 Social connection and isolation panel [facility] Do you belong to any clubs or organizations such as presybeterian groups, unions, fraternal or athletic groups, or school groups? Yes [facility] Are you now , , , , never or living with a partner? [facility] How often to you hav e a drink containing alcohol? Never [facility] Start: 08-27-2012 How many standard drinks containing alcohol do you have on a typical day? Patient does not drink [facility] Do you feel stress - tense, restless, nervous, or anxious, or unable to sleep at night because your mind is troubled all the time - these days [OSQ] Only a little [facility] (I/We) worried nga er (my/our) food would run out before (I/we) got money to buy more. Never true [facility] In the past 12 month s, was there a time when you were not able to pay the mortgage or rent on time? No [facility] Start: 01-03-2020 Gender identity Identifies as female gender (finding) [facility] Work Phone: Start: 01-03-2020 Sexual orientation Heterosexual (finding) [facility] Work Phone: How often to you hav e a drink containing alcohol? Monthly or less [facility] How many standard dr inks containing alcohol do you have on a typical day? 1 or 2 [facility] Medical Equipment Procedure Code Equipment Code Equipment Original Text Equipment Identifier Dates [id number], [id number] Start: 01-19-2023 End: 06-28-2024 Comment on above: 1 Strip four times d aily. Use as instructed 1 Each four times da gia. Use as instructed Goals Date Patient Goal Desired Activity /State Functional Status Date Assessment Result Facility 03-24-2015 Are you deaf, or do you have serious difficulty hearing No 03/24/2015 12:17 PM EDT Beatris Hutton MA No [facility] 03-24-2015 Are you blind, or do you have serious difficulty seeing, even when wearing glasses No 03/24/2015 12:17 PM EDT Beatris Hutton MA No [facility] 03-24-2015 Do you have serious difficulty walking or climbing stairs No 03/24/2015 12:17 PM EDT Beatris Hutton MA No [facility] 03-24-2015 Do you have difficul ty dressing or bathing No 03/24/2015 12:17 PM EDT Beatris Hutton MA No [facility] 03-24-2015 Because of a physica l, mental, or emotional condition, do you have difficulty doing errands alone such as visiting a physician's office or shopping No 03/24/2015 12:17 PM EDT Beatris Hutton MA No [facility] Mental Status Date Assessment Result Facility 03-24-2015 Because of a physica l, mental, or emotional condition, do you have serious difficulty concentrating, remembering, or making decisions No 03/24/2015 12:17 PM EDT Beatris Hutton MA No [facility] Clinical Notes 05-14-2019 to 04-24-2025 Telephone Encounter - Dayanna Faith RN - 04/24/2025 1:33 PM EDTTelephone Encounter - Dayanna Faith RN - 04/24/2025 1:33 PM EDMoiz brady [facility] - 03/22/2025 1:10 PM EDT Note Date & Type Note Facility 04-24-2025 Telephone encounter Note Last annual 06/2024. Requested Prescriptions Pending Prescriptions Disp Refills citalopram (CELEXA) 20 mg tablet 90 tablet 3 Sig: Take 1 tablet by mouth once daily. Dayanna Faith RN [facility] 04-24-2025 Miscellaneous Notes Last annual 06/2024. Requested Prescriptions Pending Prescriptions Disp Refills citalopram (CELEXA) 20 mg tablet 90 tablet 3 Sig: Take 1 tablet by mouth once daily. Dayanna Faith RN documented in this encounter [facility] 03-22-2025 History of Presen t illness Narrative Radiology Service Progress Note PATIENT NAME: Tressa Marshall DATE OF SERVICE: March 22, 2025 TIME: 1:26 PM PATIENT IDENTITY VERIFICATION COMPLETED USING TWO (2) IDENTIFIERS: Name and Date of confirmed by patient verbally. FALL SCREENING: Has the patient had 2 falls in the last year or 1 fall with injury or currently using an Ambulatory Assistive Device (Walker, Cane, Wheelchair, Crutches, etc.)? No PATIENT GENDER DATA: Assigned female at . status: : No status: NO. PATIENT RELEVANT IMPLANT DATA REVIEWED: Not Applicable PATIENT PRESENTS WITH AN IMPLANTABLE OR ATTACHED STEEL ROLLER: No RADIOLOGY DEPARTMENT: Mammography PERIPHERAL IV DATA: Not applicable SIGNED BY: Reyna Bocanegra March 22, 2025 1:26 PM documented in this encounter [facility] 03-22-2025 Note HNO ID: [id number] Author: MOIZ ECHEVERRIA Mammo Tech Service: ? Author Type: Regional Sales Trainer Type: Progress Notes Filed: 03/22/2025 13:26 Note Text: Radiology Service Progress Note PATIENT NAME: Tressa Marshall DATE OF SERVICE: March 22, 2025 TIME: 1:26 PM PATIENT IDENTITY VERIFICATION COMPLETED USING TWO (2) IDENTIFIERS: Name and Date of confirmed by patient verbally. FALL SCREENING: Has the patient had 2 falls in the last year or 1 fall with injury or currently using an Ambulatory Assistive Device (Walker, Cane, Wheelchair, Crutches, etc.)? No PATIENT GENDER DATA: Assigned female at . status: : No status: NO. PATIENT RELEVANT IMPLANT DATA REVIEWED: Not Applicable PATIENT PRESENTS WITH AN IMPLANTABLE OR ATTACHED STEEL ROLLER: No RADIOLOGY DEPARTMENT: Mammography PERIPHERAL IV DATA: Not applicable SIGNED BY: Reyna Bocanegra March 22, 2025 1:[address] [facility] 03-15-2025 History of Presen t illness Narrative ESTABLISHED PATIENT VISIT HPI Tressa Marshall is a 39 year old female who presents with a history of kidney stones. Last seen in the office in March 2022 with surgery in May 2023. Patient contacted office with pain, possible stone on February 04, 2025 Recurrent kidney stones since age 12. Prior Litholink many years ago After litholink, Dr Song did low sodium diet and fish oil ; she repeated Litholink and her urine calcium and sodium were markedly improved, but citrate was low. 02/08/2025 KUB: Left renal calculi Multiple radiopaque opacities overlying the left kidney measuring up to 6 mm 06/23/2023: Cystoscopy, left ureteroscopy, laser lithotripsy, stone basket extraction, left ureteral stent placement 10/15/2020: Right extracorporeal shock wave lithotripsy CT 04/14/2022: OSH Left renal calculi ? Hypercalcemia, order PTH 06/23/2023 70% Calcium Phosphate Creatinine Date Value Ref Range Status 11/16/2024 0.67 0.58 - 0.96 mg/dL Final No results found for: PSA Color (no units) Date Value 10/20/2023 Yellow 04/02/2019 Yellow Clarity (no units) Date Value 10/20/2023 Clear 04/02/2019 Clear Glucose, Urine Date Value 10/20/2023 Negative 03/28/2023 neg mg/dL Bilirubin, Urine (no units) Date Value 10/20/2023 Negative 04/02/2019 Negative Ketones, Urine (no units) Date Value 10/20/2023 Negative 04/02/2019 Negative Specific [place], Ur (no units) Date Value 10/20/2023 1.020 04/02/2019 1.007 Hemoglobin/Blood,Ur Date Value 10/20/2023 1+ 04/02/2019 Negative pH, Urine (no units) Date Value 10/20/2023 7.0 04/02/2019 5.5 Protein, Urine Date Value 10/20/2023 Trace 03/28/2023 30 mg/dL Urobilinogen (no units) Date Value 10/20/2023 1.0 EU/dL 04/02/2019 Normal Nitrites (no units) Date Value 10/20/2023 Positive 04/02/2019 Negative Leukest (no units) Date Value 04/02/2019 Negative Leuk Esterase (no units) Date Value 10/20/2023 2+ 24HR Urine Studies: Recent Labs 03/16/19 1200 12/18/18 1200 12/17/18 1200 LUPH 6.946* 7.190* 6.830* LUCAL 90 230* 198 LUCIT 385* 621 567 LUOXA 21 29 28 LUURIC 0.599 0.643 0.592 LUVOL 2.60 2.64 1.98 LSCAO 1.98* 3.66* 5.23* LSCAP 0.63 1.81 1.98 LSURIC 0.07 0.04 0.11 LUCL 101 228 157 LATRELL 37 68 47 GLENROY 118 259* 176* LUUREA 6.39 7.41 7.61 LUAM 23 19 20 LUMAG 35 70 55 LUPHOS 0.520* 0.806 0.731 LUPCR 1.0 1.1 1.2 LUCREA 1,203 1,214 1,117 LUCRKBW 24.3* 25.0* 23.0* LUCAKBW 1.8 4.7* 4.1* LUCACREA 74 189 178 LUSUL 18* 22 23 REVIEW OF SYSTEMS Review of Systems Review of system, history including past medical history, surgical history, family history and social history reviewed and confirmed by me. HISTORIES PAST MEDICAL HISTORY Diagnosis Date Abnormal glandular Papanicolaou smear of cervix 05/06/2008 Abn. Pap smear (cervix) Anemia A TEENAGER FIBROCYSTIC BREASTS FRACTURE 2001 NOSE Gestational diabetes mellitus, class A1 ([facility]) 01/19/2023 Hemorrhage of gastrointestinal tract, unspecified Hydronephrosis 10/19/2013 Kidney stones Lumbago DISC DISEASE Other specified forms of hearing loss Unspecified hemorrhoids without mention of complication Hemorrhoids Urinary calculus, unspecified Renal stones Vaginal delivery ([facility]) x3 PAST SURGICAL HISTORY Procedure Laterality Date COLONOSCOPY FLX DX W/COLLJ SPEC WHEN PFRMD 2019 reportedly normal, internal hemorrhoids COLPOSCOPY CERVIX UPPER/ADJACENT VAGINA Colposcopy LASIK 11/2010 LITHOTRIPSY XTRCORP SHOCK WAVE 12/17/10 Lithotripsy PAST SURGICAL HISTORY OF ureteroscopy with basket extraction kidney stone RHINP PRIM LAT&ALAR CRTLGS&/ELVTN NASAL TI Rhinoplasty FAMILY HISTORY Problem Relation Age of Onset GI Father hemachromatosis Heart Father Hypertension Father Kidney Disease Father KIDNEY STONES Asthma Mother No Known Problems Brother Heart Maternal Grandmother Colon Cancer Maternal Grandmother Stroke Maternal Grandmother Arthritis Maternal Grandmother Colon Cancer Paternal Grandmother Colon Cancer Paternal Grandfather Heart Paternal Grandfather HTN, CVA No Known Problems Son No Known Problems Son Lipids Maternal Aunt Colon Polyps Maternal Aunt Multiple Sclerosis Paternal Aunt No Ocular Disease No Family History SOCIAL HISTORY Social History Tobacco Use Smoking status: Never Smokeless tobacco: Never Vaping Use Vaping status: Never Used Substance Use Topics Alcohol use: Not Currently Alcohol/week: 1.0 standard drink of alcohol Types: 1 Cans of Beer (12oz) per week Comment: Occasionally, NOT WHILE Drug use: No MEDICATIONS: chrm/vineg/bit-orang peel/gr t (APPLE CIDER VINEGAR PLUS ORAL) PNV no.153/FA/om3/dha/epa/fish ( GUMMIES ORAL) citalopram (CELEXA) 20 mg tablet Take 1 tablet by mouth once daily. docusate sodium (COLACE) 100 mg capsule Take 1 capsule by mouth twice daily as needed for Constipation. tamsulosin (FLOMAX) 0.4 mg Take 1 capsule by mouth daily at bedtime. zolpidem (AMBIEN) 10 mg Take 1 tablet by mouth at bedtime as needed for up to 90 days. for insomnia. PHYSICAL EXAMINATION General appearance: Well appearing, alert, in no acute distress, and well-hydrated, well nourished ASSESSMENT/PLAN: 1. Kidney stones - ICD9: 592.0, ICD10: N20.0 (primary diagnosis) - PTH INTACT - UA DIP B/O - BASIC METABOLIC PANEL - HEMOGLOBIN - HEMATOCRIT 2. Renal calculus, left - ICD9: 592.0, ICD10: N20.0 - UA DIP B/O - BASIC METABOLIC PANEL 3. Hypercalcemia - ICD9: 275.42, ICD10: E83.52 - PTH INTACT - UA DIP B/O - BASIC METABOLIC PANEL Francisco Griffiht Hematuria resolved, pain resolved at this point. Has at least 2 left renal stones. Discussed left ESWL. Given her history, I would recommend treatment of her 2 stones She does have a remote history of a couple of isolated barely abnormal calcium level, but with her stone history, check PTH level Discussed risk benefits and alternatives to surgery. Proceed with left ESWL Medical Decision Making: Medical Decision Making Level: 1 - N/A documented in this encounter [facility] 03-15-2025 Note HNO ID: [id number] Author: FRANCISCO GRIFFITH MD Service: ? Author Type: Physician Type: Progress Notes Filed: 03/15/2025 08:35 Note Text: ESTABLISHED PATIENT VISIT HPI Tressa Marshall is a 39 year old female who presents with a history of kidney stones. Last seen in the office in March 2022 with surgery in May 2023. Patient contacted office with pain, possible stone on February 04, 2025 Recurrent kidney stones since age 12. Prior Litholink many years ago After litholink, Dr Song did low sodium diet and fish oil ; she repeated Litholink and her urine calcium and sodium were markedly improved, but citrate was low. 02/08/2025 KUB: Left renal calculi Multiple radiopaque opacities overlying the left kidney measuring up to 6 mm 06/23/2023: Cystoscopy, left ureteroscopy, laser lithotripsy, stone basket extraction, left ureteral stent placement 10/15/2020: Right extracorporeal shock wave lithotripsy CT 04/14/2022: OSH Left renal calculi ? Hypercalcemia, order PTH 06/23/2023 70% Calcium Phosphate Creatinine Date Value Ref Range Status 11/16/2024 0.67 0.58 - 0.96 mg/dL Final No results found for: PSA Color (no units) Date Value 10/20/2023 Yellow 04/02/2019 Yellow Clarity (no units) Date Value 10/20/2023 Clear 04/02/2019 Clear Glucose, Urine Date Value 10/20/2023 Negative 03/28/2023 neg mg/dL Bilirubin, Urine (no units) Date Value 10/20/2023 Negative 04/02/2019 Negative Ketones, Urine (no units) Date Value 10/20/2023 Negative 04/02/2019 Negative Specific [place], Ur (no units) Date Value 10/20/2023 1.020 04/02/2019 1.007 Hemoglobin/Blood,Ur Date Value 10/20/2023 1+ 04/02/2019 Negative pH, Urine (no units) Date Value 10/20/2023 7.0 04/02/2019 5.5 Protein, Urine Date Value 10/20/2023 Trace 03/28/2023 30 mg/dL Urobilinogen (no units) Date Value 10/20/2023 1.0 EU/dL 04/02/2019 Normal Nitrites (no units) Date Value 10/20/2023 Positive 04/02/2019 Negative Leukest (no units) Date Value 04/02/2019 Negative Leuk Esterase (no units) Date Value 10/20/2023 2+ 24HR Urine Studies: Recent Labs 03/16/19 1200 12/18/18 1200 12/17/18 1200 LUPH 6.946* 7.190* 6.830* LUCAL 90 230* 198 LUCIT 385* 621 567 LUOXA 21 29 28 LUURIC 0.599 0.643 0.592 LUVOL 2.60 2.64 1.98 LSCAO 1.98* 3.66* 5.23* LSCAP 0.63 1.81 1.98 LSURIC 0.07 0.04 0.11 LUCL 101 228 157 LATRELL 37 68 47 GLENROY 118 259* 176* LUUREA 6.39 7.41 7.61 LUAM 23 19 20 LUMAG 35 70 55 LUPHOS 0.520* 0.806 0.731 LUPCR 1.0 1.1 1.2 LUCREA 1,203 1,214 1,117 LUCRKBW 24.3* 25.0* 23.0* LUCAKBW 1.8 4.7* 4.1* LUCACREA 74 189 178 LUSUL 18* 22 23 REVIEW OF SYSTEMS Review of Systems Review of system, history including past medical history, surgical history, family history and social history reviewed and confirmed by me. HISTORIES PAST MEDICAL HISTORY Diagnosis Date Abnormal glandular Papanicolaou smear of cervix 05/06/2008 Abn. Pap smear (cervix) Anemia A TEENAGER FIBROCYSTIC BREASTS FRACTURE 2000 NOSE Gestational diabetes mellitus, class A1 ([facility]) 01/19/2023 Hemorrhage of gastrointestinal tract, unspecified Hydronephrosis 10/19/2013 Kidney stones Lumbago DISC DISEASE Other specified forms of hearing loss Unspecified hemorrhoids without mention of complication Hemorrhoids Urinary calculus, unspecified Renal stones Vaginal delivery ([facility]) x3 PAST SURGICAL HISTORY Procedure Laterality Date COLONOSCOPY FLX DX W/COLLJ SPEC WHEN PFRMD 2019 reportedly normal, internal hemorrhoids COLPOSCOPY CERVIX UPPER/ADJACENT VAGINA Colposcopy LASIK 11/2010 LITHOTRIPSY XTRCORP SHOCK WAVE 09/11/10 Lithotripsy PAST SURGICAL HISTORY OF ureteroscopy with basket extraction kidney stone RHINP PRIM LATANDALAR CRTLGSAND/ELVTN NASAL TI Rhinoplasty FAMILY HISTORY Problem Relation Age of Onset GI Father hemachromatosis Heart Father Hypertension Father Kidney Disease Father KIDNEY STONES Asthma Mother No Known Problems Brother Heart Maternal Grandmother Colon Cancer Maternal Grandmother Stroke Maternal Grandmother Arthritis Maternal Grandmother Colon Cancer Paternal Grandmother Colon Cancer Paternal Grandfather Heart Paternal Grandfather HTN, CVA No Known Problems Son No Known Problems Son Lipids Maternal Aunt Colon Polyps Maternal Aunt Multiple Sclerosis Paternal Aunt No Ocular Disease No Family History SOCIAL HISTORY Social History Tobacco Use Smoking status: Never Smokeless tobacco: Never Vaping Use Vaping status: Never Used Substance Use Topics Alcohol use: Not Currently Alcohol/week: 1.0 standard drink of alcohol Types: 1 Cans of Beer (12oz) per week Comment: Occasionally, NOT WHILE Drug use: No MEDICATIONS: chrm/vineg/bit-orang peel/gr t (APPLE CIDER VINEGAR PLUS ORAL) PNV no.153/FA/om3/dha/epa/fish ( GUMMIES ORAL) citalopram (C (more content not included)... [facility] 02-05-2025 Telephone encounter Note Patient informed. Charbel Pinzon MA [facility] 02-05-2025 Miscellaneous Notes Patient informed. Charbel Pinzon MA Patient called thinking she is having a kidney stone. She was asking if you would order her an xray to see for sure. She was last seen in office 04/23/2022, and surgery with you 06/23/2023. She did make an appointment with you on 04/08/25. KUB pended if needed. Can you advise? Charbel Pinzon MA documented in this encounter [facility] 02-04-2025 Telephone encounter Note Patient called thinking she is having a kidney stone. She was asking if you would order her an xray to see for sure. She was last seen in office 04/23/2022, and surgery with you 06/23/2023. She did make an appointment with you on 04/08/25. KUB pended if needed. Can you advise? Charbel Pinzon MA [facility] 11-23-2024 Telephone encounter Note Completed and in the outbox in our office. Fadia Berger APRN.CNP [facility] 11-23-2024 Miscellaneous Notes Completed and in the outbox in our office. Fadia Berger APRN.CNP Please see pt message Gail Gurrola MA documented in this encounter [facility] 11-23-2024 Telephone encounter Note Please see pt message Gail Gurrola MA [facility] 11-16-2024 Telephone encounter Note Faxed Gail Gurrola MA [facility] 11-16-2024 Miscellaneous Notes Faxed Gail Gurrola MA Please send derm consult to Reid Simeon per patient request. Fadia Berger APRN.GALEN documented in this encounter [facility] 11-16-2024 Telephone encounter Note Please send derm consult to Reid Simeon per patient request. Fadia Berger APRN.CNP [facility] 11-16-2024 Note HNO ID: [id number] Author: FADIA BERGER APRN.CNP Service: ? Author Type: Nurse Practitioner Type: Progress Notes Filed: 11/16/2024 14:09 Note Text: Chief Complaint Patient presents with: Physical Insurance Physical HPI Tressa Marshall is a 39 year old female who presents here today for Above Complaints.. Celexa - tolerating well. States mood is good Insomnia - states she gets 4 hours of sleep per night. Is able to fall asleep but has difficulty staying asleep. Has used ambien in the past and that helped her to stay asleep. Ears feel full, R>L. Denies pain or recent sickness. Does know she has a little bit of hearing loss chronically from repeated ear infections when she was younger. Would like a referral to dermatology to get established for yearly skin checks. Denies any current concerns. Past medical history, appointments, medications, allergies reviewed. Previous Medical History PAST MEDICAL HISTORY Diagnosis Date Abnormal glandular Papanicolaou smear of cervix 05/06/2008 Abn. Pap smear (cervix) Anemia A TEENAGER FIBROCYSTIC BREASTS FRACTURE 2001 NOSE Gestational diabetes mellitus, class A1 01/19/2023 Hemorrhage of gastrointestinal tract, unspecified Hydronephrosis 10/19/2013 Kidney stones Lumbago DISC DISEASE Other specified forms of hearing loss Unspecified hemorrhoids without mention of complication Hemorrhoids Urinary calculus, unspecified Renal stones Vaginal delivery x3 Previous Surgical History PAST SURGICAL HISTORY Procedure Laterality Date COLONOSCOPY FLX DX W/COLLJ SPEC WHEN PFRMD 2019 reportedly normal, internal hemorrhoids COLPOSCOPY CERVIX UPPER/ADJACENT VAGINA Colposcopy LASIK 11/2010 LITHOTRIPSY XTRCORP SHOCK WAVE 09/11/10 Lithotripsy PAST SURGICAL HISTORY OF ureteroscopy with basket extraction kidney stone RHINP PRIM LATANDALAR CRTLGSAND/ELVTN NASAL TI Rhinoplasty Family History FAMILY HISTORY Problem Relation Age of Onset GI Father hemachromatosis Heart Father Hypertension Father Kidney Disease Father KIDNEY STONES Asthma Mother No Known Problems Brother Heart Maternal Grandmother Colon Cancer Maternal Grandmother Stroke Maternal Grandmother Arthritis Maternal Grandmother Colon Cancer Paternal Grandmother Colon Cancer Paternal Grandfather Heart Paternal Grandfather HTN, CVA No Known Problems Son No Known Problems Son Lipids Maternal Aunt Colon Polyps Maternal Aunt Multiple Sclerosis Paternal Aunt No Ocular Disease No Family History Patient Allergies ALLERGIES Allergen Reactions Amoxicillin Rash, Unknown Bactrim [Sulfametho* Swelling Lip swelling Chlorthalidone Unknown Hygroton Rash Keflex [Cephalexin] Diarrhea, Vomiting Macrobid [Nitrofura* Hives Trimethoprim Swelling Current Medications Current Outpatient Medications on File Prior to Visit Medication Sig Norethindrone, Contraceptive, 0.35 mg tablet Take 1 tablet by mouth once daily. Norethindrone, Contraceptive, 0.35 mg tablet Take 1 tablet by mouth once daily. PNV no.153/FA/om3/dha/epa/fish ( GUMMIES ORAL) citalopram (CELEXA) 20 mg tablet Take 1 tablet by mouth once daily. docusate sodium (COLACE) 100 mg capsule Take 1 capsule by mouth twice daily as needed for Constipation. tamsulosin (FLOMAX) 0.4 mg Take 1 capsule by mouth once daily. No current facility-administered medications on file prior to visit. Social History Social History Tobacco Use Smoking status: Never Smokeless tobacco: Never Vaping Use Vaping status: Never Used Substance Use Topics Alcohol use: Not Currently Alcohol/week: 1.0 standard drink of alcohol Types: 1 Cans of Beer (12oz) per week Comment: Occasionally, NOT WHILE Drug use: No Review of Symptoms REVIEW OF SYSTEMS See HPI, otherwise negative EXAM: BP 118/82 (BP Site: Left Arm, BP Position: Sitting, BP Cuff Size: Regular Adult) Pulse 77 Resp 16 Ht 161 cm (5' 3.39) Wt 55.7 kg (122 lb 12.8 oz) LMP 07/05/2022 SpO2 99% BMI 21.49 kg/m? General Appearance: Well appearing, alert, in no acute distress, well-hydrated, well nourished.. Ears: External ears normal, canals clear, Oropharynx: Lips, mucosa, and tongue normal, teeth and gums normal, oropharynx normal. Neck: Supple, no adenopathy; thyroid symmetric, normal size, no bruits. Lungs: Lungs clear to auscultation. No wheezing, rhonchi, rales.. Heart: RRR without murmur, gallop, or rubs. No ectopy. Abdomen: Normal abdominal exam, Abdomen soft, non-tender. Bowel sounds normal. No masses, organomegaly. Extremities: No deformities, edema, skin discoloration, clubbing or cyanosis. Good capillary refill. . Peripheral Pulses: Normal. Lymph Nodes: No cervical lymphadenopathy and No supraclavicular lymphadenopathy. Psychiatric: pleasant, cooperative Health Maintenance List Depression Screening Never done Anxiety Screening Never done (more content not included)... [facility] 11-16-2024 History of Presen t illness Narrative Chief Complaint Patient presents with: Physical Insurance Physical HPI Tressa Marshall is a 39 year old female who presents here today for Above Complaints.. Celexa - tolerating well. States mood is good Insomnia - states she gets 4 hours of sleep per night. Is able to fall asleep but has difficulty staying asleep. Has used ambien in the past and that helped her to stay asleep. Ears feel full, R>L. Denies pain or recent sickness. Does know she has a little bit of hearing loss chronically from repeated ear infections when she was younger. Would like a referral to dermatology to get established for yearly skin checks. Denies any current concerns. Past medical history, appointments, medications, allergies reviewed. Previous Medical History PAST MEDICAL HISTORY Diagnosis Date Abnormal glandular Papanicolaou smear of cervix 05/06/2008 Abn. Pap smear (cervix) Anemia A TEENAGER FIBROCYSTIC BREASTS FRACTURE 2001 NOSE Gestational diabetes mellitus, class A1 01/19/2023 Hemorrhage of gastrointestinal tract, unspecified Hydronephrosis 10/19/2013 Kidney stones Lumbago DISC DISEASE Other specified forms of hearing loss Unspecified hemorrhoids without mention of complication Hemorrhoids Urinary calculus, unspecified Renal stones Vaginal delivery x3 Previous Surgical History PAST SURGICAL HISTORY Procedure Laterality Date COLONOSCOPY FLX DX W/COLLJ SPEC WHEN PFRMD 2019 reportedly normal, internal hemorrhoids COLPOSCOPY CERVIX UPPER/ADJACENT VAGINA Colposcopy LASIK 11/2010 LITHOTRIPSY XTRCORP SHOCK WAVE 09/11/10 Lithotripsy PAST SURGICAL HISTORY OF ureteroscopy with basket extraction kidney stone RHINP PRIM LAT&ALAR CRTLGS&/ELVTN NASAL TI Rhinoplasty Family History FAMILY HISTORY Problem Relation Age of Onset GI Father hemachromatosis Heart Father Hypertension Father Kidney Disease Father KIDNEY STONES Asthma Mother No Known Problems Brother Heart Maternal Grandmother Colon Cancer Maternal Grandmother Stroke Maternal Grandmother Arthritis Maternal Grandmother Colon Cancer Paternal Grandmother Colon Cancer Paternal Grandfather Heart Paternal Grandfather HTN, CVA No Known Problems Son No Known Problems Son Lipids Maternal Aunt Colon Polyps Maternal Aunt Multiple Sclerosis Paternal Aunt No Ocular Disease No Family History Patient Allergies ALLERGIES Allergen Reactions Amoxicillin Rash, Unknown Bactrim [Sulfametho* Swelling Lip swelling Chlorthalidone Unknown Hygroton Rash Keflex [Cephalexin] Diarrhea, Vomiting Macrobid [Nitrofura* Hives Trimethoprim Swelling Current Medications Current Outpatient Medications on File Prior to Visit Medication Sig Norethindrone, Contraceptive, 0.35 mg tablet Take 1 tablet by mouth once daily. Norethindrone, Contraceptive, 0.35 mg tablet Take 1 tablet by mouth once daily. PNV no.153/FA/om3/dha/epa/fish ( GUMMIES ORAL) citalopram (CELEXA) 20 mg tablet Take 1 tablet by mouth once daily. docusate sodium (COLACE) 100 mg capsule Take 1 capsule by mouth twice daily as needed for Constipation. tamsulosin (FLOMAX) 0.4 mg Take 1 capsule by mouth once daily. No current facility-administered medications on file prior to visit. Social History Social History Tobacco Use Smoking status: Never Smokeless tobacco: Never Vaping Use Vaping status: Never Used Substance Use Topics Alcohol use: Not Currently Alcohol/week: 1.0 standard drink of alcohol Types: 1 Cans of Beer (12oz) per week Comment: Occasionally, NOT WHILE Drug use: No Review of Symptoms REVIEW OF SYSTEMS See HPI, otherwise negative EXAM: BP 118/82 (BP Site: Left Arm, BP Position: Sitting, BP Cuff Size: Regular Adult) Pulse 77 Resp 16 Ht 161 cm (5' 3.39) Wt 55.7 kg (122 lb 12.8 oz) LMP 07/05/2022 SpO2 99% BMI 21.49 kg/m General Appearance: Well appearing, alert, in no acute distress, well-hydrated, well nourished.. Ears: External ears normal, canals clear, Oropharynx: Lips, mucosa, and tongue normal, teeth and gums normal, oropharynx normal. Neck: Supple, no adenopathy; thyroid symmetric, normal size, no bruits. Lungs: Lungs clear to auscultation. No wheezing, rhonchi, rales.. Heart: RRR without murmur, gallop, or rubs. No ectopy. Abdomen: Normal abdominal exam, Abdomen soft, non-tender. Bowel sounds normal. No masses, organomegaly. Extremities: No deformities, edema, skin discoloration, clubbing or cyanosis. Good capillary refill. . Peripheral Pulses: Normal. Lymph Nodes: No cervical lymphadenopathy and No supraclavicular lymphadenopathy. Psychiatric: [facility], [facility] Health Maintenance List Depression Screening Never done Anxiety Screening Never done Covid-19 Vaccine(2023- season) due on 05/27/2024 Mammogram Screening Never done Cervical Cancer Screening due on 03/10/2026 DTaP,Tdap,Td Vaccine(13 - Td or Tdap) due on 01/19/2033 Hepatitis B Vaccine Completed Influenza Vaccine Completed Hepatitis C Screening Completed HIV Screening Completed Data reviewed Previous records, office notes ASSESSMENT/PLAN: 1. Chronic insomnia - ICD9: 780.52, ICD10: F51.04 (primary diagnosis) - ZOLPIDEM 10 MG TABLET 2. Screening for depression - ICD9: V79.0, ICD10: Z13.31 - DEPRESSION SCREENING 3. Encounter for screening examination for other mental health and behavioral disorders - ICD9: V79.8, ICD10: Z13.39 - ANXIETY SCREENING 4. Encounter for screening mammogram for breast cancer - ICD9: V76.12, ICD10: Z12.31 - Follow up for annual exam in one year. - JUAN CARLOS SCREENING W KENIA 5. Well adult exam - ICD9: V70.0, ICD10: Z00.00 - Counseled on healthy diet and regular exercise - DEPRESSION SCREENING - ANXIETY SCREENING - JUAN CARLOS SCREENING W KENIA - COMPLETE BLOOD COUNT - COMPREHENSIVE METABOLIC PANEL - LIPID PANEL BASIC - THYROID STIMULATING HORMONE - VITAMIN D 25 HYDROXY - VITAMIN D 25 HYDROXY 6. Screening for lipid disorders - ICD9: V77.91, ICD10: Z13.220 - LIPID PANEL BASIC 7. Screening for thyroid disorder - ICD9: V77.0, ICD10: Z13.29 - THYROID STIMULATING HORMONE 8. Encounter for vitamin deficiency screening - ICD9: V77.99, ICD10: Z13.21 - VITAMIN D 25 HYDROXY - VITAMIN D 25 HYDROXY - VITAMIN B12 9. Numerous moles - ICD9: 216.9, ICD10: D22.9 - CONSULT TO DERMATOLOGY 10. Sensation of fullness in both ears - ICD9: 388.8, ICD10: H93.8X3 - CONSULT TO ENT Melani Lewis Attending Note I have personally performed a face to face assessment of the patient and have reviewed the PATRICIA note and I agree. Other additions or changes: As edited Signature: Fadia Berger Date: 11/16/2024 Time: 2:08 PM documented in this encounter [facility] 10-11-2024 Telephone encounter Note Please file. Previous home delivery rx was accidentally canceled. Requested Prescriptions Pending Prescriptions Disp Refills Norethindrone, Contraceptive, 0.35 mg tablet 84 tablet 2 Sig: Take 1 tablet by mouth once daily. Dayanna Faith RN [facility] 10-11-2024 Miscellaneous Notes Please file. Previous home delivery rx was accidentally canceled. Requested Prescriptions Pending Prescriptions Disp Refills Norethindrone, Contraceptive, 0.35 mg tablet 84 tablet 2 Sig: Take 1 tablet by mouth once daily. Dayanna Faith RN documented in this encounter [facility] 10-08-2024 Telephone encounter Note The following medication was sent to the pharmacy but requires a 90 day supply for payment by the patient's insurance: Requested Prescriptions Pending Prescriptions Disp Refills Norethindrone, Contraceptive, 0.35 mg tablet 84 tablet 0 Sig: Take 1 tablet by mouth once daily. The last encounter with Claudia Taylor APRN.COVERED [employer]KER was Visit date not found RX INSTRUCTIONS: Patient aware RX escripted to mail away pharmacy. No need to notify patient. Patient has been identified by name and date of : Yes Please approve this refill. Butternut day supply is not covered by the insurance. Jeannine Hernandez RPh [facility] 10-08-2024 Miscellaneous Notes The following medication was sent to the pharmacy but requires a 90 day supply for payment by the patient's insurance: Requested Prescriptions Pending Prescriptions Disp Refills Norethindrone, Contraceptive, 0.35 mg tablet 84 tablet 0 Sig: Take 1 tablet by mouth once daily. The last encounter with Claudia Taylor APRN.[employer]OVER[employer] was Visit date not found RX INSTRUCTIONS: Patient aware RX escripted to mail away pharmacy. No need to notify patient. Patient has been identified by name and date of : Yes Please approve this refill. Butternut day supply is not covered by the insurance. Jeannine Hernanedz RPh documented in this encounter [facility] 09-15-2024 Telephone encounter Note Pt called in to report she was seen yesterday by her provider/team and being treated for a bacterial sinus infection. Since nausea and vomiting started pt was advised to come into [facility]. Kimani Aviles LPN [facility] 09-15-2024 Miscellaneous Notes Pt called in to report she was seen yesterday by her provider/team and being treated for a bacterial sinus infection. Since nausea and vomiting started pt was advised to come into [facility]. Kimani Aviles LPN documented in this encounter [facility] 09-14-2024 Note HNO ID: [id number] Author: MIRIAM STONE APRN.GALEN Service: ? Author Type: Nurse Practitioner Type: Progress Notes Filed: 09/14/2024 10:47 Note Text: Chief Complaint Patient presents with: Sinus Problem: Sinus pain x 6 weeks HPI Tressa Marshall is a 39 year old female who presents here today for Above Complaints. Tressa is an established patient of Suraj Berger CNP. She is a new patient to me today. Concerns today.. Sinus pain --- Sinus pressure, productive cough, sinus drainage of green mucous, and sinus headaches x 6 weeks. Significant sinus pressure when leaning over. Has tried mucinex, zyrtec, flonase, and tylenol with minimal relief. No other concerns or complaints. Past medical history, appointments, medications, allergies reviewed. Previous Medical History PAST MEDICAL HISTORY Diagnosis Date Abnormal glandular Papanicolaou smear of cervix 05/06/2008 Abn. Pap smear (cervix) Anemia A TEENAGER FIBROCYSTIC BREASTS FRACTURE 2001 NOSE Gestational diabetes mellitus, class A1 01/19/2023 Hemorrhage of gastrointestinal tract, unspecified Hydronephrosis 10/19/2013 Kidney stones Lumbago DISC DISEASE Other specified forms of hearing loss Unspecified hemorrhoids without mention of complication Hemorrhoids Urinary calculus, unspecified Renal stones Vaginal delivery x3 Previous Surgical History PAST SURGICAL HISTORY Procedure Laterality Date COLONOSCOPY FLX DX W/COLLJ SPEC WHEN PFRMD 2019 reportedly normal, internal hemorrhoids COLPOSCOPY CERVIX UPPER/ADJACENT VAGINA Colposcopy LASIK 11/2010 LITHOTRIPSY XTRCORP SHOCK WAVE 09/11/10 Lithotripsy PAST SURGICAL HISTORY OF ureteroscopy with basket extraction kidney stone RHINP PRIM LATANDALAR CRTLGSAND/ELVTN NASAL TI Rhinoplasty Family History FAMILY HISTORY Problem Relation Age of Onset GI Father hemachromatosis Heart Father Hypertension Father Kidney Disease Father KIDNEY STONES Asthma Mother No Known Problems Brother Heart Maternal Grandmother Colon Cancer Maternal Grandmother Stroke Maternal Grandmother Arthritis Maternal Grandmother Colon Cancer Paternal Grandmother Colon Cancer Paternal Grandfather Heart Paternal Grandfather HTN, CVA No Known Problems Son No Known Problems Son Lipids Maternal Aunt Colon Polyps Maternal Aunt Multiple Sclerosis Paternal Aunt No Ocular Disease No Family History Patient Allergies ALLERGIES Allergen Reactions Amoxicillin Rash, Unknown Bactrim [Sulfametho* Swelling Lip swelling Chlorthalidone Unknown Hygroton Rash Keflex [Cephalexin] Diarrhea, Vomiting Macrobid [Nitrofura* Hives Trimethoprim Swelling Current Medications Current Outpatient Medications on File Prior to Visit Medication Sig PNV no.153/FA/om3/dha/epa/fish ( GUMMIES ORAL) Norethindrone, Contraceptive, 0.35 mg tablet Take 1 tablet by mouth once daily. citalopram (CELEXA) 20 mg tablet Take 1 tablet by mouth once daily. docusate sodium (COLACE) 100 mg capsule Take 1 capsule by mouth twice daily as needed for Constipation. tamsulosin (FLOMAX) 0.4 mg Take 1 capsule by mouth once daily. No current facility-administered medications on file prior to visit. Social History Social History Tobacco Use Smoking status: Never Smokeless tobacco: Never Vaping Use Vaping status: Never Used Substance Use Topics Alcohol use: Not Currently Alcohol/week: 1.0 standard drink of alcohol Types: 1 Cans of Beer (12oz) per week Comment: Occasionally, NOT WHILE Drug use: No REVIEW OF SYSTEMS: as above Reviewed relevant PMHx, PSHx, Social Hx, current medications and allergies. Review of Symptoms REVIEW OF SYSTEMS See HPI. EXAM: BP 110/70 (BP Site: Left Arm, BP Position: Sitting, BP Cuff Size: Regular Adult) Pulse 78 LMP 07/05/2022 SpO2 96% General Appearance: Well appearing, alert, in no acute distress, well-hydrated, well nourished.. Skin: Skin color, texture, turgor normal, no suspicious rashes or lesions. Head: Normocephalic, no masses, lesions, tenderness or abnormalities, Positive findings: + frontal sinus tenderness. Oropharynx: Lips, mucosa, and tongue normal, teeth and gums normal, oropharynx normal. Lungs: Lungs clear to auscultation. No wheezing, rhonchi, rales.. Heart: RRR without murmur, gallop, or rubs. No ectopy. Health Maintenance List Depression Screening Never done Anxiety Screening Never done Covid-19 Vaccine( season) due on 05/27/2024 Mammogram Screening due on 2024 Cervical Cancer Screening due on 03/10/2026 DTaP,Tdap,Td Vaccine(13 - Td or Tdap) due on 01/19/2033 Hepatitis B Vaccine Completed HPV Vaccine Completed Influenza Vaccine Completed Hepatitis C Screening Completed HIV Screening Completed ASSESSMENT/PLAN: 1. Bacterial sinusitis - ICD9: 473.9, 041.9, ICD10: J32.9, B96.89 - Will begin treatment with as per antibiotic as writt (more content not included)... [facility] 09-14-2024 History of Presen t illness Narrative Chief Complaint Patient presents with: Sinus Problem: Sinus pain x 6 weeks HPI Tressa Marshall is a 39 year old female who presents here today for Above Complaints. Tressa is an established patient of Suraj Berger CNP. She is a new patient to me today. Concerns today.. Sinus pain --- Sinus pressure, productive cough, sinus drainage of green mucous, and sinus headaches x 6 weeks. Significant sinus pressure when leaning over. Has tried mucinex, zyrtec, flonase, and tylenol with minimal relief. No other concerns or complaints. Past medical history, appointments, medications, allergies reviewed. Previous Medical History PAST MEDICAL HISTORY Diagnosis Date Abnormal glandular Papanicolaou smear of cervix 05/06/2008 Abn. Pap smear (cervix) Anemia A TEENAGER FIBROCYSTIC BREASTS FRACTURE 2001 NOSE Gestational diabetes mellitus, class A1 01/19/2023 Hemorrhage of gastrointestinal tract, unspecified Hydronephrosis 10/19/2013 Kidney stones Lumbago DISC DISEASE Other specified forms of hearing loss Unspecified hemorrhoids without mention of complication Hemorrhoids Urinary calculus, unspecified Renal stones Vaginal delivery x3 Previous Surgical History PAST SURGICAL HISTORY Procedure Laterality Date COLONOSCOPY FLX DX W/COLLJ SPEC WHEN PFRMD 2019 reportedly normal, internal hemorrhoids COLPOSCOPY CERVIX UPPER/ADJACENT VAGINA Colposcopy LASIK 11/2010 LITHOTRIPSY XTRCORP SHOCK WAVE 09/11/10 Lithotripsy PAST SURGICAL HISTORY OF ureteroscopy with basket extraction kidney stone RHINP PRIM LAT&ALAR CRTLGS&/ELVTN NASAL TI Rhinoplasty Family History FAMILY HISTORY Problem Relation Age of Onset GI Father hemachromatosis Heart Father Hypertension Father Kidney Disease Father KIDNEY STONES Asthma Mother No Known Problems Brother Heart Maternal Grandmother Colon Cancer Maternal Grandmother Stroke Maternal Grandmother Arthritis Maternal Grandmother Colon Cancer Paternal Grandmother Colon Cancer Paternal Grandfather Heart Paternal Grandfather HTN, CVA No Known Problems Son No Known Problems Son Lipids Maternal Aunt Colon Polyps Maternal Aunt Multiple Sclerosis Paternal Aunt No Ocular Disease No Family History Patient Allergies ALLERGIES Allergen Reactions Amoxicillin Rash, Unknown Bactrim [Sulfametho* Swelling Lip swelling Chlorthalidone Unknown Hygroton Rash Keflex [Cephalexin] Diarrhea, Vomiting Macrobid [Nitrofura* Hives Trimethoprim Swelling Current Medications Current Outpatient Medications on File Prior to Visit Medication Sig PNV no.153/FA/om3/dha/epa/fish ( GUMMIES ORAL) Norethindrone, Contraceptive, 0.35 mg tablet Take 1 tablet by mouth once daily. citalopram (CELEXA) 20 mg tablet Take 1 tablet by mouth once daily. docusate sodium (COLACE) 100 mg capsule Take 1 capsule by mouth twice daily as needed for Constipation. tamsulosin (FLOMAX) 0.4 mg Take 1 capsule by mouth once daily. No current facility-administered medications on file prior to visit. Social History Social History Tobacco Use Smoking status: Never Smokeless tobacco: Never Vaping Use Vaping status: Never Used Substance Use Topics Alcohol use: Not Currently Alcohol/week: 1.0 standard drink of alcohol Types: 1 Cans of Beer (12oz) per week Comment: Occasionally, NOT WHILE Drug use: No REVIEW OF SYSTEMS: as above Reviewed relevant PMHx, PSHx, Social Hx, current medications and allergies. Review of Symptoms REVIEW OF SYSTEMS See HPI. EXAM: BP 110/70 (BP Site: Left Arm, BP Position: Sitting, BP Cuff Size: Regular Adult) Pulse 78 LMP 07/05/2022 SpO2 96% General Appearance: Well appearing, alert, in no acute distress, well-hydrated, well nourished.. Skin: Skin color, texture, turgor normal, no suspicious rashes or lesions. Head: Normocephalic, no masses, lesions, tenderness or abnormalities, Positive findings: + frontal sinus tenderness. Oropharynx: Lips, mucosa, and tongue normal, teeth and gums normal, oropharynx normal. Lungs: Lungs clear to auscultation. No wheezing, rhonchi, rales.. Heart: RRR without murmur, gallop, or rubs. No ectopy. Health Maintenance List Depression Screening Never done Anxiety Screening Never done Covid-19 Vaccine( season) due on 05/27/2024 Mammogram Screening due on 2024 Cervical Cancer Screening due on 03/10/2026 DTaP,Tdap,Td Vaccine(13 - Td or Tdap) due on 01/19/2033 Hepatitis B Vaccine Completed HPV Vaccine Completed Influenza Vaccine Completed Hepatitis C Screening Completed HIV Screening Completed ASSESSMENT/PLAN: 1. Bacterial sinusitis - ICD9: 473.9, 041.9, ICD10: J32.9, B96.89 - Will begin treatment with as per antibiotic as written, see orders - The patient should also be given OTC decongestants prn, OTC cough and cold meds as needed, warm salt water gargles, throat lozenges and/or OTC throat spray as needed, and nasal saline gtts and suction prn for the first 5-7 days of treatment. - Supportive care with plenty of fluids, rest, and analgesia prn. - Follow up in 3-5 days if symptoms persist or worsen. - DOXYCYCLINE HYCLATE 100 MG CAPSULE RTO as needed if no improvement. Prescription instructions reviewed with patient as applicable. Potential red flag symptoms discussed with the patient. Reviewed appropriate action plan to take if red flag symptoms occur. Patient agreeable to treatment plan. Miriam Delong, IKER.[employer] [address] [place] [address] documented in this encounter [facility] 08-16-2024 Note HNO ID: [id number] Author: DARCY ZAMBRANO OD Service: ? 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 Dry eye syndrome of bilateral lacrimal glands Recommended: Use Systane Complete or Refresh Relieva 2-3 times daily Use Systane, Refresh or Blink gel nightly before bed in both eyes 2. Regular astigmatism of right eye 3. Myopia, left eye Continue with current glasses 4. Hx of LASIK Slightly nearsighted- doing well Monitor Follow-up in 1 year or sooner with any worsening dry eye Darcy Zambrano, OD August 16, 2024 9:[address] [facility] 08-16-2024 History of Presen t illness Narrative 1. Dry eye syndrome of bilateral lacrimal glands Recommended: Use Systane Complete or Refresh Relieva 2-3 times daily Use Systane, Refresh or Blink gel nightly before bed in both eyes 2. Regular astigmatism of right eye 3. Myopia, left eye Continue with current glasses 4. Hx of LASIK Slightly nearsighted- doing well Monitor Follow-up in 1 year or sooner with any worsening dry eye Darcy Zambrano, RICARDO August 16, 2024 9:43 AM documented in this encounter [facility] 08-16-2024 Instructions Darcy Zambrano, OD - 08/16/2024 9:42 AM EST Use Systane Complete or Refresh Relieva 2-3 times daily Use Systane, Refresh or Blink gel nightly before bed in both eyes documented in this encounter [facility] 06-28-2024 Note HNO ID: [id number] Author: SARAY CLINE MD Service: ? Author Type: Physician Type: Progress Notes Filed: 06/28/2024 09:04 Note Text: Convolute Tube Winder offered: Patient declinesHarish Bustillos is a 38 year old who presents for an annual gynecologic exam without complaints. Menses: no menses - continuous OCPs. Contraception: Progestin - only contraceptives HPV vaccine: Yes Last Pap: 03/13/2021 normal HPV: 03/12/2021 negative History of abnormal pap: No Last mammogram: never Sexually active: Yes History of STDS: None Patient concerns for STD exposure: No. 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 Pap smear (cervix) Anemia A TEENAGER FIBROCYSTIC BREASTS FRACTURE 2001 NOSE Gestational diabetes mellitus, class A1 01/19/2023 Hemorrhage of gastrointestinal tract, unspecified Hydronephrosis 10/19/2013 Kidney stones Lumbago DISC DISEASE Other specified forms of hearing loss Unspecified hemorrhoids without mention of complication Hemorrhoids Urinary calculus, unspecified Renal stones Vaginal delivery x3 PAST SURGICAL HISTORY Procedure Laterality Date COLONOSCOPY FLX DX W/COLLJ SPEC WHEN PFRMD 2019 reportedly normal, internal hemorrhoids COLPOSCOPY CERVIX UPPER/ADJACENT VAGINA Colposcopy LASIK 11/2010 LITHOTRIPSY XTRCORP SHOCK WAVE 09/11/10 Lithotripsy PAST SURGICAL HISTORY OF ureteroscopy with basket extraction kidney stone RHINP PRIM LATANDALAR CRTLGSAND/ELVTN NASAL TI Rhinoplasty FAMILY HISTORY Problem Relation Age of Onset Asthma Mother GI Father hemachromatosis Heart Father Hypertension Father Kidney Disease Father KIDNEY STONES No Known Problems Brother Heart Maternal Grandmother Colon Cancer Maternal Grandmother Stroke Maternal Grandmother Arthritis Maternal Grandmother Colon Cancer Paternal Grandmother Colon Cancer Paternal Grandfather Heart Paternal Grandfather HTN, CVA No Known Problems Son No Known Problems Son Lipids Maternal Aunt Colon Polyps Maternal Aunt Multiple Sclerosis Paternal Aunt SOCIAL HISTORY Social History Tobacco Use Smoking status: Never Smokeless tobacco: Never Vaping Use Vaping status: Never Used Substance Use Topics Alcohol use: Not Currently Alcohol/week: 1.0 standard drink of alcohol Types: 1 Cans of Beer (12oz) per week Comment: Occasionally, NOT WHILE Drug use: No REVIEW OF SYSTEMS Abdomen: No abdominal pain, nausea, vomiting, diarrhea, ++ constipation No bloating, early satiety, indigestion, or increased flatulence. Bladder: No dysuria, gross hematuria, urinary frequency, urinary urgency, or incontinence. Breast: No breast lumps, nipple d/c, overlying skin changes, redness or skin retraction. Allergies and current medication updated:Yes SENSITIVE EXAM: The sensitive examination was discussed with the Patient or Patient's Authorized Notereader. As applicable, any other physician, advance practice provider, medical student, or other health professional student that will be observing or involved in the sensitive examination for educational or training purposes was discussed with the Patient or Authorized Notereader. The Patient or Authorized Notereader has agreed to proceed with the sensitive examination. (Sensitive examination includes inspection and/or palpation of the breasts, pelvis, prostate and anorectal regions). EXAM: BP 112/76 Wt 117 lb (53.1kg) LMP 07/05/2022 GENERAL: pleasant, female in no apparent distress HEENT: Normocephalic, atraumatic, mucus membranes moist, and no lesions NECK: Supple, full range of motion, no adenopathy, and thyroid normal DERMATOLOGY: Normal, without lesions, non-icteric, and non-hirsute BREAST: soft, non-tender, symmetric, no dominant mass, normal nipple-areolar complex, no lymphadenopathy, and no nipple discharge ABDOMEN: soft, non-tender, and no masses PELVIC: external genitalia normal, normal Bartholin's glands, urethra, [place]'s glands, no vulvar lesions, no cervical lesions, good vaginal support, physiologic discharge present, normal appearing perineal body and perianal region BIMANUAL: uterus normal size, shape and consistency, no adnexal masses, and non-tender RECTOVAGINAL: deferred. NEURO: alert and oriented x3,exam grossly non-focal EXTREMITIES: normal ASSESSMENT/PLAN: 1) Health maintenance: Pap/HPV up to date. Mammogram ordered Nutrition, exercise and routine health maintenance exams reviewed. (more content not included)... [facility] 06-28-2024 History of Presen t illness Narrative Convolute Tube Winder offered: Patient declinesHarish Bustillos is a 38 year old who presents for an annual gynecologic exam without complaints. Menses: no menses - continuous OCPs. Contraception: Progestin - only contraceptives HPV vaccine: Yes Last Pap: 03/13/2021 normal HPV: 03/12/2021 negative History of abnormal pap: No Last mammogram: never Sexually active: Yes History of STDS: None Patient concerns for STD exposure: No. 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 Pap smear (cervix) Anemia A TEENAGER FIBROCYSTIC BREASTS FRACTURE 2001 NOSE Gestational diabetes mellitus, class A1 01/19/2023 Hemorrhage of gastrointestinal tract, unspecified Hydronephrosis 10/19/2013 Kidney stones Lumbago DISC DISEASE Other specified forms of hearing loss Unspecified hemorrhoids without mention of complication Hemorrhoids Urinary calculus, unspecified Renal stones Vaginal delivery x3 PAST SURGICAL HISTORY Procedure Laterality Date COLONOSCOPY FLX DX W/COLLJ SPEC WHEN PFRMD 2019 reportedly normal, internal hemorrhoids COLPOSCOPY CERVIX UPPER/ADJACENT VAGINA Colposcopy LASIK 11/2010 LITHOTRIPSY XTRCORP SHOCK WAVE 09/11/10 Lithotripsy PAST SURGICAL HISTORY OF ureteroscopy with basket extraction kidney stone RHINP PRIM LAT&ALAR CRTLGS&/ELVTN NASAL TI Rhinoplasty FAMILY HISTORY Problem Relation Age of Onset Asthma Mother GI Father hemachromatosis Heart Father Hypertension Father Kidney Disease Father KIDNEY STONES No Known Problems Brother Heart Maternal Grandmother Colon Cancer Maternal Grandmother Stroke Maternal Grandmother Arthritis Maternal Grandmother Colon Cancer Paternal Grandmother Colon Cancer Paternal Grandfather Heart Paternal Grandfather HTN, CVA No Known Problems Son No Known Problems Son Lipids Maternal Aunt Colon Polyps Maternal Aunt Multiple Sclerosis Paternal Aunt SOCIAL HISTORY Social History Tobacco Use Smoking status: Never Smokeless tobacco: Never Vaping Use Vaping status: Never Used Substance Use Topics Alcohol use: Not Currently Alcohol/week: 1.0 standard drink of alcohol Types: 1 Cans of Beer (12oz) per week Comment: Occasionally, NOT WHILE Drug use: No REVIEW OF SYSTEMS Abdomen: No abdominal pain, nausea, vomiting, diarrhea, ++ constipation No bloating, early satiety, indigestion, or increased flatulence. Bladder: No dysuria, gross hematuria, urinary frequency, urinary urgency, or incontinence. Breast: No breast lumps, nipple d/c, overlying skin changes, redness or skin retraction. Allergies and current medication updated:Yes SENSITIVE EXAM: The sensitive examination was discussed with the Patient or Patient's Authorized Notereader. As applicable, any other physician, advance practice provider, medical student, or other health professional student that will be observing or involved in the sensitive examination for educational or training purposes was discussed with the Patient or Authorized Notereader. The Patient or Authorized Notereader has agreed to proceed with the sensitive examination. (Sensitive examination includes inspection and/or palpation of the breasts, pelvis, prostate and anorectal regions). EXAM: BP 112/76 Wt 117 lb (53.1kg) LMP 07/05/2022 GENERAL: pleasant, female in no apparent distress HEENT: Normocephalic, atraumatic, mucus membranes moist, and no lesions NECK: Supple, full range of motion, no adenopathy, and thyroid normal DERMATOLOGY: Normal, without lesions, non-icteric, and non-hirsute BREAST: soft, non-tender, symmetric, no dominant mass, normal nipple-areolar complex, no lymphadenopathy, and no nipple discharge ABDOMEN: soft, non-tender, and no masses PELVIC: external genitalia normal, normal Bartholin's glands, urethra, [place]'s glands, no vulvar lesions, no cervical lesions, good vaginal support, physiologic discharge present, normal appearing perineal body and perianal region BIMANUAL: uterus normal size, shape and consistency, no adnexal masses, and non-tender RECTOVAGINAL: deferred. NEURO: alert and oriented x3,exam grossly non-focal EXTREMITIES: normal ASSESSMENT/PLAN: 1) Health maintenance: Pap/HPV up to date. Mammogram ordered Nutrition, exercise and routine health maintenance exams reviewed. Colon cancer screening: start at age 45 HPV vaccine: completed series 2) Contraception: Progestin - only contraceptives. Contraceptive options reviewed and information provided. 3) STD screening: Declined STD check. 4) Follow up one year or sooner as needed Saray Parrish MD documented in this encounter [facility] 05-16-2024 Telephone encounter Note ordered [facility] 05-16-2024 Miscellaneous Notes ordered Patient c/o UTI symptoms. Please file UA and urine culture orders for her. Dayanna Faith RN documented in this encounter [facility] 05-16-2024 Telephone encounter Note Patient c/o UTI symptoms. Please file UA and urine culture orders for her. Dayanna Faith RN [facility] 03-30-2024 Instructions Liz Erwin APRN.[employer] - 03/30/2024 9:38 AM EDT Images from the original note were not included. ACUTE SINUSITIS OVERVIEW Rhinosinusitis, or more commonly sinusitis, is the medical term for inflammation (swelling) of the lining of the sinuses and nose. The sinuses are the hollow areas within the facial bones that are connected to the nasal openings. The sinuses are lined with mucous membranes, similar to the inside of the nose. There are two main types of sinusitis: acute and chronic. Acute sinusitis is inflammation that lasts for less than four weeks while chronic sinusitis lasts for more than 12 weeks. Acute sinusitis is common, affecting approximately one million people per year in the [place]. ACUTE SINUSITIS CAUSES The most common cause of acute sinusitis is a viral infection associated with the common cold. Bacterial sinusitis occurs much less commonly, in only 0.5 to 2 percent of cases, usually as a complication of viral sinusitis. Because antibiotics are effective only against bacterial, and not viral, infections, most people do not need antibiotics for acute sinusitis. ACUTE SINUSITIS SYMPTOMS Symptoms of acute sinusitis include: Nasal congestion or blockage Thick, yellow to green discharge from the nose Pain in the teeth Pain or pressure in the face that is worse when bending forwards Other acute sinusitis symptoms can include fever (temperature greater than 100.4 F or 38 C), fatigue, cough, difficulty or inability to smell, ear pressure or fullness, headache, and bad breath. In most cases, these symptoms develop over the course of one day and begin to improve within seven to 10 days. DO I NEED TO BE EXAMINED? It is difficult to know if you have a viral or bacterial sinus infection initially. However, most people with a viral infection improve without treatment within seven to 10 days after symptoms begin. Bacterial sinusitis also sometimes improves without treatment, although it can also worsen and require treatment. If one or more of the following bothersome symptoms last more than seven days, an examination by a healthcare provider is recommended: Thick, yellow to green discharge from the nose Face or tooth pain, especially if it is only on one side Tenderness over the maxillary sinuses (located on the left and right side of the nose, inside the cheekbones) Symptoms that initially improve and then worsen When to seek immediate help -- If you have one or more of the following symptoms, you should seek medical attention immediately (even if symptoms have been present for less than seven days): High fever (>102.5 F or 39.2 C) Sudden, severe pain in the face or head Double vision or difficulty seeing Confusion or difficulty thinking clearly Swelling or redness around one or both eyes Stiff neck, shortness of breath ACUTE SINUSITIS TREATMENT Initial treatment of a sinus infection aims to relieve symptoms since almost everyone will improve within the first seven to 10 days. Experts recommend avoiding antibiotics during this time unless there is clear evidence of a severe bacterial infection. Initial treatment Pain relief -- Non-prescription pain medications, such as acetaminophen (eg, Tylenol ) or ibuprofen (eg, Motrin , Advil ) are recommended for pain. Nasal irrigation and saline sprays -- Rinsing the nose with a salt-water (saline) solution is called nasal irrigation or nasal lavage. Saline is also available in a standard nasal spray, although this is not as effective as using larger amounts of water in an irrigation. Nasal irrigation is particularly useful for treating drainage down the back of the throat, sneezing, nasal dryness, and congestion. The treatment helps by rinsing out allergens and irritants from the nose. Saline rinses also clean the nasal lining and can be used before applying sprays containing medications, to get a better effect from the medication. Nasal lavage with warmed saline can be performed as needed, once per day, or twice daily for increased symptoms. Nasal lavage carries few risks when performed correctly. Saline nasal sprays and irrigation kits can be purchased [id number]. Saline mixes can also be purchased or patients can make their own solution. A variety of devices, including bulb syringes, Neti pots, and bottle sprayers, may be used to perform nasal lavage; instructions for nasal lavage are provided in the table. At least 200 mL (about 3/4 cup) of fluid is recommended for each nostril. Nasal decongestants -- Nasal decongestant sprays, including oxymetazoline (Afrin ) and phenylephrine (Tobi-synephrine ) can be used to temporarily treat congestion. However, these sprays should not be used for more than two to three days due to the risk of rebound congestion (when the nose is congested constantly unless the medication is used repeatedly). Other treatments -- Other treatments for congestion, such as oral antihistamines (such as diphenhydramine/Benadryl ) or zinc supplements are not proven to improve symptoms of sinusitis and can have unwanted side effects. Medications to thin secretions (such as guaifenesin) may help to clear mucus. Secondline treatment -- If symptoms have not improved in seven to ten days, you should arrange for medical evaluation. You may need further treatment. Nasal glucocorticoids -- Nasal glucocorticoids (steroids delivered by a nasal spray) can help to reduce swelling inside the nose, usually within two to three days. These drugs have few side effects and dramatically relieve symptoms in most people. There are a number of nasal glucocorticoids available by prescription. These drugs are all effective, but differ in how frequently they must be used and how much they cost. You may need to use a nasal decongestant for a few days before starting a nasal glucocorticoid to reduce nasal swelling; this will allow the nasal glucocorticoid to reach more areas of the nasal passages Do I need an antibiotic? -- If bothersome symptoms of sinusitis persist for 10 or more days, it is possible that you have bacterial sinusitis. The need for antibiotics depends upon the severity of your symptoms. Mild symptoms -- There are two possible treatment options if you have mild sinusitis symptoms: treat with antibiotics or continue to watch and wait for one week. Watching and waiting is a reasonable option because up to 75 percent of people with bacterial sinusitis improve within one month without antibiotics. During the watch and wait period, treatments to improve symptoms are recommended. If symptoms worsen or do not improve after watching and waiting, treatment with an antibiotic is usually recommended. Treatments to relieve symptoms are recommended while using antibiotics. Moderate or severe symptoms -- Most healthcare providers will prescribe an antibiotic for moderate to severe symptoms (temperature >38.3 C or 101 F and/or severe pain that interferes with usual activities). Treatments to relieve symptoms are also recommended during antibiotic treatment. One of the least expensive and most effective antibiotics for sinusitis is amoxicillin. An alternate antibiotic will be prescribed if you are allergic to penicillin. Regardless of which antibiotic is prescribed, it is important to follow the dosing instructions carefully and to finish the entire course of treatment. Taking the medication less often than prescribed or stopping the medication early can lead to complications, such as a recurrent infection. What if I do not improve with treatment? -- If you do not improve or worsen after a course of antibiotics, you should be re-examined. In some cases, symptoms of sinusitis improve but then recur. This is usually because the infection was not completely eliminated by the antibiotic. An alternate antibiotic, extended antibiotic treatment, and/or further testing may be recommended, depending upon your individual situation. Instructions to spray medicated nose sprays (please note the best time to use Flonase, Nasonex, Rhinocort or similar is at night before bed). 1. Blow your nose out before spraying 2. Shake it before spraying each time. 3. Keep head in neutral position or looking down slightly. 4. Put about a quarter of the tip of the bottle in the right nostril and aim at the outside corner of the right eye. 5. [place] one spray only. Take a sniff as you are spraying but do not snort. 6. Repeat in the left nostril while pointing towards the outside corner of the left eye 8. Then if you are doing two sprays in each nostril wait 4-5 minutes before spraying the second spray. 9. If it drips out every time such when the nose is very congested. Have the patient sit on the bed. Look down, spray and then lay down on their back on a bed. This will allow the medicine to coat the nose on the way back. Sit up and repeat for the other side. documented in this encounter [facility] 03-30-2024 History of Presen t illness Narrative Telemedicine Visit - Distance Health Virtual Visit Note Patient seen on [employer] Video Visit platform. Location of patient: [place] I have communicated my name and active licensure. The patient's identity and physical location were verified at the time of this visit. Either the patient or their legal premium representative has been informed of the risks and benefits of -- and alternatives to -- treatment through a remote evaluation and consents to proceed with the evaluation remotely. History of Present Illness Tressa Marshall is a 38 year old year old female who presents for the past 1 week with symptoms that are:gradually worsening. COUGH, SINUS CONGESTION, FACIAL PRESSURE AND SINUS PRESSURE AND HEADACHE TAKING MUCINEX DM BID , SUDAFED AND OCC SUDAFED COLD & FLU A FEW TIMES , FLONASE, DENIES FEVER OR CHILLS COVID tested: NO COVID VACCINE: Symptoms include: SEE ABOVE Oral intake: OK Tobacco use: No Second hand smoke exposure: No Recent exposure to strep:No Sick contacts: NO Recent travel: NO OTC meds/remedies that patient has tried: SEE ABOVE . PAST MEDICAL HISTORY Diagnosis Date Abnormal glandular Papanicolaou smear of cervix 05/06/2008 Abn. Pap smear (cervix) Anemia A TEENAGER FIBROCYSTIC BREASTS FRACTURE 2000 NOSE Gestational diabetes mellitus, class A1 01/19/2023 Hemorrhage of gastrointestinal tract, unspecified Hydronephrosis 10/19/2013 Kidney stones Lumbago DISC DISEASE Other specified forms of hearing loss Unspecified hemorrhoids without mention of complication Hemorrhoids Urinary calculus, unspecified Renal stones Vaginal delivery x3 PAST SURGICAL HISTORY Procedure Laterality Date COLONOSCOPY FLX DX W/COLLJ SPEC WHEN PFRMD 2019 reportedly normal, internal hemorrhoids COLPOSCOPY CERVIX UPPER/ADJACENT VAGINA Colposcopy LASIK 11/2010 LITHOTRIPSY XTRCORP SHOCK WAVE 09/11/10 Lithotripsy PAST SURGICAL HISTORY OF ureteroscopy with basket extraction kidney stone RHINP PRIM LAT&ALAR CRTLGS&/ELVTN NASAL TI Rhinoplasty FAMILY HISTORY Problem Relation Age of Onset Asthma Mother GI Father hemachromatosis Heart Father Hypertension Father Kidney Disease Father KIDNEY STONES No Known Problems Brother Heart Maternal Grandmother Colon Cancer Maternal Grandmother Stroke Maternal Grandmother Arthritis Maternal Grandmother Colon Cancer Paternal Grandmother Colon Cancer Paternal Grandfather Heart Paternal Grandfather HTN, CVA No Known Problems Son No Known Problems Son Lipids Maternal Aunt Colon Polyps Maternal Aunt Multiple Sclerosis Paternal Aunt Social History Tobacco Use Smoking status: Never Smokeless tobacco: Never Vaping Use Vaping Use: Never used Substance Use Topics Alcohol use: Not Currently Alcohol/week: 1.0 standard drink of alcohol Types: 1 Cans of Beer (12oz) per week Comment: Occasionally, NOT WHILE Drug use: No Current Outpatient Medications Medication Sig citalopram (CELEXA) 20 mg tablet Take 1 tablet by mouth once daily. Norethindrone, Contraceptive, 0.35 mg tablet Take 1 tablet by mouth once daily. Norethindrone, Contraceptive, 0.35 mg tablet Take 1 tablet by mouth once daily. tamsulosin (FLOMAX) 0.4 mg Take 1 capsule by mouth once daily. oxyCODONE-acetaminophen (PERCOCET) 5-325 mg tablet Take 1 tablet by mouth every 6 hours as needed for pain. FOR PAIN. blood sugar diagnostic test strip 1 Strip four times daily. Use as instructed Lancets lancets 1 Each four times daily. Use as instructed Ferrous Sulfate (SLOW FE) 142 mg (45 mg iron) TbER Take by mouth. aspirin, enteric coated (ASPIRIN, ENTERIC COATED) 81 mg EC tablet Take 81 mg by mouth twice daily. promethazine (PHENERGAN) 12.5 mg tablet Take 1-2 tablets by mouth every 6 hours as needed. docusate sodium (COLACE) 100 mg capsule Take 1 capsule by mouth twice daily as needed for Constipation. No current facility-administered medications for this visit. ALLERGIES Allergen Reactions Amoxicillin Rash, Unknown Bactrim [Sulfametho* Swelling Lip swelling Chlorthalidone Unknown Hygroton [Other] Rash Keflex [Cephalexin] Diarrhea, Vomiting Macrobid [Nitrofura* Hives Trimethoprim Swelling Video Exam (Examination performed via Video enabled technology) General appearance Alert, oriented, pleasant, in NAD: Yes Ill appearing: Yes Lethargic appearing: No HEENT Eyes: Sclera clear :Yes Conjunctiva without erythema :Yes Frontal sinus tenderness by self palpation;No Maxillary sinus tenderness by self palpation :Yes Ears: Tragus / outer ear tenderness by self palpation :SOME DISCOMFORT Tender cervical adenopathy by self palpation :Yes Oropharynx: normal, no erythema PULMONARY Respiratory distress: No Coughing noted: LITTLE PHLEGMY , COUGH WORSE AT NIGHT Audible wheezing noted: No, LITTLE HEAVY ======== Sinusitis: >3-4 days: Y Worsening after 3-4 days , lasting 5-6 days: Y >10 days not improving: N Fever > or equal to 102 or worsening fever : N; temp Purulent nasal discharge YELLOW-GREEN Worsening nasal discharge after initial improvement of URI: Facial pain Y Day time cough: Y == ASSESSMENT/PLAN: 1. Bacterial sinusitis - ICD9: 473.9, 041.9, ICD10: J32.9, B96.89 (primary diagnosis) - Will begin treatment with as per antibiotic as written, see orders - The patient should also be given OTC cough and cold meds as needed and nasal saline gtts and suction prn for the first 5-7 days of treatment. - Supportive care with plenty of fluids, rest, and analgesia prn. - DOXYCYCLINE HYCLATE 100 MG TABLET - IPRATROPIUM BROMIDE 21 MCG (0.03 %) NASAL SPRAY 2. PND (post-nasal drip) - ICD9: 784.91, ICD10: R09.82 - IPRATROPIUM BROMIDE 21 MCG (0.03 %) NASAL SPRAY 3. Acute cough - ICD9: 786.2, ICD10: R05.1 CONTINUE W/ MUCINEX 4. Sinus congestion - ICD9: 478.19, ICD10: R09.81 STOP SUDAFED AND CHANGE TO MUCINEX COLD AND SINUS 5. Sinus pressure - ICD9: 478.19, ICD10: J34.89 CONTINUE FLONASE ADD NEW NASAL SPRAY 6. Headache, unspecified headache type - ICD9: 784.0, ICD10: R51.9 NSAIDS PRN GOOD HYDRATION Symptoms are most consistent with viral upper respiratory infection that given duration and ongoing symptoms potentially developed a secondary ABRS. As a result, feel reasonable to try antibiotics and recommended continued symptomatic treatments also. Discussed that antibiotics pose serious risk of adverse effects and not clear benefits outweigh these risks. Patient understood and still wanted to try them. - Reviewed OTC medications and supplements to help w/ sxs - Encouraged good hydration, handwashing and use of humidified air - Encouraged REST - Red flags discussed for need for in person care - All questions answered IF YOUR SYMPTOMS PERSIST OR WORSENING IN THE NEXT 10 DAYS THEN PLEASE FOLLOW UP WITH YOUR PCP Liz Erwin, MSN, CAREER DEVELOPMENT ASSOCIATE-COVERED BUTTON MAKER, CUNP [facility] documented in this encounter [facility] 06-20-2023 Miscellaneous Notes Pt is scheduled for C&P, Lt ULL and stent with Dr Griffith at [facility] on 06/23/23 @ 2:15 (12:15 arrival). Pt to do labs prior. Pt given date, time, prep and arrival instructions over the phone on 06/17/23. [employer] message sent also. Tanna King documented in this encounter [facility] 06-16-2023 History of Presen t illness Narrative Radiology Service Progress Note PATIENT NAME: Tressa Marshall DATE OF SERVICE: June 16, 2023 TIME: 12:34 PM PATIENT IDENTITY VERIFICATION COMPLETED USING TWO (2) IDENTIFIERS: Name and Date of confirmed by patient verbally. FALL SCREENING: Has the patient had 2 falls in the last year or 1 fall with injury or currently using an Ambulatory Assistive Device (Walker, Cane, Wheelchair, Crutches, etc.)? No PATIENT GENDER DATA: Female. status: : No status: NO. PATIENT RELEVANT IMPLANT DATA REVIEWED: Not Applicable RADIOLOGY DEPARTMENT: General X-ray: Exam(s) Completed: Abdomen X-Ray: Abdomen PERIPHERAL IV DATA: Not applicable SIGNED BY: Beatris Delgado RT(R) June 16, 2023 12:34 PM documented in this encounter [facility] 06-16-2023 Miscellaneous Notes Spoke to pt and she wants to get the KUB today while she is waiting on CT to be approved. Mireille QUEEN Lm for pt to call and see which she wants. Mireille QUEEN documented in this encounter [facility] 05-19-2023 History of Presen t illness Narrative VISIT Tressa Marshall is a 37 year old year old here for visit. Delivery Summary: 04/01/2023 ROS/ Recovery: Feeding: Breast feeding problems: None Menses since delivery: none Menstrual pattern prior to : Regular periods [place] since delivery: Not resumed Depression: denies symptoms of depression. OB Depression and Anxiety Screening- This Encounter (since 05/18/2023) Over the past 2 weeks have you felt down, depressed, or hopeless? Negative Over the past two weeks, have you felt little interest or pleasure in doing things? Negative Feeling nervous, anxious or on edge 0-Not at all Not being able to stop or control worrying 0-Not al all Anxiety Pre-Screening Total (If >/= 3 additional questions will be reviewed) 0 Emotional support: Yes Bowel symptoms: Negative for abdominal discomfort, blood in stools or black stools and change in bowel habits Abdomen: N/A Bladder symptoms: No dysuria, gross hematuria, urinary frequency, urinary urgency, or incontinence Other issues: None Last Pap: 2020 normal HPV: negative PAST MEDICAL HISTORY Diagnosis Date Abnormal glandular Papanicolaou smear of cervix 05/06/2008 Abn. Pap smear (cervix) Anemia A TEENAGER FIBROCYSTIC BREASTS FRACTURE 2001 NOSE Gestational diabetes mellitus, class A1 01/19/2023 Hemorrhage of gastrointestinal tract, unspecified Hydronephrosis 10/19/2013 Kidney stones Lumbago DISC DISEASE Other specified forms of hearing loss Unspecified hemorrhoids without mention of complication Hemorrhoids Urinary calculus, unspecified Renal stones Vaginal delivery x3 PAST SURGICAL HISTORY Procedure Laterality Date COLONOSCOPY FLX DX W/COLLJ SPEC WHEN PFRMD 2019 reportedly normal, internal hemorrhoids COLPOSCOPY CERVIX UPPER/ADJACENT VAGINA Colposcopy LASIK 11/2010 LITHOTRIPSY XTRCORP SHOCK WAVE 09/11/10 Lithotripsy PAST SURGICAL HISTORY OF ureteroscopy with basket extraction kidney stone RHINP PRIM LAT&ALAR CRTLGS&/ELVTN NASAL TI Rhinoplasty FAMILY HISTORY Problem Relation Age of Onset Asthma Mother GI Father hemachromatosis Heart Father Hypertension Father Kidney Disease Father KIDNEY STONES No Known Problems Brother Heart Maternal Grandmother Colon Cancer Maternal Grandmother Stroke Maternal Grandmother Arthritis Maternal Grandmother Colon Cancer Paternal Grandmother Colon Cancer Paternal Grandfather Heart Paternal Grandfather HTN, CVA No Known Problems Son No Known Problems Son Lipids Maternal Aunt Colon Polyps Maternal Aunt Multiple Sclerosis Paternal Aunt Social History Tobacco Use Smoking status: Never Smokeless tobacco: Never Vaping Use Vaping Use: Never used Substance Use Topics Alcohol use: Not Currently Alcohol/week: 2.5 standard drinks of alcohol Types: 1 Cans of Beer (12oz) per week Comment: Occasionally, NOT WHILE Drug use: No PHYSICAL EXAMINATION: BP 106/62 Wt 118 lb (53.5kg) LMP 07/05/2022 GENERAL: pleasant, female in no apparent distress HEENT: Normocephalic, atraumatic, mucus membranes moist, and no lesions NECK: Supple, full range of motion, no adenopathy, and thyroid normal DERMATOLOGY: Normal, without lesions, non-icteric, and non-hirsute BREAST: soft, non-tender, symmetric, no dominant mass, normal nipple-areolar complex, no lymphadenopathy, and no nipple discharge ABDOMEN: soft, non-tender, and no masses. INCISION: N/A PELVIC: external genitalia normal, normal Bartholin's glands, urethra, [place]'s glands, no vulvar lesions, no cervical lesions, good vaginal support, physiologic discharge present, normal appearing perineal body and perianal region BIMANUAL: uterus normal size, shape and consistency, no adnexal masses, and non-tender NEURO: alert and oriented x3,exam grossly non-focal EXTREMITIES: normal ASSESSMENT AND PLAN: 37 year old status post with normal course. Contraception plan: Progesterone only OCPs Follow up: GDM: Needs 2 hour GTT, RTC for annual exams and PRN Saray Parrish MD documented in this encounter [facility] 04-04-2023 History of Presen t illness Narrative Patient delivered via at [facility] on 04/01/23 per Saray Brooks MD. See OB Outcome note. Mireille Brody, RN documented in this encounter [facility] 04-02-2023 Discharge summary Note Date/Time April 02, 2023 7:17a m [facility] Medical Records Department [address] [place] [address] Instructions for Home/Discharge Instructions 04/02/23 0717 MR#: [id number] Acct: [id number] Name: TRESSA MARSHALL Rep #:[id number] : 1985 37 From: Saray Brooks MD PCP: ANÍBAL Ellison Status:ADM IN Discharge Instructions Diet Discharge Diet: No restrictions Activity May resume sexual activity in: 6-8 weeks Dressing / Incision Call your doctor if you observe: Fever of 101 or Higher, Inability to urinate, Using more than 1 pad per hour and Uncontrolled pain Follow Up Care Please Follow Up With: Saray Parrish MD When: 1-2 weeks post and again at 6 weeks post . [phone] Test Results: Test results from this visit will be discussed in further detail at your follow-up appointment, if applicable. Discharge Plan Admission Admit Date/Time: 04/01/23 16:20 Attending Provider: Saray Parrish Primary Care Provider: Fadia Berger NP Discharge Orders/Prescriptions Prescriptions: No Action citalopram 10 mg tablet 10 tab PO DAILY Patient Comments: TAKE 1 TABLET BY MOUTH EVERY DAY zolpidem 10 mg tablet 5 - 10 mg PO QHS Patient Comments: TAKE 1/2 TO 1 TABLET BY MOUTH NIGHTLY NEEDED FOR INSOMNIA. hydrocodone-acetaminophen [hydrocodone-acetaminophen] 1 TABLET tablet 1 tab PO Q4H PRN PRN (Reason: Pain) 2 Days Qty: 10 0RF naproxen 500 MG tablet 500 mg PO BID Qty: 14 0RF ondansetron [ondansetron] 4 MG tablet 4 mg PO Q8H PRN PRN (Reason: Nausea) Qty: 10 0RF Referrals / Follow Up: Fadia Berger NP, BIOCHEMISTRY TECHNOLOGIST-C [Primary Care Provider] - 04/02/23 0758<Electronically signed by Saray Parrish MD>Saray Parrish MD CC: ANÍBAL Berger ~ Signed [facility] Work Phone: 1(341) 925-246707-08-2023 Progress note Author Taylor cornejo [facility] April 02, 2023 7:17am Note Date/Time April 02, 2023 7:17a m [facility] Medical Records Department [address] [place] [address] Progress Note 04/02/23715 MR#: [id number] Acct: [id number] Name: TRESSA MARSHALL Rep #:[id number] : 1985 37 From: Saray Brooks MD PCP: ANÍBAL Ellison Status:ADM IN Location: [id number] Subjective Subjective patient seen at bedside, doing well. Patient reports good pain control. lochia mild. Objective Data Objective Data Vital Signs: Vital Signs Temp Pulse Resp BP Pulse Ox O2 Del Method 98.1 F 80 16 117/79 97 Room Air 04/02/23 03:45 04/02/23 03:45 04/02/23 03:45 04/02/23 03:45 04/02/23 03:45 04/02/23 03:45 Oxygen Delivery Method Room Air Weight: 62.823 kg Body Mass Index (BMI) 24.5 Intake & Output: Intake and Output for Last 24 Hours 03/31/23 04/01/23 04/02/23 23:59 23:59 23:59 Intake Total 1015.78 / 1015.78 Output Total 500 / 500 300 / 300 Balance 515.78 / 515.78 -300 / -300 Lab / Micro Data 04/01/23 17:00 Labs: Laboratory Results - last 24 hr 04/01/23 17:00: WBC 8.8, RBC 4.14 L, Hgb 11.1 L, Hct 35.3 L, MCV 85.3, MCH 26.8 L, MCHC 31.4 L, RDW Std Deviation 51.0 H, RDW Coeff of Timothy 16.9 H, Plt Count 231, MPV 10.7, Immature Gran % (Auto) 0.300, Neut % (Auto) 71.2 H, Lymph % (Auto) 21.2, [place] % (Auto) 6.9, Eos % (Auto) 0.1, Baso % (Auto) 0.3, Absolute Neuts (auto) 6.3, Absolute Lymphs (auto) 1.86, Nucleated RBC % 0, Syphilis TotalAb Non-reactive, Blood Type O POSITIVE, Antibody Screen NEGATIVE 04/01/23 19:36: POC Glucose 84 04/02/23 06:23: POC Glucose 74 Physical Exam Const alert and oriented x3 General Appearance: cooperative HEENT normocephalic Neck General: normal visual inspection GI soft to palpation and non-distended GI Narrative: Fundus firm Extremity normal to inspection and no calf tenderness Skin no rashes or lesions noted Neuro oriented x3 and CN's II-XII intact bilaterally Psych mental status grossly normal Assessment & Plan Assessment/Plan (1) AMA (advanced maternal age) multigravida 35+: QUALIFIERS: Trimester: third trimester Qualified Code(s): O09.523- Supervision of elderly multigravida, third trimester (2) Nephrolithiasis: (3) Vaginal delivery: (4) First degree perineal laceration: PLAN: Plan PPD# 1 , Doing well Routine care pain mgmt ambulation 04/02/23 0717 <Electronically signed by Saray Parrish MD> Saray Parrish MD Cosigner Signature (if applicable): CC: ~ Signed [facility] Work Phone: 1(151) 828-408307-07-2023 History and physical note Author Taylor cornejo [facility] April 01, 2023 5:58pm Note Date/Time April 01, 2023 5:58p [facility] Medical Records Department [address] [place] [id number] H&P Exam - MICA MINER 04/01/23 1755 MR#: [id number] Acct: [id number] Name: TRESSA MARSHALL Rep #:[id number] : 1985 37 From: Saray Brooks MD PCP: ANÍBAL Ellison Status:ADM IN Location: [id number] HPI - General General Date of Admission: 04/01/23 HPI Narrative TRESSA MARSHALL, is a 37 F @ 38.4 who presents c/o contractions. Found to be6-7cm in office with bulging membranes. [facility] Medical History (Updated 04/01/23 @ 17:[address] Saray Parrish MD) Advanced maternal age (AMA) in Kidney stones Home Medications citalopram 10 mg tablet 10 tab PO DAILY 04/14/22 [History Last Taken Unknown] hydrocodone-acetaminophen 5-325mg 5mg-325mg 1 tab PO Q4H PRN PRN Pain 2 days #10TABLETS 04/14/22 [Rx Last Taken Unknown] naproxen 500 mg tablet 500 mg PO BID #14 tabs 04/14/22 [Rx Last Taken Unknown] ondansetron 4 mg disintegrating tablet 4 mg PO Q8H PRN PRN Nausea #10 tabs 04/14/22 [Rx Last Taken Unknown] zolpidem 10 mg tablet 5 - 10 mg PO QHS 04/14/22 [History Last Taken Unknown] Allergy/AdvReac Type Severity Reaction Status Date / Time amoxicillin [Amoxicillin] Allergy Unknown Verified 04/14/22 11:41 chlorthalidone Allergy Unknown Verified 04/14/22 11:41 [From [place]] nitrofurantoin Allergy Unknown Verified 04/14/22 11:41 [From Macrobid] nitrofurantoin Allergy Unknown Verified 04/14/22 11:41 macrocrystalline [From Macrobid] sulfamethoxazole Allergy Swelling Verified 04/14/22 11:41 [From Bactrim] trimethoprim [From Bactrim] Allergy Swelling Verified 04/14/22 11:41 Surgical History (Updated 11/21/19 @ 12:[address] Saray Parrish MD) History of colonoscopy History of colposcopy History of nasal surgery Hx of [facility] Social History Smoking Status: Never smoker History Elective abortions Hx Para 3 Spontaneous abortions Hx # Term Pregnancies Ectopic pregnancies Hx # Pregnancies Multiple births # of living children Vital Signs Vital Signs Vital Signs: 04/01/23 17:22 04/01/23 17:22 04/01/23 17:23 Pulse Rate 70 Blood Pressure 175/94 H 158/93 H BP Systolic 175 158 BP Diastolic 94 93 Pulse Ox 04/01/23 17:23 04/01/23 17:39 04/01/23 17:39 Pulse Rate 74 62 Blood Pressure BP Systolic BP Diastolic Pulse Ox 98 04/01/23 17:42 04/01/23 17:42 04/01/23 17:44 Pulse Rate 90 81 Blood Pressure 156/84 H BP Systolic 156 BP Diastolic 84 Pulse Ox 04/01/23 17:44 04/01/23 17:45 04/01/23 17:45 Pulse Rate 70 Blood Pressure 156/84 H BP Systolic 156 BP Diastolic 84 Pulse Ox 100 04/01/23 17:49 04/01/23 17:49 04/01/23 17:50 Pulse Rate 86 Blood Pressure 156/85 H BP Systolic 156 BP Diastolic 85 Pulse Ox 99 04/01/23 17:50 Pulse Rate 93 Blood Pressure BP Systolic BP Diastolic Pulse Ox Weight Weight: 62.823 kg Body Mass Index (BMI) 24.5 Physical Exam Narrative 6-7cm/bulging membranes. Const alert and oriented x3 General Appearance: cooperative HEENT normocephalic GI GI Narrative: Gravid, non tender to palpation. OB / External & Speculum: external exam normal Extremity normal to inspection Skin no rashes or lesions noted Neuro oriented x3 and CN's II-XII intact bilaterally Psych Appearance: grossly normal Labs Labs Labs: Blood Type O POSITIVE Antibody Screen NEGATIVE Hct 35.3 % (37-47) L Hgb 11.1 g/dL (12.0-15.0) L Syphilis Total Ab Pending Group B Strep DNA Negative (Negative) Rhogam given: No Assessment & Plan (1) Nephrolithiasis: (2) Gestational diabetes: QUALIFIERS: Gestational diabetes mellitus control: diet-controlled Trimester: third trimester Qualified Code(s): O24.410 - Gestational diabetes mellitus in , diet controlled (3) AMA (advanced maternal age) multigravida 35+: QUALIFIERS: Trimester: third trimester Qualified Code(s): O09.523- Supervision of elderly multigravida, third trimester PLAN: Plan Admit to L&D Montior FHR/TOCO Epidural for pain Monitor VS Anticipate 04/01/231757 <Electronically signed by Saray Parrish MD> Cosigner Signature (if applicable): CC: M Dr. Saray Parrish; BIOCHEMISTRY TECHNOLOGIST-C Fadia Berger~ Signed [facility] Work Phone: 1(622) 848-686107-07-2023 Procedure [facility] 03-30-2023 History of Present illness Narrative* Kellie Aguero MD - 03/30/2023 9:30 AM EDT NST SUMMARY PROVIDER ASSESSMENT AND INTERPRETATION Tressa Marshall is a 37 year old female, , who is at 38w2d with an BRICE of 04/11/2023, by Last Menstrual Period dating method. Indications for NST: AMA Baseline: 140 Variability: Moderate Accelerations: Present 15 X 15 Decelerations: None Contractions: TOCO: Irregular Interpretation: Category I and Reactive SIGNATURE: Kellie Aguero MD [facility] Miscellaneous Notes* Quick Notes - Kellie Aguero MD - 03/30/2023 9:30 AM EDT RR_ No VB/LOF. No regular ctxs. Good FM. lots of pressure. Very uncomfortable. BS well controlled. Membrane sweep done at her request. F/u for visit prn or induction at 39 weeks if not delivered by then. She is in agreement w/ plan. Kellie Aguero MD [facility] Instructions* Patient Instructions* Shani Delgado Ma - 03/28/2023 10:51 AM EDT SEQUENTIAL SCREENINGS The [facility] offers sequential screenings for women who are interested in screenings for chromosomal abnormalities and certain defects during a . The sequential screen combinesultrasound and blood tests to determine the risk of chromosomal abnormalities, including Down's Syndrome (Trisomy 21) and Trisomy 18, as well as open neural tube defects including spina bifida. Ultrasound examination is performed between 11 weeks and 13 weeks gestational age. Blood tests are drawn after the ultrasound and again later in the between 15 and 21 weeks gestational age. Please let your physician know if you are interested in this testing. It will require an appointment withour foundry technician. This is not an ultrasound performed by a physician in our office during a routine visit. SIGNS AND SYMPTOMS OF LABOR 1. Contractions every 10 minutes or more often 2. Clear, pink, or brownish fluid (water) leaking from vagina 3. Feeling that baby is pushing down, pressure 4. Low, dull backache 5. Cramps that feel like a period 6. Cramps with or without diarrhea If you notice any of the above symptoms, contact our office at [phone] and ask to speak with anurse. After hours, you can call doctors registry at [phone] OR call [facility] at [phone] ask to have the doctor superintendent sanitation paged. If you consider this an emergency, dial 9-1-2 or go to your nearest emergency department. NEED HELP? Are you dealing with a violent or abusive relationship? Are you a victim of rape or sexual assult? Call [facility] ([place]) 24 hour Crisis Hotline: 508.446.8763 or 674-383-8315. MANUAL Your Guide to a Healthy manual is now on-line. Visit [email or web address] to download your free copy documented in this encounterAs[facility] History of Present illness Narrative* Kellie Aguero MD - 03/21/2023 2:53 PM EDT NST SUMMARY PROVIDER ASSESSMENT AND INTERPRETATION Tressa Marshall is a 37 year old female, , who is at 37w0d with an BRICE of 04/11/2023, by Last Menstrual Period dating method. Indications for NST: AMA and Diabetes - Diet Controlled Baseline: 135 Variability: Moderate Accelerations: Present 15 X 15 Decelerations: None Contractions: TOCO: None Interpretation: Category I and Reactive SIGNATURE: Kellie Aguero MD documented in this encounterAs[facility]06[facility]23 Miscellaneous Notes* Quick Notes - Kellie Aguero MD - 03/21/2023 2:52 PM EDT RR- No VB/LOF. Irreg cutxs. Good FM. BS well co trolled. Cont to monitor BPs. NSt today. If desiresmembrane sweep, will let us know this week. Otherwise f/u in 1 week or prn. Kellie Aguero MD documented in this encounterAs[facility]06-[facility]23 Instructions* Patient Instructions* Shani Delgado Ny - 03/21/2023 2:12 PM EDT SEQUENTIAL SCREENINGS The [facility] offers sequential screenings for women who are interested in screenings for chromosomal abnormalities and certain defects during a . The sequential screen combinesultrasound and blood tests to determine the risk of chromosomal abnormalities, including Down's Syndrome (Trisomy 21) and Trisomy 18, as well as open neural tube defects including spina bifida. Ultrasound examination is performed between 11 weeks and 13 weeks gestational age. Blood tests are drawn after the ultrasound and again later in the between 15 and 21 weeks gestational age. Please let your physician know if you are interested in this testing. It will require an appointment withour foundry technician. This is not an ultrasound performed by a physician in our office during a routine visit. SIGNS AND SYMPTOMS OF LABOR 1. Contractions every 10 minutes or more often 2. Clear, pink, or brownish fluid (water) leaking from vagina 3. Feeling that baby is pushing down, pressure 4. Low, dull backache 5. Cramps that feel like a period 6. Cramps with or without diarrhea If you notice any of the above symptoms, contact our office at [phone] and ask to speak with anurse. After hours, you can call doctors registry at [phone] OR call [facility] at [phone] ask to have the doctor superintendent sanitation paged. If you consider this an emergency, dial 05-27-0 or go to your nearest emergency department. NEED HELP? Are you dealing with a violent or abusive relationship? Are you a victim of rape or sexual assult? Call [facility] ([place]) 24 hour Crisis Hotline: 331.918.9579 or 435-466-9982. MANUAL Your Guide to a Healthy manual is now on-line. Visit [email or web address] to download your free copy documented in this encounterAs[facility]06[facility] History of Present illness Narrative* Saray Brooks MD - 03/14/2023 1:45 PM EDT NST SUMMARY PROVIDER ASSESSMENT AND INTERPRETATION Tressa Marshall is a 37 year old female, , who is at 36w0d with an BRICE of 04/11/2023, by Last Menstrual Period dating method. Indications for NST: AMA and Gestational Diabetes - Diet Controlled Baseline: 150 Variability: Moderate Accelerations: Present 15 X 15 Decelerations: None Contractions: TOCO: Irregular Interpretation: Category I and Reactive SIGNATURE: Saray Parrish MD documented in this encounterAs[facility] Miscellaneous Notes* Quick Notes - Saray Brooks MD - 03/14/2023 8:38 AM EDT DM- Pt doing well today. Denies Vaginal Bleeding, Leaking fluid, or contractions. Pt reports good movement. BS log reviewed- well controlled. Feels like she is now getting a stone on left. Taking flowmax. Has not taken anything for pain. NST today. Growth us this week. Planning IOL at 39 weeks for AMA, GDMA1. RTO one week. NSTs weekly until delivery. Saray Parrish MD documented in this encounterAs[facility]06-[facility]23 Instructions* Patient Instructions* Isabel Vega Ma - 03/14/2023 8:17 AM EDT SEQUENTIAL SCREENINGS The [facility] offers sequential screenings for women who are interested in screenings for chromosomal abnormalities and certain defects during a . The sequential screen combinesultrasound and blood tests to determine the risk of chromosomal abnormalities, including Down's Syndrome (Trisomy 21) and Trisomy 18, as well as open neural tube defects including spina bifida. Ultrasound examination is performed between 11 weeks and 13 weeks gestational age. Blood tests are drawn after the ultrasound and again later in the between 15 and 21 weeks gestational age. Please let your physician know if you are interested in this testing. It will require an appointment withour foundry technician. This is not an ultrasound performed by a physician in our office during a routine visit. SIGNS AND SYMPTOMS OF LABOR 1. Contractions every 10 minutes or more often 2. Clear, pink, or brownish fluid (water) leaking from vagina 3. Feeling that baby is pushing down, pressure 4. Low, dull backache 5. Cramps that feel like a period 6. Cramps with or without diarrhea If you notice any of the above symptoms, contact our office at [phone] and ask to speak with anurse. After hours, you can call doctors registry at [phone] OR call [facility] at [phone] ask to have the doctor superintendent sanitation paged. If you consider this an emergency, dial 9-1- or go to your nearest emergency department. NEED HELP? Are you dealing with a violent or abusive relationship? Are you a victim of rape or sexual assult? Call [facility] ([place]) 24 hour Crisis Hotline: 444.568.9502 or 924-852-5402. MANUAL Your Guide to a Healthy manual is now on-line. Visit [email or web address] to download your free copy documented in this encounterAshtabula County Medical Center06-15-2023 Miscellaneous Notes* Telephone Encounter - Sj Xiong - 03/10/2023 10:02 AM EDT This patient has the [facility] insurance. Treatments are covered at 100% when treated bya [facility] physician at a [facility] facility. documented in this encounterAshtabula County Medical Center06-07-2023 History of Present illness Narrative* Kim Castellanos RN - 03/02/2023 12:22 PM EDT Patient referred to Blood Management for evaluation and treatment of pre- surgical anemia and/or iron deficiency. Non-surgical: anemia in Date of surgery: NA Medical/Surgical History: PAST MEDICAL HISTORY Diagnosis Date Abnormal glandular Papanicolaou smear of cervix 05/06/2008 Abn. Pap smear (cervix) Anemia A TEENAGER FIBROCYSTIC BREASTS FRACTURE 2000 NOSE Gestational diabetes mellitus, class A1 01/19/2023 Hemorrhage of gastrointestinal tract, unspecified Hydronephrosis 10/19/2013 Kidney stones Lumbago DISC DISEASE Other specified forms of hearing loss Unspecified hemorrhoids without mention of complication Hemorrhoids Urinary calculus, unspecified Renal stones Vaginal delivery x3 PAST SURGICAL HISTORY Procedure Laterality Date COLONOSCOPY FLX DX W/COLLJ SPEC WHEN PFRMD 2019 reportedly normal, internal hemorrhoids COLPOSCOPY CERVIX UPPER/ADJACENT VAGINA Colposcopy LASIK 11/2010 LITHOTRIPSY XTRCORP SHOCK WAVE 09/11/10 Lithotripsy PAST SURGICAL HISTORY OF ureteroscopy with basket extraction kidney stone RHINP PRIM LAT&ALAR CRTLGS&/ELVTN NASAL TI Rhinoplasty Other significant Medical/Surgical history: - None Current Outpatient Medications Medication Sig tamsulosin (FLOMAX) 0.4 mg TAKE 1 CAPSULE BY MOUTH ONCE DAILY oxyCODONE-acetaminophen (PERCOCET) 5-325 mg tablet Take 1 tablet by mouth every 6 hours as needed for pain. FOR PAIN. blood sugar diagnostic test strip 1 Strip four times daily. Use as instructed Lancets lancets 1 Each four times daily. Use as instructed Ferrous Sulfate (SLOW FE) 142 mg (45 mg iron) TbER Take by mouth. aspirin, enteric coated (ASPIRIN, ENTERIC COATED) 81 mg EC tablet Take 81 mg by mouth twice daily. promethazine (PHENERGAN) 12.5 mg tablet Take 1-2 tablets by mouth every 6 hours as needed. citalopram hydrobromide (CELEXA) 10 mg tablet Take 1 tablet by mouth once daily. docusate sodium (COLACE) 100 mg capsule Take 1 capsule by mouth twice daily as needed for Constipation. No current facility-administered medications for this visit. Current medications that may affect iron absorption and/or blood loss: - Aspirin Baseline laboratory values: WBC (k/uL) Date Value 02/22/2023 9.61 RBC (m/uL) Date Value 02/22/2023 3.48 (L) Hemoglobin (g/dL) Date Value 02/22/2023 9.4 (L) Hematocrit (%) Date Value 02/22/2023 29.3 (L) MCV (fL) Date Value 02/22/2023 84.2 MCH (pg) Date Value 02/22/2023 27.0 MCHC (g/dL) Date Value 02/22/2023 32.1 RDW-CV (%) Date Value 02/22/2023 13.4 Platelet Count (k/uL) Date Value 02/22/2023 324 MPV (fL) Date Value 02/22/2023 9.2 Iron Date Value Ref Range Status 02/23/2023 58 41 - 186 ug/dL Final TIBC Date Value Ref Range Status 02/23/2023 506 (H) 232 - 386 ug/dL Final Ferritin Date Value Ref Range Status 02/23/2023 12.1 (L) 14.7 - 205.1 ng/mL Final Vitamin B12 Date Value Ref Range Status 02/23/2023 276 232 - 1,245 pg/mL Final Transferrin Saturation Date Value Ref Range Status 02/23/2023 11.5 (L) 15.0 - 57.0 % Final Assess for the need to augment a patient s natural red blood cell production: - Blood transfusion avoidance - Iron depletion Recommendations according to Blood Management patient care guidelines: - Iron Sucrose 200 mg, IV infusion, dose(s) 4 total iron deficit using Ganzoni equation = 704 mg (pre- wt 53 kg/goal hgb 11 g/dl) Clinical information is sent to a provider for review and evaluation for treatment. documented in this encounterAshtabula County Medical Center06-02-2023 Miscellaneous Notes* Telephone Encounter - Basia Lawrence LPN - 02/25/2023 9:07 AM EDT Please see pt's mychart refill request. Basia Lawrence LPN ' documented in this encounterAshtabula County Medical Center05-09-2023 Miscellaneous Notes* Quick Notes - Saray Brooks MD - 02/01/2023 4:13 PM EDT DM- Pt doing well today. Denies Vaginal Bleeding, Leaking fluid, or contractions. Pt reports good movement. Continue Iron. BS log reviewed. Well controlled. Growth us scheduled. RTO 2 weeks. Saray Parrish MD documented in this encounterAshtabula County Medical Center05-09-2023 Instructions* Patient Instructions* Isabel Vega Ma - 02/01/2023 2:31 PM EDT SEQUENTIAL SCREENINGS The [facility] offers sequential screenings for women who are interested in screenings for chromosomal abnormalities and certain defects during a . The sequential screen combinesultrasound and blood tests to determine the risk of chromosomal abnormalities, including Down's Syndrome (Trisomy 21) and Trisomy 18, as well as open neural tube defects including spina bifida. Ultrasound examination is performed between 11 weeks and 13 weeks gestational age. Blood tests are drawn after the ultrasound and again later in the between 15 and 21 weeks gestational age. Please let your physician know if you are interested in this testing. It will require an appointment withour foundry technician. This is not an ultrasound performed by a physician in our office during a routine visit. SIGNS AND SYMPTOMS OF LABOR 1. Contractions every 10 minutes or more often 2. Clear, pink, or brownish fluid (water) leaking from vagina 3. Feeling that baby is pushing down, pressure 4. Low, dull backache 5. Cramps that feel like a period 6. Cramps with or without diarrhea If you notice any of the above symptoms, contact our office at [phone] and ask to speak with anurse. After hours, you can call [facility] at [phone] OR call [facility] at [phone] ask to have the doctor superintendent sanitation paged. If you consider this an emergency, dial 9-1-1 or go to your nearest emergency department. NEED HELP? Are you dealing with a violent or abusive relationship? Are you a victim of rape or sexual assult? Call [facility] ([place]) 24 hour Crisis Hotline: 731.209.6461 or 005-978-5044. MANUAL Your Guide to a Healthy manual is now on-line. Visit [email or web address] to download your free copy documented in this encounterAshtabula County Medical Center04-26-2023 History of Present illness Narrative* Art Durand RN - 01/19/2023 2:48 PM EDT DIABETES CARE AND EDUCATION VISIT Location: [place] Type of visit: Virtual (with video) individual I have communicated my name and active licensure. The patient's identity and physical location wereverified at the time of this visit. Either the patient or their legal premium representative has been informed of the risks and benefits of -- and alternatives to -- treatment through a remote evaluation andconsents to proceed with the evaluation remotely. 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 Monitoring: Reviewed basics of checking with a home meter Meal Planning: Reviewed basic 90-175g carb diet recommended Medications: discussed use of insulin as the primary course of management in GDM Problem Solving: Hypoglycemia and hyperglycemia briefly Physical Activity: Reviewed benefits of exercise Reducing Risks: Importance of control to limit complications HANDOUTS: Patient directed to the [email or web address] website for additional resources LEARNING RESPONSE: Healthy eating: Demonstrated understanding/competency today or at previous visit Monitoring glucose: Demonstrated understanding/competency today or at previous visit POSSIBLE FUTURE TOPICS: 1. DIABETES CARE AND EDUCATION PLAN: Individual follow-up Time Spent (Minutes): 2 minutes This visit note will be communicated to the healthcare provider via access to shared medical record. SIGNATURE: Art Durand RN PATIENT NAME: Tressa Marshall DATE: January 19, 2023 TIME: 2:48 PM documented in this encounterAshtabula County Medical Center04-26-2023 Miscellaneous Notes* Quick Notes - Saray Brooks MD - 01/19/2023 9:39 AM EDT DM- Pt doing well today. Denies Vaginal Bleeding, Leaking fluid, or contractions. Pt reports good movement. GDMA1- supplies ordered, will see outreach educator today. Growth at 32 weeks, NSTs 36 weeks. LARC FORM signed and declined, Tdap today. RTO 2 weeks. Anemia in . Slow FE. Saray Brooks MD documented in this encounterAshtabula County Medical Center04-26-2023 Instructions* Patient Instructions* Isabel Vega Ma - 01/19/2023 9:31 AM EDT SEQUENTIAL SCREENINGS The [facility] offers sequential screenings for women who are interested in screenings for chromosomal abnormalities and certain defects during a . The sequential screen combinesultrasound and blood tests to determine the risk of chromosomal abnormalities, including Down's Syndrome (Trisomy 21) and Trisomy 18, as well as open neural tube defects including spina bifida. Ultrasound examination is performed between 11 weeks and 13 weeks gestational age. Blood tests are drawn after the ultrasound and again later in the between 15 and 21 weeks gestational age. Please let your physician know if you are interested in this testing. It will require an appointment withour foundry technician. This is not an ultrasound performed by a physician in our office during a routine visit. SIGNS AND SYMPTOMS OF LABOR 1. Contractions every 10 minutes or more often 2. Clear, pink, or brownish fluid (water) leaking from vagina 3. Feeling that baby is pushing down, pressure 4. Low, dull backache 5. Cramps that feel like a period 6. Cramps with or without diarrhea If you notice any of the above symptoms, contact our office at [phone] and ask to speak with anurse. After hours, you can call [facility] at [phone] OR call [facility] at [phone] ask to have the doctor superintendent sanitation paged. If you consider this an emergency, dial 9-4 or go to your nearest emergency department. NEED HELP? Are you dealing with a violent or abusive relationship? Are you a victim of rape or sexual assult? Call [facility] ([place]) 24 hour Crisis Hotline: 471.913.2180 or 885-671-7164. MANUAL Your Guide to a Healthy manual is now on-line. Visit [email or web address] to download your free copy documented in this encounterAshtabula County Medical Center04-26-2023 History of Present illness Narrative* Isabel Vega Ma - 01/19/2023 9:29 AM EDT Patient identified by name and date of . Tressa Marshall presents today for a vaccination of Tdap. Patient denies an allergy to latex: yes Patient denies a severe (life-threatening) allergy to a previous dose of Tdap, DTP, DTaP, DT or Td vaccine. Yes Patient denies history of epilepsy or neurological problems: Yes Patient is afebrile and denies being moderately or severely ill: Yes Patient denies history of Guillain-Callahan Syndrome (a severe paralytic illness): Yes Tdap Adacel injection was given without incident. See immunizations for details of immunizations administered today. VIS sheet provided: Yes Provider Yasmany was present in office at time of injection. Isabel Vega Ma documented in this encounterAshtabula County Medical Center02-13-2023 Miscellaneous Notes* Quick Notes - Saray Brooks MD - 11/08/2022 4:47 PM EST DM- Pt doing well today. Denies Vaginal Bleeding, Leaking fluid, or cramping. Passed kidney stone- taking flomax. AFP ordered today. Anatomy us scheduled. RTO 4 wks. Saray Parrish MD documented in this encounterAshtabula County Medical Center02-13-2023 Instructions* Patient Instructions* Isabel Vega Ma - 11/08/2022 4:04 PM EST SEQUENTIAL SCREENINGS The [facility] offers sequential screenings for women who are interested in screenings for chromosomal abnormalities and certain defects during a . The sequential screen combinesultrasound and blood tests to determine the risk of chromosomal abnormalities, including Down's Syndrome (Trisomy 21) and Trisomy 18, as well as open neural tube defects including spina bifida. Ultrasound examination is performed between 11 weeks and 13 weeks gestational age. Blood tests are drawn after the ultrasound and again later in the between 15 and 21 weeks gestational age. Please let your physician know if you are interested in this testing. It will require an appointment withour foundry technician. This is not an ultrasound performed by a physician in our office during a routine visit. SIGNS AND SYMPTOMS OF LABOR 1. Contractions every 10 minutes or more often 2. Clear, pink, or brownish fluid (water) leaking from vagina 3. Feeling that baby is pushing down, pressure 4. Low, dull backache 5. Cramps that feel like a period 6. Cramps with or without diarrhea If you notice any of the above symptoms, contact our office at [phone] and ask to speak with anurse. After hours, you can call doctors registry at [phone] OR call [facility] at [phone] ask to have the doctor superintendent sanitation paged. If you consider this an emergency, dial 9-1-1 or go to your nearest emergency department. NEED HELP? Are you dealing with a violent or abusive relationship? Are you a victim of rape or sexual assult? Call [facility] ([place]) 24 hour Crisis Hotline: 835.402.2702 or 179-481-2414. MANUAL Your Guide to a Healthy manual is now on-line. Visit [email or web address] to download your free copy documented in this encounterAshtabula County Medical Center01-17-2023 History of Present illness Narrative* Sung Amaral, IKER.COVERED BUTTON MAKER - 10/12/2022 11:55 AM EST Subjective HPI Nontoxic-appearing 14-week female presents urgent care chief complaint URI-like symptoms. Duration of symptoms 4 days. Associated symptoms sinus pressure cough nasal congestion headache fatigue. Most prominent symptom today is sinus pressure. States children have had similar signs and symptoms that are started on Tuesday. Has been using OTC medications assessment slightly helpful. Were symptom today is increasing sinus pressure. Denies any vaginal discharge or leaking of fluid. Denies any fever body aches chills productive cough chest pain shortness of breath pleuritic pain hemoptysisnausea vomiting abdominal pain change in bowel or bladder habits. Past medical history prescriptionmedication use and allergies reviewed. .Patient presents with: Cough: Cough, ST, sinus pressure and LENNON x 4 days PAST MEDICAL HISTORY Diagnosis Date Abnormal glandular Papanicolaou smear of cervix 05/06/2008 Abn. Pap smear (cervix) Anemia A TEENAGER FIBROCYSTIC BREASTS FRACTURE 2000 NOSE Hemorrhage of gastrointestinal tract, unspecified Hydronephrosis 10/19/2013 Kidney stones Lumbago DISC DISEASE Other specified forms of hearing loss Unspecified hemorrhoids without mention of complication Hemorrhoids Urinary calculus, unspecified Renal stones Vaginal delivery x3 PAST SURGICAL HISTORY Procedure Laterality Date COLONOSCOPY FLX DX W/COLLJ SPEC WHEN PFRMD 2019 reportedly normal, internal hemorrhoids COLPOSCOPY CERVIX UPPER/ADJACENT VAGINA Colposcopy LASIK 11/2010 LITHOTRIPSY XTRCORP SHOCK WAVE 09/11/10 Lithotripsy PAST SURGICAL HISTORY OF ureteroscopy with basket extraction kidney stone RHINP PRIM LAT&ALAR CRTLGS&/ELVTN NASAL TI Rhinoplasty ALLERGIES Amoxicillin, Bactrim [Sulfamethoxazole], Chlorthalidone, Hygroton [Other], Macrobid [Nitrofurantoin Monohyd/M-Cryst], and Trimethoprim MEDICATIONS promethazine (PHENERGAN) 12.5 mg tablet Take 1-2 tablets by mouth every 6 hours as needed. citalopram hydrobromide (CELEXA) 10 mg tablet Take 1 tablet by mouth once daily. docusate sodium (COLACE) 100 mg capsule Take 1 capsule by mouth twice daily as needed for Constipation. tamsulosin (FLOMAX) 0.4 mg Take 1 capsule by mouth once daily. vit A/vit C/biotin/zinc/copper (RIXF-EBAE-TXNO,VIT A,C-BIOTIN, ORAL) Take by mouth. FAMILY HISTORY Problem Relation Age of Onset Asthma Mother GI Father hemachromatosis Heart Father Hypertension Father Kidney Disease Father KIDNEY STONES No Known Problems Brother Heart Maternal Grandmother Colon Cancer Maternal Grandmother Stroke Maternal Grandmother Arthritis Maternal Grandmother Colon Cancer Paternal Grandmother Colon Cancer Paternal Grandfather Heart Paternal Grandfather HTN, CVA No Known Problems Son No Known Problems Son Lipids Maternal Aunt Colon Polyps Maternal Aunt Multiple Sclerosis Paternal Aunt Social History Tobacco Use Smoking status: Never Smokeless tobacco: Never Vaping Use Vaping Use: Never used Substance Use Topics Alcohol use: Not Currently Alcohol/week: 2.5 standard drinks Types: 1 Cans of Beer (12oz) per week Comment: Occasionally, NOT WHILE Drug use: No BP 118/78 Pulse 91 Temp 37 C (98.6 F) (Tympanic) Resp 18 Wt 55.1 kg (121 lb 6.4 oz) LMP 07/05/2022 SpO2 99% BMI 21.51 kg/m Review of Systems Constitutional: Positive for malaise/fatigue. Negative for chills and fever. HENT: Positive for congestion, sinus pain and sore throat. Negative for ear discharge and ear pain. Eyes: Negative for blurred vision, pain, discharge and redness. Respiratory: Positive for cough. Negative for hemoptysis, sputum production, shortness of breath, wheezing and stridor. Cardiovascular: Negative for chest pain. Gastrointestinal: Negative for abdominal pain, diarrhea, nausea and vomiting. Musculoskeletal: Positive for myalgias. Skin: Negative for itching and rash. Neurological: Positive for headaches. Negative for dizziness. Objective Physical Exam Constitutional: General: She is not in acute distress. Appearance: She is not diaphoretic. HENT: Head: Normocephalic. Right Ear: Tympanic membrane, ear canal and external ear normal. Left Ear: Tympanic membrane, ear canal and external ear normal. Nose: Congestion present. Right Sinus: Maxillary sinus tenderness present. Left Sinus: Maxillary sinus tenderness present. Mouth/Throat: Mouth: Mucous membranes are moist. Pharynx: Oropharynx is clear. No oropharyngeal exudate or posterior oropharyngeal erythema. Eyes: Conjunctiva/sclera: Conjunctivae normal. Pupils: Pupils are equal, round, and reactive to light. Cardiovascular: Rate and Rhythm: Normal rate and regular rhythm. Heart sounds: Normal heart sounds. Pulmonary: Effort: Pulmonary effort is normal. No tachypnea, accessory muscle usage or respiratory distress. Breath sounds: Normal breath sounds. No stridor. No wheezing, rhonchi or rales. Musculoskeletal: Cervical back: Normal range of motion and neck supple. No rigidity or tenderness. Lymphadenopathy: Cervical: No cervical adenopathy. Skin: General: Skin is warm and dry. Neurological: Mental Status: She is alert and oriented to person, place, and time. ASSESSMENT/PLAN: 1. URI with cough and congestion - ICD9: 465.9, ICD10: J06.9 - Discussed viral etiology and rationale for treatment. - Symptomatic treatment with prn analgesia - Supportive care with fluids and rest COVID-19 influenza test offered declined testing at this time. Did take a negative COVID-19 home test prior to arrival. Patient was educated on supportive therapies. Patient will follow up with primary care provider as needed. Patient was instructed to immediately proceed to emergency room for any new, worsening, or symptoms lasting longer than anticipated. The patient's clinical presentation is otherwise unremarkable at this time. Based on exam and clinical finding, the patient is stable for discharge. Plan of care was discussed with patient. Patient verbalizes understanding and agrees to plan of care. This note was generated using [employer] software. It may contain errors in wording, punctuation, or spelling. Sung Amaral APRN.GALEN documented in this encounterAshtabula County Medical Center01-16-2023 History of Present illness Narrative* Kaitlyn Lorenzo APRN.GALEN - 10/11/2022 4:38 PM EST This is an Express Care eVisit note for Tressa Fuentesisit/Questionnaire reviewed The chief complaint for the visit - Patient presents with: Viral Syndrome: Recommendations/Treatment plan - Rx as below plus self care. See My Chart Message to patient. Recommendation for follow up - PRN The following approved medication requests have been transmitted electronically. Requested Prescriptions No prescriptions requested or ordered in this encounter 10 mins to complete Kaitlyn Lorenzo APRN.CNP documented in this encounterAshtabula County Medical Center01-13-2023 Miscellaneous Notes* Telephone Encounter - Jovanna Mccall RN - 10/08/2022 10:03 AM EST Called Tressa Marshall and left message for patient on identified voicemail. Tressa Marshall was informed of negative Non-Invasive Testing (NIPT) results for Trisomy 21, Trisomy 18 and Trisomy 13. Patient was also notified of the result of no sex chromosome aneuploidy detected. Patient instructed to call the office back if she wishes to know reported sex. Reviewed on identified voicemail that NIPT is considered screening and not diagnostic, so this result greatly reduces, but does not eliminate the chance that the fetus could have trisomy 21, trisomy 18, trisomy 13 or sex chromosome aneuploidy. Tressa Marshall instructed to call office if she has questions. Patient advised to follow up with AFP neural tube defect screening (blood draw) at 16-18 weeks gestation and 18-20 week detailed anatomy ultrasound. Also instructed to follow-up with Primary OB Provider. Jovanna Mccall RN documented in this encounterAshtabula County Medical Center12-31-2022 History of Present illness Narrative* Alisson Pelaez APRN.CNP - 09/25/2022 10:42 AM EST This is an Express Care eVisit note for Tressa Marshall eVisit/Questionnaire reviewed The chief complaint for the visit - Patient presents with: Sinus Problem Recommendations/Treatment plan - Rx as below plus self care. See My Chart Message to patient. Obtain COVID testing and supportive treatments; safe medication list provided. Recommendation for follow up - PRN Alisson Pelaez APRN.CNP I spent 5-10 minutes on this eVisit in chart review and coordination of care. documented in this encounterAshtabula County Medical Center12-19-2022 History of Present illness Narrative* Saray Brooks MD - 09/13/2022 3:00 PM EST INITIAL OB ASSESSMENT OB Provider: Saray Brooks MD HPI: Tressa Marshall is a 37 year old female here to establish Obstetrical Care. Patient's last menstrual period was 07/05/2022. from OB Dating Form. Cycle length: 28 days Complaints: nausea without vomiting was unplanned but accepted. OB History T3 L3 SAB0 IAB0 Ectopic0 Multiple0 Live Births3 Prior : never History of 4th degree laceration: No Patient's Risk Screening for delivery: Have you had a prior reeves between 20w and 36w6d?: No History of abnormal pap: No Prior treatment for cervical dysplasia: none. 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 Pap smear (cervix) Anemia A TEENAGER FIBROCYSTIC BREASTS FRACTURE 2001 NOSE Hemorrhage of gastrointestinal tract, unspecified Hydronephrosis 10/19/2013 Kidney stones Lumbago DISC DISEASE Other specified forms of hearing loss Unspecified hemorrhoids without mention of complication Hemorrhoids Urinary calculus, unspecified Renal stones Vaginal delivery x3 PAST SURGICAL HISTORY Procedure Laterality Date COLONOSCOPY FLX DX W/COLLJ SPEC WHEN PFRMD 2019 reportedly normal, internal hemorrhoids COLPOSCOPY CERVIX UPPER/ADJACENT VAGINA Colposcopy LASIK 11/2010 LITHOTRIPSY XTRCORP SHOCK WAVE 09/11/10 Lithotripsy PAST SURGICAL HISTORY OF ureteroscopy with basket extraction kidney stone RHINP PRIM LAT&ALAR CRTLGS&/ELVTN NASAL TI Rhinoplasty Current Outpatient Medications on File Prior to Visit Medication Sig promethazine (PHENERGAN) 12.5 mg tablet Take 1-2 tablets by mouth every 6 hours as needed. citalopram hydrobromide (CELEXA) 10 mg tablet Take 1 tablet by mouth once daily. tamsulosin (FLOMAX) 0.4 mg Take 1 capsule by mouth once daily. zolpidem (AMBIEN) 10 mg Take 1/2 to 1 tablet by mouth nightly as needed for insomnia. omega-3 DHA-EPA (FISH OIL) 1,200 (144-216) mg capsule Take 1 capsule by mouth daily with breakfast.(Patient not taking: Reported on 09/06/2022) vit A/vit C/biotin/zinc/copper (PHLG-[id number]-IHNV,VIT A,C-BIOTIN, ORAL) Take by mouth. (Patient not taking: Reported on 09/06/2022) docusate sodium (COLACE) 100 mg capsule Take 1 capsule by mouth twice daily as needed for Constipation. cholecalciferol (VITAMIN D3) 50 mcg (2,000 unit) tablet Take 5,000 Units by mouth once daily. (Patient not taking: Reported on 09/13/2022) PNV without Calcium #5-Iron-FA 106.5-1 mg cap Take 1 tablet by mouth once daily. (Patient not taking: Reported on 09/06/2022) No current facility-administered medications on file prior to visit. Review of Systems: GENERAL: Negative for: Fever or Chills HEENT: Negative for: Headache, Impaired Vision, Ringing in Ears, Nosebleeds NECK: Negative for: Swelling, Pain, Stiffness RESPIRATORY: Negative for: Cough, Shortness of breath, Wheezing GASTROINTESTINAL: Negative for: Heartburn, Constipation, Diarrhea, Blood in stool, Vomiting MUSCULOSKELETAL: Negative for: Muscle or joint pain, stiffness, Joint swelling NEUROLOGIC/PSYCHIATRIC: Negative for: Weakness, Paralysis, Numbness, Tingling, Tremor, Anxiety, Depression, Memory loss SKIN: Negative for: Rash, Itching GENITOURINARY: Negative for: vaginal itching, vaginal discharge, hematuria or dysuria PHYSICAL EXAM: BP 122/80 Ht 5' 3 (1.60m) Wt 117 lb 6.4 oz (53.3kg) LMP 07/05/2022 BMI 20.80 kg/(m^2). GENERAL: pleasant female in no apparent distress DERMATOLOGY: Normal, without lesions, non-icteric, and non-hirsute NECK: Supple, full range of motion, no adenopathy, and thyroid normal BREAST: soft, non-tender, symmetric, no dominant mass, normal nipple-areolar complex, no lymphadenopathy, and no nipple discharge ABDOMEN: soft, non-tender, and no masses NEURO: alert and oriented x3,exam grossly non-focal PELVIS: External genitalia normal without lesions. Perineal body intact. No vaginal or cervical lesions. Cervix closed. Uterus 10 week size. No adnexal masses or tenderness. Clinical Pelvimetry: Pelvimetry clinically assessed as adequate Limited OB ultrasound exam: single intrauterine and positive cardiac activity OB Risk Screening: Completed, positive findings include: Patient will be less than 17 or greater than 34 at the time of Delivery ASSESSMENT: 37 year old at 10.1 wks gestational age PLAN: 1) Patient oriented to practice. Discussed nutrition, folic acid supplementation, dietary guidelines, exercise, smoking, alcohol, caffeine, and drug use. Discussed routine OB labs including STD/HIV. Discussed aneuploidy screening options including serum screening and nuchal translucency. 2) AMA- asa and mat21 reviewed and ordered 3) pepcid and phenergan reviewed Follow up in 4 weeks or sooner prn. Saray Parrish MD documented in this encounterAs[facility]12-19-[facility] Instructions* Patient Instructions* Isabel Vega Ma - 09/13/2022 3:00 PM EST Please select the following link to access the [facility] Your Guide to a Healthy . [email or web address] documented in this encounterAshtabula [facility]12-12-2022 History of Present illness Narrative* Fadia Berger APRN.CNP - 09/06/2022 1:03 PM EST Chief Complaint Patient presents with: Sore Throat: Olegario ear pain x 2 days HPI Tressa Marshall is a 37 year old female who presents here today for Above Complaints. Today: Started with sore throat and ear pain 2 days ago. Bad headache yesterday, is a little better today.Face/cheek/sinus pain yesterday, again a little better today. No fevers or body aches. Mild nausea-but is 9 weeks . Entire family has been sick for 3-4 weeks. Past medical history, appointments, medications, allergies reviewed. Previous Medical History PAST MEDICAL HISTORY Diagnosis Date Abnormal glandular Papanicolaou smear of cervix 05/06/2008 Abn. Pap smear (cervix) Anemia A TEENAGER FIBROCYSTIC BREASTS FRACTURE 2000 NOSE Hemorrhage of gastrointestinal tract, unspecified Hydronephrosis 10/19/2013 Kidney stones Lumbago DISC DISEASE Other specified forms of hearing loss Unspecified hemorrhoids without mention of complication Hemorrhoids Urinary calculus, unspecified Renal stones Vaginal delivery x3 Previous Surgical History PAST SURGICAL HISTORY Procedure Laterality Date COLONOSCOPY FLX DX W/COLLJ SPEC WHEN PFRMD 2019 reportedly normal, internal hemorrhoids COLPOSCOPY CERVIX UPPER/ADJACENT VAGINA Colposcopy LASIK 11/2010 LITHOTRIPSY XTRCORP SHOCK WAVE 09/11/10 Lithotripsy PAST SURGICAL HISTORY OF ureteroscopy with basket extraction kidney stone RHINP PRIM LAT&ALAR CRTLGS&/ELVTN NASAL TI Rhinoplasty Family History FAMILY HISTORY Problem Relation Age of Onset Asthma Mother GI Father hemachromatosis Heart Father Hypertension Father Kidney Disease Father KIDNEY STONES No Known Problems Brother Heart Maternal Grandmother Colon Cancer Maternal Grandmother Stroke Maternal Grandmother Arthritis Maternal Grandmother Colon Cancer Paternal Grandmother Colon Cancer Paternal Grandfather Heart Paternal Grandfather HTN, CVA No Known Problems Son No Known Problems Son Lipids Maternal Aunt Colon Polyps Maternal Aunt Multiple Sclerosis Paternal Aunt Patient Allergies ALLERGIES Allergen Reactions Amoxicillin Rash, Unknown Bactrim [Sulfametho* Swelling Lip swelling Chlorthalidone Unknown Hygroton [Other] Rash Macrobid [Nitrofura* Hives Trimethoprim Swelling Current Medications Current Outpatient Medications on File Prior to Visit Medication Sig promethazine (PHENERGAN) 12.5 mg tablet Take 1-2 tablets by mouth every 6 hours as needed. citalopram hydrobromide (CELEXA) 10 mg tablet Take 1 tablet by mouth once daily. docusate sodium (COLACE) 100 mg capsule Take 1 capsule by mouth twice daily as needed for Constipation. cholecalciferol (VITAMIN D3) 50 mcg (2,000 unit) tablet Take 5,000 Units by mouth once daily. tamsulosin (FLOMAX) 0.4 mg Take 1 capsule by mouth once daily. zolpidem (AMBIEN) 10 mg Take 1/2 to 1 tablet by mouth nightly as needed for insomnia. omega-3 DHA-EPA (FISH OIL) 1,200 (144-216) mg capsule Take 1 capsule by mouth daily with breakfast.(Patient not taking: Reported on 09/06/2022) vit A/vit C/biotin/zinc/copper ([id number]-[id number]-SXSP,VIT A,C-BIOTIN, ORAL) Take by mouth. (Patient not taking: Reported on 09/06/2022) PNV without Calcium #5-Iron-FA 106.5-1 mg cap Take 1 tablet by mouth once daily. (Patient not taking: Reported on 09/06/2022) No current facility-administered medications on file prior to visit. Social History Social History Tobacco Use Smoking status: Never Smokeless tobacco: Never Vaping Use Vaping Use: Never used Substance Use Topics Alcohol use: Not Currently Alcohol/week: 2.5 standard drinks Types: 1 Cans of Beer (12oz) per week Comment: Occasionally, NOT WHILE Drug use: No Review of Symptoms REVIEW OF SYSTEMS See HPI, otherwise negative. EXAM: BP 118/80 (BP Site: Left Arm, BP Position: Sitting, BP Cuff Size: Regular Adult) Pulse 83 Temp 37 C (98.6 F) LMP 11/04/2021 (Exact Date) SpO2 95% General Appearance: ill-appearing, nontoxic, alert, in no acute distress, well- hydrated, well nourished. Head: Normocephalic, no masses, lesions, tenderness or abnormalities. Ears: External ears normal, canals clear, serous fluid posterior to bilateral TMs, no erythema. Nose/Sinuses: Nares normal, septum midline, mucosa normal, no drainage or sinus tenderness. Oropharynx: posterior pharynx with erythema, PND. Neck: Supple, no adenopathy; thyroid symmetric, normal size, no bruits. Lungs: Lungs clear to auscultation. No wheezing, rhonchi, rales.. Heart: RRR without murmur, gallop, or rubs. No ectopy. Health Maintenance List DEPRESSION ASSESSMENT Never done COVID-19 VACCINE(4 - Booster for Moderna series) due on 10/18/2021 PAP TESTING due on 03/10/2026 HPV TESTING due on 03/10/2026 DTAP,TDAP,TD(11 - Td or Tdap) due on 09/11/2029 HEPATITIS B Completed INFLUENZA Completed HEPATITIS C SCREENING Completed HIV SCREENING Completed Data reviewed Previous records, office notes ASSESSMENT/PLAN: 1. Sore throat - ICD9: 462, ICD10: J02.9 (primary diagnosis) Strep test negative. Given severity and prolonged sx of family as well as , will treat with Zpak. Follow up in 5-7 days if no improvement or worsening sx. - STREP A MOLECULAR (POC) - AZITHROMYCIN 250 MG TABLET 2. Ear pain, bilateral - ICD9: 388.70, ICD10: H92.03 Strep test negative. Given severity and prolonged sx of family as well as , will treat with Zpak. Follow up in 5-7 days if no improvement or worsening sx. - STREP A MOLECULAR (POC) - AZITHROMYCIN 250 MG TABLET Fadia Berger APRN.GALEN documented in this encounterAshtabula [facility]09-15-2022 Miscellaneous Notes* Telephone Encounter - Dayanna Faith RN - 06/10/2022 3:42 PM EDT Requested Prescriptions Pending Prescriptions Disp Refills citalopram hydrobromide (CELEXA) 10 mg tablet 90 tablet 3 Sig: Take 1 tablet by mouth once daily. RX INSTRUCTIONS: Patient aware RX will be sent to pharmacy. No need to notify patient. Dayanna Faith RN documented in this encounterAshtabula [facility]07-29-2022 History of Present illness Narrative* Emma Huang PA-C - 04/23/2022 7:03 AM EDT ESTABLISHED PATIENT OFFICE VISIT HISTORY OF PRESENT ILLNESS: Tressa Marshall is a 36 year old female, Ht 160 cm (5' 3) BMI 20.55 kg/m2 with a PMH significant for left ureteral stone. Pt had ct scan done on 04-14, since she has passed one of two stones. Pt is having mild left flank pain, no hematuria, fever or chills. Pt is not taking tamsulosin. . LAB: Creatinine Date Value Ref Range Status 08/19/2020 0.70 0.58 - 0.96 mg/dL Final No results found for: PSA Glucose, Urine (mg/dL) Date Value 11/07/2019 neg Bilirubin, Urine (no units) Date Value 04/02/2019 Negative Ketones, Urine (no units) Date Value 04/02/2019 Negative Specific [place], Ur (no units) Date Value 04/02/2019 1.007 Hemoglobin/Blood,Ur ( ) Date Value 04/02/2019 Negative pH, Urine (no units) Date Value 04/02/2019 5.5 Protein, Urine (mg/dL) Date Value 11/07/2019 neg Urobilinogen, Urine (EU) Date Value 12/03/2011 0.2 norm Nitrites (no units) Date Value 04/02/2019 Negative Leukocytes (no units) Date Value 12/03/2011 trace WBC, Urine (/HPF) Date Value 11/11/2018 0-5 Color/Appearance (comment:) Date Value 12/03/2011 brandee/clear MEDICATIONS: citalopram hydrobromide (CELEXA) 10 mg tablet Take 1 tablet by mouth once daily. omega-3 DHA-EPA (FISH OIL) 1,200 (144-216) mg capsule Take 1 capsule by mouth daily with breakfast. vit A/vit C/biotin/zinc/copper ([id number],VIT A,C-BIOTIN, ORAL) Take by mouth. docusate sodium (COLACE) 100 mg capsule Take 1 capsule by mouth twice daily as needed for Constipation. cholecalciferol (VITAMIN D-3) 2,000 unit tablet Take 5,000 Units by mouth once daily. PNV without Calcium #5-Iron-FA 106.5-1 mg cap Take 1 tablet by mouth once daily. tamsulosin (FLOMAX) 0.4 mg Take 1 capsule by mouth once daily. zolpidem (AMBIEN) 10 mg Take 1/2 to 1 tablet by mouth nightly as needed for insomnia. Review of Systems HISTORIES PAST MEDICAL HISTORY Diagnosis Date Abnormal glandular Papanicolaou smear of cervix 05/06/2008 Abn. Pap smear (cervix) Anemia A TEENAGER FIBROCYSTIC BREASTS FRACTURE 2000 NOSE Hemorrhage of gastrointestinal tract, unspecified Hydronephrosis 10/19/2013 Kidney stones Lumbago DISC DISEASE Other specified forms of hearing loss Unspecified hemorrhoids without mention of complication Hemorrhoids Urinary calculus, unspecified Renal stones Vaginal delivery x3 FAMILY HISTORY Problem Relation Age of Onset Asthma Mother GI Father hemachromatosis Heart Father Hypertension Father Kidney Disease Father KIDNEY STONES No Known Problems Brother Heart Maternal Grandmother Colon Cancer Maternal Grandmother Stroke Maternal Grandmother Arthritis Maternal Grandmother Colon Cancer Paternal Grandmother Colon Cancer Paternal Grandfather Heart Paternal Grandfather HTN, CVA No Known Problems Son No Known Problems Son Lipids Maternal Aunt Colon Polyps Maternal Aunt Multiple Sclerosis Paternal Aunt Social History Tobacco Use Smoking status: Never Smoker Smokeless tobacco: Never Used Vaping Use Vaping Use: Never used Substance Use Topics Alcohol use: Not Currently Alcohol/week: 2.5 standard drinks Types: 1 Cans of Beer (12oz) per week Comment: Occasionally, NOT WHILE Drug use: No PHYSICAL EXAMINATION GENERAL APPEARANCE: Well appearing, alert, in no acute distress, well-hydrated, well nourished. ASSESSMENT/PLAN: 1. Kidney stones - ICD9: 592.0, ICD10: N20.0 - URINE CULTURE - XR ABDOMEN 1V SUPINE in 6 months tamsulosin as needed Emma Huang PA-C I spent a total of 20 minutes on the date of the service which included preparing to see the patient, [id number] patient care, completing clinical documentation and ordering medications, tests, or procedures. documented in this encounterAshtabula [facility]07-27-2022 History of Present illness Narrative* Sophia Melendrez RT(R) - 04/21/2022 11:00 AM EDT Radiology Service Progress Note PATIENT NAME: Tressa Marshall DATE OF SERVICE: April 21, 2022 TIME: 10:56 AM PATIENT IDENTITY VERIFICATION COMPLETED USING TWO (2) IDENTIFIERS: Name and Date of confirmedby patient verbally. FALL SCREENING: Has the patient had 2 falls in the last year or 1 fall with injury or currently using an Ambulatory Assistive Device (Walker, Cane, Wheelchair, Crutches, etc.)? No PATIENT GENDER DATA: Female. status: : No status: NO. PATIENT RELEVANT IMPLANT DATA REVIEWED: Not Applicable RADIOLOGY DEPARTMENT: General X-ray: Exam(s) Completed: Abdomen X-Ray: Abdomen PERIPHERAL IV DATA: Not applicable SIGNED BY: RT Rehan(R) April 21, 2022 10:56 AM documented in this encounterAshtabula [facility]07-21-2022 Miscellaneous Notes* Telephone Encounter - Mireille QUEEN - 04/15/2022 3:26 PM EDT Spoke to pt and she is scheduled and aware to get kub prior. Mireille QUEEN * Telephone Encounter - Mireille QUEEN - 04/15/2022 2:52 PM EDT Lm for pt to call me and get scheduled. Mireille QUEEN * Telephone Encounter - Mireille QUEEN - 04/15/2022 2:42 PM EDT Spoke to Reese, they pushed images and I will have our radiology department pull them into the chart. I also had them fax the info from the ER visit. Mireille QUEEN documented in this encounterAshtabula [facility] Center04-05-2022 Instructions* Patient Instructions* Adia Briseno APRN.COVERED BUTTON [employer]KER - 12/29/2021 4:29 PM EDT - Start OTC probiotic with at least 15 billion live cultures, 10+ strains - Drink around 64 oz water daily - Benefiber daily:1 teaspoons SLOWLY increase to 1 TBP daily. - If no relief with fiber powder, start Miralax daily/PRN to induce bowel movement Miralax generally will help produce bowel movement in 1-3 days Fill to top of white section in cap which is marked to indicate the correct dose (17 g) Stir and dissolve in any 8 ounces of non-carbonated beverage (cold, hot or room temperature) then drink If diarrhea occurs, reduce usage to every other day Will reach back out once I hear from Rod No improvement in constipation please make a f/u documented in this encounterAshtabula [facility]04-05-2022 History of Present illness Narrative* Adia Briseno APRN.GALEN - 12/29/2021 4:13 PM EDT CHIEF COMPLAINT: Patient presents with: Outpatient Colonoscopy: due to family history of colon cancer Constipation: goes every other day and takes colace daily This consult was requested by Fadia Berger APRN* for an opinion regarding constipation. My final recommendations will be communicated to the requesting health care provider by way of the sharedmedical record for internal providers or letter via the [employer] for external providers. Tressa Marshall is a 36 year old female who presents for Outpatient Colonoscopy (due to family history of colon cancer) and Constipation (goes every other day and takes colace daily). Patient reports a family history of colon cancer maternal grandmother in her mid 70's and paternal grandmother andpaternal grandfather HPI: The patient denies change in bowel habits, denies black stool rectal bleeding or abdominal pain. Having a bowel movement she reports having a BM daily - if she has to strain or take colace she is constipated - she reports the change occurred after her children. She reports she took miralax when she was - but currently is not taking. - She reports she is here today to discuss her family history of colon cancer in her second degree relatives: maternal grandmother, paternal grandmother and grandfather. Record Review: [facility] / Outside records reviewed. PAST MEDICAL HISTORY Diagnosis Date Abnormal glandular Papanicolaou smear of cervix 05/06/2008 Abn. Pap smear (cervix) Anemia A TEENAGER FIBROCYSTIC BREASTS FRACTURE 2000 NOSE Hemorrhage of gastrointestinal tract, unspecified Hydronephrosis 10/19/2013 Kidney stones Lumbago DISC DISEASE Other specified forms of hearing loss Unspecified hemorrhoids without mention of complication Hemorrhoids Urinary calculus, unspecified Renal stones Vaginal delivery x3 PAST SURGICAL HISTORY Procedure Laterality Date COLONOSCOPY FLX DX W/COLLJ SPEC WHEN PFRMD 2019 reportedly normal, internal hemorrhoids COLPOSCOPY CERVIX UPPER/ADJACENT VAGINA Colposcopy LASIK 11/2010 LITHOTRIPSY XTRCORP SHOCK WAVE 09/11/10 Lithotripsy PAST SURGICAL HISTORY OF ureteroscopy with basket extraction kidney stone RHINP PRIM LAT&ALAR CRTLGS&/ELVTN NASAL TI Rhinoplasty Allergies: ALLERGIES Allergen Reactions Amoxicillin Rash, Unknown Bactrim [Sulfametho* Swelling Lip swelling Chlorthalidone Unknown Hygroton [Other] Rash Macrobid [Nitrofura* Hives Trimethoprim Swelling Medications: zolpidem (AMBIEN) 10 mg Take 1/2 to 1 tablet by mouth nightly as needed for insomnia. citalopram hydrobromide (CELEXA) 10 mg tablet Take 1 tablet by mouth once daily. omega-3 DHA-EPA (FISH OIL) 1,200 (144-216) mg capsule Take 1 capsule by mouth daily with breakfast. vit A/vit C/biotin/zinc/copper ([id number],VIT A,C-BIOTIN, ORAL) Take by mouth. docusate sodium (COLACE) 100 mg capsule Take 1 capsule by mouth twice daily as needed for Constipation. cholecalciferol (VITAMIN D-3) 2,000 unit tablet Take 5,000 Units by mouth once daily. PNV without Calcium #5-Iron-FA 106.5-1 mg cap Take 1 tablet by mouth once daily. 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 No Physical Examination: BP 108/78 Pulse 63 Ht 5' 3 (1.60m) Wt 116 lb (52.6kg) SpO2 98% LMP 11/01/2021 BMI 20.55 kg/(m^2). Physical Exam Constitutional: Appearance: Normal appearance. She is normal weight. HENT: Head: Normocephalic and atraumatic. Eyes: Extraocular Movements: Extraocular movements intact. Pupils: Pupils are equal, round, and reactive to light. Cardiovascular: Rate and Rhythm: Normal rate and regular rhythm. Pulses: Normal pulses. Heart sounds: Normal heart sounds. Pulmonary: Effort: Pulmonary effort is normal. Breath sounds: Normal breath sounds. Abdominal: General: Abdomen is flat. Bowel sounds are normal. Palpations: Abdomen is soft. Musculoskeletal: General: Normal range of motion. Cervical back: Normal range of motion and neck supple. Skin: General: Skin is warm and dry. Neurological: General: No focal deficit present. Mental Status: She is alert and oriented to person, place, and time. Psychiatric: Mood and Affect: Mood normal. Behavior: Behavior normal. ASSESSMENT: Internal hemorrhoids Family hx of colon cancer Constipation, unspecified constipation type (primary encounter diagnosis) PLAN: Assessment/Plan (K59.00) Constipation, unspecified constipation type (primary encounter diagnosis) (K64.8) Internal hemorrhoids (Z80.0) Family hx of colon cancer 1. Internal hemorrhoid - OTC preporation H as needed - Drink around 64 oz water daily - Benefiber daily: 2 teaspoons added to 8 ounces of water up to 3 times daily. - If no relief with fiber powder, start Miralax daily/PRN to induce bowel movement Miralax generally will help produce bowel movement in 1-3 days Fill to top of white section in cap which is marked to indicate the correct dose (17 g) Stir and dissolve in any 8 ounces of non-carbonated beverage (cold, hot or room temperature) then drink If diarrhea occurs, reduce usage to every other day - CONSULT TO GENERAL SURGERY 2. Family hx of colon cancer - Discussed the need to colon cancer screening. Patient has 3- Second degree relatives diagnosed with colon cancer. Patient reports no FDR with adenoma polyps or colon cancer.Discussed at this time recommend average screening age 45 years. At this time will recommend average screening if any change in family history, stool consistency, weight loss, black or blood in stool that would need to be further evaluated - CONSULT TO GENERAL SURGERY 3. Constipation, unspecified constipation type - Start OTC probiotic with at least 15 billion live cultures, 10+ strains - Drink around 64 oz water daily - Benefiber daily: 2 teaspoons added to 8 ounces of water up to 3 times daily. - If no relief with fiber powder, start Miralax daily/PRN to induce bowel movement Miralax generally will help produce bowel movement in 1-3 days Fill to top of white section in cap which is marked to indicate the correct dose (17 g) Stir and dissolve in any 8 ounces of non-carbonated beverage (cold, hot or room temperature) then drink If diarrhea occurs, reduce usage to every other day * If no improvement with a bowel regimen then d/t family history of SDR (3) I would recommend a colonoscopy. Follow up in office 3 months/PRN. Recommended to please call office/go to ER if fever, chills, chest pain, SOB, diarrhea, nausea, emesis, worsening abdominal pain, dehydration occurs I spent 30 minutes in the visit, with more than 50% of the total [id number] time of the visit in counseling / coordination of care. I have confirmed and edited as necessary, the PFSH and ROS obtained by others. Adia Briseno APRN.CNP DATE: 12/29/21 TIME: 4:13 PM documented in this encounterAshtabula [facility]08-19-2019 History of Past illness Narrative* Problem Noted Date Resolved Date Antepartum multigravida of advanced maternal age 0805/14/2019 06/09/2020 Overview: 05/14/2019Patient will be 34 at the time of delivery. She desires nuchal ultrasound and is considering [id number] testing. Considering genetic carrier screening testing. TKRN Hydronephrosis 10/19/2013 02/06/2014 Supervision of normal first 2013 02/06/2014 Overview: Boy on us- First trimester bleeding 05/21/2013 014 Overview: 05/21/2013She had some spotting April 26 of April 28. An unofficial ultrasound was done by Dr. Oleary at the time. Patient denies any bleeding since then. TKRN Dermatophytosis of foot 11/12/2010 03/03/20 16 Iron deficiency anemia, unspecified 2007 10/21/2016 Overview: HCT 34% in 08-02 Iron 20, TIBC 481, 4% saturation, Ferritin 6 in 08-02 Started bid iron supplements in 08-02 Generalized anxiety disorder 08/08/200704/2016 Overview: 05/21/2013Patient is currently taking Citolopram 20 mg prescribed by Maria Luisa Alcala and Dr. Willams for anxiety. She denies ever having depression. She is made aware that Citolopram is a category C medication in . Patient does feel that her anxiety was situational when she began taking it. Patient wishes to discontinue medication. I discussed with the patient the importance of weaning off this medication slowly. She will discuss this more with Dr. Oleary. TKRN Abnormal involuntary movements(781.0) 08/08/2007 03/03/2016 Routine general medical exam ination at a health care facility 08/07/2007 09/18/2012 Overview: T4 10.8, FTI 2.7 (both normal) as of 08-02 Antimicrosomal Ab < 3, Thyroglobulin < 8 in 08-02: both negative Nonspecific abnormal electrocardiogram (ECG) (EK G) 08/05/2007 03/03/2016 Overview: ECG 08-03-07 at [facility] after vagal episode: non-specif T changes in III, aVF, V3 ECG 08-05-07: LAE by V1, non-specific T changes II, aVF, V3-4 (no change from old ECG 05-30) Plan Echo after thyroid eval in follow up ED 08-06-07 for CP: H/H was 10.3 and 29.7-needs iron studies Unspecified hemorrhoids without mention of compl ication 03/03/2016 Overview: Hemorrhoids 05/21/2013Patient has a history of hemorrhoids. Discussed the importance of avoiding constipation and straining with her bowel movements. TKRN Diarrhea 03/03/2016 documented as of this encounter (statuses as of 01/04/2022) [facility] History of Past illness Narrative* Problem Noted Date Resolved Date Antepartum multigravida of advanced maternal age 0805/14/2019 06/09/2020 Overview: 05/14/2019Patient will be 34 at the time of delivery. She desires nuchal ultrasound and is considering [id number] testing. Considering genetic carrier screening testing. TKRN Hydronephrosis 10/19/2013 02/06/2014 Supervision of normal first 2013 02/06/2014 Overview: Boy on us- First trimester bleeding 05/21/2013 014 Overview: 05/21/2013She had some spotting April 26 of April 28. An unofficial ultrasound was done by Dr. Oleary at the time. Patient denies any bleeding since then. TKRN Dermatophytosis of foot 11/12/2010 03/03/20 16 Iron deficiency anemia, unspecified 2007 10/21/2016 Overview: HCT 34% in 08-02 Iron 20, TIBC 481, 4% saturation, Ferritin 6 in 08-02 Started bid iron supplements in 08-02 Generalized anxiety disorder 08/08/200704/2016 Overview: 05/21/2013Patient is currently taking Citolopram 20 mg prescribed by Maria Luisa Alcala and Dr. Willams for anxiety. She denies ever having depression. She is made aware that Citolopram is a category C medication in . Patient does feel that her anxiety was situational when she began taking it. Patient wishes to discontinue medication. I discussed with the patient the importance of weaning off this medication slowly. She will discuss this more with Dr. Oleary. TKRN Abnormal involuntary movements(781.0) 08/08/2007 03/03/2016 Routine general medical exam ination at a [facility] care facility 08/07/2007 09/18/2012 Overview: T4 10.8, FTI 2.7 (both normal) as of 08-02 Antimicrosomal Ab < 3, Thyroglobulin < 8 in 08-02: both negative Nonspecific abnormal electrocardiogram (ECG) (EK G) 08/05/2007 03/03/2016 Overview: ECG 08-03-07 at [facility] after vagal episode: non-specif T changes in III, aVF, V3 ECG 08-05-07: LAE by V1, non-specific T changes II, aVF, V3-4 (no change from old ECG 05-30) Plan Echo after thyroid eval in follow up ED 08-06-07 for CP: H/H was 10.3 and 29.7-needs iron studies Unspecified hemorrhoids without mention of compl ication 03/03/2016 Overview: Hemorrhoids 05/21/2013Patient has a history of hemorrhoids. Discussed the importance of avoiding constipation and straining with her bowel movements. TKRN Diarrhea 03/03/2016 documented as of this encounter (statuses as of 03/23/2022) [facility] History of Past illness Narrative* Problem Noted Date Resolved Date Antepartum multigravida of advanced maternal age 0805/14/2019 06/09/2020 Overview: 05/14/2019Patient will be 34 at the time of delivery. She desires nuchal ultrasound and is considering [id number] testing. Considering genetic carrier screening testing. TKRN Hydronephrosis 10/19/2013 02/06/2014 Supervision of normal first 2013 02/06/2014 Overview: Boy on us- First trimester bleeding 05/21/2013 014 Overview: 05/21/2013She had some spotting April 26 of April 28. An unofficial ultrasound was done by Dr. Oleary at the time. Patient denies any bleeding since then. TKRN Dermatophytosis of foot 11/12/2010 03/03/20 16 Iron deficiency anemia, unspecified 2007 10/21/2016 Overview: HCT 34% in 08-02 Iron 20, TIBC 481, 4% saturation, Ferritin 6 in 08-02 Started bid iron supplements in 08-02 Generalized anxiety disorder 08/08/200704/2016 Overview: 05/21/2013Patient is currently taking Citolopram 20 mg prescribed by Maria Luisa Alcala and Dr. Willams for anxiety. She denies ever having depression. She is made aware that Citolopram is a category C medication in . Patient does feel that her anxiety was situational when she began taking it. Patient wishes to discontinue medication. I discussed with the patient the importance of weaning off this medication slowly. She will discuss this more with Dr. Oleary. TKRN Abnormal involuntary movements(781.0) 08/08/2007 03/03/2016 Routine general medical exam ination at a health care facility 08/07/2007 09/18/2012 Overview: T4 10.8, FTI 2.7 (both normal) as of 08-02 Antimicrosomal Ab < 3, Thyroglobulin < 8 in 08-02: both negative Nonspecific abnormal electrocardiogram (ECG) (EK G) 08/05/2007 03/03/2016 Overview: ECG 08-03-07 at [facility] after vagal episode: non-specif T changes in III, aVF, V3 ECG 08-05-07: LAE by V1, non-specific T changes II, aVF, V3-4 (no change from old ECG 05-30) Plan Echo after thyroid eval in follow up ED 08-06-07 for CP: H/H was 10.3 and 29.7-needs iron studies Unspecified hemorrhoids without mention of compl ication 03/03/2016 Overview: Hemorrhoids 05/21/2013Patient has a history of hemorrhoids. Discussed the importance of avoiding constipation and straining with her bowel movements. TKRN Diarrhea 03/03/2016 documented as of this encounter (statuses as of 03/31/2022) [facility] History of Past illness Narrative* Problem Noted Date Resolved Date Antepartum multigravida of advanced maternal age 0805/14/2019 06/09/2020 Overview: 05/14/2019Patient will be 34 at the time of delivery. She desires nuchal ultrasound and is considering [id number] testing. Considering genetic carrier screening testing. TKRN Hydronephrosis 10/19/2013 02/06/2014 Supervision of normal first 2013 02/06/2014 Overview: Boy on us- First trimester bleeding 05/21/2013 014 Overview: 05/21/2013She had some spotting April 26 of April 28. An unofficial ultrasound was done by Dr. Oleary at the time. Patient denies any bleeding since then. TKRN Dermatophytosis of foot 11/12/2010 03/03/20 16 Iron deficiency anemia, unspecified 2007 10/21/2016 Overview: HCT 34% in 08-02 Iron 20, TIBC 481, 4% saturation, Ferritin 6 in 08-02 Started bid iron supplements in 08-02 Generalized anxiety disorder 08/08/200704/2016 Overview: 05/21/2013Patient is currently taking Citolopram 20 mg prescribed by Maria Luisa Alcala and Dr. Willams for anxiety. She denies ever having depression. She is made aware that Citolopram is a category C medication in . Patient does feel that her anxiety was situational when she began taking it. Patient wishes to discontinue medication. I discussed with the patient the importance of weaning off this medication slowly. She will discuss this more with Dr. Oleary. TKRN Abnormal involuntary movements(781.0) 08/08/2007 03/03/2016 Routine general medical exam ination at a [facility] care facility 08/07/2007 09/18/2012 Overview: T4 10.8, FTI 2.7 (both normal) as of 08-02 Antimicrosomal Ab < 3, Thyroglobulin < 8 in 08-02: both negative Nonspecific abnormal electrocardiogram (ECG) (EK G) 08/05/2007 03/03/2016 Overview: ECG 08-03-07 at [facility] after vagal episode: non-specif T changes in III, aVF, V3 ECG 08-05-07: LAE by V1, non-specific T changes II, aVF, V3-4 (no change from old ECG 05-30) Plan Echo after thyroid eval in follow up ED 08-06-07 for CP: H/H was 10.3 and 29.7-needs iron studies Unspecified hemorrhoids without mention of compl ication 03/03/2016 Overview: Hemorrhoids 05/21/2013Patient has a history of hemorrhoids. Discussed the importance of avoiding constipation and straining with her bowel movements. TKRN Diarrhea 03/03/2016 documented as of this encounter (statuses as of 04/15/2022) [facility] History of Past illness Narrative* Problem Noted Date Resolved Date Antepartum multigravida of advanced maternal age 0805/14/2019 06/09/2020 Overview: 05/14/2019Patient will be 34 at the time of delivery. She desires nuchal ultrasound and is considering [id number] testing. Considering genetic carrier screening testing. TKRN Hydronephrosis 10/19/2013 02/06/2014 Supervision of normal first 2013 02/06/2014 Overview: Boy on us- First trimester bleeding 05/21/2013 014 Overview: 05/21/2013She had some spotting April 26 of April 28. An unofficial ultrasound was done by Dr. Oleary at the time. Patient denies any bleeding since then. TKRN Dermatophytosis of foot 11/12/2010 03/03/20 16 Iron deficiency anemia, unspecified 2007 10/21/2016 Overview: HCT 34% in 08-02 Iron 20, TIBC 481, 4% saturation, Ferritin 6 in 08-02 Started bid iron supplements in 08-02 Generalized anxiety disorder 08/08/200704/2016 Overview: 05/21/2013Patient is currently taking Citolopram 20 mg prescribed by Maria Luisa Alcala and Dr. Willams for anxiety. She denies ever having depression. She is made aware that Citolopram is a category C medication in . Patient does feel that her anxiety was situational when she began taking it. Patient wishes to discontinue medication. I discussed with the patient the importance of weaning off this medication slowly. She will discuss this more with Dr. Oleary. TKRN Abnormal involuntary movements(781.0) 08/08/2007 03/03/2016 Routine general medical exam ination at a health care facility 08/07/2007 09/18/2012 Overview: T4 10.8, FTI 2.7 (both normal) as of 08-02 Antimicrosomal Ab < 3, Thyroglobulin < 8 in 08-02: both negative Nonspecific abnormal electrocardiogram (ECG) (EK G) 08/05/2007 03/03/2016 Overview: ECG 08-03-07 at [facility] after vagal episode: non-specif T changes in III, aVF, V3 ECG 08-05-07: LAE by V1, non-specific T changes II, aVF, V3-4 (no change from old ECG 05-30) Plan Echo after thyroid eval in follow up ED 08-06-07 for CP: H/H was 10.3 and 29.7-needs iron studies Unspecified hemorrhoids without mention of compl ication 03/03/2016 Overview: Hemorrhoids 05/21/2013Patient has a history of hemorrhoids. Discussed the importance of avoiding constipation and straining with her bowel movements. TKRN Diarrhea 03/03/2016 documented as of this encounter (statuses as of 04/22/2022) [facility] of Past illness Narrative* Problem Noted Date Resolved Date Antepartum multigravida of advanced maternal age 0805/14/2019 06/09/2020 Overview: 05/14/2019Patient will be 34 at the time of delivery. She desires nuchal ultrasound and is considering [id number] testing. Considering genetic carrier screening testing. TKRN Hydronephrosis 10/19/2013 02/06/2014 Supervision of normal first 2013 02/06/2014 Overview: Boy on us- First trimester bleeding 05/21/2013 014 Overview: 05/21/2013She had some spotting April 26 of April 28. An unofficial ultrasound was done by Dr. Oleary at the time. Patient denies any bleeding since then. TKRN Dermatophytosis of foot 11/12/2010 03/03/20 16 Iron deficiency anemia, unspecified 2007 10/21/2016 Overview: HCT 34% in 08-02 Iron 20, TIBC 481, 4% saturation, Ferritin 6 in 08-02 Started bid iron supplements in 08-02 Generalized anxiety disorder 08/08/200704/2016 Overview: 05/21/2013Patient is currently taking Citolopram 20 mg prescribed by Maria Luisa Alcala and Dr. Willams for anxiety. She denies ever having depression. She is made aware that Citolopram is a category C medication in . Patient does feel that her anxiety was situational when she began taking it. Patient wishes to discontinue medication. I discussed with the patient the importance of weaning off this medication slowly. She will discuss this more with Dr. Oleary. TKRN Abnormal involuntary movements(781.0) 08/08/2007 03/03/2016 Routine general medical exam ination at a health care facility 08/07/2007 09/18/2012 Overview: T4 10.8, FTI 2.7 (both normal) as of 08-02 Antimicrosomal Ab < 3, Thyroglobulin < 8 in 08-02: both negative Nonspecific abnormal electrocardiogram (ECG) (EK G) 08/05/2007 03/03/2016 Overview: ECG 08-03-07 at [facility] after vagal episode: non-specif T changes in III, aVF, V3 ECG 08-05-07: LAE by V1, non-specific T changes II, aVF, V3-4 (no change from old ECG 05-30) Plan Echo after thyroid eval in follow up ED 08-06-07 for CP: H/H was 10.3 and 29.7-needs iron studies Unspecified hemorrhoids without mention of compl ication 03/03/2016 Overview: Hemorrhoids 05/21/2013Patient has a history of hemorrhoids. Discussed the importance of avoiding constipation and straining with her bowel movements. TKRN Diarrhea 03/03/2016 documented as of this encounter (statuses as of 04/23/2022) [facility] of Past illness Narrative* Problem Noted Date Resolved Date Antepartum multigravida of advanced maternal age 0805/14/2019 06/09/2020 Overview: 05/14/2019Patient will be 34 at the time of delivery. She desires nuchal ultrasound and is considering [id number] testing. Considering genetic carrier screening testing. TKRN Hydronephrosis 10/19/2013 02/06/2014 Supervision of normal first 2013 02/06/2014 Overview: Boy on us- First trimester bleeding 05/21/2013 014 Overview: 05/21/2013She had some spotting April 26 of April 28. An unofficial ultrasound was done by Dr. Oleary at the time. Patient denies any bleeding since then. TKRN Dermatophytosis of foot 11/12/2010 03/03/20 16 Iron deficiency anemia, unspecified 2007 10/21/2016 Overview: HCT 34% in 08-02 Iron 20, TIBC 481, 4% saturation, Ferritin 6 in 08-02 Started bid iron supplements in 08-02 Generalized anxiety disorder 08/08/200704/2016 Overview: 05/21/2013Patient is currently taking Citolopram 20 mg prescribed by Maria Luisa Alcala and Dr. Willams for anxiety. She denies ever having depression. She is made aware that Citolopram is a category C medication in . Patient does feel that her anxiety was situational when she began taking it. Patient wishes to discontinue medication. I discussed with the patient the importance of weaning off this medication slowly. She will discuss this more with Dr. Oleary. TKRN Abnormal involuntary movements(781.0) 08/08/2007 03/03/2016 Routine general medical exam ination at a health care facility 08/07/2007 09/18/2012 Overview: T4 10.8, FTI 2.7 (both normal) as of 08-02 Antimicrosomal Ab < 3, Thyroglobulin < 8 in 08-02: both negative Nonspecific abnormal electrocardiogram (ECG) (EK G) 08/05/2007 03/03/2016 Overview: ECG 08-03-07 at [facility] after vagal episode: non-specif T changes in III, aVF, V3 ECG 08-05-07: LAE by V1, non-specific T changes II, aVF, V3-4 (no change from old ECG 05-30) Plan Echo after thyroid eval in follow up ED 08-06-07 for CP: H/H was 10.3 and 29.7-needs iron studies Unspecified hemorrhoids without mention of compl ication 03/03/2016 Overview: Hemorrhoids 05/21/2013Patient has a history of hemorrhoids. Discussed the importance of avoiding constipation and straining with her bowel movements. TKRN Diarrhea 03/03/2016 documented as of this encounter (statuses as of 06/10/2022) [facility] of Past illness Narrative* Problem Noted Date Resolved Date Antepartum multigravida of advanced maternal age 0805/14/2019 06/09/2020 Overview: 05/14/2019Patient will be 34 at the time of delivery. She desires nuchal ultrasound and is considering [id number] testing. Considering genetic carrier screening testing. TKRN Hydronephrosis 10/19/2013 02/06/2014 Supervision of normal first 2013 02/06/2014 Overview: Boy on us- First trimester bleeding 05/21/2013 014 Overview: 05/21/2013She had some spotting April 26 of April 28. An unofficial ultrasound was done by Dr. Oleary at the time. Patient denies any bleeding since then. TKRN Dermatophytosis of foot 11/12/2010 03/03/20 16 Iron deficiency anemia, unspecified 2007 10/21/2016 Overview: HCT 34% in 08-02 Iron 20, TIBC 481, 4% saturation, Ferritin 6 in 08-02 Started bid iron supplements in 08-02 Generalized anxiety disorder 08/08/200704/2016 Overview: 05/21/2013Patient is currently taking Citolopram 20 mg prescribed by Maria Luisa Alcala and Dr. Willams for anxiety. She denies ever having depression. She is made aware that Citolopram is a category C medication in . Patient does feel that her anxiety was situational when she began taking it. Patient wishes to discontinue medication. I discussed with the patient the importance of weaning off this medication slowly. She will discuss this more with Dr. Oleary. TKRN Abnormal involuntary movements(781.0) 08/08/2007 03/03/2016 Routine general medical exam ination at a health care facility 08/07/2007 09/18/2012 Overview: T4 10.8, FTI 2.7 (both normal) as of 08-02 Antimicrosomal Ab < 3, Thyroglobulin < 8 in 08-02: both negative Nonspecific abnormal electrocardiogram (ECG) (EK G) 08/05/2007 03/03/2016 Overview: ECG 08-03-07 at [facility] after vagal episode: non-specif T changes in III, aVF, V3 ECG 08-05-07: LAE by V1, non-specific T changes II, aVF, V3-4 (no change from old ECG 05-30) Plan Echo after thyroid eval in follow up ED 08-06-07 for CP: H/H was 10.3 and 29.7-needs iron studies Unspecified hemorrhoids without mention of compl ication 03/03/2016 Overview: Hemorrhoids 05/21/2013Patient has a history of hemorrhoids. Discussed the importance of avoiding constipation and straining with her bowel movements. TKRN Diarrhea 03/03/2016 documented as of this encounter (statuses as of 07/30/2022) [facility] of Past [facility] Narrative* Problem Noted Date Resolved Date Antepartum multigravida of advanced maternal age 0805/14/2019 06/09/2020 Overview: 05/14/2019Patient will be 34 at the time of delivery. She desires nuchal ultrasound and is considering [id number] testing. Considering genetic carrier screening testing. TKRN Hydronephrosis 10/19/2013 02/06/2014 Supervision of normal first 2013 02/06/2014 Overview: Boy on us- First trimester bleeding 05/21/2013 014 Overview: 05/21/2013She had some spotting April 26 of April 28. An unofficial ultrasound was done by Dr. Oleary at the time. Patient denies any bleeding since then. TKRN Dermatophytosis of foot 11/12/2010 03/03/20 16 Iron deficiency anemia, unspecified 2007 10/21/2016 Overview: HCT 34% in 08-02 Iron 20, TIBC 481, 4% saturation, Ferritin 6 in 08-02 Started bid iron supplements in 08-02 Generalized anxiety disorder 08/08/200704/2016 Overview: 05/21/2013Patient is currently taking Citolopram 20 mg prescribed by Maria Luisa Alcala and Dr. Willams for anxiety. She denies ever having depression. She is made aware that Citolopram is a category C medication in . Patient does feel that her anxiety was situational when she began taking it. Patient wishes to discontinue medication. I discussed with the patient the importance of weaning off this medication slowly. She will discuss this more with Dr. Oleary. TKRN Abnormal involuntary movements(781.0) 08/08/2007 03/03/2016 Routine general medical exam ination at a health care facility 08/07/2007 09/18/2012 Overview: T4 10.8, FTI 2.7 (both normal) as of 08-02 Antimicrosomal Ab < 3, Thyroglobulin < 8 in 08-02: both negative Nonspecific abnormal electrocardiogram (ECG) (EK G) 08/05/2007 03/03/2016 Overview: ECG 08-03-07 at [facility] after vagal episode: non-specif T changes in III, aVF, V3 ECG 08-05-07: LAE by V1, non-specific T changes II, aVF, V3-4 (no change from old ECG 05-30) Plan Echo after thyroid eval in follow up ED 08-06-07 for CP: H/H was 10.3 and 29.7-needs iron studies Unspecified hemorrhoids without mention of compl ication 03/03/2016 Overview: Hemorrhoids 05/21/2013Patient has a history of hemorrhoids. Discussed the importance of avoiding constipation and straining with her bowel movements. TKRN Diarrhea 03/03/2016 documented as of this encounter (statuses as of 09/06/2022) [facility] of Past [facility] Narrative* Problem Noted Date Resolved Date Antepartum multigravida of advanced maternal age 0805/14/2019 06/09/2020 Overview: 05/14/2019Patient will be 34 at the time of delivery. She desires nuchal ultrasound and is considering [id number] testing. Considering genetic carrier screening testing. TKRN Hydronephrosis 10/19/2013 02/06/2014 Supervision of normal first 2013 02/06/2014 Overview: Boy on us- First trimester bleeding 05/21/2013 014 Overview: 05/21/2013She had some spotting April 26 of April 28. An unofficial ultrasound was done by Dr. Oleary at the time. Patient denies any bleeding since then. TKRN Dermatophytosis of foot 11/12/2010 03/03/20 16 Iron deficiency anemia, unspecified 2007 10/21/2016 Overview: HCT 34% in 08-02 Iron 20, TIBC 481, 4% saturation, Ferritin 6 in 08-02 Started bid iron supplements in 08-02 Generalized anxiety disorder 08/08/200704/2016 Overview: 05/21/2013Patient is currently taking Citolopram 20 mg prescribed by Maria Luisa Alcala and Dr. Willams for anxiety. She denies ever having depression. She is made aware that Citolopram is a category C medication in . Patient does feel that her anxiety was situational when she began taking it. Patient wishes to discontinue medication. I discussed with the patient the importance of weaning off this medication slowly. She will discuss this more with Dr. Oleary. TKRN Abnormal involuntary movements(781.0) 08/08/2007 03/03/2016 Routine general medical exam ination at a health care facility 08/07/2007 09/18/2012 Overview: T4 10.8, FTI 2.7 (both normal) as of 08-02 Antimicrosomal Ab < 3, Thyroglobulin < 8 in 08-02: both negative Nonspecific abnormal electrocardiogram (ECG) (EK G) 08/05/2007 03/03/2016 Overview: ECG 08-03-07 at [facility] after vagal episode: non-specif T changes in III, aVF, V3 ECG 08-05-07: LAE by V1, non-specific T changes II, aVF, V3-4 (no change from old ECG 05-30) Plan Echo after thyroid eval in follow up ED 08-06-07 for CP: H/H was 10.3 and 29.7-needs iron studies Unspecified hemorrhoids without mention of compl ication 03/03/2016 Overview: Hemorrhoids 05/21/2013Patient has a history of hemorrhoids. Discussed the importance of avoiding constipation and straining with her bowel movements. TKRN Diarrhea 03/03/2016 documented as of this encounter (statuses as of 09/08/2022) [facility] Past illness Narrative* Problem Noted Date Resolved Date Antepartum multigravida of advanced maternal age 0805/14/2019 06/09/2020 Overview: 05/14/2019Patient will be 34 at the time of delivery. She desires nuchal ultrasound and is considering [id number] testing. Considering genetic carrier screening testing. TKRN Hydronephrosis 10/19/2013 02/06/2014 Supervision of normal first 2013 02/06/2014 Overview: Boy on us- First trimester bleeding 05/21/2013 014 Overview: 05/21/2013She had some spotting April 26 of April 28. An unofficial ultrasound was done by Dr. Oleary at the time. Patient denies any bleeding since then. TKRN Dermatophytosis of foot 11/12/2010 03/03/20 16 Iron deficiency anemia, unspecified 2007 10/21/2016 Overview: HCT 34% in 08-02 Iron 20, TIBC 481, 4% saturation, Ferritin 6 in 08-02 Started bid iron supplements in 08-02 Generalized anxiety disorder 08/08/200704/2016 Overview: 05/21/2013Patient is currently taking Citolopram 20 mg prescribed by Maria Luisa Alcala and Dr. Willams for anxiety. She denies ever having depression. She is made aware that Citolopram is a category C medication in . Patient does feel that her anxiety was situational when she began taking it. Patient wishes to discontinue medication. I discussed with the patient the importance of weaning off this medication slowly. She will discuss this more with Dr. Oleary. TKRN Abnormal involuntary movements(781.0) 08/08/2007 03/03/2016 Routine general medical exam ination at a health care facility 08/07/2007 09/18/2012 Overview: T4 10.8, FTI 2.7 (both normal) as of 08-02 Antimicrosomal Ab < 3, Thyroglobulin < 8 in 08-02: both negative Nonspecific abnormal electrocardiogram (ECG) (EK G) 08/05/2007 03/03/2016 Overview: ECG 08-03-07 at [facility] after vagal episode: non-specif T changes in III, aVF, V3 ECG 08-05-07: LAE by V1, non-specific T changes II, aVF, V3-4 (no change from old ECG 05-30) Plan Echo after thyroid eval in follow up ED 08-06-07 for CP: H/H was 10.3 and 29.7-needs iron studies Unspecified hemorrhoids without mention of compl ication 03/03/2016 Overview: Hemorrhoids 05/21/2013Patient has a history of hemorrhoids. Discussed the importance of avoiding constipation and straining with her bowel movements. TKRN Diarrhea 03/03/2016 documented as of this encounter (statuses as of 09/13/2022) [facility] History of Past illness Narrative* Problem Noted Date Resolved Date Antepartum multigravida of advanced maternal age 0805/14/2019 06/09/2020 Overview: 05/14/2019Patient will be 34 at the time of delivery. She desires nuchal ultrasound and is considering [id number] testing. Considering genetic carrier screening testing. TKRN Hydronephrosis 10/19/2013 02/06/2014 Supervision of normal first 2013 02/06/2014 Overview: Boy on us- First trimester bleeding 05/21/2013 014 Overview: 05/21/2013She had some spotting April 26 of April 28. An unofficial ultrasound was done by Dr. Oleary at the time. Patient denies any bleeding since then. TKRN Dermatophytosis of foot 11/12/2010 03/03/20 16 Iron deficiency anemia, unspecified 2007 10/21/2016 Overview: HCT 34% in 08-02 Iron 20, TIBC 481, 4% saturation, Ferritin 6 in 08-02 Started bid iron supplements in 08-02 Generalized anxiety disorder 08/08/200704/2016 Overview: 05/21/2013Patient is currently taking Citolopram 20 mg prescribed by Maria Luisa Alcala and Dr. Willams for anxiety. She denies ever having depression. She is made aware that Citolopram is a category C medication in . Patient does feel that her anxiety was situational when she began taking it. Patient wishes to discontinue medication. I discussed with the patient the importance of weaning off this medication slowly. She will discuss this more with Dr. Oleary. TKRN Abnormal involuntary movements(781.0) 08/08/2007 03/03/2016 Routine general medical exam ination at a health care facility 08/07/2007 09/18/2012 Overview: T4 10.8, FTI 2.7 (both normal) as of 08-02 Antimicrosomal Ab < 3, Thyroglobulin < 8 in 08-02: both negative Nonspecific abnormal electrocardiogram (ECG) (EK G) 08/05/2007 03/03/2016 Overview: ECG 08-03-07 at [facility] after vagal episode: non-specif T changes in III, aVF, V3 ECG 08-05-07: LAE by V1, non-specific T changes II, aVF, V3-4 (no change from old ECG 05-30) Plan Echo after thyroid eval in follow up ED 08-06-07 for CP: H/H was 10.3 and 29.7-needs iron studies Unspecified hemorrhoids without mention of compl ication 03/03/2016 Overview: Hemorrhoids 05/21/2013Patient has a history of hemorrhoids. Discussed the importance of avoiding constipation and straining with her bowel movements. TKRN Diarrhea 03/03/2016 documented as of this encounter (statuses as of 09/30/2022) [facility] History of Past illness Narrative* Problem Noted Date Resolved Date Antepartum multigravida of advanced maternal age 0805/14/2019 06/09/2020 Overview: 05/14/2019Patient will be 34 at the time of delivery. She desires nuchal ultrasound and is considering [id number] testing. Considering genetic carrier screening testing. TKRN Hydronephrosis 10/19/2013 02/06/2014 Supervision of normal first 2013 02/06/2014 Overview: Boy on us- First trimester bleeding 05/21/2013 014 Overview: 05/21/2013She had some spotting April 26 of April 28. An unofficial ultrasound was done by Dr. Oleary at the time. Patient denies any bleeding since then. TKRN Dermatophytosis of foot 11/12/2010 03/03/20 16 Iron deficiency anemia, unspecified 2007 10/21/2016 Overview: HCT 34% in 08-02 Iron 20, TIBC 481, 4% saturation, Ferritin 6 in 08-02 Started bid iron supplements in 11-07 Generalized anxiety disorder 08/08/200704/2016 Overview: 05/21/2013Patient is currently taking Citolopram 20 mg prescribed by Maria Luisa Alcala and Dr. Willams for anxiety. She denies ever having depression. She is made aware that Citolopram is a category C medication in . Patient does feel that her anxiety was situational when she began taking it. Patient wishes to discontinue medication. I discussed with the patient the importance of weaning off this medication slowly. She will discuss this more with Dr. Oleary. TKRN Abnormal involuntary movements(781.0) 08/08/2007 03/03/2016 Routine general medical exam ination at a [facility] care facility 08/07/2007 09/18/2012 Overview: T4 10.8, FTI 2.7 (both normal) as of 08-02 Antimicrosomal Ab < 3, Thyroglobulin < 8 in 08-02: both negative Nonspecific abnormal electrocardiogram (ECG) (EK G) 08/05/2007 03/03/2016 Overview: ECG 08-03-07 at [facility] after vagal episode: non-specif T changes in III, aVF, V3 ECG 08-05-07: LAE by V1, non-specific T changes II, aVF, V3-4 (no change from old ECG 05-30) Plan Echo after thyroid eval in follow up ED 08-06-07 for CP: H/H was 10.3 and 29.7-needs iron studies Unspecified hemorrhoids without mention of compl ication 03/03/2016 Overview: Hemorrhoids 05/21/2013Patient has a history of hemorrhoids. Discussed the importance of avoiding constipation and straining with her bowel movements. TKRN Diarrhea 03/03/2016 documented as of this encounter (statuses as of 10/02/2022) [facility] History of Past illness Narrative* Problem Noted Date Resolved Date Antepartum multigravida of advanced maternal age 0805/14/2019 06/09/2020 Overview: 05/14/2019Patient will be 34 at the time of delivery. She desires nuchal ultrasound and is considering [id number] testing. Considering genetic carrier screening testing. TKRN Hydronephrosis 10/19/2013 02/06/2014 Supervision of normal first 2013 02/06/2014 Overview: Boy on us- First trimester bleeding 05/21/2013 014 Overview: 05/21/2013She had some spotting April 26 of April 28. An unofficial ultrasound was done by Dr. Oleary at the time. Patient denies any bleeding since then. TKRN Dermatophytosis of foot 11/12/2010 03/03/20 16 Iron deficiency anemia, unspecified 2007 10/21/2016 Overview: HCT 34% in 08-02 Iron 20, TIBC 481, 4% saturation, Ferritin 6 in 08-02 Started bid iron supplements in 08-02 Generalized anxiety disorder 08/08/200704/2016 Overview: 05/21/2013Patient is currently taking Citolopram 20 mg prescribed by Maria Luisa lAcala and Dr. Willams for anxiety. She denies ever having depression. She is made aware that Citolopram is a category C medication in . Patient does feel that her anxiety was situational when she began taking it. Patient wishes to discontinue medication. I discussed with the patient the importance of weaning off this medication slowly. She will discuss this more with Dr. Oleary. TKRN Abnormal involuntary movements(781.0) 08/08/2007 03/03/2016 Routine general medical exam ination at a health care facility 08/07/2007 09/18/2012 Overview: T4 10.8, FTI 2.7 (both normal) as of 08-02 Antimicrosomal Ab < 3, Thyroglobulin < 8 in 08-02: both negative Nonspecific abnormal electrocardiogram (ECG) (EK G) 08/05/2007 03/03/2016 Overview: ECG 08-03-07 at [facility] after vagal episode: non-specif T changes in III, aVF, V3 ECG 08-05-07: LAE by V1, non-specific T changes II, aVF, V3-4 (no change from old ECG 05-30) Plan Echo after thyroid eval in follow up ED 08-06-07 for CP: H/H was 10.3 and 29.7-needs iron studies Unspecified hemorrhoids without mention of compl ication 03/03/2016 Overview: Hemorrhoids 05/21/2013Patient has a history of hemorrhoids. Discussed the importance of avoiding constipation and straining with her bowel movements. TKRN Diarrhea 03/03/2016 documented as of this encounter (statuses as of 10/08/2022) [facility] History of Past illness Narrative* Problem Noted Date Resolved Date Antepartum multigravida of advanced maternal age 0805/14/2019 06/09/2020 Overview: 05/14/2019Patient will be 34 at the time of delivery. She desires nuchal ultrasound and is considering [id number] testing. Considering genetic carrier screening testing. TKRN Hydronephrosis 10/19/2013 02/06/2014 Supervision of normal first 2013 02/06/2014 Overview: Boy on us- First trimester bleeding 05/21/2013 014 Overview: 05/21/2013She had some spotting April 26 of April 28. An unofficial ultrasound was done by Dr. Oleary at the time. Patient denies any bleeding since then. TKRN Dermatophytosis of foot 11/12/2010 03/03/20 16 Iron deficiency anemia, unspecified 2007 10/21/2016 Overview: HCT 34% in 08-02 Iron 20, TIBC 481, 4% saturation, Ferritin 6 in 08-02 Started bid iron supplements in 08-02 Generalized anxiety disorder 08/08/200704/2016 Overview: 05/21/2013Patient is currently taking Citolopram 20 mg prescribed by Maria Luisa Alcala and Dr. Willams for anxiety. She denies ever having depression. She is made aware that Citolopram is a category C medication in . Patient does feel that her anxiety was situational when she began taking it. Patient wishes to discontinue medication. I discussed with the patient the importance of weaning off this medication slowly. She will discuss this more with Dr. Oleary. TKRN Abnormal involuntary movements(781.0) 08/08/2007 03/03/2016 Routine general medical exam ination at a [facility] facility 08/07/2007 09/18/2012 Overview: T4 10.8, FTI 2.7 (both normal) as of 08-02 Antimicrosomal Ab < 3, Thyroglobulin < 8 in 08-02: both negative Nonspecific abnormal electrocardiogram (ECG) (EK G) 08/05/2007 03/03/2016 Overview: ECG 08-03-07 at [facility] after vagal episode: non-specif T changes in III, aVF, V3 ECG 08-05-07: LAE by V1, non-specific T changes II, aVF, V3-4 (no change from old ECG 05-30) Plan Echo after thyroid eval in follow up ED 08-06-07 for CP: H/H was 10.3 and 29.7-needs iron studies Unspecified hemorrhoids without mention of compl ication 03/03/2016 Overview: Hemorrhoids 05/21/2013Patient has a history of hemorrhoids. Discussed the importance of avoiding constipation and straining with her bowel movements. TKRN Diarrhea 03/03/2016 documented as of this encounter (statuses as of 10/11/2022) [facility] of Past illness Narrative* Problem Noted Date Resolved Date Antepartum multigravida of advanced maternal age 0805/14/2019 06/09/2020 Overview: 05/14/2019Patient will be 34 at the time of delivery. She desires nuchal ultrasound and is considering [id number] testing. Considering genetic carrier screening testing. TKRN Hydronephrosis 10/19/2013 02/06/2014 Supervision of normal first 2013 02/06/2014 Overview: Boy on us- First trimester bleeding 05/21/2013 014 Overview: 05/21/2013She had some spotting April 26 of April 28. An unofficial ultrasound was done by Dr. Oleary at the time. Patient denies any bleeding since then. TKRN Dermatophytosis of foot 11/12/2010 03/03/20 16 Iron deficiency anemia, unspecified 2007 10/21/2016 Overview: HCT 34% in 08-02 Iron 20, TIBC 481, 4% saturation, Ferritin 6 in 08-02 Started bid iron supplements in 08-02 Generalized anxiety disorder 08/08/200704/2016 Overview: 05/21/2013Patient is currently taking Citolopram 20 mg prescribed by Maria Luisa Alcala and Dr. Willams for anxiety. She denies ever having depression. She is made aware that Citolopram is a category C medication in . Patient does feel that her anxiety was situational when she began taking it. Patient wishes to discontinue medication. I discussed with the patient the importance of weaning off this medication slowly. She will discuss this more with Dr. Oleary. TKRN Abnormal involuntary movements(781.0) 08/08/2007 03/03/2016 Routine general medical exam ination at a health care facility 08/07/2007 09/18/2012 Overview: T4 10.8, FTI 2.7 (both normal) as of 08-02 Antimicrosomal Ab < 3, Thyroglobulin < 8 in 08-02: both negative Nonspecific abnormal electrocardiogram (ECG) (EK G) 08/05/2007 03/03/2016 Overview: ECG 08-03-07 at [facility] after vagal episode: non-specif T changes in III, aVF, V3 ECG 08-05-07: LAE by V1, non-specific T changes II, aVF, V3-4 (no change from old ECG 05-30) Plan Echo after thyroid eval in follow up ED 08-06-07 for CP: H/H was 10.3 and 29.7-needs iron studies Unspecified hemorrhoids without mention of compl ication 03/03/2016 Overview: Hemorrhoids 05/21/2013Patient has a history of hemorrhoids. Discussed the importance of avoiding constipation and straining with her bowel movements. TKRN Diarrhea 03/03/2016 documented as of this encounter (statuses as of 10/12/2022) [facility] of Past illness Narrative* Problem Noted Date Resolved Date Antepartum multigravida of advanced maternal age 0805/14/2019 06/09/2020 Overview: 05/14/2019Patient will be 34 at the time of delivery. She desires nuchal ultrasound and is considering [id number] testing. Considering genetic carrier screening testing. TKRN Hydronephrosis 10/19/2013 02/06/2014 Supervision of normal first 2013 02/06/2014 Overview: Boy on us- First trimester bleeding 05/21/2013 014 Overview: 05/21/2013She had some spotting April 26 of April 28. An unofficial ultrasound was done by Dr. Oleary at the time. Patient denies any bleeding since then. TKRN Dermatophytosis of foot 11/12/2010 03/03/20 16 Iron deficiency anemia, unspecified 2007 10/21/2016 Overview: HCT 34% in 08-02 Iron 20, TIBC 481, 4% saturation, Ferritin 6 in 08-02 Started bid iron supplements in 08-02 Generalized anxiety disorder 08/08/200704/2016 Overview: 05/21/2013Patient is currently taking Citolopram 20 mg prescribed by Maria Luisa Alcala and Dr. Willams for anxiety. She denies ever having depression. She is made aware that Citolopram is a category C medication in . Patient does feel that her anxiety was situational when she began taking it. Patient wishes to discontinue medication. I discussed with the patient the importance of weaning off this medication slowly. She will discuss this more with Dr. Oleary. TKRN Abnormal involuntary movements(781.0) 08/08/2007 03/03/2016 Routine general medical exam ination at a health care facility 08/07/2007 09/18/2012 Overview: T4 10.8, FTI 2.7 (both normal) as of 08-02 Antimicrosomal Ab < 3, Thyroglobulin < 8 in 08-02: both negative Nonspecific abnormal electrocardiogram (ECG) (EK G) 08/05/2007 03/03/2016 Overview: ECG 08-03-07 at [facility] after vagal episode: non-specif T changes in III, aVF, V3 ECG 08-05-07: LAE by V1, non-specific T changes II, aVF, V3-4 (no change from old ECG 05-30) Plan Echo after thyroid eval in follow up ED 08-06-07 for CP: H/H was 10.3 and 29.7-needs iron studies Unspecified hemorrhoids without mention of compl ication 03/03/2016 Overview: Hemorrhoids 05/21/2013Patient has a history of hemorrhoids. Discussed the importance of avoiding constipation and straining with her bowel movements. TKRN Diarrhea 03/03/2016 documented as of this encounter (statuses as of 11/09/2022) [facility] of Past illness Narrative* Problem Noted Date Resolved Date Antepartum multigravida of advanced maternal age 0805/14/2019 06/09/2020 Overview: 05/14/2019Patient will be 34 at the time of delivery. She desires nuchal ultrasound and is considering [id number] testing. Considering genetic carrier screening testing. TKRN Hydronephrosis 10/19/2013 02/06/2014 Supervision of normal first 2013 02/06/2014 Overview: Boy on us- First trimester bleeding 05/21/2013 014 Overview: 05/21/2013She had some spotting April 26April 28. An unofficial ultrasound was done by Dr. Oleary at the time. Patient denies any bleeding since then. TKRN Dermatophytosis of foot 11/12/2010 03/03/20 16 Iron deficiency anemia, unspecified 2007 10/21/2016 Overview: HCT 34% in 08-02 Iron 20, TIBC 481, 4% saturation, Ferritin 6 in 08-02 Started bid iron supplements in 08-02 Generalized anxiety disorder 08/08/200704/2016 Overview: 05/21/2013Patient is currently taking Citolopram 20 mg prescribed by Maria Luisa Alcala and Dr. Willams for anxiety. She denies ever having depression. She is made aware that Citolopram is a category C medication in . Patient does feel that her anxiety was situational when she began taking it. Patient wishes to discontinue medication. I discussed with the patient the importance of weaning off this medication slowly. She will discuss this more with Dr. Oleary. TKRN Abnormal involuntary movements(781.0) 08/08/2007 03/03/2016 Routine general medical exam ination at a health care facility 08/07/2007 09/18/2012 Overview: T4 10.8, FTI 2.7 (both normal) as of 08-02 Antimicrosomal Ab < 3, Thyroglobulin < 8 in 08-02: both negative Nonspecific abnormal electrocardiogram (ECG) (EK G) 08/05/2007 03/03/2016 Overview: ECG 08-03-07 at [facility] after vagal episode: non-specif T changes in III, aVF, V3 ECG 08-05-07: LAE by V1, non-specific T changes II, aVF, V3-4 (no change from old ECG 05-30) Plan Echo after thyroid eval in follow up ED 08-06-07 for CP: H/H was 10.3 and 29.7-needs iron studies Unspecified hemorrhoids without mention of compl ication 03/03/2016 Overview: Hemorrhoids 05/21/2013Patient has a history of hemorrhoids. Discussed the importance of avoiding constipation and straining with her bowel movements. TKRN Diarrhea 03/03/2016 documented as of this encounter (statuses as of 11/17/2022) [facility] of Past [facility] Narrative* Problem Noted Date Resolved Date Antepartum multigravida of advanced maternal age 0805/14/2019 06/09/2020 Overview: 05/14/2019Patient will be 34 at the time of delivery. She desires nuchal ultrasound and is considering [id number] testing. Considering genetic carrier screening testing. TKRN Hydronephrosis 10/19/2013 02/06/2014 Supervision of normal first 2013 02/06/2014 Overview: Boy on us- First trimester bleeding 05/21/2013 014 Overview: 05/21/2013She had some spotting April 26 of April 28. An unofficial ultrasound was done by Dr. Oleary at the time. Patient denies any bleeding since then. TKRN Dermatophytosis of foot 11/12/2010 03/03/20 16 Iron deficiency anemia, unspecified 2007 10/21/2016 Overview: HCT 34% in 08-02 Iron 20, TIBC 481, 4% saturation, Ferritin 6 in 08-02 Started bid iron supplements in 08-02 Generalized anxiety disorder 08/08/200704/2016 Overview: 05/21/2013Patient is currently taking Citolopram 20 mg prescribed by Maria Luisa Alcala and Dr. Willams for anxiety. She denies ever having depression. She is made aware that Citolopram is a category C medication in . Patient does feel that her anxiety was situational when she began taking it. Patient wishes to discontinue medication. I discussed with the patient the importance of weaning off this medication slowly. She will discuss this more with Dr. Oleary. TKRN Abnormal involuntary movements(781.0) 08/08/2007 03/03/2016 Routine general medical exam ination at a health care facility 08/07/2007 09/18/2012 Overview: T4 10.8, FTI 2.7 (both normal) as of 08-02 Antimicrosomal Ab < 3, Thyroglobulin < 8 in 08-02: both negative Nonspecific abnormal electrocardiogram (ECG) (EK G) 08/05/2007 03/03/2016 Overview: ECG 08-03-07 at [facility] after vagal episode: non-specif T changes in III, aVF, V3 ECG 08-05-07: LAE by V1, non-specific T changes II, aVF, V3-4 (no change from old ECG 05-30) Plan Echo after thyroid eval in follow up ED 08-06-07 for CP: H/H was 10.3 and 29.7-needs iron studies Unspecified hemorrhoids without mention of compl ication 03/03/2016 Overview: Hemorrhoids 05/21/2013Patient has a history of hemorrhoids. Discussed the importance of avoiding constipation and straining with her bowel movements. TKRN Diarrhea 03/03/2016 documented as of this encounter (statuses as of 01/19/2023) [facility] of Past [facility] Narrative* Problem Noted Date Resolved Date Antepartum multigravida of advanced maternal age 0805/14/2019 06/09/2020 Overview: 05/14/2019Patient will be 34 at the time of delivery. She desires nuchal ultrasound and is considering [id number] testing. Considering genetic carrier screening testing. TKRN Hydronephrosis 10/19/2013 02/06/2014 Supervision of normal first 2013 02/06/2014 Overview: Boy on us- First trimester bleeding 05/21/2013 014 Overview: 05/21/2013She had some spotting April 26 of April 28. An unofficial ultrasound was done by Dr. Oleary at the time. Patient denies any bleeding since then. TKRN Dermatophytosis of foot 11/12/2010 03/03/20 16 Iron deficiency anemia, unspecified 2007 10/21/2016 Overview: HCT 34% in 08-02 Iron 20, TIBC 481, 4% saturation, Ferritin 6 in 08-02 Started bid iron supplements in 08-02 Generalized anxiety disorder 08/08/200704/2016 Overview: 05/21/2013Patient is currently taking Citolopram 20 mg prescribed by Maria Luisa Alcala and Dr. Willams for anxiety. She denies ever having depression. She is made aware that Citolopram is a category C medication in . Patient does feel that her anxiety was situational when she began taking it. Patient wishes to discontinue medication. I discussed with the patient the importance of weaning off this medication slowly. She will discuss this more with Dr. Oleary. TKRN Abnormal involuntary movements(781.0) 08/08/2007 03/03/2016 Routine general medical exam ination at a health care facility 08/07/2007 09/18/2012 Overview: T4 10.8, FTI 2.7 (both normal) as of 08-02 Antimicrosomal Ab < 3, Thyroglobulin < 8 in 08-02: both negative Nonspecific abnormal electrocardiogram (ECG) (EK G) 08/05/2007 03/03/2016 Overview: ECG 08-03-07 at [facility] after vagal episode: non-specif T changes in III, aVF, V3 ECG 08-05-07: LAE by V1, non-specific T changes II, aVF, V3-4 (no change from old ECG 05-30) Plan Echo after thyroid eval in follow up ED 08-06-07 for CP: H/H was 10.3 and 29.7-needs iron studies Unspecified hemorrhoids without mention of compl ication 03/03/2016 Overview: Hemorrhoids 05/21/2013Patient has a history of hemorrhoids. Discussed the importance of avoiding constipation and straining with her bowel movements. TKRN Diarrhea 03/03/2016 documented as of this encounter (statuses as of 01/20/2023) [facility] of Past illness Narrative* Problem Noted Date Resolved Date Antepartum multigravida of advanced maternal age 0805/14/2019 06/09/2020 Overview: 05/14/2019Patient will be 34 at the time of delivery. She desires nuchal ultrasound and is considering [id number] testing. Considering genetic carrier screening testing. TKRN Hydronephrosis 10/19/2013 02/06/2014 Supervision of normal first 2013 02/06/2014 Overview: Boy on us- First trimester bleeding 05/21/2013 014 Overview: 05/21/2013She had some spotting April 26 of April 28. An unofficial ultrasound was done by Dr. Oleary at the time. Patient denies any bleeding since then. TKRN Dermatophytosis of foot 11/12/2010 03/03/20 16 Iron deficiency anemia, unspecified 2007 10/21/2016 Overview: HCT 34% in 08-02 Iron 20, TIBC 481, 4% saturation, Ferritin 6 in 08-02 Started bid iron supplements in 08-02 Generalized anxiety disorder 08/08/200704/2016 Overview: 05/21/2013Patient is currently taking Citolopram 20 mg prescribed by Maria Luisa Alcala and Dr. Willams for anxiety. She denies ever having depression. She is made aware that Citolopram is a category C medication in . Patient does feel that her anxiety was situational when she began taking it. Patient wishes to discontinue medication. I discussed with the patient the importance of weaning off this medication slowly. She will discuss this more with Dr. Oleary. TKRN Abnormal involuntary movements(781.0) 08/08/2007 03/03/2016 Routine general medical exam ination at a health care facility 08/07/2007 09/18/2012 Overview: T4 10.8, FTI 2.7 (both normal) as of 08-02 Antimicrosomal Ab < 3, Thyroglobulin < 8 in 08-02: both negative Nonspecific abnormal electrocardiogram (ECG) (EK G) 08/05/2007 03/03/2016 Overview: ECG 08-03-07 at [facility] after vagal episode: non-specif T changes in III, aVF, V3 ECG 08-05-07: LAE by V1, non-specific T changes II, aVF, V3-4 (no change from old ECG 05-30) Plan Echo after thyroid eval in follow up ED 08-06-07 for CP: H/H was 10.3 and 29.7-needs iron studies Unspecified hemorrhoids without mention of compl ication 03/03/2016 Overview: Hemorrhoids 05/21/2013Patient has a history of hemorrhoids. Discussed the importance of avoiding constipation and straining with her bowel movements. TKRN Diarrhea 03/03/2016 documented as of this encounter (statuses as of 02/02/2023) [facility] History of Past illness Narrative* Problem Noted Date Resolved Date Antepartum multigravida of advanced maternal age 0805/14/2019 06/09/2020 Overview: 05/14/2019Patient will be 34 at the time of delivery. She desires nuchal ultrasound and is considering [id number] testing. Considering genetic carrier screening testing. TKRN Hydronephrosis 10/19/2013 02/06/2014 Supervision of normal first 2013 02/06/2014 Overview: Boy on us- First trimester bleeding 05/21/2013 014 Overview: 05/21/2013She had some spotting April 26 of April 28. An unofficial ultrasound was done by Dr. Oleary at the time. Patient denies any bleeding since then. TKRN Dermatophytosis of foot 11/12/2010 03/03/20 16 Iron deficiency anemia, unspecified 2007 10/21/2016 Overview: HCT 34% in 08-02 Iron 20, TIBC 481, 4% saturation, Ferritin 6 in 08-02 Started bid iron supplements in 08-02 Generalized anxiety disorder 08/08/200704/2016 Overview: 05/21/2013Patient is currently taking Citolopram 20 mg prescribed by Maria Luisa Alcala and Dr. Willams for anxiety. She denies ever having depression. She is made aware that Citolopram is a category C medication in . Patient does feel that her anxiety was situational when she began taking it. Patient wishes to discontinue medication. I discussed with the patient the importance of weaning off this medication slowly. She will discuss this more with Dr. Oleary. TKRN Abnormal involuntary movements(781.0) 08/08/2007 03/03/2016 Routine general medical exam ination at a [facility] care facility 08/07/2007 09/18/2012 Overview: T4 10.8, FTI 2.7 (both normal) as of 08-02 Antimicrosomal Ab < 3, Thyroglobulin < 8 in 08-02: both negative Nonspecific abnormal electrocardiogram (ECG) (EK G) 08/05/2007 03/03/2016 Overview: ECG 08-03-07 at [facility] after vagal episode: non-specif T changes in III, aVF, V3 ECG 08-05-07: LAE by V1, non-specific T changes II, aVF, V3-4 (no change from old ECG 05-30) Plan Echo after thyroid eval in follow up ED 08-06-07 for CP: H/H was 10.3 and 29.7-needs iron studies Unspecified hemorrhoids without mention of compl ication 03/03/2016 Overview: Hemorrhoids 05/21/2013Patient has a history of hemorrhoids. Discussed the importance of avoiding constipation and straining with her bowel movements. TKRN Diarrhea 03/03/2016 documented as of this encounter (statuses as of 02/27/2023) [facility] History of Past illness Narrative* Problem Noted Date Resolved Date Antepartum multigravida of advanced maternal age 0805/14/2019 06/09/2020 Overview: 05/14/2019Patient will be 34 at the time of delivery. She desires nuchal ultrasound and is considering [id number] testing. Considering genetic carrier screening testing. TKRN Hydronephrosis 10/19/2013 02/06/2014 Supervision of normal first 2013 02/06/2014 Overview: Boy on us- First trimester bleeding 05/21/2013 014 Overview: 05/21/2013She had some spotting April 26 of April 28. An unofficial ultrasound was done by Dr. Oleary at the time. Patient denies any bleeding since then. TKRN Dermatophytosis of foot 11/12/2010 03/03/20 16 Iron deficiency anemia, unspecified 2007 10/21/2016 Overview: HCT 34% in 08-02 Iron 20, TIBC 481, 4% saturation, Ferritin 6 in 08-02 Started bid iron supplements in 08-02 Generalized anxiety disorder 08/08/200704/2016 Overview: 05/21/2013Patient is currently taking Citolopram 20 mg prescribed by Maria Luisa Alcala and Dr. Willams for anxiety. She denies ever having depression. She is made aware that Citolopram is a category C medication in . Patient does feel that her anxiety was situational when she began taking it. Patient wishes to discontinue medication. I discussed with the patient the importance of weaning off this medication slowly. She will discuss this more with Dr. Oleary. TKRN Abnormal involuntary movements(781.0) 08/08/2007 03/03/2016 Routine general medical exam ination at a health care facility 08/07/2007 09/18/2012 Overview: T4 10.8, FTI 2.7 (both normal) as of 08-02 Antimicrosomal Ab < 3, Thyroglobulin < 8 in 08-02: both negative Nonspecific abnormal electrocardiogram (ECG) (EK G) 08/05/2007 03/03/2016 Overview: ECG 08-03-07 at [facility] after vagal episode: non-specif T changes in III, aVF, V3 ECG 08-05-07: LAE by V1, non-specific T changes II, aVF, V3-4 (no change from old ECG 05-30) Plan Echo after thyroid eval in follow up ED 08-06-07 for CP: H/H was 10.3 and 29.7-needs iron studies Unspecified hemorrhoids without mention of compl ication 03/03/2016 Overview: Hemorrhoids 05/21/2013Patient has a history of hemorrhoids. Discussed the importance of avoiding constipation and straining with her bowel movements. TKRN Diarrhea 03/03/2016 documented as of this encounter (statuses as of 03/02/2023) [facility] History of Past illness Narrative* Problem Noted Date Resolved Date Antepartum multigravida of advanced maternal age 0805/14/2019 06/09/2020 Overview: 05/14/2019Patient will be 34 at the time of delivery. She desires nuchal ultrasound and is considering [id number] testing. Considering genetic carrier screening testing. TKRN Hydronephrosis 10/19/2013 02/06/2014 Supervision of normal first 2013 02/06/2014 Overview: Boy on us- First trimester bleeding 05/21/2013 014 Overview: 05/21/2013She had some spotting April 26 of April 28. An unofficial ultrasound was done by Dr. Oleary at the time. Patient denies any bleeding since then. TKRN Dermatophytosis of foot 11/12/2010 03/03/20 16 Iron deficiency anemia, unspecified 2007 10/21/2016 Overview: HCT 34% in 08-02 Iron 20, TIBC 481, 4% saturation, Ferritin 6 in 11-07 Started bid iron supplements in 08-02 Generalized anxiety disorder 08/08/200704/2016 Overview: 05/21/2013Patient is currently taking Citolopram 20 mg prescribed by Maria Luisa Alcala and Dr. Willams for anxiety. She denies ever having depression. She is made aware that Citolopram is a category C medication in . Patient does feel that her anxiety was situational when she began taking it. Patient wishes to discontinue medication. I discussed with the patient the importance of weaning off this medication slowly. She will discuss this more with Dr. Oleary. TKRN Abnormal involuntary movements(781.0) 08/08/2007 03/03/2016 Routine general medical exam ination at a [facility] care facility 08/07/2007 09/18/2012 Overview: T4 10.8, FTI 2.7 (both normal) as of 08-02 Antimicrosomal Ab < 3, Thyroglobulin < 8 in 08-02: both negative Nonspecific abnormal electrocardiogram (ECG) (EK G) 08/05/2007 03/03/2016 Overview: ECG 08-03-07 at [facility] after vagal episode: non-specif T changes in III, aVF, V3 ECG 08-05-07: LAE by V1, non-specific T changes II, aVF, V3-4 (no change from old ECG 05-30) Plan Echo after thyroid eval in follow up ED 08-06-07 for CP: H/H was 10.3 and 29.7-needs iron studies Unspecified hemorrhoids without mention of compl ication 03/03/2016 Overview: Hemorrhoids 05/21/2013Patient has a history of hemorrhoids. Discussed the importance of avoiding constipation and straining with her bowel movements. TKRN Diarrhea 03/03/2016 documented as of this encounter (statuses as of 03/10/2023) [facility] History of Past illness Narrative* Problem Noted Date Resolved Date Antepartum multigravida of advanced maternal age 0805/14/2019 06/09/2020 Overview: 05/14/2019Patient will be 34 at the time of delivery. She desires nuchal ultrasound and is considering [id number] testing. Considering genetic carrier screening testing. TKRN Hydronephrosis 10/19/2013 02/06/2014 Supervision of normal first 2013 02/06/2014 Overview: Boy on us- First trimester bleeding 05/21/2013 014 Overview: 05/21/2013She had some spotting April 26 of April 28. An unofficial ultrasound was done by Dr. Oleary at the time. Patient denies any bleeding since then. TKRN Dermatophytosis of foot 11/12/2010 03/03/20 16 Iron deficiency anemia, unspecified 2007 10/21/2016 Overview: HCT 34% in 08-02 Iron 20, TIBC 481, 4% saturation, Ferritin 6 in 08-02 Started bid iron supplements in 08-02 Generalized anxiety disorder 08/08/200704/2016 Overview: 05/21/2013Patient is currently taking Citolopram 20 mg prescribed by Maria Luisa Alcala and Dr. Willams for anxiety. She denies ever having depression. She is made aware that Citolopram is a category C medication in . Patient does feel that her anxiety was situational when she began taking it. Patient wishes to discontinue medication. I discussed with the patient the importance of weaning off this medication slowly. She will discuss this more with Dr. Oleary. TKRN Abnormal involuntary movements(781.0) 08/08/2007 03/03/2016 Routine general medical exam ination at a health care facility 08/07/2007 09/18/2012 Overview: T4 10.8, FTI 2.7 (both normal) as of 08-02 Antimicrosomal Ab < 3, Thyroglobulin < 8 in 08-02: both negative Nonspecific abnormal electrocardiogram (ECG) (EK G) 08/05/2007 03/03/2016 Overview: ECG 08-03-07 at [facility] after vagal episode: non-specif T changes in III, aVF, V3 ECG 08-05-07: LAE by V1, non-specific T changes II, aVF, V3-4 (no change from old ECG 05-30) Plan Echo after thyroid eval in follow up ED 08-06-07 for CP: H/H was 10.3 and 29.7-needs iron studies Unspecified hemorrhoids without mention of compl ication 03/03/2016 Overview: Hemorrhoids 05/21/2013Patient has a history of hemorrhoids. Discussed the importance of avoiding constipation and straining with her bowel movements. TKRN Diarrhea 03/03/2016 documented as of this encounter (statuses as of 03/14/2023) [facility] of Past illness Narrative* Problem Noted Date Resolved Date Antepartum multigravida of advanced maternal age 0805/14/2019 06/09/2020 Overview: 05/14/2019Patient will be 34 at the time of delivery. She desires nuchal ultrasound and is considering [id number] testing. Considering genetic carrier screening testing. TKRN Hydronephrosis 10/19/2013 02/06/2014 Supervision of normal first 2013 02/06/2014 Overview: Boy on us- First trimester bleeding 05/21/2013 014 Overview: 05/21/2013She had some spotting April 26 of April 28. An unofficial ultrasound was done by Dr. Oleary at the time. Patient denies any bleeding since then. TKRN Dermatophytosis of foot 11/12/2010 03/03/20 16 Iron deficiency anemia, unspecified 2007 10/21/2016 Overview: HCT 34% in 08-02 Iron 20, TIBC 481, 4% saturation, Ferritin 6 in 08-02 Started bid iron supplements in 08-02 Generalized anxiety disorder 08/08/200704/2016 Overview: 05/21/2013Patient is currently taking Citolopram 20 mg prescribed by Maria Luisa Alcala and Dr. Willams for anxiety. She denies ever having depression. She is made aware that Citolopram is a category C medication in . Patient does feel that her anxiety was situational when she began taking it. Patient wishes to discontinue medication. I discussed with the patient the importance of weaning off this medication slowly. She will discuss this more with Dr. Oleary. TKRN Abnormal involuntary movements(781.0) 08/08/2007 03/03/2016 Routine general medical exam ination at a [facility] facility 08/07/2007 09/18/2012 Overview: T4 10.8, FTI 2.7 (both normal) as of 08-02 Antimicrosomal Ab < 3, Thyroglobulin < 8 in 08-02: both negative Nonspecific abnormal electrocardiogram (ECG) (EK G) 08/05/2007 03/03/2016 Overview: ECG 08-03-07 at [facility] after vagal episode: non-specif T changes in III, aVF, V3 ECG 08-05-07: LAE by V1, non-specific T changes II, aVF, V3-4 (no change from old ECG 05-30) Plan Echo after thyroid eval in follow up ED 08-06-07 for CP: H/H was 10.3 and 29.7-needs iron studies Unspecified hemorrhoids without mention of compl ication 03/03/2016 Overview: Hemorrhoids 05/21/2013Patient has a history of hemorrhoids. Discussed the importance of avoiding constipation and straining with her bowel movements. TKRN Diarrhea 03/03/2016 documented as of this encounter (statuses as of 03/15/2023) [facility] of Past illness Narrative* Problem Noted Date Resolved Date Antepartum multigravida of advanced maternal age 0805/14/2019 06/09/2020 Overview: 05/14/2019Patient will be 34 at the time of delivery. She desires nuchal ultrasound and is considering [id number] testing. Considering genetic carrier screening testing. TKRN Hydronephrosis 10/19/2013 02/06/2014 Supervision of normal first 2013 02/06/2014 Overview: Boy on us- First trimester bleeding 05/21/2013 014 Overview: 05/21/2013She had some spotting April 26 of April 28. An unofficial ultrasound was done by Dr. Oleary at the time. Patient denies any bleeding since then. TKRN Dermatophytosis of foot 11/12/2010 03/03/20 16 Iron deficiency anemia, unspecified 2007 10/21/2016 Overview: HCT 34% in 08-02 Iron 20, TIBC 481, 4% saturation, Ferritin 6 in 08-02 Started bid iron supplements in 08-02 Generalized anxiety disorder 08/08/200704/2016 Overview: 05/21/2013Patient is currently taking Citolopram 20 mg prescribed by Maria Luisa Alcala and Dr. Willams for anxiety. She denies ever having depression. She is made aware that Citolopram is a category C medication in . Patient does feel that her anxiety was situational when she began taking it. Patient wishes to discontinue medication. I discussed with the patient the importance of weaning off this medication slowly. She will discuss this more with Dr. Oleary. TKRN Abnormal involuntary movements(781.0) 08/08/2007 03/03/2016 Routine general medical exam ination at a health care facility 08/07/2007 09/18/2012 Overview: T4 10.8, FTI 2.7 (both normal) as of 08-02 Antimicrosomal Ab < 3, Thyroglobulin < 8 in 08-02: both negative Nonspecific abnormal electrocardiogram (ECG) (EK G) 08/05/2007 03/03/2016 Overview: ECG 08-03-07 at [facility] after vagal episode: non-specif T changes in III, aVF, V3 ECG 08-05-07: LAE by V1, non-specific T changes II, aVF, V3-4 (no change from old ECG 05-30) Plan Echo after thyroid eval in follow up ED 08-06-07 for CP: H/H was 10.3 and 29.7-needs iron studies Unspecified hemorrhoids without mention of compl ication 03/03/2016 Overview: Hemorrhoids 05/21/2013Patient has a history of hemorrhoids. Discussed the importance of avoiding constipation and straining with her bowel movements. TKRN Diarrhea 03/03/2016 documented as of this encounter (statuses as of 03/16/2023) [facility] of Past illness Narrative* Problem Noted Date Resolved Date Antepartum multigravida of advanced maternal age 0805/14/2019 06/09/2020 Overview: 05/14/2019Patient will be 34 at the time of delivery. She desires nuchal ultrasound and is considering [id number] testing. Considering genetic carrier screening testing. TKRN Hydronephrosis 10/19/2013 02/06/2014 Supervision of normal first 2013 02/06/2014 Overview: Boy on us- First trimester bleeding 05/21/2013 014 Overview: 05/21/2013She had some spotting April 26 of April 28. An unofficial ultrasound was done by Dr. Oleary at the time. Patient denies any bleeding since then. TKRN Dermatophytosis of foot 11/12/2010 03/03/20 16 Iron deficiency anemia, unspecified 2007 10/21/2016 Overview: HCT 34% in 08-02 Iron 20, TIBC 481, 4% saturation, Ferritin 6 in 08-02 Started bid iron supplements in 08-02 Generalized anxiety disorder 08/08/200704/2016 Overview: 05/21/2013Patient is currently taking Citolopram 20 mg prescribed by Maria Luisa Alcala and Dr. Willams for anxiety. She denies ever having depression. She is made aware that Citolopram is a category C medication in . Patient does feel that her anxiety was situational when she began taking it. Patient wishes to discontinue medication. I discussed with the patient the importance of weaning off this medication slowly. She will discuss this more with Dr. Oleary. TKRN Abnormal involuntary movements(781.0) 08/08/2007 03/03/2016 Routine general medical exam ination at a health care facility 08/07/2007 09/18/2012 Overview: T4 10.8, FTI 2.7 (both normal) as of 08-02 Antimicrosomal Ab < 3, Thyroglobulin < 8 in 08-02: both negative Nonspecific abnormal electrocardiogram (ECG) (EK G) 08/05/2007 03/03/2016 Overview: ECG 08-03-07 at [facility] after vagal episode: non-specif T changes in III, aVF, V3 ECG 08-05-07: LAE by V1, non-specific T changes II, aVF, V3-4 (no change from old ECG 05-30) Plan Echo after thyroid eval in follow up ED 08-06-07 for CP: H/H was 10.3 and 29.7-needs iron studies Unspecified hemorrhoids without mention of compl ication 03/03/2016 Overview: Hemorrhoids 05/21/2013Patient has a history of hemorrhoids. Discussed the importance of avoiding constipation and straining with her bowel movements. TKRN Diarrhea 03/03/2016 documented as of this encounter (statuses as of 03/17/2023) [facility] of Past [facility] Narrative* Problem Noted Date Resolved Date Antepartum multigravida of advanced maternal age 0805/14/2019 06/09/2020 Overview: 05/14/2019Patient will be 34 at the time of delivery. She desires nuchal ultrasound and is considering [id number] testing. Considering genetic carrier screening testing. TKRN Hydronephrosis 10/19/2013 02/06/2014 Supervision of normal first 2013 02/06/2014 Overview: Boy on us- First trimester bleeding 05/21/2013 014 Overview: 05/21/2013She had some spotting April 26 of April 28. An unofficial ultrasound was done by Dr. Oleary at the time. Patient denies any bleeding since then. TKRN Dermatophytosis of foot 11/12/2010 03/03/20 16 Iron deficiency anemia, unspecified 2007 10/21/2016 Overview: HCT 34% in 08-02 Iron 20, TIBC 481, 4% saturation, Ferritin 6 in 08-02 Started bid iron supplements in 08-02 Generalized anxiety disorder 08/08/200704/2016 Overview: 05/21/2013Patient is currently taking Citolopram 20 mg prescribed by Maria Luisa Alcala and Dr. Willams for anxiety. She denies ever having depression. She is made aware that Citolopram is a category C medication in . Patient does feel that her anxiety was situational when she began taking it. Patient wishes to discontinue medication. I discussed with the patient the importance of weaning off this medication slowly. She will discuss this more with Dr. Oleary. TKRN Abnormal involuntary movements(781.0) 08/08/2007 03/03/2016 Routine general medical exam ination at a health care facility 08/07/2007 09/18/2012 Overview: T4 10.8, FTI 2.7 (both normal) as of 08-02 Antimicrosomal Ab < 3, Thyroglobulin < 8 in 08-02: both negative Nonspecific abnormal electrocardiogram (ECG) (EK G) 08/05/2007 03/03/2016 Overview: ECG 08-03-07 at [facility] after vagal episode: non-specif T changes in III, aVF, V3 ECG 08-05-07: LAE by V1, non-specific T changes II, aVF, V3-4 (no change from old ECG 05-30) Plan Echo after thyroid eval in follow up ED 08-06-07 for CP: H/H was 10.3 and 29.7-needs iron studies Unspecified hemorrhoids without mention of compl ication 03/03/2016 Overview: Hemorrhoids 05/21/2013Patient has a history of hemorrhoids. Discussed the importance of avoiding constipation and straining with her bowel movements. TKRN Diarrhea 03/03/2016 documented as of this encounter (statuses as of 03/21/2023) [facility] of Past [facility] Narrative* Problem Noted Date Resolved Date Antepartum multigravida of advanced maternal age 0805/14/2019 06/09/2020 Overview: 05/14/2019Patient will be 34 at the time of delivery. She desires nuchal ultrasound and is considering [id number] testing. Considering genetic carrier screening testing. TKRN Hydronephrosis 10/19/2013 02/06/2014 Supervision of normal first 2013 02/06/2014 Overview: Boy on us- First trimester bleeding 05/21/2013 014 Overview: 05/21/2013She had some spotting April 26 of April 28. An unofficial ultrasound was done by Dr. Oleary at the time. Patient denies any bleeding since then. TKRN Dermatophytosis of foot 11/12/2010 03/03/20 16 Iron deficiency anemia, unspecified 2007 10/21/2016 Overview: HCT 34% in 08-02 Iron 20, TIBC 481, 4% saturation, Ferritin 6 in 08-02 Started bid iron supplements in 08-02 Generalized anxiety disorder 08/08/200704/2016 Overview: 05/21/2013Patient is currently taking Citolopram 20 mg prescribed by Maria Luisa Alcala and Dr. Willams for anxiety. She denies ever having depression. She is made aware that Citolopram is a category C medication in . Patient does feel that her anxiety was situational when she began taking it. Patient wishes to discontinue medication. I discussed with the patient the importance of weaning off this medication slowly. She will discuss this more with Dr. Oleary. TKRN Abnormal involuntary movements(781.0) 08/08/2007 03/03/2016 Routine general medical exam ination at a health care facility 08/07/2007 09/18/2012 Overview: T4 10.8, FTI 2.7 (both normal) as of 08-02 Antimicrosomal Ab < 3, Thyroglobulin < 8 in 08-02: both negative Nonspecific abnormal electrocardiogram (ECG) (EK G) 08/05/2007 03/03/2016 Overview: ECG 08-03-07 at [facility] after vagal episode: non-specif T changes in III, aVF, V3 ECG 08-05-07: LAE by V1, non-specific T changes II, aVF, V3-4 (no change from old ECG 05-30) Plan Echo after thyroid eval in follow up ED 08-06-07 for CP: H/H was 10.3 and 29.7-needs iron studies Unspecified hemorrhoids without mention of compl ication 03/03/2016 Overview: Hemorrhoids 05/21/2013Patient has a history of hemorrhoids. Discussed the importance of avoiding constipation and straining with her bowel movements. TKRN Diarrhea 03/03/2016 documented as of this encounter (statuses as of 03/21/2023) [facility] Past illness Narrative* Problem Noted Date Resolved Date Antepartum multigravida of advanced maternal age 0805/14/2019 06/09/2020 Overview: 05/14/2019Patient will be 34 at the time of delivery. She desires nuchal ultrasound and is considering [id number] testing. Considering genetic carrier screening testing. TKRN Hydronephrosis 10/19/2013 02/06/2014 Supervision of normal first 2013 02/06/2014 Overview: Boy on us- First trimester bleeding 05/21/2013 014 Overview: 05/21/2013She had some spotting April 26 of April 28. An unofficial ultrasound was done by Dr. Oleary at the time. Patient denies any bleeding since then. TKRN Dermatophytosis of foot 11/12/2010 03/03/20 16 Iron deficiency anemia, unspecified 2007 10/21/2016 Overview: HCT 34% in 08-02 Iron 20, TIBC 481, 4% saturation, Ferritin 6 in 08-02 Started bid iron supplements in 08-02 Generalized anxiety disorder 08/08/200704/2016 Overview: 05/21/2013Patient is currently taking Citolopram 20 mg prescribed by Maria Luisa Alcala and Dr. Willams for anxiety. She denies ever having depression. She is made aware that Citolopram is a category C medication in . Patient does feel that her anxiety was situational when she began taking it. Patient wishes to discontinue medication. I discussed with the patient the importance of weaning off this medication slowly. She will discuss this more with Dr. Oleary. TKRN Abnormal involuntary movements(781.0) 08/08/2007 03/03/2016 Routine general medical exam ination at a health care facility 08/07/2007 09/18/2012 Overview: T4 10.8, FTI 2.7 (both normal) as of 08-02 Antimicrosomal Ab < 3, Thyroglobulin < 8 in 08-02: both negative Nonspecific abnormal electrocardiogram (ECG) (EK G) 08/05/2007 03/03/2016 Overview: ECG 08-03-07 at [facility] after vagal episode: non-specif T changes in III, aVF, V3 ECG 08-05-07: LAE by V1, non-specific T changes II, aVF, V3-4 (no change from old ECG 05-30) Plan Echo after thyroid eval in follow up ED 08-06-07 for CP: H/H was 10.3 and 29.7-needs iron studies Unspecified hemorrhoids without mention of compl ication 03/03/2016 Overview: Hemorrhoids 05/21/2013Patient has a history of hemorrhoids. Discussed the importance of avoiding constipation and straining with her bowel movements. TKRN Diarrhea 03/03/2016 documented as of this encounter (statuses as of 03/23/2023) [facility] History of Past illness Narrative* Problem Noted Date Resolved Date Antepartum multigravida of advanced maternal age 0805/14/2019 06/09/2020 Overview: 05/14/2019Patient will be 34 at the time of delivery. She desires nuchal ultrasound and is considering [id number] testing. Considering genetic carrier screening testing. TKRN Hydronephrosis 10/19/2013 02/06/2014 Supervision of normal first 2013 02/06/2014 Overview: Boy on us- First trimester bleeding 05/21/2013 014 Overview: 05/21/2013She had some spotting April 26 of April 28. An unofficial ultrasound was done by Dr. Oleary at the time. Patient denies any bleeding since then. TKRN Dermatophytosis of foot 11/12/2010 03/03/20 16 Iron deficiency anemia, unspecified 2007 10/21/2016 Overview: HCT 34% in 08-02 Iron 20, TIBC 481, 4% saturation, Ferritin 6 in 08-02 Started bid iron supplements in 08-02 Generalized anxiety disorder 08/08/200704/2016 Overview: 05/21/2013Patient is currently taking Citolopram 20 mg prescribed by Maria Luisa Alcala and Dr. Willams for anxiety. She denies ever having depression. She is made aware that Citolopram is a category C medication in . Patient does feel that her anxiety was situational when she began taking it. Patient wishes to discontinue medication. I discussed with the patient the importance of weaning off this medication slowly. She will discuss this more with Dr. Oleary. TKRN Abnormal involuntary movements(781.0) 08/08/2007 03/03/2016 Routine general medical exam ination at a [facility] care facility 08/07/2007 09/18/2012 Overview: T4 10.8, FTI 2.7 (both normal) as of 08-02 Antimicrosomal Ab < 3, Thyroglobulin < 8 in 08-02: both negative Nonspecific abnormal electrocardiogram (ECG) (EK G) 08/05/2007 03/03/2016 Overview: ECG 08-03-07 at [facility] after vagal episode: non-specif T changes in III, aVF, V3 ECG 08-05-07: LAE by V1, non-specific T changes II, aVF, V3-4 (no change from old ECG 05-30) Plan Echo after thyroid eval in follow up ED 08-06-07 for CP: H/H was 10.3 and 29.7-needs iron studies Unspecified hemorrhoids without mention of compl ication 03/03/2016 Overview: Hemorrhoids 05/21/2013Patient has a history of hemorrhoids. Discussed the importance of avoiding constipation and straining with her bowel movements. TKRN Diarrhea 03/03/2016 documented as of this encounter (statuses as of 03/30/2023) [facility] History of Past illness Narrative* Problem Noted Date Diagnosed Date Resolved Date Antepartum multigravida of a dvanced maternal age 0805/14/2019 06/09/2020 Overview: 05/14/2019Patient will be 34 at the time of delivery. She desires nuchal ultrasound and is considering [id number] testing. Considering genetic carrier screening testing. TKRN Hydronephrosis 10/19/2013 02/06/2014 Supervision of normal first 2013 02/06/2014 Overview: Boy on us- First trimester bleeding 05/21/2013 Overview: 05/21/2013She had some spotting April 26 of April 28. An unofficial ultrasound was done by Dr. Oleary at the time. Patient denies any bleeding since then. TKRN Dermatophytosis of foot 11/12/201004/2016 Iron deficiency anemia, unspecified 2007 10/21/2016 Overview: HCT 34% in 08-02 Iron 20, TIBC 481, 4% saturation, Ferritin 6 in 08-02 Started bid iron supplements in 08-02 Generalized anxiety disorder 08/08/2007 03/03/2016 Overview: 05/21/2013Patient is currently taking Citolopram 20 mg prescribed by Maria Luisa Alcala and Dr. Willams for anxiety. She denies ever having depression. She is made aware that Citolopram is a category C medication in . Patient does feel that her anxiety was situational when she began taking it. Patient wishes to discontinue medication. I discussed with the patient the importance of weaning off this medication slowly. She will discuss this more with Dr. Oleary. TKRN Abnormal involuntary movements(781.0) 08/08/2007 03/03/2016 Routine general medical exam ination at a [facility] care facility 08/07/2007 09/18/2012 Overview: T4 10.8, FTI 2.7 (both normal) as of 08-02 Antimicrosomal Ab < 3, Thyroglobulin < 8 in 08-02: both negative Nonspecific abnormal electro cardiogram (ECG) (EKG) 08/05/2007 03/03/2016 Overview: ECG 08-03-07 at [facility] after vagal episode: non-specif T changes in III, aVF, V3 ECG 08-05-07: LAE by V1, non-specific T changes II, aVF, V3-4 (no change from old ECG 05-30) Plan Echo after thyroid eval in follow up ED 08-06-07 for CP: H/H was 10.3 and 29.7-needs iron studies Unspecified hemorrhoids with out mention of complication 03/03/2016 Overview: Hemorrhoids 05/21/2013Patient has a history of hemorrhoids. Discussed the importance of avoiding constipation and straining with her bowel movements. TKRN Diarrhea 03/03/2016 documented as of this encounter (statuses as of 04/04/2023) [facility] History of Past illness Narrative* Problem Noted Date Diagnosed Date Resolved Date Antepartum multigravida of a dvanced maternal age 0805/14/2019 06/09/2020 Overview: 05/14/2019Patient will be 34 at the time of delivery. She desires nuchal ultrasound and is considering [id number] testing. Considering genetic carrier screening testing. TKRN Hydronephrosis 10/19/2013 02/06/2014 Supervision of normal first 2013 02/06/2014 Overview: Boy on us- First trimester bleeding 05/21/2013 Overview: 05/21/2013She had some spotting April 26 of April 28. An unofficial ultrasound was done by Dr. Oleary at the time. Patient denies any bleeding since then. TKRN Dermatophytosis of foot 11/12/201004/2016 Iron deficiency anemia, unspecified 2007 10/21/2016 Overview: HCT 34% in 08-02 Iron 20, TIBC 481, 4% saturation, Ferritin 6 in 08-02 Started bid iron supplements in 08-02 Generalized anxiety disorder 08/08/2007 03/03/2016 Overview: 05/21/2013Patient is currently taking Citolopram 20 mg prescribed by Maria Luisa Alcala and Dr. Willams for anxiety. She denies ever having depression. She is made aware that Citolopram is a category C medication in . Patient does feel that her anxiety was situational when she began taking it. Patient wishes to discontinue medication. I discussed with the patient the importance of weaning off this medication slowly. She will discuss this more with Dr. Oleary. TKRN Abnormal involuntary movements(781.0) 08/08/2007 03/03/2016 Routine general medical exam ination at a health care facility 08/07/2007 09/18/2012 Overview: T4 10.8, FTI 2.7 (both normal) as of 08-02 Antimicrosomal Ab < 3, Thyroglobulin < 8 in 08-02: both negative Nonspecific abnormal electro cardiogram (ECG) (EKG) 08/05/2007 03/03/2016 Overview: ECG 08-03-07 at [facility] after vagal episode: non-specif T changes in III, aVF, V3 ECG 08-05-07: LAE by V1, non-specific T changes II, aVF, V3-4 (no change from old ECG 05-30) Plan Echo after thyroid eval in follow up ED 08-06-07 for CP: H/H was 10.3 and 29.7-needs iron studies Unspecified hemorrhoids with out mention of complication 03/03/2016 Overview: Hemorrhoids 05/21/2013Patient has a history of hemorrhoids. Discussed the importance of avoiding constipation and straining with her bowel movements. TKRN Diarrhea 03/03/2016 documented as of this encounter (statuses as of 04/07/2023) [facility] History of Past illness Narrative* Problem Noted Date Diagnosed Date Resolved Date Antepartum multigravida of a dvanced maternal age 0805/14/2019 06/09/2020 Overview: 05/14/2019Patient will be 34 at the time of delivery. She desires nuchal ultrasound and is considering [id number] testing. Considering genetic carrier screening testing. TKRN Hydronephrosis 10/19/2013 02/06/2014 Supervision of normal first 2013 02/06/2014 Overview: Boy on us- First trimester bleeding 05/21/2013 Overview: 05/21/2013She had some spotting April 26 of April 28. An unofficial ultrasound was done by Dr. Oleary at the time. Patient denies any bleeding since then. TKRN Dermatophytosis of foot 11/12/2010 06/0 04/2016 Iron deficiency anemia, unspecified 2007 10/21/2016 Overview: HCT 34% in 08-02 Iron 20, TIBC 481, 4% saturation, Ferritin 6 in 08-02 Started bid iron supplements in 08-02 Generalized anxiety disorder 08/08/2007 03/03/2016 Overview: 05/21/2013Patient is currently taking Citolopram 20 mg prescribed by Maria Luisa Alcala and Dr. Willams for anxiety. She denies ever having depression. She is made aware that Citolopram is a category C medication in . Patient does feel that her anxiety was situational when she began taking it. Patient wishes to discontinue medication. I discussed with the patient the importance of weaning off this medication slowly. She will discuss this more with Dr. Oleary. TKRN Abnormal involuntary movements(781.0) 08/08/2007 03/03/2016 Routine general medical exam ination at a health care facility 08/07/2007 09/18/2012 Overview: T4 10.8, FTI 2.7 (both normal) as of 08-02 Antimicrosomal Ab < 3, Thyroglobulin < 8 in 08-02: both negative Nonspecific abnormal electro cardiogram (ECG) (EKG) 08/05/2007 03/03/2016 Overview: ECG 08-03-07 at [facility] after vagal episode: non-specif T changes in III, aVF, V3 ECG 08-05-07: LAE by V1, non-specific T changes II, aVF, V3-4 (no change from old ECG 05-30) Plan Echo after thyroid eval in follow up ED 08-06-07 for CP: H/H was 10.3 and 29.7-needs iron studies Unspecified hemorrhoids with out mention of complication 03/03/2016 Overview: Hemorrhoids 05/21/2013Patient has a history of hemorrhoids. Discussed the importance of avoiding constipation and straining with her bowel movements. TKRN Diarrhea 03/03/2016 documented as of this encounter (statuses as of 05/19/2023) [facility] History of Past illness Narrative* Problem Noted Date Diagnosed Date Resolved Date Antepartum multigravida of a dvanced maternal age 0805/14/2019 06/09/2020 Overview: 05/14/2019Patient will be 34 at the time of delivery. She desires nuchal ultrasound and is considering [id number] testing. Considering genetic carrier screening testing. TKRN Hydronephrosis 10/19/2013 02/06/2014 Supervision of normal first 2013 02/06/2014 Overview: Boy on us- First trimester bleeding 05/21/2013 Overview: 05/21/2013She had some spotting April 26 of April 28. An unofficial ultrasound was done by Dr. Oleary at the time. Patient denies any bleeding since then. TKRN Dermatophytosis of foot 11/12/201004/2016 Iron deficiency anemia, unspecified 2007 10/21/2016 Overview: HCT 34% in 08-02 Iron 20, TIBC 481, 4% saturation, Ferritin 6 in 08-02 Started bid iron supplements in 08-02 Generalized anxiety disorder 08/08/2007 03/03/2016 Overview: 05/21/2013Patient is currently taking Citolopram 20 mg prescribed by Maria Luisa Alcala and Dr. Willams for anxiety. She denies ever having depression. She is made aware that Citolopram is a category C medication in . Patient does feel that her anxiety was situational when she began taking it. Patient wishes to discontinue medication. I discussed with the patient the importance of weaning off this medication slowly. She will discuss this more with Dr. Oleary. TKRN Abnormal involuntary movements(781.0) 08/08/2007 03/03/2016 Routine general medical exam ination at a health care facility 08/07/2007 09/18/2012 Overview: T4 10.8, FTI 2.7 (both normal) as of 08-02 Antimicrosomal Ab < 3, Thyroglobulin < 8 in 08-02: both negative Nonspecific abnormal electro cardiogram (ECG) (EKG) 08/05/2007 03/03/2016 Overview: ECG 08-03-07 at [facility] after vagal episode: non-specif T changes in III, aVF, V3 ECG 08-05-07: LAE by V1, non-specific T changes II, aVF, V3-4 (no change from old ECG 05-30) Plan Echo after thyroid eval in follow up ED 08-06-07 for CP: H/H was 10.3 and 29.7-needs iron studies Unspecified hemorrhoids with out mention of complication 03/03/2016 Overview: Hemorrhoids 05/21/2013Patient has a history of hemorrhoids. Discussed the importance of avoiding constipation and straining with her bowel movements. TKRN Diarrhea 03/03/2016 documented as of this encounter (statuses as of 06/16/2023) [facility] of Past illness Narrative* Problem Noted Date Diagnosed Date Resolved Date Antepartum multigravida of a dvanced maternal age 0805/14/2019 06/09/2020 Overview: 05/14/2019Patient will be 34 at the time of delivery. She desires nuchal ultrasound and is considering [id number] testing. Considering genetic carrier screening testing. TKRN Hydronephrosis 10/19/2013 02/06/2014 Supervision of normal first 2013 02/06/2014 Overview: Boy on us- First trimester bleeding 05/21/2013 Overview: 05/21/2013She had some spotting April 26 of April 28. An unofficial ultrasound was done by Dr. Oleary at the time. Patient denies any bleeding since then. TKRN Dermatophytosis of foot 11/12/201004/2016 Iron deficiency anemia, unspecified 2007 10/21/2016 Overview: HCT 34% in 08-02 Iron 20, TIBC 481, 4% saturation, Ferritin 6 in 08-02 Started bid iron supplements in 08-02 Generalized anxiety disorder 08/08/2007 03/03/2016 Overview: 05/21/2013Patient is currently taking Citolopram 20 mg prescribed by Maria Luisa Alcala and Dr. Willams for anxiety. She denies ever having depression. She is made aware that Citolopram is a category C medication in . Patient does feel that her anxiety was situational when she began taking it. Patient wishes to discontinue medication. I discussed with the patient the importance of weaning off this medication slowly. She will discuss this more with Dr. Oleary. TKRN Abnormal involuntary movements(781.0) 08/08/2007 03/03/2016 Routine general medical exam ination at a [facility] care facility 08/07/2007 09/18/2012 Overview: T4 10.8, FTI 2.7 (both normal) as of 08-02 Antimicrosomal Ab < 3, Thyroglobulin < 8 in 08-02: both negative Nonspecific abnormal electro cardiogram (ECG) (EKG) 08/05/2007 03/03/2016 Overview: ECG 08-03-07 at [facility] after vagal episode: non-specif T changes in III, aVF, V3 ECG 08-05-07: LAE by V1, non-specific T changes II, aVF, V3-4 (no change from old ECG 05-30) Plan Echo after thyroid eval in follow up ED 08-06-07 for CP: H/H was 10.3 and 29.7-needs iron studies Unspecified hemorrhoids with out mention of complication 03/03/2016 Overview: Hemorrhoids 05/21/2013Patient has a history of hemorrhoids. Discussed the importance of avoiding constipation and straining with her bowel movements. TKRN Diarrhea 03/03/2016 documented as of this encounter (statuses as of 06/20/2023) [facility] of Past illness Narrative* Problem Noted Date Diagnosed Date Resolved Date Antepartum multigravida of a dvanced maternal age 0805/14/2019 06/09/2020 Overview: 05/14/2019Patient will be 34 at the time of delivery. She desires nuchal ultrasound and is considering [id number] testing. Considering genetic carrier screening testing. TKRN Hydronephrosis 10/19/2013 02/06/2014 Supervision of normal first 2013 02/06/2014 Overview: Boy on us- First trimester bleeding 05/21/2013 Overview: 05/21/2013She had some spotting April 26 of April 28. An unofficial ultrasound was done by Dr. Oleary at the time. Patient denies any bleeding since then. TKRN Dermatophytosis of foot 11/12/201004/2016 Iron deficiency anemia, unspecified 2007 10/21/2016 Overview: HCT 34% in 08-02 Iron 20, TIBC 481, 4% saturation, Ferritin 6 in 08-02 Started bid iron supplements in 08-02 Generalized anxiety disorder 08/08/2007 03/03/2016 Overview: 05/21/2013Patient is currently taking Citolopram 20 mg prescribed by Maria Luisa Alcala and Dr. Willams for anxiety. She denies ever having depression. She is made aware that Citolopram is a category C medication in . Patient does feel that her anxiety was situational when she began taking it. Patient wishes to discontinue medication. I discussed with the patient the importance of weaning off this medication slowly. She will discuss this more with Dr. Oleary. TKRN Abnormal involuntary movements(781.0) 08/08/2007 03/03/2016 Routine general medical exam ination at a health care facility 08/07/2007 09/18/2012 Overview: T4 10.8, FTI 2.7 (both normal) as of 08-02 Antimicrosomal Ab < 3, Thyroglobulin < 8 in 08-02: both negative Nonspecific abnormal electro cardiogram (ECG) (EKG) 08/05/2007 03/03/2016 Overview: ECG 08-03-07 at [facility] after vagal episode: non-specif T changes in III, aVF, V3 ECG 08-05-07: LAE by V1, non-specific T changes II, aVF, V3-4 (no change from old ECG 05-30) Plan Echo after thyroid eval in follow up ED 08-06-07 for CP: H/H was 10.3 and 29.7-needs iron studies Unspecified hemorrhoids with out mention of complication 03/03/2016 Overview: Hemorrhoids 05/21/2013Patient has a history of hemorrhoids. Discussed the importance of avoiding constipation and straining with her bowel movements. TKRN Diarrhea 03/03/2016 documented as of this encounter (statuses as of 07/31/2023) [facility] Taylor cornejo [facility] April 03, 2023 7:29am Note Date/Time April 03, 2023 7:28a [facility] Medical Records Department [address] [place] [address] Instructions for Home/Discharge Instructions 04/03/23 0728 MR#: [id number] Acct: [id number] Name: TRESSA MARSHALL Rep #:[id number] : 1985 37 From: Saray Brooks MD PCP: ANÍBAL Ellison Status:ADM IN Discharge Instructions Diet Discharge Diet: No restrictions Activity May resume sexual activity in: 6-8 weeks Dressing / Incision Call your doctor if you observe: Fever of 101 or Higher, Inability to urinate, Using more than 1 pad per hour and Uncontrolled pain Follow Up Care Please Follow Up With: Saray Parrish MD When: 1-2 weeks post and again at 6 weeks post . [phone] Test Results: Test results from this visit will be discussed in further detail at your follow- up appointment, if applicable. Discharge Plan Admission Admit Date/Time: 04/01/23 16:20 Attending Provider: Saray Parrish Primary Care Provider: Fadia Berger NP Discharge Orders/Prescriptions Prescriptions: New acetaminophen 500 mg Tablet 1,000 mg PO Q6H PRN PRN (Reason: Pain 1-10 Or Fever) Qty: 0 0RF ibuprofen 600 mg Tablet 600 mg PO Q6H PRN PRN (Reason: Pain Score 1-3) Qty: 0 0RF Continued citalopram 10 mg tablet 10 tab PO DAILY Patient Comments: TAKE 1 TABLET BY MOUTH EVERY DAY zolpidem 10 mg tablet 5 - 10 mg PO QHS Patient Comments: TAKE 1/2 TO 1 TABLET BY MOUTH NIGHTLY NEEDED FOR INSOMNIA. hydrocodone-acetaminophen 1 TABLET tablet 1 tab PO Q4H PRN PRN (Reason: Pain) 2 Days Qty: 10 0RF naproxen 500 MG tablet 500 mg PO BID Qty: 14 0RF ondansetron 4 MG tablet 4 mg PO Q8H PRN PRN (Reason: Nausea) Qty: 10 0RF Referrals / Follow Up: Fadia Berger NP, BIOCHEMISTRY TECHNOLOGIST-C [Primary Care Provider] - Disposition Disposition (needs filled in before D/C Order can be placed): Home, Self Care 04/03/23 [id number]<Electronically signed by Saray Parrish MD>Saray Parrish MD CC: BIOCHEMISTRY TECHNOLOGIST-C Fadia Berger ~ Signed [facility] Work Phone: Evaluation note* Diagnosis Constipation, unspecified constipation type- Primary Internal hemorrhoids Internal hemorrhoids without mention of complication Family hx of colon cancer Family history of malignant neoplasm of gastrointestinal tract documented in this encounter [facility] note* Diagnosis Treatment plan provided- Primary documented in this encounter [facility] noteNo assessment information availableWSt. [facility] Work Phone: Evaluation note* Diagnosis Calculus of kidney [facility] Diagnosis Kidney stones- Primary Calculus of kidney [facility]* Diagnosis Early stage of - Primary state, incidental documented in this encounter [facility] note* Diagnosis Sore throat- Primary Acute pharyngitis Ear pain, bilateral [facility]* Diagnosis AMA (advanced maternal age) multigravida 35+, first trimester- Primary Supervision of high risk in first trimester Unspecified high-risk [facility] Viral illness- Primary Unspecified viral infection, in conditions classified elsewhere and of unspecified site [facility] Encounter for (NT) nuchal translucency scan- Primary Other specified screening AMA (advanced maternal age) multigravida 35+, first trimester 12 weeks gestation of state, incidental [facility]* Diagnosis Viral syndrome- Primary Unspecified viral infection, in conditions classified elsewhere and of unspecified site [facility] Diagnosis URI with cough and congestion- Primary [facility]* Diagnosis AMA (advanced maternal age) multigravida 35+, second trimester- Primary Calculus of kidney 18 weeks gestation of state, incidental [facility]* Diagnosis Encounter for anatomic survey- Primary AMA (advanced maternal age) multigravida 35+, first trimester 19 weeks gestation of state, incidental [facility]* Diagnosis Gestational diabetes mellitus, class A1- Primary Abnormal maternal glucose tolerance, complicating , childbirth, or the puerperium, unspecified as to episode of care Abnormal maternal glucose tolerance, antepartum Need for vaccination Need for prophylactic vaccination and inoculation against unspecified single disease AMA (advanced maternal age) multigravida 35+, second trimester Anemia during in third trimester 28 weeks gestation of state, incidental [facility]* Diagnosis Abnormal maternal glucose tolerance, antepartum 28 weeks gestation of state, incidental [facility]* Diagnosis Gestational diabetes mellitus, class A1- Primary Abnormal maternal glucose tolerance, complicating , childbirth, or the puerperium, unspecified as to episode of care Anemia during in third trimester AMA (advanced maternal age) multigravida 35+, second trimester 30 weeks gestation of state, incidental [facility] Diagnosis Maternal iron deficiency anemia complicating , third trimester Iron malabsorption Other specified intestinal malabsorption [facility] Diagnosis 36 weeks gestation of - Primary state, incidental Gestational diabetes mellitus, class A1 Abnormal maternal glucose tolerance, complicating , childbirth, or the puerperium, unspecified as to episode of care Maternal iron deficiency anemia complicating , third trimester Anemia during in third trimester AMA (advanced maternal age) multigravida 35+, second trimester [facility] Diagnosis Maternal iron deficiency anemia complicating , third trimester- Primary Iron malabsorption Other specified intestinal malabsorption [facility] Diagnosis Polyhydramnios in third trimester complication, single or unspecified fetus- Primary Gestational diabetes mellitus, class A1 Abnormal maternal glucose tolerance, complicating , childbirth, or the puerperium, unspecified as to episode of care Multigravida of advanced maternal age in third trimester 36 weeks gestation of state, incidental [facility] Diagnosis Maternal iron deficiency anemia complicating , third trimester- Primary Iron malabsorption Other specified intestinal malabsorption [facility] Diagnosis Maternal iron deficiency anemia complicating , third trimester- Primary Iron malabsorption Other specified intestinal malabsorption documented [facility]* Diagnosis Gestational diabetes mellitus, class A1- Primary Abnormal maternal glucose tolerance, complicating , childbirth, or the puerperium, unspecified as to episode of care Multigravida of advanced maternal age in third trimester Polyhydramnios in third trimester complication, single or unspecified fetus Maternal iron deficiency anemia complicating , third trimester 37 weeks gestation of state, incidental documented [facility] this [facility] Diagnosis Maternal iron deficiency anemia complicating , third trimester- Primary Iron malabsorption Other specified intestinal malabsorption documented [facility] this [facility]* Diagnosis 38 weeks gestation of - Primary state, incidental Gestational diabetes mellitus, class A1 Abnormal maternal glucose tolerance, complicating , childbirth, or the puerperium, unspecified as to episode of care Multigravida of advanced maternal age in third trimester documented [facility] this [facility]* Diagnosis Onset Date Resolution Status AMA (advanced maternal age) multigravida 35+ acute First degree perineal laceration acute Gestational diabetes acute Vaginal delivery [facility] Work Phone: Evaluation note* Diagnosis care and examination- Primary Routine follow-up History of gestational diabetes Personal history of gestational diabetes [facility] Calculus of ureter [facility] Diagnosis Bacterial sinusitis- Primary Unspecified sinusitis (chronic) PND (post-nasal drip) Postnasal drip Acute cough Sinus congestion Other diseases of nasal cavity and sinuses Sinus pressure Other diseases of nasal cavity and sinuses Headache, unspecified headache type documented in this encounter [facility]* Diagnosis Dysuria- Primary documented in this [facility]* Diagnosis Encounter for gynecological examination (general) (routine) without abnormal findings- Primary Encounter for screening mammogram for breast cancer documented [facility] this [facility]* Diagnosis 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 Tear film insufficiency, unspecified Regular astigmatism of right eye Regular astigmatism Myopia, left eye Hx of LASIK Other states following surgery of eye and adnexa documented in this encounter [facility]* Diagnosis Bacterial sinusitis- Primary Unspecified sinusitis (chronic) documented in this [facility]* Diagnosis Chronic insomnia- Primary Insomnia, unspecified Screening for depression Encounter for screening examination for other mental health and behavioral disorders Encounter for screening mammogram for breast cancer Well adult exam Routine general medical examination at a health care facility Screening for lipid disorders Screening for thyroid disorder Encounter for vitamin deficiency screening Screening for other and unspecified endocrine, nutritional, metabolic, and immunity disorders Numerous moles Benign neoplasm of skin, site unspecified Sensation of fullness in both ears documented in this encounter [facility]* Diagnosis Kidney stones- Primary Calculus of kidney documented in this [facility]* Diagnosis Kidney stones Calculus of kidney documented in this [facility]* Diagnosis Kidney stones- Primary Calculus of kidney Renal calculus, left Calculus of kidney Hypercalcemia documented in this encounter [facility]* Diagnosis Encounter for screening mammogram for breast cancer [facility] Additional Instructions [facility] Work Phone: Progress note Author [facility]Hol[facility] April 03, 2023 7:27am Note Date/Time April 03, 2023 7:27a m [facility] Medical Records Department [address] [place] [address] Progress Note 04/03/23726 MR#: [id number] Acct: [id number] Name: TRESSA MARSHALL Rep #:[id number] : 1985 37 From: Saray Brooks MD PCP: ANÍBAL Ellison Status:ADM IN Location: [id number] Subjective Subjective patient seen at bedside, doing well. Patient reports good pain control. lochia mild. Objective Data Objective Data Vital Signs: Vital Signs Temp Pulse Resp BP Pulse Ox O2 Del Method 97.9 F 64 16 126/76 H 99 Room Air 04/03/23 02:15 04/03/23 02:15 04/03/23 02:15 04/03/23 02:15 04/03/23 02:15 04/03/23 02:15 Oxygen Delivery Method Room Air Weight: 62.823 kg Body Mass Index (BMI) 24.5 Intake & Output: Intake and Output for Last 24 Hours 04/01/23 04/02/23 04/03/23 23:59 23:59 23:59 Intake Total 1015.78 / 1015.78 Output Total 500 / 500 300 / 300 Balance 515.78 / 515.78 -300 / -300 Lab / Micro Data 04/01/23 17:00 Physical Exam Const alert and oriented x3 General Appearance: cooperative HEENT normocephalic Neck General: normal visual inspection GI soft to palpation and non-distended GI Narrative: Fundus firm Extremity normal to inspection and no calf tenderness Skin no rashes or lesions noted Neuro oriented x3 and CN's II-XII intact bilaterally Psych mental status grossly normal Assessment & Plan Assessment/Plan (1) First degree perineal laceration: (2) Vaginal delivery: PLAN: Plan PPD#2 , Doing well Routine care pain mgmt ambulation dc home 04/03/23726 <Electronically signed by Saray Parrish MD> Saray Parrish MD Cosigner Signature (if applicable): CC: ~ Signed [facility] Work Phone: Reason for referral (narrative)* Diagnostic Procedure Only (Routine) - Closed Specialty Diagnoses / Procedures Referred By Contac t Referred To Contact XR IMAGING Diagnoses Calculus of kidney Procedures XR ABDOMEN 1V SUPINE RADIOLOGIC EXAM ABDOMEN 1 VIEW Francisco Griffith MD [address] [place] [address] Xr Imaging Referral ID Status Reason Start Date Expiration Date V isits Requested Visits Authorized [id number] Closed Auto-Generate d Referral 11/17/2021 12/17/2022 1 1 [facility] for referral (narrative)* Diagnostic Procedure Only (Routine) - Authorized Specialty Diagnoses / Procedures Referred By Contac t Referred To Contact XR IMAGING Diagnoses Kidney stones Procedures XR ABDOMEN 1V SUPINE RADIOLOGIC EXAM ABDOMEN 1 VIEW Emma Huang PA-C [address] [place] [id number] Xr Imaging Referral ID Status Reason Start Date Expiration Date Visits Requested Visits Authorized [id number] Authorized Auto-Generat ed Referral 2 05/23/2023 1 1 [facility] for referral (narrative)* Diagnostic Procedure Only (Routine) - Authorized Specialty Diagnoses / Procedures Referred By Contac t Referred To Contact [facility] Diagnoses AMA (advanced maternal age) multigravida 35+, first trimester Procedures NUCHAL TRANSLUCENCY WHI US NUCHAL TRANSLUCENCY 1ST GESTATION Saray Cline MD [address] [place] [address] [facility] [address] [place] [address] Referral ID Status Reason Start Date Expiration Date Visits Requested Visits Authorized [id number] Authorized Auto-Generat ed Referral 2 09/13/2023 1 1 * Diagnostic Procedure Only (Routine) - Authorized Specialty Diagnoses / Procedures Referred By Estephania t Referred To Contact [facility] Diagnoses AMA (advanced maternal age) multigravida 35+, first trimester Procedures OBSTETRIC ULTRASOUND WHI US PREG UTERUS AFTER 1ST TRIMEST GESTATION Saray Cline MD [address] [place] [address] [facility] [address] [place] [address] Referral ID Status Reason Start Date Expiration Date Visits Requested Visits Authorized [id number] Authorized Auto-Generat ed Referral 09/13/2023 1 1 [facility] for referral (narrative)* Diagnostic Procedure Only (Routine) - Closed Specialty Diagnoses / Procedures Referred By Estephania pena Referred To Contact XR IMAGING Diagnoses Calculus of ureter Procedures XR ABDOMEN 1V SUPINE RADIOLOGIC EXAM ABDOMEN 1 VIEW Francisco Griffith MD [address] [place] [address] [place] [address] Referral ID Status Reason Start Date Expiration Date V isits Requested Visits Authorized [id number] Closed Auto-Generate d Referral 06/16/2023 07/15/2024 1 1 [facility] for referral (narrative)* Diagnostic Procedure Only (Routine) - Authorized Specialty Diagnoses / Procedures Referred By Estephania t Referred To Contact [facility] Diagnoses Encounter for screening mammogram for breast cancer Procedures JUAN CARLOS SCREENING W KENIA SCREENING DIGITAL BREAST TOMOSYNTHESIS BI SCREENING MAMMOGRAPHY BI 2-VIEW BREAST INC CAD Saray Cline MD [address] [place] [address] [facility] [address] [place] [address] Referral ID Status Reason Start Date Expiration Date Visits Requested Visits Authorized [id number] Authorized Auto-Generat ed Referral 06/28/2024 07/28/2025 1 1 [facility] for visit Narrative* Diagnostic Procedure Only (Routine) - Closed Specialty Diagnoses / Procedures Referred By Contac t Referred To Contact XR IMAGING Diagnoses Calculus of kidney Procedures XR ABDOMEN 1V SUPINE RADIOLOGIC EXAM ABDOMEN 1 VIEW Francisco Griffith MD [address] [place] [address] Xr Imaging Referral ID Status Reason Start Date Expiration Date V isits Requested Visits Authorized [id number] Closed Auto-Generate d Referral 11/17/2021 12/17/2022 1 1 [facility] for visit Narrative* Diagnostic Procedure Only (Routine) - Closed Specialty Diagnoses / Procedures Referred By Contac t Referred To Contact XR IMAGING Diagnoses Calculus of ureter Procedures XR ABDOMEN 1V SUPINE RADIOLOGIC EXAM ABDOMEN 1 [place] [address] [place] [phone] [place] [address] Referral ID Status Reason Start Date Expiration Date V isits Requested Visits Authorized [id number] Closed Auto-Generate d Referral 06/16/2023 07/15/2024 1 1 [facility] for visit Narrative* Diagnostic Procedure Only (Routine) - Closed Specialty Diagnoses / Procedures Referred By Contac t Referred To Contact XR IMAGING Diagnoses Kidney stones Procedures XR ABDOMEN 1V SUPINE RADIOLOGIC EXAM ABDOMEN 1 VIEW Francisco Griffith MD [address] [place] [address] Phone: tel: fax: [place] [address] Referral ID Status Reason Start Date Expiration Date V isits Requested Visits Authorized [id number] Closed Auto-Generate d Referral 02/05/2025 03/06/2026 1 1 [facility] for visit Narrative* Diagnostic Procedure Only (Routine) - Closed Specialty Diagnoses / Procedures Referred By Estephania t Referred To Contact [facility] Diagnoses Encounter for screening mammogram for breast cancer Procedures JUAN CARLOS SCREENING W KENIA SCREENING DIGITAL BREAST TOMOSYNTHESIS BI SCREENING MAMMOGRAPHY BI 2-VIEW BREAST INC CAD Saray Cline MD [address] [place] [address] Phone: tel: fax: [facility] [address] [place] [address] Referral ID Status Reason Start Date Expiration Date V isits Requested Visits Authorized [id number] Closed Auto-Generate d Referral 06/28/2024 07/28/2025 1 1 [facility] Summary Purpose Family History No Family History Records Found Relationship Condition Age at Onset Recorded Date/T pablito Unknown Family History?Cance r, Heart Disease, - Unknown November 18, 2019 12:07am Family History?Heart Disease, Hypertension, - Unknown November 18, 2019 12:07am Advance Directives No Advanced Directives Records FoundDocuments on File Type Date Recorded Patient Notereader Expl anation Advance Directive(s) Advance Directive(s) 10/14/2020 6:08 AM Advance Directive(s) 11/11/2018 3:55 AM Advance Directive Response Recorded Date/ Time Advance Directives No August 10:31am Living Will No April 14, 2022 12:38pm Power of Furniture Salesperson No April 14 12:38pm Documents on File Type Date Recorded Patient Notereader Expl anation Advance Directive(s) Advance Directive(s) 10/14/2020 6:08 AM Advance Directive(s) 11/11/2018 3:55 AM Advance Directive Response Recorded Date/ Time Advance Directives No August 10:31am Living Will Yes April 01, 2023 4 :48pm Power of Furniture Salesperson Yes April 01, 2023 4:48pm Name of Medical Power of Furniture Salesperson Juan Francisco Marshall April 01, 2023 4:48pm Chief Complaint and Reason for Visit Chief Complaint DYSURIA Chief Complaint VAG Reason for Visit AMA (advanced matern al age) multigravida 35+ First degree perineal laceration Gestational diabetes Vaginal delivery Health Concerns Problem Noted Date OB Reminders 09/13/2022 Problem Noted Date OB Reminders 09/13/2022 Problem Noted Date OB Reminders 09/13/2022 Problem Noted Date OB Reminders 09/13/2022 Problem Noted Date OB Reminders 09/13/2022 Problem Noted Date OB Reminders 09/13/2022 Problem Noted Date OB Reminders 09/13/2022 Problem Noted Date OB Reminders 09/13/2022 Problem Noted Date OB Reminders 09/13/2022 Problem Noted Date OB Reminders 09/13/2022 Problem Noted Date OB Reminders 09/13/2022 Problem Noted Date OB Reminders 09/13/2022 Problem Noted Date OB Reminders 09/13/2022 Problem Noted Date OB Reminders 09/13/2022 Problem Noted Date OB Reminders 09/13/2022 Problem Noted Date OB Reminders 09/13/2022 Problem Noted Date OB Reminders 09/13/2022 Problem Noted Date Diagnosed Date OB Reminders 09/13/2022 Problem Noted Date Diagnosed Date OB Reminders 09/13/2022 Reason for Referral Specialty Diagnoses / Procedures Referred By Estephania t Referred To Contact Diagnoses Abnormal maternal glucose tolerance, antepartum 28 weeks gestation of Procedures CONSULT TO DIABETES EDUCATION DSME/MNT MEDICAL NUTRITION ASSMT&IVNTJ INDIV EACH 15 [place] MEDICAL NUTRITION ASSMT&IVNTJ INDIV EACH 15 [place] MEDICAL NUTRITION ASSMT&IVNTJ INDIV EACH 15 [place] MEDICAL NUTRITION ASSMT&IVNTJ INDIV EACH 15 [place] Saray Cline MD [address] [place] [id number] Referral ID Status Reason Start Date Expiration Date V isits Requested Visits Authorized [id number] Closed PCP Requested Referral 01/19/2023 01/19/2024 1 1 Specialty Diagnoses / Procedures Referred By Estephania pena Referred To Contact Nutrition Diagnoses Abnormal maternal glucose tolerance, antepartum 28 weeks gestation of Procedures CONSULT TO NUTRITION THERAPY MEDICAL NUTRITION ASSMT&IVNTJ INDIV EACH 15 [place] MEDICAL NUTRITION ASSMT&IVNTJ INDIV EACH 15 [place] MEDICAL NUTRITION ASSMT&IVNTJ INDIV EACH 15 [place] MEDICAL NUTRITION ASSMT&IVNTJ INDIV EACH 15 [place] Saray Cline MD [address] [place] [address] Referral ID Status Reason Start Date Expiration Date Visits Requested Visits Authorized [id number] Authorized PCP Requested Referral 01/19/2023 01/19/2024 1 1 Medications Administered Section Inactive Administered Medications - up to 3 most recent administrations Medication Order MAR Action Action Date Dose Rate Site iron sucrose 200 mg in NaCl 0.9% 100ml (VENOFER) 200 mg, INTRAVENOUS, at 400 mL/hr, Administer over 15 Minutes, ONCE, 1 dose, On Tue03/15/23 at 0800, Please conduct a 30 minute post-dose observation. New Bag/Syringe/Bottle 03/15/2023 8:06 AM EDT 200 mg 400 mL/hr Inactive Administered Medications - up to 3 most recent administrations Medication Order MAR Action Action Date Dose Rate Site iron sucrose 200 mg in NaCl 0.9% 100ml (VENOFER) 200 mg, INTRAVENOUS, at 400 mL/hr, Administer over 15 Minutes, ONCE, 1 dose, On Paige 03/17/23 at 1300, Please conduct a 30 minute post-dose observation. New Bag/Syringe/Bottle 03/17/2023 1:09 PM EDT 200 mg 400 mL/hr Inactive Administered Medications - up to 3 most recent administrations Medication Order MAR Action Action Date Dose Rate Site iron sucrose 200 mg in NaCl 0.9% 100ml (VENOFER) 200 mg, INTRAVENOUS, at 400 mL/hr, Administer over 15 Minutes, ONCE, 1 dose, On Tue03/21/23 at 1330, Please conduct a 30 minute post-dose observation. New Bag/Syringe/Bottle 03/21/2023 1:13 PM EDT 200 mg 400 mL/hr Inactive Administered Medications - up to 3 most recent administrations Medication Order MAR Action Action Date Dose Rate Site iron sucrose 200 mg in NaCl 0.9% 100ml (VENOFER) 200 mg, INTRAVENOUS, at 400 mL/hr, Administer over 15 Minutes, ONCE, 1 dose, On Tue03/23/23 at 1000, Please conduct a 30 minute post-dose observation. New Bag/Syringe/Bottle 03/23/2023 10:04 AM EDT 200 mg 400 mL/hr Additional Source Comments INFORMATION SOURCE (unrecogn ized section and content) DATE CREATED AUTHOR 11/15/2018 [facility] DATE CREATED AUTHOR AUTHOR'S ORGANIZ ATION 10/14/2020 [facility] DATE CREATED AUTHOR AUTHOR'S ORGANIZ ATION 04/25/2023 [facility] DATE CREATED AUTHOR AUTHOR'S ORGANIZ ATION 04/10/2025 [facility] DATE CREATED AUTHOR AUTHOR'S KAT ATCONSUELO 06/15/2025 [facility] Source Comments (unrecognize d section and content) In the event this informatio n is protected by the Federal Confidentiality of Alcohol and Drug Abuse Patient Records regulations: The Federal rules restrict any use of the information to criminally investigate or prosecute any alcohol or drug abuse patient.[facility] the event this information is protected by the Federal Confidentiality of Alcohol and Drug Abuse Patient Records regulations: The Federal rules restrict any use of the information to criminally investigate or prosecute any alcohol or drug abuse patient.[facility] the event this information is protected by the Federal Confidentiality of Alcohol and Drug Abuse Patient Records regulations: The Federal rules restrict any use of the information to criminally investigate or prosecute any alcohol or drug abuse patient.[facility] the event this information is protected by the Federal Confidentiality of Alcohol and Drug Abuse Patient Records regulations: The Federal rules restrict any use of the information to criminally investigate or prosecute any alcohol or drug abuse patient.[facility] the event this information is protected by the Federal Confidentiality of Alcohol and Drug Abuse Patient Records regulations: The Federal rules restrict any use of the information to criminally investigate or prosecute any alcohol or drug abuse patient.[facility] the event this information is protected by the Federal Confidentiality of Alcohol and Drug Abuse Patient Records regulations: The Federal rules restrict any use of the information to criminally investigate or prosecute any alcohol or drug abuse patient.[facility] the event this information is protected by the Federal Confidentiality of Alcohol and Drug Abuse Patient Records regulations: The Federal rules restrict any use of the information to criminally investigate or prosecute any alcohol or drug abuse patient.[facility] the event this information is protected by the Federal Confidentiality of Alcohol and Drug Abuse Patient Records regulations: The Federal rules restrict any use of the information to criminally investigate or prosecute any alcohol or drug abuse patient.[facility] the event this information is protected by the Federal Confidentiality of Alcohol and Drug Abuse Patient Records regulations: The Federal rules restrict any use of the information to criminally investigate or prosecute any alcohol or drug abuse patient.[facility] the event this information is protected by the Federal Confidentiality of Alcohol and Drug Abuse Patient Records regulations: The Federal rules restrict any use of the information to criminally investigate or prosecute any alcohol or drug abuse patient.[facility] the event this information is protected by the Federal Confidentiality of Alcohol and Drug Abuse Patient Records regulations: The Federal rules restrict any use of the information to criminally investigate or prosecute any alcohol or drug abuse patient.[facility] the event this information is protected by the Federal Confidentiality of Alcohol and Drug Abuse Patient Records regulations: The Federal rules restrict any use of the information to criminally investigate or prosecute any alcohol or drug abuse patient.[facility] the event this information is protected by the Federal Confidentiality of Alcohol and Drug Abuse Patient Records regulations: The Federal rules restrict any use of the information to criminally investigate or prosecute any alcohol or drug abuse patient.[facility] the event this information is protected by the Federal Confidentiality of Alcohol and Drug Abuse Patient Records regulations: The Federal rules restrict any use of the information to criminally investigate or prosecute any alcohol or drug abuse patient.[facility] the event this information is protected by the Federal Confidentiality of Alcohol and Drug Abuse Patient Records regulations: The Federal rules restrict any use of the information to criminally investigate or prosecute any alcohol or drug abuse patient.[facility] the event this information is protected by the Federal Confidentiality of Alcohol and Drug Abuse Patient Records regulations: The Federal rules restrict any use of the information to criminally investigate or prosecute any alcohol or drug abuse patient.[facility] Center[facility] the event this information is protected by the Federal Confidentiality of Alcohol and Drug Abuse Patient Records regulations: The Federal rules restrict any use of the information to criminally investigate or prosecute any alcohol or drug abuse patient.[facility] CenterIn the event this information is protected by the Federal Confidentiality of Alcohol and Drug Abuse Patient Records regulations: The Federal rules restrict any use of the information to criminally investigate or prosecute any alcohol or drug abuse patient.[facility] CenterIn the event this information is protected by the Federal Confidentiality of Alcohol and Drug Abuse Patient Records regulations: The Federal rules restrict any use of the information to criminally investigate or prosecute any alcohol or drug abuse patient.[facility] CenterIn the event this information is protected by the Federal Confidentiality of Alcohol and Drug Abuse Patient Records regulations: The Federal rules restrict any use of the information to criminally investigate or prosecute any alcohol or drug abuse patient.[facility] CenterIn the event this information is protected by the Federal Confidentiality of Alcohol and Drug Abuse Patient Records regulations: The Federal rules restrict any use of the information to criminally investigate or prosecute any alcohol or drug abuse patient.[facility] CenterIn the event this information is protected by the Federal Confidentiality of Alcohol and Drug Abuse Patient Records regulations: The Federal rules restrict any use of the information to criminally investigate or prosecute any alcohol or drug abuse patient.[facility] CenterIn the event this information is protected by the Federal Confidentiality of Alcohol and Drug Abuse Patient Records regulations: The Federal rules restrict any use of the information to criminally investigate or prosecute any alcohol or drug abuse patient.[facility] CenterIn the event this information is protected by the Federal Confidentiality of Alcohol and Drug Abuse Patient Records regulations: The Federal rules restrict any use of the information to criminally investigate or prosecute any alcohol or drug abuse patient.[facility] CenterIn the event this information is protected by the Federal Confidentiality of Alcohol and Drug Abuse Patient Records regulations: The Federal rules restrict any use of the information to criminally investigate or prosecute any alcohol or drug abuse patient.[facility] CenterIn the event this information is protected by the Federal Confidentiality of Alcohol and Drug Abuse Patient Records regulations: The Federal rules restrict any use of the information to criminally investigate or prosecute any alcohol or drug abuse patient.[facility] CenterIn the event this information is protected by the Federal Confidentiality of Alcohol and Drug Abuse Patient Records regulations: The Federal rules restrict any use of the information to criminally investigate or prosecute any alcohol or drug abuse patient.[facility] CenterIn the event this information is protected by the Federal Confidentiality of Alcohol and Drug Abuse Patient Records regulations: The Federal rules restrict any use of the information to criminally investigate or prosecute any alcohol or drug abuse patient.[facility] CenterIn the event this information is protected by the Federal Confidentiality of Alcohol and Drug Abuse Patient Records regulations: The Federal rules restrict any use of the information to criminally investigate or prosecute any alcohol or drug abuse patient.[facility] CenterIn the event this information is protected by the Federal Confidentiality of Alcohol and Drug Abuse Patient Records regulations: The Federal rules restrict any use of the information to criminally investigate or prosecute any alcohol or drug abuse patient.[facility] CenterIn the event this information is protected by the Federal Confidentiality of Alcohol and Drug Abuse Patient Records regulations: The Federal rules restrict any use of the information to criminally investigate or prosecute any alcohol or drug abuse patient.[facility] CenterIn the event this information is protected by the Federal Confidentiality of Alcohol and Drug Abuse Patient Records regulations: The Federal rules restrict any use of the information to criminally investigate or prosecute any alcohol or drug abuse patient.[facility] CenterIn the event this information is protected by the Federal Confidentiality of Alcohol and Drug Abuse Patient Records regulations: The Federal rules restrict any use of the information to criminally investigate or prosecute any alcohol or drug abuse patient.[facility] CenterIn the event this information is protected by the Federal Confidentiality of Alcohol and Drug Abuse Patient Records regulations: The Federal rules restrict any use of the information to criminally investigate or prosecute any alcohol or drug abuse patient.[facility] CenterIn the event this information is protected by the Federal Confidentiality of Alcohol and Drug Abuse Patient Records regulations: The Federal rules restrict any use of the information to criminally investigate or prosecute any alcohol or drug abuse patient.[facility] CenterIn the event this information is protected by the Federal Confidentiality of Alcohol and Drug Abuse Patient Records regulations: The Federal rules restrict any use of the information to criminally investigate or prosecute any alcohol or drug abuse patient.[facility] CenterIn the event this information is protected by the Federal Confidentiality of Alcohol and Drug Abuse Patient Records regulations: The Federal rules restrict any use of the information to criminally investigate or prosecute any alcohol or drug abuse patient.[facility] CenterIn the event this information is protected by the Federal Confidentiality of Alcohol and Drug Abuse Patient Records regulations: The Federal rules restrict any use of the information to criminally investigate or prosecute any alcohol or drug abuse patient.[facility] CenterIn the event this information is protected by the Federal Confidentiality of Alcohol and Drug Abuse Patient Records regulations: The Federal rules restrict any use of the information to criminally investigate or prosecute any alcohol or drug abuse patient.[facility] CenterIn the event this information is protected by the Federal Confidentiality of Alcohol and Drug Abuse Patient Records regulations: The Federal rules restrict any use of the information to criminally investigate or prosecute any alcohol or drug abuse patient.[facility] CenterIn the event this information is protected by the Federal Confidentiality of Alcohol and Drug Abuse Patient Records regulations: The Federal rules restrict any use of the information to criminally investigate or prosecute any alcohol or drug abuse patient.[facility] CenterIn the event this information is protected by the Federal Confidentiality of Alcohol and Drug Abuse Patient Records regulations: The Federal rules restrict any use of the information to criminally investigate or prosecute any alcohol or drug abuse patient.[facility] CenterIn the event this information is protected by the Federal Confidentiality of Alcohol and Drug Abuse Patient Records regulations: The Federal rules restrict any use of the information to criminally investigate or prosecute any alcohol or drug abuse patient.[facility] CenterIn the event this information is protected by the Federal Confidentiality of Alcohol and Drug Abuse Patient Records regulations: The Federal rules restrict any use of the information to criminally investigate or prosecute any alcohol or drug abuse patient.[facility] CenterIn the event this information is protected by the Federal Confidentiality of Alcohol and Drug Abuse Patient Records regulations: The Federal rules restrict any use of the information to criminally investigate or prosecute any alcohol or drug abuse patient.[facility] CenterIn the event this information is protected by the Federal Confidentiality of Alcohol and Drug Abuse Patient Records regulations: The Federal rules restrict any use of the information to criminally investigate or prosecute any alcohol or drug abuse patient.[facility] CenterIn the event this information is protected by the Federal Confidentiality of Alcohol and Drug Abuse Patient Records regulations: The Federal rules restrict any use of the information to criminally investigate or prosecute any alcohol or drug abuse patient.[facility] CenterIn the event this information is protected by the Federal Confidentiality of Alcohol and Drug Abuse Patient Records regulations: The Federal rules restrict any use of the information to criminally investigate or prosecute any alcohol or drug abuse patient.[facility] CenterIn the event this information is protected by the Federal Confidentiality of Alcohol and Drug Abuse Patient Records regulations: The Federal rules restrict any use of the information to criminally investigate or prosecute any alcohol or drug abuse patient.[facility] CenterIn the event this information is protected by the Federal Confidentiality of Alcohol and Drug Abuse Patient Records regulations: The Federal rules restrict any use of the information to criminally investigate or prosecute any alcohol or drug abuse patient.[facility] CenterIn the event this information is protected by the Federal Confidentiality of Alcohol and Drug Abuse Patient Records regulations: The Federal rules restrict any use of the information to criminally investigate or prosecute any alcohol or drug abuse patient.[facility] CenterIn the event this information is protected by the Federal Confidentiality of Alcohol and Drug Abuse Patient Records regulations: The Federal rules restrict any use of the information to criminally investigate or prosecute any alcohol or drug abuse patient.[facility] CenterIn the event this information is protected by the Federal Confidentiality of Alcohol and Drug Abuse Patient Records regulations: The Federal rules restrict any use of the information to criminally investigate or prosecute any alcohol or drug abuse patient.[facility] CenterIn the event this information is protected by the Federal Confidentiality of Alcohol and Drug Abuse Patient Records regulations: The Federal rules restrict any use of the information to criminally investigate or prosecute any alcohol or drug abuse patient.[facility] CenterIn the event this information is protected by the Federal Confidentiality of Alcohol and Drug Abuse Patient Records regulations: The Federal rules restrict any use of the information to criminally investigate or prosecute any alcohol or drug abuse patient.[facility] CenterIn the event this information is protected by the Federal Confidentiality of Alcohol and Drug Abuse Patient Records regulations: The Federal rules restrict any use of the information to criminally investigate or prosecute any alcohol or drug abuse patient.[facility] CenterIn the event this information is protected by the Federal Confidentiality of Alcohol and Drug Abuse Patient Records regulations: The Federal rules restrict any use of the information to criminally investigate or prosecute any alcohol or drug abuse patient.[facility] CenterIn the event this information is protected by the Federal Confidentiality of Alcohol and Drug Abuse Patient Records regulations: The Federal rules restrict any use of the information to criminally investigate or prosecute any alcohol or drug abuse patient.[facility] CenterIn the event this information is protected by the Federal Confidentiality of Alcohol and Drug Abuse Patient Records regulations: The Federal rules restrict any use of the information to criminally investigate or prosecute any alcohol or drug abuse patient.[facility] CenterIn the event this information is protected by the Federal Confidentiality of Alcohol and Drug Abuse Patient Records regulations: The Federal rules restrict any use of the information to criminally investigate or prosecute any alcohol or drug abuse patient.[facility] Reason for Visit (unrecogniz ed section and content) Reason Comments Outpatient Colonoscopy due to family his tory of colon cancer Constipation goes every other day and takes colace daily Specialty Diagnoses / Procedures Referred By Estephania pena Referred To Contact General Surgery Diagnoses Internal hemorrhoids Family hx of colon cancer Procedures CONSULT TO GENERAL SURGERY OFFICE/OUTPATIENT NEW HIGH MDM 60-74 MINUTES Fadia Berger, IKER.COVERED BUTTON MAKER [address] [place] [address] Referral ID Status Reason Start Date Expiration Date V isits Requested Visits Authorized [id number] Closed PCP Requested Referral 11/27/2021 11/27/2022 1 1 Reason Comments Kidney Stones Reason Onset Date Comments Refill Request 06/10/2022 Reason Comments Sore Throat Olegario ear pain x 2 day s Reason Comments Initial OB Visit Reason Comments Sinus Problem Reason Comments US Specialty Diagnoses / Procedures Referred By Contac t Referred To Contact [facility] Diagnoses AMA (advanced maternal age) multigravida 35+, first trimester Procedures NUCHAL TRANSLUCENCY WHI US NUCHAL TRANSLUCENCY 1ST GESTATION Saray Cline MD [address] [place] [address] [facility] [address] [place] [address] Referral ID Status Reason Start Date Expiration Date V isits Requested Visits Authorized [id number] Closed Auto-Generate d Referral 09/13/2022 09/13/2023 1 1 Reason Comments NIPT results Reason Comments Viral Syndrome Reason Comments Cough Cough, ST, sinus pre ssure and [place] x 4 days Reason Onset Date Comments Care 11/08/2022 Specialty Diagnoses / Procedures Referred By Contac t Referred To Contact [facility] Diagnoses AMA (advanced maternal age) multigravida 35+, first trimester Procedures OBSTETRIC ULTRASOUND WHI US PREG UTERUS AFTER 1ST TRIMEST GESTATION Saray Cline MD [address] [place] [address] [facility] [address] [place] [address] Referral ID Status Reason Start Date Expiration Date V isits Requested Visits Authorized [id number] Closed Auto-Generate d Referral 09/13/2022 09/13/2023 1 1 Reason Onset Date Comments Care 01/19/2023 Specialty Diagnoses / Procedures Referred By Contac t Referred To Contact Diagnoses Abnormal maternal glucose tolerance, antepartum 28 weeks gestation of Procedures CONSULT TO DIABETES EDUCATION DSME/MNT MEDICAL NUTRITION ASSMT&IVNTJ INDIV EACH 15 [place] MEDICAL NUTRITION ASSMT&IVNTJ INDIV EACH 15 [place] MEDICAL NUTRITION ASSMT&IVNTJ INDIV EACH 15 [place] MEDICAL NUTRITION ASSMT&IVNTJ INDIV EACH 15 [place] Saray Cline MD [address] [place] [address] Referral ID Status Reason Start Date Expiration Date V isits Requested Visits Authorized [id number] Closed PCP Requested Referral 01/19/2023 01/19/2024 1 1 Reason Onset Date Comments Care 02/01/2023 Reason Comments Refill Request Reason Comments Blood Management Reason Comments Benefits Investigation Reason Onset Date Comments Care 03/14/2023 Reason Comments Non-Chemotherapy Treatment Specialty Diagnoses / Procedures Referred By Contac t Referred To Contact Diagnoses Maternal iron deficiency anemia complicating , third trimester Iron malabsorption Procedures IRON SUCROSE INJECTION PER 1 MG Saray Cline MD [address] [place] [address] [facility] [address] [place] [address] Referral ID Status Reason Start Date Expiration Date V isits Requested Visits Authorized [id number] Authorized 03/02/2023 09/25/2023 99 99 Specialty Diagnoses / Procedures Referred By Contac t Referred To Contact [facility] Diagnoses Gestational diabetes mellitus, class A1 Multigravida of advanced maternal age in third trimester Procedures OBSTETRIC ULTRASOUND WHI US PREG UTERUS AFTER 1ST TRIMEST GESTATION Saray Cline MD [address] [place] [address] [facility] [address] [place] [address] Referral ID Status Reason Start Date Expiration Date V isits Requested Visits Authorized [id number] Closed Auto-Generate d Referral 02/14/2023 02/14/2024 1 1 Reason Onset Date Comments Care 03/21/2023 Reason Onset Date Comments Care 03/28/2023 Reason Comments Ob Delivery Note Reason Comments Care Reason Comments Surgery Scheduled Reason Comments Sinus Problem Headache Reason Comments UTI Reason Comments Yearly Exam Reason Comments Yearly Exam Reason Comments Sinus Problem Sinus pain x 6 weeks Reason Onset Date Comments Refill Request 10/08/2024 Reason Onset Date Comments Refill Request 10/11/2024 Reason Comments Consult Reason Comments Physical Insurance Physical Reason Comments Patient Update Reason Comments Kidney Stones Reason Onset Date Comments Refill Request 04/24/2025 Care Teams (unrecognized sec tion and content) Sorting Machine Attendant Relationship Specialty Start Date End Date Fadia Berger, CAREER DEVELOPMENT ASSOCIATE.[employer] [address] [place] [address] PCP - General Family Practice 07/28/20 Sorting Machine Attendant Relationship Specialty Start Date End Date Fadia Berger, CAREER DEVELOPMENT ASSOCIATE.[employer] [address] [place] [address] PCP - General Family Practice 07/28/20 Sorting Machine Attendant Relationship Specialty Start Date End Date Fadia Berger, CAREER DEVELOPMENT ASSOCIATE.[employer]OVERED [employer] [address] [place] [address] PCP - General Family Practice 07/28/20 Sorting Machine Attendant Relationship Specialty Start Date End Date Fadia Berger, CAREER DEVELOPMENT ASSOCIATE.[employer]ED [employer] [address] [place] [address] PCP - General Family Practice 07/28/20 Sorting Machine Attendant Relationship Specialty Start Date End Date Fadia Berger, CAREER DEVELOPMENT ASSOCIATE.[employer]OVERED [employer] [address] [place] [address] PCP - General Family Practice 07/28/20 Sorting Machine Attendant Relationship Specialty Start Date End Date Fadia Berger, CAREER DEVELOPMENT ASSOCIATE.[employer]OVERED [employer] [address] [place] [address] PCP - General Family Practice 07/28/20 Sorting Machine Attendant Relationship Specialty Start Date End Date Fadia Berger, CAREER DEVELOPMENT ASSOCIATE.[employer]OVERED [employer] [address] [place] [address] PCP - General Family Practice 07/28/20 Sorting Machine Attendant Relationship Specialty Start Date End Date Fadia Berger, CAREER DEVELOPMENT ASSOCIATE.COVERED [employer] [address] [place] [address] PCP - General Family Medicine 07/28/20 Sorting Machine Attendant Relationship Specialty Start Date End Date Fadia Berger, CAREER DEVELOPMENT ASSOCIATE.COVERED [employer] [address] [place] [address] PCP - General Family Medicine 07/28/20 Sorting Machine Attendant Relationship Specialty Start Date End Date Fadia Berger, CAREER DEVELOPMENT ASSOCIATE.COVERED [employer] [address] [place] [address] PCP - General Family Medicine 07/28/20 Sorting Machine Attendant Relationship Specialty Start Date End Date Fadia Berger, CAREER DEVELOPMENT ASSOCIATE.COVERED [employer] [address] [place] [address] PCP - General Family Medicine 07/28/20 Sorting Machine Attendant Relationship Specialty Start Date End Date Fadia Berger, CAREER DEVELOPMENT ASSOCIATE.COVERED [employer] [address] [place] [address] PCP - General Family Medicine 07/28/20 Sorting Machine Attendant Relationship Specialty Start Date End Date Fadia Berger, CAREER DEVELOPMENT ASSOCIATE.COVERED [employer] [address] [place] [address] PCP - General Family Medicine 07/28/20 Sorting Machine Attendant Relationship Specialty Start Date End Date Fadia Berger, CAREER DEVELOPMENT ASSOCIATE.COVERED [employer] [address] [place] [address] PCP - General Family Medicine 07/28/20 Sorting Machine Attendant Relationship Specialty Start Date End Date Fadia Berger, CAREER DEVELOPMENT ASSOCIATE.COVERED [employer]KER [address] [place] [address] PCP - General Family Medicine 07/28/20 Sorting Machine Attendant Relationship Specialty Start Date End Date Fadia Berger, CAREER DEVELOPMENT ASSOCIATE.COVERED [employer] [address] [place] [address] PCP - General Family Medicine 07/28/20 Sorting Machine Attendant Relationship Specialty Start Date End Date CelineFadia, CAREER DEVELOPMENT ASSOCIATE.COVERED [employer] MAKER [address] [place] [address] PCP - General Family Medicine 07/28/20 Sorting Machine Attendant Relationship Specialty Start Date End Date Fadia Berger, CAREER DEVELOPMENT ASSOCIATE.COVERED [employer] MAKER [address] [place] [address] PCP - General Family Medicine 07/28/20 Sorting Machine Attendant Relationship Specialty Start Date End Date CelineFadia, CAREER DEVELOPMENT ASSOCIATE.COVERED [employer] [address] [place] [address] PCP - General Family Medicine 07/28/20 Sorting Machine Attendant Relationship Specialty Start Date End Date CelineFadia, CAREER DEVELOPMENT ASSOCIATE.COVERED [employer] [address] [place] [address] PCP - General Family Medicine 07/28/20 Sorting Machine Attendant Relationship Specialty Start Date End Date CelineFadia, CAREER DEVELOPMENT ASSOCIATE.COVERED [employer]KER [address] [place] [address] PCP - General Family Medicine 07/28/20 Sorting Machine Attendant Relationship Specialty Start Date End Date CelineFadia, CAREER DEVELOPMENT ASSOCIATE.COVERED [employer] MAKER [address] [place] [address] PCP - General Family Medicine 07/28/20 Sorting Machine Attendant Relationship Specialty Start Date End Date CelineFadia, CAREER DEVELOPMENT ASSOCIATE.COVERED [employer] MAKER [address] [place] [address] PCP - General Family Medicine 07/28/20 Sorting Machine Attendant Relationship Specialty Start Date End Date Fadia Berger, CAREER DEVELOPMENT ASSOCIATE.COVERED [employer] MAKER [address] [place] [address] PCP - General Family Medicine 07/28/20 Sorting Machine Attendant Relationship Specialty Start Date End Date Celine, Fadia, CAREER DEVELOPMENT ASSOCIATE.COVERED [employer]KER [address] [place] [address] PCP - General Family Medicine 07/28/20 Sorting Machine Attendant Relationship Specialty Start Date End Date , CAREER DEVELOPMENT ASSOCIATE.COVERED [employer]KER [address] [place] [address] PCP - General Family Medicine 07/28/20 Sorting Machine Attendant Relationship Specialty Start Date End Date Celine, CAREER DEVELOPMENT ASSOCIATE.COVERED [employer] MAKER [address] [place] [address] PCP - General Family Medicine 07/28/20 Team Status: Active Member Role Status Dates No Primary Care Physician Family Provider Active Fadia Berger BIOCHEMISTRY TECHNOLOGIST, BIOCHEMISTRY TECHNOLOGIST-C Primary Care Provider Active Team Status: Inactive Member Role Status Dates Fadia Berger BIOCHEMISTRY TECHNOLOGIST, BIOCHEMISTRY TECHNOLOGIST-C Primary Care Provider Active Dr. Saray Parrish MD Admit Provider, Atten ding Provider Active Sorting Machine Attendant Relationship Specialty Start Date End Date , CAREER DEVELOPMENT ASSOCIATE.COVERED [employer]KER [address] [place] [address] PCP - General Family Medicine 07/28/20 Sorting Machine Attendant Relationship Specialty Start Date End Date , CAREER DEVELOPMENT ASSOCIATE.COVERED [employer]KER [address] [place] [address] PCP - General Family Medicine 07/28/20 Sorting Machine Attendant Relationship Specialty Start Date End Date , CAREER DEVELOPMENT ASSOCIATE.COVERED [employer]TON MAKER [address] [place] [address] PCP - General Family Medicine 07/28/20 Sorting Machine Attendant Relationship Specialty Start Date End Date , CAREER DEVELOPMENT ASSOCIATE.COVERED [employer]TON MAKER [address] [place] [address] PCP - General Family Medicine 07/28/20 Sorting Machine Attendant Relationship Specialty Start Date End Date [facility], CAREER DEVELOPMENT ASSOCIATE.COVERED BUTTON MAKER [address] [place] [address] PCP - General Family Medicine 07/28/20 Sorting Machine Attendant Relationship Specialty Start Date End Date [facility], CAREER DEVELOPMENT ASSOCIATE.COVERED BUTTON MAKER [address] [place] [address] PCP - General Family Medicine 07/28/20 Sorting Machine Attendant Relationship Specialty Start Date End Date [facility], CAREER DEVELOPMENT ASSOCIATE.COVERED BUTTON MAKER [address] [place] [address] PCP - General Family Medicine 07/28/20 Sorting Machine Attendant Relationship Specialty Start Date End Date [facility], CAREER DEVELOPMENT ASSOCIATE.COVERED BUTTON MAKER [address] [place] [address] PCP - General Family Medicine 07/28/20 Sorting Machine Attendant Relationship Specialty Start Date End Date [facility], CAREER DEVELOPMENT ASSOCIATE.COVERED BUTTON MAKER [address] [place] [address] PCP - General Family Medicine 07/28/20 Sorting Machine Attendant Relationship Specialty Start Date End Date [facility], CAREER DEVELOPMENT ASSOCIATE.COVERED BUTTON MAKER [address] [place] [address] PCP - General Family Medicine 07/28/20 Sorting Machine Attendant Relationship Specialty Start Date End Date [facility], CAREER DEVELOPMENT ASSOCIATE.COVERED BUTTON MAKER [address] [place] [address] PCP - General Family Medicine 07/28/20 Sorting Machine Attendant Relationship Specialty Start Date End Date [facility] CAREER DEVELOPMENT ASSOCIATE.COVERED BUTTON MAKER [address] [place] [address] PCP - General Family Medicine 07/28/20 Miriam Stone, CAREER DEVELOPMENT ASSOCIATE.COVERED BUTTON MAKER [address] [facility] [place] [address] Ambulatory Care Nurse [facility] Medicine 09/03/24 Jorge Epperson DO [address] [facility] [place] [address] [facility] 09/03/24 Sorting Machine Attendant Relationship Specialty Start Date End Date [facility], CAREER DEVELOPMENT ASSOCIATE.COVERED BUTTON MAKER [address] [facility] [place] [address] PCP - General Family Medicine 07/28/20 Miriam Stone, CAREER DEVELOPMENT ASSOCIATE.COVERED BUTTON MAKER [address] [facility] [place] [address] [facility] Medicine 09/03/24 Jorge Epperson DO [address] [facility] [place] [address] [facility] Sorting Machine Attendant Relationship Specialty Start Date End Date [facility], CAREER DEVELOPMENT ASSOCIATE.COVERED BUTTON MAKER [address] [facility] [place] [address] PCP - General Family Medicine 07/28/20 Miriam Stone, CAREER DEVELOPMENT ASSOCIATE.COVERED BUTTON MAKER [address] [facility] [place] [address] Ambulatory Care Nurse Family Medicine 09/03/24 Jorge Epperson DO [address] [place] [address] Ambulatory Care Nurse Family Medicine 09/03/24 Sorting Machine Attendant Relationship Specialty Start Date End Date Fadia Berger, CAREER DEVELOPMENT ASSOCIATE.COVERED BUTTON MAKER [address] [place] [address] PCP - General Family Medicine 07/28/20 Miriam Stone, CAREER DEVELOPMENT ASSOCIATE.COVERED BUTTON MAKER [address] [facility] [place] [address] Ambulatory Care Nurse Family Medicine 09/03/24 Jorge Epperson DO [address] [facility] [place] [address] [facility] Sorting Machine Attendant Relationship Specialty Start Date End Date CelineFadia, CAREER DEVELOPMENT ASSOCIATE.COVERED BUTTON MAKER [address] [place] [address] PCP - General Family Medicine 07/28/20 Miriam Stone, CAREER DEVELOPMENT ASSOCIATE.COVERED BUTTON MAKER [address] [place] [address] Ambulatory Care Nurse Family Medicine 09/03/24 Jorge Epperson DO [address] [facility] [place] [address] [facility] 09/03/24 Sorting Machine Attendant Relationship Specialty Start Date End Date Fadia Berger, CAREER DEVELOPMENT ASSOCIATE.COVERED BUTTON MAKER [address] [place] [address] PCP - General Family Medicine 07/28/20 Miriam Stone, CAREER DEVELOPMENT ASSOCIATE.COVERED BUTTON MAKER [address] [facility] [place] [address] Ambulatory Care Nurse Family Medicine 09/03/24 Jorge Epperson DO [address] [place] [address] Ambulatory Care Nurse Family Medicine 09/03/24 Sorting Machine Attendant Relationship Specialty Start Date End Date Fadia Berger, CAREER DEVELOPMENT ASSOCIATE.COVERED BUTTON MAKER [address] [address] PCP - General Family Medicine 07/28/20 Miriam Stone, CAREER DEVELOPMENT ASSOCIATE.COVERED BUTTON MAKER [address] [place] [address] Ambulatory Care Nurse Family Medicine 09/03/24 Jorge Epperson DO [address] [place] [address] Ambulatory Care Nurse Family Medicine 09/03/24 Sorting Machine Attendant Relationship Specialty Start Date End Date Fadia Berger, CAREER DEVELOPMENT ASSOCIATE.COVERED BUTTON MAKER [address] [place] [address] PCP - General Family Medicine 07/28/20 Miriam Stone, CAREER DEVELOPMENT ASSOCIATE.COVERED BUTTON MAKER [address] [place] [address] Ambulatory Care Nurse Family Medicine 09/03/24 Jorge Epperson DO [address] [facility] [place] [address] Ambulatory Care Nurse Family Medicine 09/03/24 Sorting Machine Attendant Relationship Specialty Start Date End Date Fadia Berger, CAREER DEVELOPMENT ASSOCIATE.COVERED BUTTON MAKER [address] [place] [address] PCP - General Family Medicine 07/28/20 Miriam Stone, CAREER DEVELOPMENT ASSOCIATE.COVERED BUTTON MAKER [address] [facility] [place] [address] Ambulatory Care Nurse Family Medicine 09/03/24 Jorge Epperson DO [address] [facility] [place] [address] Ambulatory Care Nurse Family Medicine 09/03/24 Sorting Machine Attendant Relationship Specialty Start Date End Date CelineFadia, CAREER DEVELOPMENT ASSOCIATE.COVERED BUTTON MAKER [address] [facility] [place] [address] PCP - General Family Medicine 07/28/20 Miriam Stone, CAREER DEVELOPMENT ASSOCIATE.COVERED BUTTON MAKER [address] [facility] [place] [address] Ambulatory Care Nurse Family Medicine 09/03/24 Jorge Epperson DO [address] [facility] [place] [address] Ambulatory Care Nurse Family Medicine 09/03/24 Sorting Machine Attendant Relationship Specialty Start Date End Date Fadia Berger, CAREER DEVELOPMENT ASSOCIATE.COVERED BUTTON MAKER [address] [facility] [place] [address] PCP - General Family Medicine 07/28/20 Miriam Stone, CAREER DEVELOPMENT ASSOCIATE.COVERED BUTTON MAKER [address] [facility] [place] [address] Ambulatory Care Nurse Family Medicine 09/03/24 Jorge Epperson DO [address] [facility] [place] [place] [address] Ambulatory Care Nurse Family Medicine 09/03/24 Sorting Machine Attendant Relationship Specialty Start Date End Date CelineFadia APRN.COVERED BUTTON MAKER [address] [place], [place] [id number] PCP - General Family Medicine 07/28/20 Miriam Stone APRN.COVERED BUTTON MAKER [address] [place] [address] [facility] 09/03/24 Jorge Epperson DO [address] [place], [place] [id number] [facility] 09/03/24 Goals (unrecognized section and content) Goals may be documented in a n alternate section FOR RECORDS PERTAINING TO PATIENTS WHO ARE OR HAVE BEEN ENROLLED IN A CHEMICAL DEPENDENCY/SUBSTANCEABUSE PROGRAM, SOME INFORMATION MAY BE OMITTED. This clinical summary was aggregated from multiple sources. Caution should be exercised in using it in the provision of clinical care. This summary normalizes information from multiple sources, and as a consequence, information in this document may materially change the coding, format and clinical context of patient data. In addition, data may be omitted in some cases. CLINICAL DECISIONS SHOULD BE BASED ON THE PRIMARY CLINICAL RECORDS. [employer] [facility]. provides no warranty or guarantee of the accuracy or completeness of information in this document.
[2025-06-15 22:14] LABS: Anion Gap 13 (5-15); BUN 13 mg/dL (4-19); BUN/Creat Ratio 17.2 RATIO (10-20); Calcium,Total 9.7 mg/dL (7.6-11.0); Carbon Dioxide 23.9 mmol/L (21.0-32.0); Chloride 103 mmol/L (98-108); Estimated Creatinine Clearance 83.60 ml/min (50-250); Glucose 96 mg/dL (70-99); Potassium 3.7 mmol/L (3.3-5.1)
[2025-06-15] MEDS: HYDROmorphone 0.5 MG/0.5 ML SYRINGE IV (22:37)
[2025-06-15 22:50] LABS: Hematocrit 40.5 % (37-47); Hemoglobin 13.7 g/dL (12.0-15.0); Immature Granulocytes Count 0.010 X10^3/uL (0.0-0.0); Mean Corp Hgb Conc 33.8 g/dL (32-36); Mean Corpuscular Volume 89.8 fL (81-99); Mean Platelet Vol. 9.5 fl (6.2-12.0); NRBC Flagged by Analyzer 0 % (0-5); Platelet Count 331 K/mm3 (150-450); RBC Distribution Width CV 11.6 % (11.6-14.6); RBC Distribution Width SD 38.1 fl (35.1-43.9); Red Blood Count 4.51 M/mm3 (4.2-5.4); White Blood Count 8.7 K/mm3 (4.4-11.0)
[2025-06-15 23:03] LABS: Red Blood Cells-Urine > 100 SEEN /hpf (0-5); Squamous Epithelial Cells - UA 0-5 SEEN /hpf (5-10)
[2025-06-15 23:08] VITALS: BP 136/89; PULSE 67; RESP 16; O2SAT 97
[2025-06-16 00:17] VITALS: BP 133/80; PULSE 68; RESP 16; TEMP 36.6; O2SAT 98
== END 2025-06-16 00:26 | disposition home or self-care (01) ==
PROVIDERS: Emergency Provider Emergency Medicine; PCP Nurse Practitioner Family; Visit Provider Emergency Medicine
DX: R10.9 Unspecified abdominal pain (principal); N20.9 Urinary calculus, unspecified
CPT/HCPCS: 74176; 80048; 81001; 84703; 85025; 96361; 96374; 96375; 99283; A4216; J2405